=== PATIENT | female | born 1960 | race Caucasian/White ===

== ENCOUNTER → 2017-06-15 15:42 | Outpatient (CLI) | payer BC, SELFPAY ==
--- NOTE | 2017-06-15 15:50 | XR_ITS ---
EXAM: XR lumbar spine min 4V HISTORY: ITS.REASON: LOW BACK PAIN ORDERING PHYSICIAN: Sergio Hart MD PATIENT AGE: 56 years FINDINGS: There is normal alignment. Severe degenerative disc disease is present at T11-T12 T12-L1 and L1-L2. Anterior osteophytes are present at these levels with endplate sclerosis. There is facet arthritic changes at L4-L5 and L5-S1. No fracture or dislocation. No lytic or blastic change. Multiple oval opacities are present over the mid and lower abdomen and may be due to ingested medication. IMPRESSION: Severe degenerative disc disease and facet arthritic change as described above
--- NOTE | 2017-06-15 15:51 | XR_ITS ---
XR hip RT 2-3V w/pelvis HISTORY: Right hip pain ORDERING PHYSICIAN: Sergio Hart MD PATIENT AGE: 56 years FINDINGS: There are [id number] osteoarthritic changes of the right hip with decrease in joint space superiorly and mild osteosclerosis. No fracture or dislocation. There are mild osteoarthritic changes of the SI joints with spurring inferiorly. Multiple oval opacities are present over the lower abdomen on the right and may be due to ingested medication or other ingested material. IMPRESSION: Osteoarthritis of the right hip, SI joints, and to a lesser degree of the left hip
== END ==
PROVIDERS: PCP Family Medicine; Visit Provider Family Medicine
DX: M54.5 Low back pain (principal); M25.551 Pain in right hip; R10.2 Pelvic and perineal pain; W19.XXXA Unspecified fall, initial encounter
CPT/HCPCS: 72110; 73502

== ENCOUNTER → 2017-06-30 14:58 | Outpatient (CLI) | payer BC, SELFPAY ==
--- NOTE | 2017-06-30 15:41 | MR_ITS ---
MR lumbar spine wo con HISTORY: Low back pain and right leg pain with numbness and tingling since a recent fall ITS.REASON: LEFT SIDE SCIATICA, FALL ORDERING PHYSICIAN: A PATIENT AGE: 56 years COMPARISON: 08/14/2013 TECHNIQUE: Standard multiplanar multiecho sequences are performed without contrast. 3-D MIP and myelographic images are also rendered and reviewed FINDINGS: Spinal cord ends at the L1-L2 level. There is reversal of the thoracolumbar kyphosis. Degenerative disc disease is present at T11-T12. L1-L2: There is 6 mm retrolisthesis of L1 with degenerative disc disease at that level and bulging disc along facet and ligamentum flavum hypertrophy. There is moderate to severe right foraminal narrowing and severe left foraminal narrowing at L1-L2 with type II endplate changes. Anterior osteophytes are present. There is moderate anterior compression upon the thecal sac. L2-L3: Facet arthritic changes with transverse narrowing of the canal at 10 mm with bilateral lateral recess narrowing. L3-L4: Mild ligamentum flavum hypertrophy. L4-5: Minimal bulging disc along with facet and ligamentum hypertrophy with mild left lateral recess narrowing. L5-S1: Mild anterolisthesis of L5 on S1 5 mm. There is moderate facet hypertrophic change. No disc herniation evident. Compared to the previous exam degenerative disc disease at L1-L2 is slightly worse IMPRESSION: 1. Multilevel lumbar spondylosis with degenerative disc disease along with facet and ligamentum flavum hypertrophy as detailed above. Please see above for detailed description at each level. 2. 6 mm retrolisthesis of L1-L2 with degenerative disc disease at that level and bulging disc along facet and ligamentum flavum hypertrophy. There is moderate to severe right foraminal narrowing and severe left foraminal narrowing at L1-L2 with type II endplate changes. Anterior osteophytes are present. There is moderate anterior compression upon the thecal sac.
== END ==
PROVIDERS: Family Provider Family Medicine; PCP Family Medicine; Visit Provider Family Medicine
DX: M54.32 Sciatica, left side (principal)
CPT/HCPCS: 72148; 76376

== ENCOUNTER → 2017-11-21 09:29 | Outpatient (CLI) | payer BC, SELFPAY ==
[2017-11-21 11:41] LABS: Alanine Aminotransferase 21 U/L (12-78); Albumin Level 3.8 gm/dL (3.4-5.0); Alkaline Phosphatase 147 U/L (46-116); Anion Gap 16.9 mEq/L (5-15); Aspartate Amino Transferase 14 U/L (15-37); Bilirubin,Total 0.3 mg/dL (0.2-1.0); Blood Urea Nitrogen 36 mg/dL (7-18); Calcium 9.5 mg/dL (8.5-10.1); Carbon Dioxide 25 mmol/L (21.0-32.0); Chloride 104 mmol/L (98-107); Chol/HDL Ratio 3.8 (1-3.5); Cholesterol 260 mg/dL (140-200); Creatinine,Serum 1.35 mg/dL (0.55-1.02); Estimated Glomerular Filt Rate 41 ml/min (>60); GFR (African American) 49 ML/MIN (>60); Globulin 3.7 gm/dl (1.3-3.2); Glucose 107 mg/dL (74-106); HDL Cholesterol 68 mg/dL (29-89); LDL Cholesterol 174 mg/dL (0-130); Potassium 5.9 mmoL/L (3.5-5.1); Sodium 140 mmol/L (136-145); Thyroid Stimulating Hormone 4.91 uIU/ml (0.358-3.740); Total Protein,Serum 7.5 gm/dL (6.4-8.2); Triglycerides 90 mg/dL (30-200); VLDL Cholesterol 18 mg/dL (0-40)
== END ==
PROVIDERS: PCP Family Medicine; Visit Provider Family Medicine
DX: E78.5 Hyperlipidemia, unspecified (principal); E03.9 Hypothyroidism, unspecified
CPT/HCPCS: 36415; 80053; 80061; 84443

== ENCOUNTER → 2018-04-09 13:28 | Outpatient (POV) | payer BC, SELFPAY ==
[2018-04-09 13:53] VITALS: BP 157/87; PULSE 87; RESP 18; O2SAT 99
--- NOTE | 2018-04-10 08:57 | HMH.PMCON ---
Assessment and Plan (1) Degenerative disc disease Current visit: Yes Status: Chronic Qualifiers: Spinal region: lumbar Qualified Code(s): M51.36 - Other intervertebral disc degeneration, lumbar region Category: Medical (2) Lumbar radiculopathy Current visit: Yes Status: Chronic Category: Medical Code(s): M54.16 - Radiculopathy, lumbar region - Assessment and plan all Dx Assessment and Plan for all problems:: We will schedule an L1-L2 lumbar epidural steroid injection for the patient since she is done so well with this in the past we will refill her tramadol 50 mg 1 p.o. twice daily along with Flexeril 10 mg 1 p.o. 3 times daily as needed. I will follow-up with the patient after her injection and reassess her symptoms at that time. Dr. Carreon has reviewed this note and agrees with this plan of care. This note was dictated using voice recognition software and may contain errors or omissions HPI - Data of Consult Consult date: 04/09/18 Requesting Physician: Ruth Santana APRN Primary Care Provider: Sergio Hart MD - Consult Narrative Reason for consult: Back pain History of present illness: Ms. Mejia is a 57 year old female who presents today to discuss her chronic low back pain. Patient was being seen and receiving epidurals from [facility] at the L1-L2 level. Patient was then sent to Dr. Carias. Patient did not like her interaction with Dr. Carias and decided to transfer care here. Patient has had facet joint injections in the past along with rhizotomies. She is also been lumbar epidural steroid injections which have been most helpful for her. She is currently in physical therapy. Patient believes that another injection may help with her functionality. She states she gets up to 80% relief of her symptoms for up to 2 months. She is not on any anticoagulation therapy. She rates the pain a 5 out of 10 today. Patient also on tramadol and Flexeril. She is interested in continuing these. CC: Ruth Santana APRN [facility] History I have reviewed the patient's past medical history: Yes Medical History: Reports:: Hyperlipidemia, Hypertension, Palpitations Other Surgeries: Yes: Cardiac Catheterization, Tubal Ligation - *Social History Smoking Status: Current every day smoker Tobacco Type: cigarettes # Packs/Day (cigarettes): 1 Alcohol Intake: never *Occupational Status:: disabled Housing: house *Travel in the last 8 weeks: None - Psychiatric History Expresses thoughts of harming self/others: None Suicide Plan Description: No Plan Family Hx:: Unable to obtain Review of Systems - Review of Systems ROS General: no recent weight change, no fever, no sleep disturbances Respiratory: no cough, no shortness of air, no recurring pulmonary infections Cardiovascular/Peripheral Vascular: No chest pain, No palpitations, no edema, no shortness of breath. Gastrointestinal: no incontinence, normal bowel movements reported Genitourinary: no incontinence Musculoskeletal: Back pain, leg pain Psychiatric: normal mood/ affect, [denies depression], [denies anxiety] Neurological: [denies weakness in extremities], [denies balance issues] Meds Allergies Allergy/AdvReac Type Severity Reaction Status Date / Time From Hydromorphone HCl Allergy Severe I-ITCHING Uncoded 02/07/17 14:34 From Venlafaxine Allergy Mild I-RASH Uncoded 02/07/17 14:34 Hydrochloride Ofloxacin Allergy Mild I-HIVES Uncoded 02/07/17 14:34 CIPROFLOXACIN Allergy Unknown I-RASH Uncoded 02/07/17 14:34 From VICODIN Allergy Unknown Uncoded 02/07/17 14:34 Objective Vital signs: Pulse Resp BP Pulse Ox 87 18 157/87 H 99 04/09/18 13:53 04/09/18 13:53 04/09/18 13:53 04/09/18 13:53 Narrative: Physical Exam General: Alert and oriented x3, no acute distress, pleasant and cooperative, [on room air] Lungs: Resps E/U, Symmetrical chest expansion Eyes: PERRL Musculoskeletal: Flexi
--- NOTE | 2018-04-10 09:00 | P.CONS_ITS ---
Assessment and Plan (1) Degenerative disc disease Current visit: Yes Status: Chronic Qualifiers: Spinal region: lumbar Qualified Code(s): M51.36 - Other intervertebral disc degeneration, lumbar region Category: Medical (2) Lumbar radiculopathy Current visit: Yes Status: Chronic Category: Medical Code(s): M54.16 - Radiculopathy, lumbar region - Assessment and plan all Dx Assessment and Plan for all problems:: We will schedule an L1-L2 lumbar epidural steroid injection for the patient since she is done so well with this in the past we will refill her tramadol 50 mg 1 p.o. twice daily along with Flexeril 10 mg 1 p.o. 3 times daily as needed. I will follow-up with the patient after her injection and reassess her symptoms at that time. Dr. Carreon has reviewed this note and agrees with this plan of care. This note was dictated using voice recognition software and may contain errors or omissions HPI - Data of Consult Consult date: 04/09/18 Requesting Physician: Ruth Santana APRN Primary Care Provider: Sergio Hart MD - Consult Narrative Reason for consult: Back pain History of present illness: Ms. Mejia is a 57 year old female who presents today to discuss her chronic low back pain. Patient was being seen and receiving epidurals from [facility] at the L1-L2 level. Patient was then sent to Dr. Carias. Patient did not like her interaction with Dr. Carias and decided to transfer care here. Patient has had facet joint injections in the past along with rhizotomies. She is also been lumbar epidural steroid injections which have been most helpful for her. She is currently in physical therapy. Patient believes that another injection may help with her functionality. She states she gets up to 80% relief of her symptoms for up to 2 months. She is not on any anticoagulation therapy. She rates the pain a 5 out of 10 today. Patient also on tramadol and Flexeril. She is interested in continuing these. CC: Ruth Santana APRN [facility] History I have reviewed the patient's past medical history: Yes Medical History: Reports:: Hyperlipidemia, Hypertension, Palpitations Other Surgeries: Yes: Cardiac Catheterization, Tubal Ligation - *Social History Smoking Status: Current every day smoker Tobacco Type: cigarettes # Packs/Day (cigarettes): 1 Alcohol Intake: never *Occupational Status:: disabled Housing: house *Travel in the last 8 weeks: None - Psychiatric History Expresses thoughts of harming self/others: None Suicide Plan Description: No Plan Family Hx:: Unable to obtain Review of Systems - Review of Systems ROS General: no recent weight change, no fever, no sleep disturbances Respiratory: no cough, no shortness of air, no recurring pulmonary infections Cardiovascular/Peripheral Vascular: No chest pain, No palpitations, no edema, no shortness of breath. Gastrointestinal: no incontinence, normal bowel movements reported Genitourinary: no incontinence Musculoskeletal: Back pain, leg pain Psychiatric: normal mood/ affect, [denies depression], [denies anxiety] Neurological: [denies weakness in extremities], [denies balance issues] Meds Allergies Allergy/AdvReac Type Severity Reaction Status Date / Time From Hydromorphone HCl Allergy Severe I-ITCHING Uncoded 02/07/17 14:34 From Venlafaxine Allergy Mild I-RASH Uncoded 02/07/17 14:34 Hydrochloride Ofloxacin Allergy Mild I-HIVES Uncoded 02/07/17 14:34
== END ==
PROVIDERS: PCP Family Medicine; Visit Provider Clinical Nurse Specialist Family Health
DX: M51.16 Intervertebral disc disorders with radiculopathy, lumbar region (principal)
CPT/HCPCS: 99202

== ENCOUNTER → 2018-05-08 07:57 | Outpatient (CLI) | payer BC, SELFPAY ==
--- NOTE | 2018-05-08 07:59 | MR_ITS ---
MR lumbar spine wo con, MR 3-d myelogram/MRCP HISTORY: LBP XYRS. RT leg numbness, pain, and unable to control leg. Incontinence since had epidural in back x2wks ago. No HX back surgery. ITS.REASON: LOW BACK PAIN ORDERING PHYSICIAN: Arnoldo Tafoya PATIENT AGE: 57 years Comparison: MRI 06-30-17 TECHNIQUE: Standard multiplanar multiecho sequences are performed without contrast. 3-D MIP and myelographic images are also rendered and reviewed FINDINGS: There is reversal of the thoracolumbar lordosis. The spinal cord ends at the L1-L2 level. There is the appearance of thickening around the cauda equina. This however is questionable and may be related to the technique with mild motion artifact. Would suggest repeat exam without and with contrast to ensure that there is no enhancing lesion at this area.. T11-T12: Degenerative disc disease. Type I endplate changes are present at this level which have developed since the previous exam T12-L1: Degenerative disc disease with bulging disc. L1-L2: Degenerative disc disease with retrolisthesis of L1 of 7 mm. Transverse narrowing of the canal narrowed to secondary to facet and ligamentum flavum hypertrophy. There is severe bilateral foraminal narrowing at L1-L2 which does appear to be impinging upon the exiting L1 nerve roots. Type II endplate changes are present at this level. L2-L3: Mild bulging disc with mild facet and ligamentum flavum hypertrophy with mild right-sided foraminal narrowing. Mild bilateral lateral recess narrowing. L3-L4: Mild facet and ligamentum flavum hypertrophy. L4-L5: There is moderate facet hypertrophic change with mild bilateral foraminal narrowing and mild lateral recess narrowing. L5-S1: Mild anterolisthesis of L5 on S1 of 4 mm. There is a suspected left-sided pars defect. No extruded herniated disc are evident. IMPRESSION: 1. Multilevel degenerative disc disease with kyphosis at the thoracolumbar junction and bulging disc at T12-L1 and L1-L2 with 7 mm retrolisthesis of L1 on L2 with severe bilateral foraminal narrowing at that level. These findings are not significantly changed. 2. There is suggestion of thickening around the cauda equina. While this may be due to motion artifact, one cannot exclude an infiltrative process such as neoplasm or inflammation. Recommend repeat exam without and with gadolinium enhancement along with repeat sagittal T2-weighted images. 3. Degenerative disc disease at T12-L1 is somewhat worse from the previous study now with type I endplate changes 4. Multilevel lumbar spondylosis. Please see above for detailed description at each level.
== END ==
PROVIDERS: PCP Family Medicine; Visit Provider Orthopaedic Surgery
DX: M54.5 Low back pain (principal)
CPT/HCPCS: 72148; 76376

== ENCOUNTER → 2018-05-14 11:43 | Outpatient (POV) | payer BC, SELFPAY ==
[2018-05-14 11:57] VITALS: BP 141/78; PULSE 91; RESP 18; O2SAT 98; BMI 46.0
--- NOTE | 2018-05-14 12:42 | HMH.PAINSOAP ---
[facility] Pain Management SOAP Note Subjective:: Patient is a pleasant 57-year-old white female who presents today for follow-up. Patient did not have much relief from her epidural. Patient is having increased pain. Patient had a recent MRI showing a suggestion of thickening around the cauda equina. The radiologist cannot exclude an infiltrative process such as neoplasm or inflammation. Radiology recommendation was repeat exam without and with contrast along with repeat sagittal T2 weighted images. We will go forward with this. Patient states that she is having times of urinary incontinence. She states that she is unable to control her sphincter in order to have proper bowel movements. Patient has pain rating it an 8 out of 10. Patient is significantly decreased her functionality. Both legs are weak and she is utilizing a walker now. ROS General: no recent weight change, no fever, no sleep disturbances Respiratory: no cough, no shortness of air, no recurring pulmonary infections Cardiovascular/Peripheral Vascular: No chest pain, No palpitations, no edema, no shortness of breath. Gastrointestinal: Patient unable to control anal sphincter Genitourinary: New incontinence Musculoskeletal: Back pain, bilateral leg pain Psychiatric: Anxious Neurological: Bilateral weakness in lower extremities, utilizing walker for balance Objective:: Physical Exam General: Alert and oriented x3, no acute distress, pleasant and cooperative, [on room air] Lungs: Resps E/U, Symmetrical chest expansion, Eyes: PERRL Musculoskeletal: Flexion and extension of lumbar spine somewhat guarded secondary to pain, deep tendon reflexes normal, strength in upper remedies 5?5 and lower extremities [4/5], [abnormal gait noted] Neurological: speech clear, 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 We will get this as soon as possible follow-up with the patient as soon as possible. I did discuss with the patient if any symptoms worsen she is to go to the emergency room immediately. Dr. Carreon has reviewed this note and agrees with this plan of care. This note was dictated using voice recognition software and may contain errors or omissions
--- NOTE | 2018-05-14 12:47 | P.CONS_ITS ---
[facility] Pain Management SOAP Note Subjective:: Patient is a pleasant 57-year-old white female who presents today for follow-up. Patient did not have much relief from her epidural. Patient is having increased pain. Patient had a recent MRI showing a suggestion of thickening around the cauda equina. The radiologist cannot exclude an infiltrative process such as neoplasm or inflammation. Radiology recommendation was repeat exam without and with contrast along with repeat sagittal T2 weighted images. We will go forward with this. Patient states that she is having times of urinary incontinence. She states that she is unable to control her sphincter in order to have proper bowel movements. Patient has pain rating it an 8 out of 10. Pat ient is significantly decreased her functionality. Both legs are weak and she is utilizing a walker now. ROS General: no recent weight change, no fever, no sleep disturbances Respiratory: no cough, no shortness of air, no recurring pulmonary infections Cardiovascular/Peripheral Vascular: No chest pain, No palpitations, no edema, no shortness of breath. Gastrointestinal: Patient unable to control anal sphincter Genitourinary: New incontinence Musculoskeletal: Back pain, bilateral leg pain Psychiatric: Anxious Neurological: Bilateral weakness in lower extremities, utilizing walker for b alance Objective:: Physical Exam General: Alert and oriented x3, no acute distress, pleasant and cooperative, [on room air] Lungs: Resps E/U, Symmetrical chest expansion, Eyes: PERRL Musculoskeletal: Flexion and extension of lumbar spine somewhat guarded secondary to pain, deep tendon reflexes normal, strength in upper remedies 5?5 and lower extremities [4/5], [abnormal gait noted] Neurological: speech clear, 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 We will get this as soon as possible follow-up with the patient as soon as possible. I did discuss with the patient if any symptoms worsen she is to go to the emergency room immediately. Dr. Carreon has reviewed this note and agrees with this plan of care. This note was dictated using voice recognition software and may contain errors or omissions
== END ==
PROVIDERS: PCP Family Medicine; Visit Provider Clinical Nurse Specialist Family Health
DX: R93.89 Abnormal findings on diagnostic imaging of other specified body structures (principal); M47.9 Spondylosis, unspecified
CPT/HCPCS: 99213

== ENCOUNTER → 2018-05-28 08:13 | Outpatient (CLI) | payer BC, SELFPAY ==
[2018-05-28 08:33] LABS: Blood Urea Nitrogen 26 mg/dL (7-18); Creatinine,Serum 1.26 mg/dL (0.55-1.02); Estimated Glomerular Filt Rate 44 ml/min (>60); GFR (African American) 53 ML/MIN (>60)
--- NOTE | 2018-05-28 08:42 | MR_ITS ---
MR lumbar spine wo/w con, MR 3-d myelogram/MRCP HISTORY: LBP XYRS. No HX lumbar surgery. RT leg numbness. Incontience. abnormal ITS.REASON: BACK PAIN ORDERING PHYSICIAN: Ruth Santana PATIENT AGE: 57 years Comparison: MRI 05-08-18 TECHNIQUE: Standard multiplanar multiecho sequences are performed without and with gadolinium enhancement contrast. 3-D MIP and myelographic images are also rendered and reviewed FINDINGS: There is reversal of the thoracolumbar lordosis. The spinal cord ends at the L1-L2 level. There is no evidence of abnormal enhancement of the cauda equina. The appearance of the cauda equina on the previous study is just likely related to the layering of the nerve roots and the canal stenosis at the L1-L2 level the nerve roots do not appear clumped as one would expect for arachnoiditis. No significant change compared to the previous exam. T11-T12: Degenerative disc disease. Type I endplate changes are present at this level which have developed since the previous exam T12-L1: Degenerative disc disease with bulging disc. There are type I endplate changes. The endplates have decreased T1 and increased T2 signal with some mild endplate enhancement. L1-L2: Degenerative disc disease with retrolisthesis of L1 of 7 mm. Transverse narrowing of the canal narrowed to secondary to facet and ligamentum flavum hypertrophy. There is severe bilateral foraminal narrowing at L1-L2 which does appear to be impinging upon the exiting L1 nerve roots. Type II endplate changes are present at this level. L2-L3: Mild bulging disc with mild facet and ligamentum flavum hypertrophy with mild right-sided foraminal narrowing. Mild bilateral lateral recess narrowing. L3-L4: Mild facet and ligamentum flavum hypertrophy. L4-L5: There is moderate facet hypertrophic change with mild bilateral foraminal narrowing and mild lateral recess narrowing. L5-S1: Mild anterolisthesis of L5 on S1 of 4 mm. There is a suspected left-sided pars defect. IMPRESSION: Overall no significant change compared to the previous study with multilevel lumbar spondylosis with narrowing of the canal at L1-L2 and type I endplate changes with some mild enhancement which may be discogenic in nature. Please see above for detailed description at each level. No evidence of enhancement of the cauda equina. The thickening noted previously is likely result of the narrowing of the canal at L1-L2. There is retrolisthesis of L1 on L2 with transverse narrowing of the canal along with bilateral lateral recess and severe bilateral foraminal narrowing.
--- NOTE | 2018-05-28 10:40 | HMH.ITSHM ---
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 []SYNTHROID METOPROLOL MOBIC GABAPENTIN VALIUM FLEXERIL PRILOSEC
== END ==
PROVIDERS: Visit Provider Clinical Nurse Specialist Family Health
DX: M54.5 Low back pain (principal)
CPT/HCPCS: 36415; 72158; 76376; 82565; 84520; A9576

== ENCOUNTER → 2018-06-04 11:42 | Outpatient (POV) | payer BC, SELFPAY ==
[2018-06-04 11:58] VITALS: BP 140/65; PULSE 89; RESP 18; O2SAT 98; BMI 46.0
--- NOTE | 2018-06-04 12:15 | HMH.PAINSOAP ---
[facility] Pain Management SOAP Note Subjective:: She is a pleasant 57-year-old white female who presents today for for follow-up after MRI. Patient did have thickening around the cauda equina however recent MRI has ruled out any potential issues. Patient rates her pain a 7 out of 10 mostly in her right hip and knee patient states that her urinary incontinence has begun to resolve. Patient and I discussed plan of care moving forward. Patient would like to see Orth O in regards to her hip I do believe that would be beneficial. Patient and I also discussed neural stimulation. ROS General: no recent weight change, no fever, no sleep disturbances Respiratory: no cough, no shortness of air, no recurring pulmonary infections Cardiovascular/Peripheral Vascular: No chest pain, No palpitations, no edema, no shortness of breath. Gastrointestinal: no incontinence, normal bowel movements reported Genitourinary: no incontinence Musculoskeletal: Back pain, hip pain, knee pain Psychiatric: normal mood/ affect Neurological: [denies weakness in extremities], [denies balance issues] Objective:: Physical Exam General: Alert and oriented x3, no acute distress, pleasant and cooperative, [on room air] Lungs: Resps E/U, Symmetrical chest expansion, Eyes: PERRL Musculoskeletal: Flexion and extension of lumbar spine somewhat guarded secondary to pain, deep tendon reflexes normal, strength in upper and lower extremities [5/5], [abnormal gait noted] Neurological: speech clear, hydro mechanic equal, no gross sensory deficits Assessment:: Degenerative disc disease lumbar spine with lumbar radiculopathy along with severe spondylosis and right hip pain and right knee pain Plan:: We will send the patient to consultation on her right hip and right knee pain. I also gave her information in regards to neuro stimulation. I will follow-up with the patient after her consultation and reassess her symptoms at that time she is been instructed to call the office if she has any issues prior to her next appointment. Dr. Carreon has reviewed this note and agrees with this plan of care. This note was dictated using voice recognition software and may contain errors or omissions
--- NOTE | 2018-06-04 12:18 | P.CONS_ITS ---
[facility] Pain Management SOAP Note Subjective:: She is a pleasant 57-year-old white female who presents today for for follow-up after MRI. Patient did have thickening around the cauda equina however recent MRI has ruled out any potential issues. Patient rates her pain a 7 out of 10 mostly in her right hip and knee patient states that her urinary incontinence has begun to resolve. Patient and I discussed plan of care moving forward. Patient would like to see Orth O in regards to her hip I do believe that would be beneficial. Patient and I also discussed neural stimulation. ROS General: no recent weight change, no fever, no sleep disturbances Respiratory: no cough, no shortness of air, no recurring pulmonary infections Cardiovascular/Peripheral Vascular: No chest pain, No palpitations, no edema, no shortness of breath. Gastrointestinal: no incontinence, normal bowel movements reported Genitourinary: no incontinence Musculoskeletal: Back pain, hip pain, knee pain Psychiatric: normal mood/ affect Neurological: [denies weakness in extremities], [denies balance issues] Objective:: Physical Exam General: Alert and oriented x3, no acute distress, pleasant and cooperative, [on room air] Lungs: Resps E/U, Symmetrical chest expansion, Eyes: PERRL Musculoskeletal: Flexion and extension of lumbar spine somewhat guarded secondary to pain, deep tendon reflexes normal, strength in upper and lower extremities [5/5], [abnormal gait noted] Neurological: speech clear, construction sales manager equal, no gross sensory deficits Assessment:: Degenerative disc disease lumbar spine with lumbar radiculopathy along with severe spondylosis and right hip pain and right knee pain Plan:: We will send the patient to consultation on her right hip and right knee pain. I also gave her information in regards to neuro stimulation. I will follow-up with the patient after her consultation and reassess her symptoms at that time she is been instructed to call the office if she has any issues prior to her next appointment. Dr. Carreon has reviewed this note and agrees with this plan of care. This note was dictated using voice recognition software and may contain errors or omissions
== END ==
PROVIDERS: PCP Family Medicine; Visit Provider Clinical Nurse Specialist Family Health
DX: M51.16 Intervertebral disc disorders with radiculopathy, lumbar region (principal); M47.9 Spondylosis, unspecified; M25.551 Pain in right hip; M25.561 Pain in right knee
CPT/HCPCS: 99212

== ENCOUNTER → 2018-06-13 08:37 | Outpatient (CLI) | payer BC, SELFPAY ==
--- NOTE | 2018-06-13 08:41 | XR_ITS ---
XR knee RT 3V HISTORY: ITS.REASON: RT KNEE PAIN ORDERING PHYSICIAN: Ruth Santana APRN PATIENT AGE: 57 years COMPARISON: None FINDINGS: No fracture or dislocation. No lytic or blastic change. Normal mineralization. No significant arthritic changes evident. No other significant findings IMPRESSION: Negative Knee
--- NOTE | 2018-06-13 08:41 | XR_ITS ---
XR hip RT 2-3V w/pelvis HISTORY: Chronic hip pain. ITS.REASON: RT KNEE PAIN ORDERING PHYSICIAN: Ruth Santana APRN PATIENT AGE: 57 years COMPARISON: None FINDINGS: There are severe osteoarthritic changes of the right hip. A well-circumscribed calcific density is present along the lateral aspect of the acetabulum and appears to represent a fractured portion of the lateral lip of the acetabulum. This has developed since 06/15/2017. The fracture fragment measures approximately 14 mm and is displaced laterally by approximately 6 mm. There is mild lateral displacement of the MR head. There is some mild flattening of the femoral head which is developed since the previous exam with neck subchondral sclerosis and lucency consistent with dysplastic change from the severe osteoarthritis. Avascular necrosis is also a consideration. There are mild osteoarthritic changes of the left hip. There are multiple opacities in the right lower quadrant and one in the left lower quadrant and may be due to undigested medication. IMPRESSION: 1. Severe osteoarthritis of the right hip which has progressed since the previous exam. There is some mild flattening of the femoral head with mixed subchondral lucencies and sclerosis at the acetabular roof and femoral head. Dysplastic changes are developing of the femoral head versus avascular necrosis. 2. Mildly displaced fracture of the lateral lip of the acetabular roof
--- NOTE | 2018-06-14 13:55 | PC.PHONENOTE ---
called in refill Rx for tramadol 50mg TID with 2 refills and Flexeril 10mg TID with 2 refills to [facility]
== END ==
PROVIDERS: PCP Family Medicine; Visit Provider Clinical Nurse Specialist Family Health
DX: M25.561 Pain in right knee (principal)
CPT/HCPCS: 73502; 73562

== ENCOUNTER → 2018-08-06 09:17 | Outpatient (POV) | payer BC, SELFPAY ==
[2018-08-06 10:06] VITALS: BP 127/72; PULSE 91; RESP 18; O2SAT 98; BMI 47.5
--- NOTE | 2018-08-06 13:57 | HMH.PAINSOAP ---
[facility] Pain Management SOAP Note Subjective:: Patient is a pleasant 57-year-old white female who presents today for follow-up for pain to lower back radiating to right hip and right knee. Patient is scheduled for orthopedic surgery, however it has been postponed. The patient has teeth that need to be extracted prior to her orthopedic procedure. She says that she is unable to tolerate the pain. She is currently taking tramadol 50 mg 1 to p.o. 3 times daily and gabapentin 600 mg 1 tablet p.o. 2 times daily. She says the medication does not work, but it is not lasting longer. She rates her pain a 9 out of 10 today. 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 ROS General: no recent weight change, no fever, no sleep disturbances Respiratory: no cough, no shortness of air, no recurring pulmonary infections Cardiovascular/Peripheral Vascular: No chest pain, No palpitations, no edema, no shortness of breath. Gastrointestinal: no incontinence, normal bowel movements reported Genitourinary: no incontinence Musculoskeletal: Back pain, leg pain Psychiatric: normal mood/ affect, [denies depression], [denies anxiety] Neurological: [denies weakness in extremities], [denies balance issues] Objective:: Physical Exam General: Alert and oriented x3, no acute distress, pleasant and cooperative, [on room air] Lungs: Resps E/U, Symmetrical chest expansion, Eyes: PERRL Musculoskeletal: Flexion and extension of lumbar spine somewhat guarded secondary to pain, range of motion right leg somewhat guarded secondary to pain, deep tendon reflexes normal, strength in upper and lower extremities [5/5], [abnormal gait noted] Neurological: speech clear, machine engineer equal, no gross sensory deficits Assessment:: Degenerative disc disease lumbar spine with lumbar radiculopathy along with severe spondylosis and right hip pain and right knee pain Plan:: The patient is currently attempting a home stretching program along with anti-inflammatories. We will increase her tramadol to 50 mg 1 tablet p.o. 6 times daily. She denies any side effects to medications. See the patient back in 1 month reassess her symptoms at that time. [facility] #[id number] has been reviewed and is appropriate. She is been instructed to call the office if she has any concerns prior to her next appointment. Dr. Carreon has reviewed this note and agrees with this plan of care. This note was dictated using voice recognition software and may contain errors or omissions
--- NOTE | 2018-08-06 14:01 | P.CONS_ITS ---
[facility] Pain Management SOAP Note Subjective:: Patient is a pleasant 57-year-old white female who presents today for follow-up for pain to lower back radiating to right hip and right knee. Patient is scheduled for orthopedic surgery, however it has been postponed. The patient has teeth that need to be extracted prior to her orthopedic procedure. She says that she is unable to tolerate the pain. She is currently taking tramadol 50 mg 1 to p.o. 3 times daily and gabapentin 600 mg 1 tablet p.o. 2 times daily. She says the medication does not work, but it is not lasting longer. She rates her pain a 9 out of 10 today. 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 ROS General: no recent weight change, no fever, no sleep disturbances Respiratory: no cough, no shortness of air, no recurring pulmonary infections Cardiovascular/Peripheral Vascular: No chest pain, No palpitations, no edema, no shortness of breath. Gastrointestinal: no incontinence, normal bowel movements reported Genitourinary: no incontinence Musculoskeletal: Back pain, leg pain Psychiatric: normal mood/ affect, [denies depression], [denies anxiety] Neurological: [denies weakness in extremities], [denies balance issues] Objective:: Physical Exam General: Alert and oriented x3, no acute distress, pleasant and cooperative, [on room air] Lungs: Resps E/U, Symmetrical chest expansion, Eyes: PERRL Musculoskeletal: Flexion and extension of lumbar spine somewhat guarded secondary to pain, range of motion right leg somewhat guarded secondary to pain, deep tendon reflexes normal, strength in upper and lower extremities [5/5], [abnormal gait noted] Neurological: speech clear, massotherapist equal, no gross sensory deficits Assessment:: Degenerative disc disease lumbar spine with lumbar radiculopathy along with severe spondylosis and right hip pain and right knee pain Plan:: The patient is currently attempting a home stretching program along with anti- inflammatories. We will increase her tramadol to 50 mg 1 tablet p.o. 6 times daily. She denies any side effects to medications. See the patient back in 1 month reassess her symptoms at that time. [facility] #[id number] has been reviewed and is appropriate. She is been instructed to call the office if she has any concerns prior to her next appointment. Dr. Carreon has reviewed this note and agrees with this plan of care. This note was dictated using voice recognition software and may contain errors or omissions
== END ==
PROVIDERS: PCP Family Medicine; Visit Provider Clinical Nurse Specialist Family Health
DX: M51.16 Intervertebral disc disorders with radiculopathy, lumbar region (principal); M47.896 Other spondylosis, lumbar region; M25.551 Pain in right hip; M25.561 Pain in right knee
CPT/HCPCS: 99212

== ENCOUNTER → 2018-09-30 18:01 | Outpatient (CLI) | payer BC, SELFPAY | PROVIDERS: Visit Provider Nurse Practitioner Family | DX: J02.9 Acute pharyngitis, unspecified (principal) ==

== ENCOUNTER → 2018-10-08 16:30 | Outpatient (CLI) | payer BC, SELFPAY ==
--- NOTE | 2018-10-08 | XR_ITS ---
PROCEDURE: XR HIP RT 2-3V W/PELVIS CLINICAL INDICATION: Severe right hip pain unable to walk or bear weight COMPARISON: HIPCMRT XR hip RT 2-3V w/pelvis from 06/15/2017 from 06/13/2018 FINDINGS: There are erosive changes of the femoral head and the adjacent acetabulum which has progressed since the previous exam with mild lateral subluxation of the femoral head. Previously noted triangular shaped bone fragment once again noted laterally. No acute fracture is evident. There remains multiple oval opacities in the right lower quadrant once again noted as well as 2 opacities in the rectal region. Degenerative changes are present in the lumbar spine. IMPRESSION: Progressive erosive change of the femoral head and acetabular roof which may represent progressive erosive osteoarthritic changes of the right hip. Rheumatoid arthritis of the hip is also a consideration. No acute fracture or dislocation is evident. Dictated by: Glen Graham MD 10/08/2018 17:35 Signed by: <Electronically signed by Glen Graham MD in [place]> 10/08/2018 17:35
== END ==
PROVIDERS: PCP Family Medicine; Visit Provider Family Medicine
DX: M25.551 Pain in right hip (principal)
CPT/HCPCS: 73502

== ENCOUNTER → 2018-10-10 18:04 | Outpatient (CLI) | payer BC, SELFPAY ==
[2018-10-10 19:44] LABS: Erythrocyte Sedimentation Rate 95 mm/hr (0-30)
[2018-10-10 21:10] LABS: Blood Urea Nitrogen 27 mg/dL (7-18); Calcium 9.8 mg/dL (8.5-10.1); Carbon Dioxide 28 mmol/L (21.0-32.0); Chloride 92 mmol/L (98-107); Creatinine,Serum 1.88 mg/dL (0.55-1.02); Estimated Glomerular Filt Rate 28 ml/min (>60); GFR (African American) 33 ML/MIN (>60); Glucose 156 mg/dL (74-106); Iron 32 ug/dl (28-170); Sodium 130 mmol/L (136-145); Uric Acid 9.4 mg/dL (2.6-7.2)
[2018-10-12 08:14] LABS: Iron 32 ug/dL (27-159); UIBC 262 ug/dL (131-425)
[2018-10-12 09:47] LABS: Folate 11.3 ng/mL (>3.0); Iron Saturation 11 % (15-55)
[2018-10-12 12:08] LABS: RA Latex Turbid. 10.3 IU/mL (0.0-13.9); Vitamin B12 1484 pg/mL (232-1245)
[2018-10-15 15:27] LABS: Antinuclear Antibodies, IFA Negative (.)
== END ==
PROVIDERS: Visit Provider Family Medicine
DX: D50.8 Other iron deficiency anemias (principal); R25.2 Cramp and spasm
CPT/HCPCS: 36415; 80048; 82607; 82746; 83540; 83550; 84550; 85651; 86038; 86431

== ENCOUNTER → 2018-11-19 16:55 | Outpatient (CLI) | payer BC, MEDICARE, SELFPAY ==
[2018-11-19 17:11] LABS: Basophils # 0.1 K/mm3 (0-0.2); Basophils % 0.4 % (0.1-2.0); Eosinophils # 0.3 K/mm3 (0.0-0.4); Eosinophils % 2.5 % (0.1-12.0); Hematocrit 29.6 % (37.0-47.0); Lymphocytes # 1.8 K/mm3 (0.7-4.5); Lymphocytes % 16.9 % (10-50); Mean Corpuscular HGB Conc 30.2 g/dL (31.8-35.4); Mean Corpuscular Hemoglobin 26.6 pg (27.0-31.2); Mean Corpuscular Volume 88.1 fl (81-99); Mean Platelet Volume 7.4 fl (7.4-10.4); Monocytes # 0.8 K/mm3 (0.1-1.0); Monocytes % 7.2 % (1.7-9.3); Neutrophils # 7.8 K/mm3 (1.8-7.8); Neutrophils % 72.9 % (37.0-80.0); Platelet Count 409 K/mm3 (142-424); Red Blood Count 3.36 M/mm3 (4.20-5.40); Red Cell Distribution Width 18.4 % (11.5-17.5); White Blood Count 10.7 K/mm3 (4.8-10.8)
[2018-11-19 17:30] LABS: Alanine Aminotransferase 16 U/L (12-78); Albumin Level 2.4 gm/dL (3.4-5.0); Albumin/Globulin Ratio 0.7 (1.1-1.8); Alkaline Phosphatase 138 U/L (46-116); Anion Gap 15.1 mEq/L (5-15); Aspartate Amino Transferase 9 U/L (15-37); Bilirubin,Total 0.2 mg/dL (0.2-1.0); Blood Urea Nitrogen 14 mg/dL (7-18); Calcium 8.5 mg/dL (8.5-10.1); Carbon Dioxide 25 mmol/L (21.0-32.0); Chloride 106 mmol/L (98-107); Creatinine,Serum 1.06 mg/dL (0.55-1.02); Estimated Glomerular Filt Rate 54 ml/min (>60); GFR (African American) 65 ML/MIN (>60); Globulin 3.6 gm/dl (1.3-3.2); Glucose 120 mg/dL (74-106); Potassium 4.1 mmoL/L (3.5-5.1); Sodium 142 mmol/L (136-145)
[2018-11-19 17:40] LABS: Vancomycin,Trough 9.8 mcg/ml (10.0-20.0)
== END ==
PROVIDERS: Visit Provider Internal Medicine
DX: M86.9 Osteomyelitis, unspecified (principal); M54.16 Radiculopathy, lumbar region
CPT/HCPCS: 80053; 80202; 85025; 86140

== ENCOUNTER → 2018-11-22 16:57 | Outpatient (CLI) | payer BC, MEDICARE, SELFPAY ==
[2018-11-22 19:08] LABS: Anion Gap 15.4 mEq/L (5-15); Blood Urea Nitrogen 12 mg/dL (7-18); Calcium 8.7 mg/dL (8.5-10.1); Carbon Dioxide 25 mmol/L (21.0-32.0); Chloride 107 mmol/L (98-107); Creatinine,Serum 1.18 mg/dL (0.55-1.02); Estimated Glomerular Filt Rate 47 ml/min (>60); GFR (African American) 57 ML/MIN (>60); Glucose 119 mg/dL (74-106); Potassium 4.4 mmoL/L (3.5-5.1); Sodium 143 mmol/L (136-145); Vancomycin,Trough 13.5 mcg/ml (10.0-20.0)
== END ==
PROVIDERS: Visit Provider Family Medicine
DX: M86.9 Osteomyelitis, unspecified (principal)
CPT/HCPCS: 36415; 80048; 80202

== ENCOUNTER → 2018-11-27 14:25 | Outpatient (CLI) | payer BC, MEDICARE, SELFPAY ==
[2018-11-27 15:07] LABS: Basophils # 0.1 K/mm3 (0-0.2); Basophils % 0.6 % (0.1-2.0); Eosinophils # 0.2 K/mm3 (0.0-0.4); Eosinophils % 2.1 % (0.1-12.0); Hematocrit 32.3 % (37.0-47.0); Hemoglobin 9.4 g/dL (12.2-16.2); Mean Corpuscular HGB Conc 29.2 g/dL (31.8-35.4); Mean Corpuscular Hemoglobin 27.2 pg (27.0-31.2); Mean Corpuscular Volume 93.3 fl (81-99); Monocytes # 0.5 K/mm3 (0.1-1.0); Monocytes % 4.5 % (1.7-9.3); Neutrophils # 8.8 K/mm3 (1.8-7.8); Neutrophils % 75.8 % (37.0-80.0); Platelet Count 465 K/mm3 (142-424); Red Blood Count 3.46 M/mm3 (4.20-5.40); Red Cell Distribution Width 19.7 % (11.5-17.5); White Blood Count 11.6 K/mm3 (4.8-10.8)
[2018-11-27 15:44] LABS: Alanine Aminotransferase 14 U/L (12-78); Albumin Level 2.8 gm/dL (3.4-5.0); Albumin/Globulin Ratio 0.8 (1.1-1.8); Alkaline Phosphatase 147 U/L (46-116); Anion Gap 12.6 mEq/L (5-15); Aspartate Amino Transferase 11 U/L (15-37); Bilirubin,Total 0.2 mg/dL (0.2-1.0); Blood Urea Nitrogen 11 mg/dL (7-18); C-Reactive Protein 1.6 mg/dL (0.0-0.9); Calcium 8.3 mg/dL (8.5-10.1); Carbon Dioxide 27 mmol/L (21.0-32.0); Chloride 105 mmol/L (98-107); Creatinine,Serum 1.13 mg/dL (0.55-1.02); Estimated Glomerular Filt Rate 50 ml/min (>60); GFR (African American) 60 ML/MIN (>60); Globulin 3.4 gm/dl (1.3-3.2); Glucose 94 mg/dL (74-106); Potassium 4.6 mmoL/L (3.5-5.1); Sodium 140 mmol/L (136-145); Total Protein,Serum 6.2 gm/dL (6.4-8.2); Vancomycin,Trough 14.7 mcg/ml (10.0-20.0)
== END ==
PROVIDERS: Visit Provider Internal Medicine
DX: M86.9 Osteomyelitis, unspecified (principal); M54.16 Radiculopathy, lumbar region
CPT/HCPCS: 36415; 80053; 80202; 85025; 86140

== ENCOUNTER → 2018-12-03 15:46 | Outpatient (CLI) | payer BC, MEDICARE, SELFPAY ==
[2018-12-03 16:00] LABS: Basophils % 0.3 % (0.1-2.0); Eosinophils # 0.2 K/mm3 (0.0-0.4); Eosinophils % 1.5 % (0.1-12.0); Hematocrit 32.7 % (37.0-47.0); Hemoglobin 9.5 g/dL (12.2-16.2); Lymphocytes # 1.7 K/mm3 (0.7-4.5); Lymphocytes % 13.5 % (10-50); Mean Corpuscular HGB Conc 29.2 g/dL (31.8-35.4); Mean Corpuscular Hemoglobin 26.9 pg (27.0-31.2); Mean Corpuscular Volume 92.3 fl (81-99); Mean Platelet Volume 7.2 fl (7.4-10.4); Monocytes # 0.7 K/mm3 (0.1-1.0); Monocytes % 5.6 % (1.7-9.3); Neutrophils # 10.2 K/mm3 (1.8-7.8); Neutrophils % 79.1 % (37.0-80.0); Platelet Count 341 K/mm3 (142-424); Red Blood Count 3.54 M/mm3 (4.20-5.40); Red Cell Distribution Width 20.1 % (11.5-17.5); White Blood Count 12.8 K/mm3 (4.8-10.8)
[2018-12-03 17:34] LABS: Alanine Aminotransferase 15 U/L (12-78); Albumin Level 2.9 gm/dL (3.4-5.0); Albumin/Globulin Ratio 0.8 (1.1-1.8); Alkaline Phosphatase 149 U/L (46-116); Anion Gap 13.6 mEq/L (5-15); Aspartate Amino Transferase 16 U/L (15-37); Bilirubin,Total 0.2 mg/dL (0.2-1.0); Blood Urea Nitrogen 15 mg/dL (7-18); C-Reactive Protein 0.7 mg/dL (0.0-0.9); Calcium 8.7 mg/dL (8.5-10.1); Carbon Dioxide 26 mmol/L (21.0-32.0); Chloride 102 mmol/L (98-107); Creatinine,Serum 1.21 mg/dL (0.55-1.02); Estimated Glomerular Filt Rate 46 ml/min (>60); GFR (African American) 56 ML/MIN (>60); Globulin 3.5 gm/dl (1.3-3.2); Glucose 90 mg/dL (74-106); Potassium 4.6 mmoL/L (3.5-5.1); Sodium 137 mmol/L (136-145); Total Protein,Serum 6.4 gm/dL (6.4-8.2); Vancomycin,Trough 13.7 mcg/ml (10.0-20.0)
== END ==
PROVIDERS: Visit Provider Internal Medicine
DX: M86.9 Osteomyelitis, unspecified (principal)
CPT/HCPCS: 80053; 80202; 85025; 86140

== ENCOUNTER → 2018-12-10 15:43 | Outpatient (CLI) | payer BC, MEDICARE, SELFPAY ==
[2018-12-10 15:52] LABS: Basophils # 0.1 K/mm3 (0-0.2); Basophils % 0.4 % (0.1-2.0); Eosinophils # 0.3 K/mm3 (0.0-0.4); Eosinophils % 2.5 % (0.1-12.0); Hematocrit 29.7 % (37.0-47.0); Hemoglobin 9.3 g/dL (12.2-16.2); Lymphocytes # 2.1 K/mm3 (0.7-4.5); Lymphocytes % 15.5 % (10-50); Mean Corpuscular HGB Conc 31.5 g/dL (31.8-35.4); Mean Corpuscular Hemoglobin 28.8 pg (27.0-31.2); Mean Corpuscular Volume 91.7 fl (81-99); Mean Platelet Volume 7.4 fl (7.4-10.4); Monocytes # 0.7 K/mm3 (0.1-1.0); Monocytes % 5.4 % (1.7-9.3); Neutrophils # 10.4 K/mm3 (1.8-7.8); Neutrophils % 76.2 % (37.0-80.0); Platelet Count 317 K/mm3 (142-424); Red Blood Count 3.24 M/mm3 (4.20-5.40); Red Cell Distribution Width 19.6 % (11.5-17.5); White Blood Count 13.6 K/mm3 (4.8-10.8)
[2018-12-10 18:03] LABS: Alanine Aminotransferase 8 U/L (12-78); Albumin Level 2.7 gm/dL (3.4-5.0); Albumin/Globulin Ratio 0.9 (1.1-1.8); Alkaline Phosphatase 132 U/L (46-116); Anion Gap 12.1 mEq/L (5-15); Aspartate Amino Transferase 9 U/L (15-37); Bilirubin,Total 0.1 mg/dL (0.2-1.0); Blood Urea Nitrogen 14 mg/dL (7-18); C-Reactive Protein 0.5 mg/dL (0.0-0.9); Calcium 8.5 mg/dL (8.5-10.1); Carbon Dioxide 27 mmol/L (21.0-32.0); Chloride 104 mmol/L (98-107); Creatinine,Serum 1.12 mg/dL (0.55-1.02); Estimated Glomerular Filt Rate 50 ml/min (>60); GFR (African American) 61 ML/MIN (>60); Globulin 3.1 gm/dl (1.3-3.2); Glucose 90 mg/dL (74-106); Potassium 5.1 mmoL/L (3.5-5.1); Sodium 138 mmol/L (136-145); Total Protein,Serum 5.8 gm/dL (6.4-8.2)
== END ==
PROVIDERS: Visit Provider Internal Medicine
DX: M86.9 Osteomyelitis, unspecified (principal); Z51.81 Encounter for therapeutic drug level monitoring
CPT/HCPCS: 80053; 80202; 85025; 86140

== ENCOUNTER → 2018-12-17 16:04 | Outpatient (CLI) | payer BC, MEDICARE, SELFPAY ==
[2018-12-17 17:06] LABS: Basophils # 0.1 K/mm3 (0-0.2); Basophils % 0.5 % (0.1-2.0); Eosinophils # 0.3 K/mm3 (0.0-0.4); Hematocrit 28.6 % (37.0-47.0); Hemoglobin 9.1 g/dL (12.2-16.2); Lymphocytes % 14.9 % (10-50); Mean Corpuscular HGB Conc 31.8 g/dL (31.8-35.4); Mean Corpuscular Hemoglobin 29.2 pg (27.0-31.2); Monocytes # 0.7 K/mm3 (0.1-1.0); Monocytes % 5.2 % (1.7-9.3); Neutrophils # 10.2 K/mm3 (1.8-7.8); Neutrophils % 77.3 % (37.0-80.0); Platelet Count 370 K/mm3 (142-424); Red Blood Count 3.11 M/mm3 (4.20-5.40); Red Cell Distribution Width 19.4 % (11.5-17.5); White Blood Count 13.1 K/mm3 (4.8-10.8)
[2018-12-17 18:56] LABS: Alanine Aminotransferase 17 U/L (12-78); Alkaline Phosphatase 139 U/L (46-116); Anion Gap 17.7 mEq/L (5-15); Aspartate Amino Transferase 12 U/L (15-37); Bilirubin,Total 0.2 mg/dL (0.2-1.0); Blood Urea Nitrogen 20 mg/dL (7-18); C-Reactive Protein 1.6 mg/dL (0.0-0.9); Calcium 8.5 mg/dL (8.5-10.1); Carbon Dioxide 24 mmol/L (21.0-32.0); Chloride 103 mmol/L (98-107); Creatinine,Serum 1.31 mg/dL (0.55-1.02); Estimated Glomerular Filt Rate 42 ml/min (>60); GFR (African American) 51 ML/MIN (>60); Globulin 3.1 gm/dl (1.3-3.2); Glucose 103 mg/dL (74-106); Potassium 4.7 mmoL/L (3.5-5.1); Sodium 140 mmol/L (136-145); Total Protein,Serum 6.1 gm/dL (6.4-8.2); Vancomycin,Trough 13.8 mcg/ml (10.0-20.0)
== END ==
PROVIDERS: Visit Provider Internal Medicine
DX: M86.9 Osteomyelitis, unspecified (principal)
CPT/HCPCS: 80053; 80202; 85025; 86140

== ENCOUNTER → 2018-12-20 15:42 | Outpatient (CLI) | payer BC, MEDICARE, SELFPAY ==
[2018-12-20 16:39] LABS: Anion Gap 12.2 mEq/L (5-15); Blood Urea Nitrogen 17 mg/dL (7-18); Calcium 8.8 mg/dL (8.5-10.1); Carbon Dioxide 25 mmol/L (21.0-32.0); Chloride 105 mmol/L (98-107); Creatinine,Serum 1.15 mg/dL (0.55-1.02); Estimated Glomerular Filt Rate 49 ml/min (>60); GFR (African American) 59 ML/MIN (>60); Glucose 69 mg/dL (74-106); Potassium 5.2 mmoL/L (3.5-5.1); Sodium 137 mmol/L (136-145)
== END ==
PROVIDERS: Visit Provider Family Medicine
DX: M86.151 Other acute osteomyelitis, right femur (principal); M00.851 Arthritis due to other bacteria, right hip; M00.051 Staphylococcal arthritis, right hip; B95.7 Other staphylococcus as the cause of diseases classified elsewhere; M15.9 Polyosteoarthritis, unspecified
CPT/HCPCS: 80048; 80202

== ENCOUNTER → 2018-12-24 16:24 | Outpatient (CLI) | payer BC, MEDICARE, SELFPAY ==
[2018-12-24 17:00] LABS: Basophils % 0.3 % (0.1-2.0); Eosinophils # 0.2 K/mm3 (0.0-0.4); Eosinophils % 1.9 % (0.1-12.0); Hematocrit 29.4 % (37.0-47.0); Lymphocytes # 1.7 K/mm3 (0.7-4.5); Lymphocytes % 16.1 % (10-50); Mean Corpuscular HGB Conc 30.6 g/dL (31.8-35.4); Mean Corpuscular Hemoglobin 28.8 pg (27.0-31.2); Mean Corpuscular Volume 94.3 fl (81-99); Mean Platelet Volume 8.2 fl (7.4-10.4); Monocytes # 0.6 K/mm3 (0.1-1.0); Monocytes % 5.7 % (1.7-9.3); Neutrophils # 8.2 K/mm3 (1.8-7.8); Platelet Count 397 K/mm3 (142-424); Red Blood Count 3.12 M/mm3 (4.20-5.40); Red Cell Distribution Width 19.1 % (11.5-17.5); White Blood Count 10.8 K/mm3 (4.8-10.8)
[2018-12-24 18:17] LABS: Alanine Aminotransferase 13 U/L (12-78); Albumin/Globulin Ratio 0.9 (1.1-1.8); Alkaline Phosphatase 136 U/L (46-116); Anion Gap 14.6 mEq/L (5-15); Aspartate Amino Transferase 10 U/L (15-37); Bilirubin,Total 0.2 mg/dL (0.2-1.0); Blood Urea Nitrogen 17 mg/dL (7-18); C-Reactive Protein 2.4 mg/dL (0.0-0.9); Calcium 8.9 mg/dL (8.5-10.1); Carbon Dioxide 25 mmol/L (21.0-32.0); Chloride 104 mmol/L (98-107); Creatinine,Serum 1.15 mg/dL (0.55-1.02); Estimated Glomerular Filt Rate 49 ml/min (>60); GFR (African American) 59 ML/MIN (>60); Globulin 3.3 gm/dl (1.3-3.2); Glucose 82 mg/dL (74-106); Potassium 4.6 mmoL/L (3.5-5.1); Sodium 139 mmol/L (136-145); Total Protein,Serum 6.3 gm/dL (6.4-8.2); Vancomycin,Trough 12.6 mcg/ml (10.0-20.0)
== END ==
PROVIDERS: Visit Provider Internal Medicine
DX: M86.151 Other acute osteomyelitis, right femur (principal); M00.851 Arthritis due to other bacteria, right hip; M00.051 Staphylococcal arthritis, right hip; B95.7 Other staphylococcus as the cause of diseases classified elsewhere; M15.9 Polyosteoarthritis, unspecified
CPT/HCPCS: 80053; 80202; 85025; 86140

== ENCOUNTER → 2018-12-25 09:26 | Outpatient (POV) | payer BC, MEDICARE, SELFPAY ==
[2018-12-25 09:48] VITALS: BP 136/77; PULSE 89; RESP 18; O2SAT 98; BMI 43.9
--- NOTE | 2018-12-25 15:32 | HMH.PAINSOAP ---
[facility] Pain Management SOAP Note Subjective:: Patient is a very pleasant 57-year-old white female who presents today for follow-up. Since her last visit patient had a fall and broke her hip. It was determined at that time that she was suffering from septic arthritis in that hip. She had full body sepsis she had been admitted to the hospital. She is awaiting a hip replacement. She is currently on pain medicine and has a PICC line. Patient is currently utilizing tramadol for pain relief she is on 50 mg of tramadol 1 p.o. 6 times a day as needed. She is also having quite a bit of muscle spasms. We discussed starting her on a muscle relaxer. She is interested in this. She rates her pain a 6 out of 10. She denies side effects or medication her Clifford number is [id number]. It is appropriate. ROS General: no recent weight change, no fever, no sleep disturbances Respiratory: no cough, no shortness of air, no recurring pulmonary infections Cardiovascular/Peripheral Vascular: No chest pain, No palpitations, no edema, no shortness of breath. Gastrointestinal: no new onset incontinence, normal bowel movements reported Genitourinary: no new onset incontinence Musculoskeletal: Hip pain, back pain Psychiatric: normal mood/ affect, [denies depression], [denies anxiety] Neurological: [denies new onset weakness in extremities], [denies new onset balance issues] Objective:: Physical Exam General: Alert and oriented x3, no acute distress, pleasant and cooperative, [on room air] Lungs: Resps E/U, Symmetrical chest expansion, Eyes: PERRL Musculoskeletal: Flexion and extension of lumbar spine somewhat guarded secondary to pain, deep tendon reflexes normal, strength in upper and lower extremities [5/5], [abnormal gait noted] Neurological: speech clear, digital marketing project manager equal, no gross sensory deficits Assessment:: Degenerative disc disease lumbar spine with lumbar radiculopathy along with spondylosis and right hip pain right knee pain, also status post hospitalization for broken hip due to septic arthritis Plan:: We will refill her tramadol 50 mg 1 p.o. up to 6 times a day as needed and also start her on methocarbamol 750 mg 1 p.o. to continue. I will see the patient back in 3 months to reassess her symptoms she is been instructed to call our office if she has any issues prior to her next appointment. Dr. Carreon has reviewed this note and agrees with this plan of care. This note was dictated using voice recognition software and may contain errors or omissions [facility] History I have reviewed the patient's past medical history: Yes Medical History: Reports:: Hyperlipidemia, Hypertension, Palpitations Denies:: Cancer, Diabetes Mellitus Type 1, Diabetes Mellitus Type 2, MRSA, Seizures *Have you ever received a pneumonia vaccine?: Yes *Have you received a flu vaccine this season?: No Other Surgeries: Yes: Cardiac Catheterization, Tubal Ligation Amputation: No Fractures: No - *Social History Smoking Status: Current every day smoker Tobacco Type: cigarettes # Packs/Day (cigarettes): 1 Alcohol Intake: never *Occupational Status:: other Housing: house Household Members: spouse *Travel in the last 8 weeks: None Family Hx:: Hypertension, Stroke, Other (alcoholism)
--- NOTE | 2018-12-25 15:35 | P.CONS_ITS ---
[facility] Pain Management SOAP Note Subjective:: Patient is a very pleasant 57-year-old white female who presents today for follow-up. Since her last visit patient had a fall and broke her hip. It was determined at that time that she was suffering from septic arthritis in that hip. She had full body sepsis she had been admitted to the hospital. She is awaiting a hip replacement. She is currently on pain medicine and has a PICC line. Patient is currently utilizing tramadol for pain relief she is on 50 mg of tramadol 1 p.o. 6 times a day as needed. She is also having quite a bit of muscle spasms. We discussed starting her on a muscle relaxer. She is interested in this. She rates her pain a 6 out of 10. She denies side effects or medication her Clifford number is [id number]. It is appropriate. ROS General: no recent weight change, no fever, no sleep disturbances Respiratory: no cough, no shortness of air, no recurring pulmonary infections Cardiovascular/Peripheral Vascular: No chest pain, No palpitations, no edema, no shortness of breath. Gastrointestinal: no new onset incontinence, normal bowel movements reported Genitourinary: no new onset incontinence Musculoskeletal: Hip pain, back pain Psychiatric: normal mood/ affect, [denies depression], [denies anxiety] Neurological: [denies new onset weakness in extremities], [denies new onset balance issues] Objective:: Physical Exam General: Alert and oriented x3, no acute distress, pleasant and cooperative, [on room air] Lungs: Resps E/U, Symmetrical chest expansion, Eyes: PERRL Musculoskeletal: Flexion and extension of lumbar spine somewhat guarded secondary to pain, deep tendon reflexes normal, strength in upper and lower extr emities [5/5], [abnormal gait noted] Neurological: speech clear, car escort equal, no gross sensory deficits Assessment:: Degenerative disc disease lumbar spine with lumbar radiculopathy along with spondylosis and right hip pain right knee pain, also status post hospitalization for broken hip due to septic arthritis Plan:: We will refill her tramadol 50 mg 1 p.o. up to 6 times a day as needed and also start her on methocarbamol 750 mg 1 p.o. to continue. I will see the patient back in 3 months to reassess her symptoms she is been instructed to call our office if she has any issues prior to her next appointment. Dr. Carreon has reviewed this note and agrees with this plan of care. This note was dictated using voice recognition software and may contain errors or omissions [facility] History I have reviewed the patient's past medical history: Yes Medical History: Reports:: Hyperlipidemia, Hypertension, Palpitations Denies:: Cancer, Diabetes Mellitus Type 1, Diabetes Mellitus Type 2, MRSA, Seizures *Have you ever received a pneumonia vaccine?: Yes *Have you received a flu vaccine this season?: No Other Surgeries: Yes: Cardiac Catheterization, Tubal Ligation Amputation: No Fractures: No - *Social History Smoking Status: Current every day smoker Tobacco Type: cigarettes # Packs/Day (cigarettes): 1 Alcohol Intake: never *Occupational Status:: other Housing: house Household Members: spouse *Travel in the last 8 weeks: None Family Hx:: Hypertension, Stroke, Other (alcoholism)
== END ==
PROVIDERS: PCP Family Medicine; Visit Provider Clinical Nurse Specialist Family Health
DX: M51.16 Intervertebral disc disorders with radiculopathy, lumbar region (principal); M47.816 Spondylosis without myelopathy or radiculopathy, lumbar region; M86.18 Other acute osteomyelitis, other site
CPT/HCPCS: 99212

== ENCOUNTER → 2019-02-08 10:58 | Outpatient (CLI) | payer BC, MEDICARE, SELFPAY ==
[2019-02-08 11:31] LABS: Hematocrit 32.7 % (37.0-47.0); Hemoglobin 9.9 g/dL (12.2-16.2); Reticulocyte % (Auto) 1.8 % (0.9-3.2)
[2019-02-08 12:27] LABS: Anion Gap 17.9 mEq/L (5-15); Blood Urea Nitrogen 31 mg/dL (7-18); Calcium 8.7 mg/dL (8.5-10.1); Carbon Dioxide 22 mmol/L (21.0-32.0); Chloride 103 mmol/L (98-107); Creatinine,Serum 1.77 mg/dL (0.55-1.02); Estimated Glomerular Filt Rate 30 ml/min (>60); GFR (African American) 36 ML/MIN (>60); Glucose 92 mg/dL (74-106); Potassium 5.9 mmoL/L (3.5-5.1); Sodium 137 mmol/L (136-145)
== END ==
PROVIDERS: Visit Provider Physician Assistant Surgical
DX: Z96.641 Presence of right artificial hip joint (principal); M25.551 Pain in right hip
CPT/HCPCS: 36415; 80048; 85014; 85018; 85044

== ENCOUNTER → 2019-03-02 09:11 | Outpatient (CLI) | payer BC, MEDICARE, SELFPAY ==
[2019-03-02 10:14] LABS: Eosinophils # 0.2 K/mm3 (0.0-0.4); Eosinophils % 2.7 % (0.1-12.0); Mean Corpuscular Hemoglobin 28.3 pg (27.0-31.2); Monocytes # 0.5 K/mm3 (0.1-1.0); Red Cell Distribution Width 17.4 % (11.5-17.5)
[2019-03-02 10:18] LABS: Basophils % 0.5 % (0.1-2.0); Hematocrit 25.3 % (37.0-47.0); Lymphocytes # 1.5 K/mm3 (0.7-4.5); Lymphocytes % 20.4 % (10-50); Mean Corpuscular HGB Conc 29.5 g/dL (31.8-35.4); Mean Platelet Volume 7.6 fl (7.4-10.4); Monocytes % 6.7 % (1.7-9.3); Neutrophils # 5.2 K/mm3 (1.8-7.8); Neutrophils % 69.6 % (37.0-80.0); Platelet Count 387 K/mm3 (142-424); Red Blood Count 2.63 M/mm3 (4.20-5.40); White Blood Count 7.4 K/mm3 (4.8-10.8)
[2019-03-02 10:21] LABS: Hemoglobin 7.4 g/dL (12.2-16.2)
[2019-03-02 10:51] LABS: Alanine Aminotransferase 8 U/L (12-78); Albumin Level 3.3 gm/dL (3.4-5.0); Albumin/Globulin Ratio 1.1 (1.1-1.8); Alkaline Phosphatase 122 U/L (46-116); Anion Gap 16.9 mEq/L (5-15); Aspartate Amino Transferase 6 U/L (15-37); Bilirubin,Total 0.2 mg/dL (0.2-1.0); Blood Urea Nitrogen 22 mg/dL (7-18); Calcium 8.8 mg/dL (8.5-10.1); Carbon Dioxide 24 mmol/L (21.0-32.0); Chloride 104 mmol/L (98-107); Chol/HDL Ratio 4.4 (1-3.5); Cholesterol 255 mg/dL (140-200); Creatinine,Serum 1.28 mg/dL (0.55-1.02); Estimated Glomerular Filt Rate 43 ml/min (>60); GFR (African American) 52 ML/MIN (>60); Globulin 3.1 gm/dl (1.3-3.2); Glucose 89 mg/dL (74-106); HDL Cholesterol 58 mg/dL (29-89); LDL Cholesterol 176 mg/dL (0-130); Potassium 4.9 mmoL/L (3.5-5.1); Sodium 140 mmol/L (136-145); T4 (Thyroxine) 7.4 ug/dl (4.7-13.3); Thyroid Stimulating Hormone 2.04 uIU/ml (0.358-3.740); Total Protein,Serum 6.4 gm/dL (6.4-8.2); Triglycerides 105 mg/dL (30-200); VLDL Cholesterol 21 mg/dL (0-40)
== END ==
PROVIDERS: Visit Provider Family Medicine
DX: D50.8 Other iron deficiency anemias (principal); E03.9 Hypothyroidism, unspecified; I10 Essential (primary) hypertension; N18.3 Chronic kidney disease, stage 3 (moderate)
CPT/HCPCS: 36415; 80053; 80061; 84436; 84443; 85025

== ENCOUNTER → 2019-03-04 09:54 | Outpatient (CLI) | payer BC, MEDICARE, SELFPAY ==
[2019-03-04 10:40] LABS: Basophils % 0.5 % (0.1-2.0); Eosinophils # 0.1 K/mm3 (0.0-0.4); Eosinophils % 1.5 % (0.1-12.0); Lymphocytes # 1.3 K/mm3 (0.7-4.5); Lymphocytes % 18.5 % (10-50); Mean Corpuscular HGB Conc 28.9 g/dL (31.8-35.4); Mean Corpuscular Hemoglobin 28.1 pg (27.0-31.2); Mean Corpuscular Volume 97.4 fl (81-99); Mean Platelet Volume 7.7 fl (7.4-10.4); Monocytes # 0.5 K/mm3 (0.1-1.0); Monocytes % 6.2 % (1.7-9.3); Neutrophils # 5.4 K/mm3 (1.8-7.8); Neutrophils % 73.4 % (37.0-80.0); Platelet Count 361 K/mm3 (142-424); White Blood Count 7.3 K/mm3 (4.8-10.8)
[2019-03-04 10:47] LABS: Red Blood Count 2.66 M/mm3 (4.20-5.40)
[2019-03-04 10:48] LABS: Hematocrit 25.9 % (37.0-47.0)
[2019-03-04 10:49] LABS: Hemoglobin 7.5 g/dL (12.2-16.2)
== END ==
PROVIDERS: Visit Provider Family Medicine
DX: D50.8 Other iron deficiency anemias (principal)
CPT/HCPCS: 36415; 85025

== ENCOUNTER → 2019-03-25 10:05 | Outpatient (POV) | payer BC, MEDICARE, SELFPAY ==
[2019-03-25 11:38] VITALS: BP 136/65; PULSE 90; RESP 18; O2SAT 99; BMI 43.0
--- NOTE | 2019-03-25 12:21 | HMH.PAINSOAP ---
[facility] Pain Management SOAP Note Subjective:: Patient is a very pleasant 57-year-old white female presents today for follow-up. Patient had septic arthritis in her right hip she had full body sepsis and had the joint removed and then replaced with a permanent prosthesis. Patient has had difficulty with her blood levels. Patient has had 1 infusion and is also had an infusion of iron. Patient is having severe muscle cramps Robaxin does not seem to be helpful she would like to decrease her tramadol today as well. Patient states she only uses about 4-day [facility] #[id number] reviewed and appropriate. ROS General: no recent weight change, no fever, no sleep disturbances Respiratory: no cough, no shortness of air, no recurring pulmonary infections Cardiovascular/Peripheral Vascular: No chest pain, No palpitations, no edema, no shortness of breath. Gastrointestinal: no new onset incontinence, normal bowel movements reported Genitourinary: no new onset incontinence Musculoskeletal: Back pain, right hip pain Psychiatric: normal mood/ affect, [denies depression], [denies anxiety] Neurological: [denies new onset weakness in extremities], [denies new onset balance issues] Objective:: Physical Exam General: Alert and oriented x3, no acute distress, pleasant and cooperative, [on room air] Lungs: Resps E/U, Symmetrical chest expansion, [CTA bilateral] Eyes: PERRL Musculoskeletal: Flexion and extension of lumbar spine somewhat guarded secondary to pain, deep tendon reflexes normal, strength in upper and lower extremities [5/5], [abnormal gait noted] Neurological: speech clear, financial planner equal, no gross sensory deficits Assessment:: Generative disc disease lumbar spine with lumbar radiculopathy along with right hip replacement, spondylosis Plan:: We will start her on baclofen 10 mg p.o. twice daily as needed for muscle spasms. We will also decrease her tramadol to 50 mg 1 tab p.o. 4 times daily. I will see the patient back in 2-3 1 month reassess her symptoms at that time she is been instructed to call the office if she has any issues prior to her next appointment. She is also having difficulty sleeping I will give her a one-time prescription of trazodone 100 mg at nighttime patient has had this in the past with success. Dr. Carreon has reviewed this note and agrees with this plan of care. This note was dictated using voice recognition software and may contain errors or omissions [facility] History I have reviewed the patient's past medical history: Yes Medical History: Reports:: Hyperlipidemia, Hypertension, Palpitations Denies:: Cancer, Diabetes Mellitus Type 1, Diabetes Mellitus Type 2, MRSA, Seizures *Have you ever received a pneumonia vaccine?: Yes *Have you received a flu vaccine this season?: Yes Other Surgeries: Yes: Cardiac Catheterization, Tubal Ligation Amputation: No Fractures: No - *Social History Smoking Status: Current every day smoker Tobacco Type: cigarettes # Packs/Day (cigarettes): 1 Alcohol Intake: never *Occupational Status:: other Housing: house Household Members: spouse *Travel in the last 8 weeks: None Family Hx:: Hypertension, Stroke, Other (alcoholism)
== END ==
PROVIDERS: PCP Family Medicine; Visit Provider Clinical Nurse Specialist Family Health
DX: M51.16 Intervertebral disc disorders with radiculopathy, lumbar region (principal); M47.816 Spondylosis without myelopathy or radiculopathy, lumbar region; Z96.641 Presence of right artificial hip joint; Z72.0 Tobacco use; E78.5 Hyperlipidemia, unspecified; I10 Essential (primary) hypertension
CPT/HCPCS: 99212

== ENCOUNTER → 2019-04-16 13:32 | Outpatient (CLI) | payer BC, MEDICARE, SELFPAY ==
[2019-04-16 14:07] LABS: Basophils # 0.1 K/mm3 (0-0.2); Basophils % 0.9 % (0.1-2.0); Eosinophils # 0.3 K/mm3 (0.0-0.4); Eosinophils % 3.4 % (0.1-12.0); Hematocrit 30.1 % (37.0-47.0); Hemoglobin 9.1 g/dL (12.2-16.2); Lymphocytes # 1.4 K/mm3 (0.7-4.5); Lymphocytes % 15.1 % (10-50); Mean Corpuscular HGB Conc 30.3 g/dL (31.8-35.4); Mean Corpuscular Hemoglobin 28.3 pg (27.0-31.2); Mean Corpuscular Volume 93.6 fl (81-99); Mean Platelet Volume 7.9 fl (7.4-10.4); Monocytes # 0.5 K/mm3 (0.1-1.0); Monocytes % 5.6 % (1.7-9.3); Neutrophils # 6.8 K/mm3 (1.8-7.8); Neutrophils % 75.1 % (37.0-80.0); Platelet Count 432 K/mm3 (142-424); Red Blood Count 3.22 M/mm3 (4.20-5.40); Red Cell Distribution Width 20.7 % (11.5-17.5)
[2019-04-16 14:38] LABS: Alanine Aminotransferase 13 U/L (12-78); Alkaline Phosphatase 118 U/L (38-126); Aspartate Amino Transferase 20 U/L (14-36); Bilirubin,Total 0.8 mg/dl (0.2-1.3); Blood Urea Nitrogen 22 mg/dl (7-17); Estimated Glomerular Filt Rate 31 ml/min (>60); GFR (African American) 37 ML/MIN (>60)
[2019-04-16 14:44] LABS: C-Reactive Protein 29.9 mg/L (0-4)
== END ==
PROVIDERS: Visit Provider Orthopaedic Surgery Adult Reconstructive Orthopaedic Surgery
DX: T84.51XA Infection and inflammatory reaction due to internal right hip prosthesis, initial encounter (principal); M25.551 Pain in right hip
CPT/HCPCS: 82247; 82565; 84075; 84450; 84460; 84520; 85025; 86140

== ENCOUNTER 2019-04-23 11:53 | Outpatient (CLI) | payer BC, MEDICARE, SELFPAY ==
[2019-04-23 12:13] LABS: Basophils # 0.1 K/mm3 (0-0.2); Basophils % 0.8 % (0.1-2.0); Eosinophils # 0.3 K/mm3 (0.0-0.4); Eosinophils % 3.9 % (0.1-12.0); Hematocrit 29.7 % (37.0-47.0); Hemoglobin 9.4 g/dL (12.2-16.2); Lymphocytes # 1.1 K/mm3 (0.7-4.5); Lymphocytes % 13.7 % (10-50); Mean Corpuscular HGB Conc 31.6 g/dL (31.8-35.4); Mean Corpuscular Hemoglobin 29.6 pg (27.0-31.2); Mean Corpuscular Volume 93.6 fl (81-99); Mean Platelet Volume 7.3 fl (7.4-10.4); Monocytes # 0.5 K/mm3 (0.1-1.0); Monocytes % 6.1 % (1.7-9.3); Neutrophils # 5.9 K/mm3 (1.8-7.8); Neutrophils % 75.5 % (37.0-80.0); Platelet Count 308 K/mm3 (142-424); Red Blood Count 3.17 M/mm3 (4.20-5.40); Red Cell Distribution Width 22.9 % (11.5-17.5); White Blood Count 7.8 K/mm3 (4.8-10.8)
[2019-04-23 13:13] LABS: Alanine Aminotransferase 12 U/L (12-78); Alkaline Phosphatase 110 U/L (38-126); Aspartate Amino Transferase 22 U/L (14-36); Bilirubin,Total 0.6 mg/dl (0.2-1.3); Blood Urea Nitrogen 21 mg/dl (7-17); Estimated Glomerular Filt Rate 36 ml/min (>60); GFR (African American) 43 ML/MIN (>60)
[2019-04-23 13:19] LABS: C-Reactive Protein 34.6 mg/L (0-4)
[2019-04-23 13:35] VITALS: BP 139/79; PULSE 75; RESP 18; TEMP 36.6; O2SAT 98
[2019-04-23 16:03] VITALS: BMI 45.1
--- NOTE | 2019-04-23 16:06 | XR_ITS ---
PROCEDURE: XR CHEST PORTABLE PICC PLAC CLINICAL HISTORY: PICC line placement COMPARISON: CXR1 CHEST-PORTABLE from 07/30/2012 CXR CHEST(2 VIEWS-NOT PORTABLE) from 08/28/2015 FINDINGS: Left upper extremity PICC line has been inserted. The tip is difficult to visualize but appears to be in the region of the SVC. Normal heart size. Hiatal hernia is noted. Calcified granuloma is present in the right upper lobe. No acute bony abnormalities. IMPRESSION: PICC line tip appears to be in the region the SVC. Dictated by: Glen Graham MD 04/23/2019 16:29 Electronically signed by Glen Graham MD in [place] 04/23/2019 16:29
--- NOTE | 2019-04-23 16:23 | PC.NURSE ---
04/23/[id number] pt's picc line and attempted to draw out cath madelyn/check blood return. unable to draw back any return. cath madelyn left in place and will wait an additional 30 min or more and reevaluate for blood return.
--- NOTE | 2019-04-23 16:25 | PC.NURSE ---
04/23/[id number] picc line and only able to draw back cath madelyn. cath madelyn removed and saline flush attempted without success-unable to push any saline through at all. repositioned pt's arm over the head and picc line would flush, but no blood return noted even after multiple flushes. returned rt arm to the normal position and saline not able to be flushed through. contacted arthur at [facility] and told him that the line was essentially blocked and order was noted to remove the current picc and to replace picc line w/ a cxr confirmation. adin goode rn consulted to evaluate pt for picc line and picc line placement.
== END 2019-04-23 17:00 | disposition home or self-care (01) ==
LOC: LAB.DROPOF 11:55 → INF 13:21
PROVIDERS: Visit Provider Orthopaedic Surgery Adult Reconstructive Orthopaedic Surgery
DX: M00.9 Pyogenic arthritis, unspecified (principal); T84.59XA Infection and inflammatory reaction due to other internal joint prosthesis, initial encounter
CPT/HCPCS: 36569; 71045; 82247; 82565; 84075; 84450; 84460; 84520; 85025; 86140; 96374; C1751

== ENCOUNTER → 2019-05-07 13:12 | Outpatient (CLI) | payer BC, MEDICARE, SELFPAY ==
[2019-05-07 14:24] LABS: Basophils # 0.1 K/mm3 (0-0.2); Basophils % 0.7 % (0.1-2.0); Eosinophils # 0.2 K/mm3 (0.0-0.4); Eosinophils % 2.5 % (0.1-12.0); Hematocrit 30.7 % (37.0-47.0); Hemoglobin 9.9 g/dL (12.2-16.2); Lymphocytes # 1.4 K/mm3 (0.7-4.5); Lymphocytes % 15.7 % (10-50); Mean Corpuscular HGB Conc 32.3 g/dL (31.8-35.4); Mean Corpuscular Hemoglobin 30.4 pg (27.0-31.2); Mean Platelet Volume 8.1 fl (7.4-10.4); Monocytes # 0.6 K/mm3 (0.1-1.0); Monocytes % 7.2 % (1.7-9.3); Neutrophils # 6.6 K/mm3 (1.8-7.8); Neutrophils % 73.9 % (37.0-80.0); Platelet Count 470 K/mm3 (142-424); Red Blood Count 3.26 M/mm3 (4.20-5.40); Red Cell Distribution Width 23.5 % (11.5-17.5); White Blood Count 8.9 K/mm3 (4.8-10.8)
[2019-05-07 14:52] LABS: Alanine Aminotransferase 9 U/L (12-78); Alkaline Phosphatase 112 U/L (38-126); Aspartate Amino Transferase 24 U/L (14-36); Bilirubin,Total 0.8 mg/dl (0.2-1.3); Blood Urea Nitrogen 26 mg/dl (7-17); Estimated Glomerular Filt Rate 39 ml/min (>60); GFR (African American) 47 ML/MIN (>60)
[2019-05-07 14:58] LABS: C-Reactive Protein 32.4 mg/L (0-4)
== END ==
PROVIDERS: Visit Provider Orthopaedic Surgery Adult Reconstructive Orthopaedic Surgery
DX: T84.51XA Infection and inflammatory reaction due to internal right hip prosthesis, initial encounter (principal); M25.551 Pain in right hip
CPT/HCPCS: 36415; 82247; 82565; 84075; 84450; 84460; 84520; 85025; 86140

== ENCOUNTER → 2019-06-24 10:20 | Outpatient (POV) | payer BC, MEDICARE, SELFPAY ==
--- NOTE | 2019-06-25 08:17 | HMH.VVPMSO ---
[facility] PM Virtual Visit SOAP Consent for virtual visit:: With the recent concerns about the COVID-19, we are trying to minimize exposure to you by shifting to telehealth appointments whenever possible. It restricts me from seeing you in person, but the trade off is protecting you during this pandemic. Can you see and hear me okay, and do you consent to this option? If not, I would be happy to see if we can reschedule your appointment in the future, when feasible. Has patient consented to this virtual visit?: Yes Subjective:: Patient is a pleasant 58-year-old white female who presents today for follow-up and medication refills. Patient has been having difficulty with her right hip. 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 Patient states she still has a infection. She is staying home at this time due to COVID. She is having severe muscle cramps however she states the baclofen and tramadol decrease that. She rates her pain today a 4 out of 10. [facility] #[id number] reviewed and appropriate. Patient did receive some medication while in the hospital for her arthritis and hip replacement ROS General: no recent weight change, no fever, no sleep disturbances Respiratory: no cough, no shortness of air, no recurring pulmonary infections Cardiovascular/Peripheral Vascular: No chest pain, No palpitations, no edema, no shortness of breath. Gastrointestinal: no new onset incontinence, normal bowel movements reported Genitourinary: no new onset incontinence Musculoskeletal: Back pain, right hip pain Psychiatric: normal mood/ affect Neurological: [denies new onset weakness in extremities], [denies new onset balance issues] Objective:: Physical exam: Constitutional: Healthy appearing, well-developed, alert, in no acute distress Psychiatric: Judgment and insight intact, Alert and oriented x4 Mood and affect: Mood normal, affect appropriate Head and face: Inspection: Normocephalic atraumatic, extraocular movement intact Respiratory: Breathing nonlabored, nondyspneic Cardiovascular: No cyanosis, clubbing, or edema observed Skin: Head and neck: Skin with no lesions or rash observed Gait: Able to walk with assistive device Neurologic: Sensation grossly intact per patient Musculoskeletal: Patient has decreased range of motion of her right hip and low back Assessment:: Degenerative disc disease lumbar spine with lumbar radiculopathy along with right hip replacement, spondylosis Plan:: We will refill the patient's baclofen and increase it to 3 times a day. This will be as needed for muscle spasms. We will also continue the tramadol 50 mg 1 p.o. 4 times daily. I will see the patient back in 3 months reassess her symptoms at that time she has been instructed to call the office if she has any issues prior to her next appointment. This encounter was performed as a telemedicine visit via secure 2 way video and audio to minimize risk and transmission of Covid-19. The patient and we understand the limitations of a telemedicine visit including inability to check reflexes, possibly missing subtle findings on physical exam. Alternative options were presented to the patient and the patient elected to proceed with the visit. We specifically discussed risk factors for Covid-19 including age, heart or lung disease, diabetes, immunosuppression and travel. We also discussed that NSAIDs may worsen Covid-19 infection symptoms and that they should not be used to treat Covid-19 symptoms. Patient was also informed that corticosteroids in any form oral or injectable will decrease immune response and may increase risk of Covid-[address] Carreon has reviewed this patient's chart and this note and agrees with plan of care. Patient has been instructed to call the office if they have any issues prior to the next appointment. Time In:: 10:25 Time Out:: 10:40 [facility] History I have reviewed the patient's past medical history: Yes
== END ==
PROVIDERS: Visit Provider Clinical Nurse Specialist Family Health
DX: M51.16 Intervertebral disc disorders with radiculopathy, lumbar region (principal); M47.816 Spondylosis without myelopathy or radiculopathy, lumbar region; Z96.641 Presence of right artificial hip joint
CPT/HCPCS: 99212

== ENCOUNTER → 2019-07-17 17:11 | Outpatient (CLI) | payer BC, MEDICARE, SELFPAY ==
[2019-07-17 18:11] LABS: Chloride 106 mmol/L (98-107); Potassium 4.6 mmoL/L (3.5-5.1); Sodium 138 mmol/L (136-145)
[2019-07-17 18:14] LABS: Anion Gap 10.6 mEq/L (5-15); Blood Urea Nitrogen 22 mg/dl (7-17); Carbon Dioxide 26 mmol/L (22.0-30.0); Estimated Glomerular Filt Rate 31 ml/min (>60); GFR (African American) 37 ML/MIN (>60)
[2019-07-17 18:15] LABS: Calcium 9.4 mg/dl (8.4-10.2); Glucose 92 mg/dl (74-100)
== END ==
PROVIDERS: Visit Provider Internal Medicine
DX: N17.9 Acute kidney failure, unspecified (principal)
CPT/HCPCS: 36415; 80048

== ENCOUNTER → 2019-07-31 08:31 | Outpatient (CLI) | payer BC, MEDICARE, SELFPAY ==
[2019-07-31 09:39] LABS: Chloride 108 mmol/L (98-107); Potassium 4.5 mmoL/L (3.5-5.1); Sodium 139 mmol/L (136-145)
[2019-07-31 09:42] LABS: Anion Gap 8.5 mEq/L (5-15); Blood Urea Nitrogen 20 mg/dl (7-17); Calcium 9.1 mg/dl (8.4-10.2); Carbon Dioxide 27 mmol/L (22.0-30.0); Estimated Glomerular Filt Rate 42 ml/min (>60); GFR (African American) 51 ML/MIN (>60); Glucose 96 mg/dl (74-100)
== END ==
PROVIDERS: Visit Provider Family Medicine
DX: N28.9 Disorder of kidney and ureter, unspecified (principal)
CPT/HCPCS: 36415; 80048

== ENCOUNTER → 2019-08-08 17:32 | Outpatient (CLI) | payer BC, MEDICARE, SELFPAY ==
[2019-08-08 21:05] LABS: Chloride 106 mmol/L (98-107); Potassium 4.3 mmoL/L (3.5-5.1); Sodium 138 mmol/L (136-145)
[2019-08-08 21:08] LABS: Blood Urea Nitrogen 23 mg/dl (7-17); Estimated Glomerular Filt Rate 39 ml/min (>60); GFR (African American) 47 ML/MIN (>60)
[2019-08-08 21:09] LABS: Anion Gap 11.3 mEq/L (5-15); Calcium 8.9 mg/dl (8.4-10.2); Carbon Dioxide 25 mmol/L (22.0-30.0); Glucose 99 mg/dl (74-100)
== END ==
PROVIDERS: Visit Provider Family Medicine
DX: N28.9 Disorder of kidney and ureter, unspecified (principal)
CPT/HCPCS: 36415; 80048

== ENCOUNTER → 2019-08-15 17:02 | Outpatient (CLI) | payer BC, MEDICARE, SELFPAY ==
[2019-08-15 19:26] LABS: Chloride 103 mmol/L (98-107); Potassium 4.3 mmoL/L (3.5-5.1); Sodium 136 mmol/L (136-145)
[2019-08-15 19:29] LABS: Blood Urea Nitrogen 19 mg/dl (7-17); Estimated Glomerular Filt Rate 42 ml/min (>60); GFR (African American) 51 ML/MIN (>60)
[2019-08-15 19:30] LABS: Anion Gap 9.3 mEq/L (5-15); Calcium 8.9 mg/dl (8.4-10.2); Carbon Dioxide 28 mmol/L (22.0-30.0); Glucose 88 mg/dl (74-100)
== END ==
PROVIDERS: Visit Provider Family Medicine
DX: N28.9 Disorder of kidney and ureter, unspecified (principal)
CPT/HCPCS: 36415; 80048

== ENCOUNTER → 2019-08-22 16:45 | Outpatient (CLI) | payer BC, MEDICARE, SELFPAY ==
[2019-08-22 17:32] LABS: Chloride 103 mmol/L (98-107); Sodium 138 mmol/L (136-145)
[2019-08-22 17:33] LABS: Potassium 4.4 mmoL/L (3.5-5.1)
[2019-08-22 17:36] LABS: Anion Gap 10.4 mEq/L (5-15); Blood Urea Nitrogen 17 mg/dl (7-17); Calcium 9.6 mg/dl (8.4-10.2); Carbon Dioxide 29 mmol/L (22.0-30.0); Estimated Glomerular Filt Rate 39 ml/min (>60); GFR (African American) 47 ML/MIN (>60); Glucose 111 mg/dl (74-100)
== END ==
PROVIDERS: Visit Provider Family Medicine
DX: N28.9 Disorder of kidney and ureter, unspecified (principal)
CPT/HCPCS: 36415; 80048

== ENCOUNTER → 2019-09-30 10:06 | Outpatient (POV) | payer BC, MEDICARE, SELFPAY ==
[2019-09-30 10:17] VITALS: BP 128/82; PULSE 88; RESP 18; O2SAT 99; BMI 42.1
--- NOTE | 2019-09-30 10:55 | P.CONS_ITS ---
[facility] Pain Management SOAP Note Subjective:: Patient is a pleasant 58-year-old white female who presents today for follow-up. Patient is currently being medically managed with tramadol and baclofen. Patient had right hip surgery. 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 Overall she is doing well. She still healing from this. She is more mobile. She rates her pain a 4 out of 10. [facility] #[id number] reviewed and appropriate. Tramadol 50 mg 1 p.o. 4 times daily and baclofen 10 mg 1 p.o. 3 times daily is what she utilizes to help with her pain. She states is up to 80% effective. ROS General: no recent weight change, no fever, no sleep disturbances Respiratory: no cough, no shortness of air, no recurring pulmonary infections Cardiovascular/Peripheral Vascular: No chest pain, No palpitations, no edema, no shortness of breath. Gastrointestinal: no new onset incontinence, normal bowel movements reported Genitourinary: no new onset incontinence Musculoskeletal: Back pain, hip pain Psychiatric: normal mood/ affect Neurological: [denies new onset weakness in extremities], [denies new onset jose martin nce issues] Objective:: Physical Exam General: Alert and oriented x3, no acute distress, pleasant and cooperative, Lungs: Resps E/U, Symmetrical chest expansion, Eyes: PERRL Musculoskeletal: Flexion and extension of lumbar spine somewhat guarded secondary to pain, deep tendon reflexes normal, strength in upper and lower extremities [5/5], [abnormal gait noted] Neurological: speech clear, pantry goods worker 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 We will continue her tramadol and her baclofen. She is been instructed to call the office if she has any issues prior to her next appointment. Patient has been prescribed a controlled substance after being counseled on the medication, medication safety, and possible side effects. [facility]ELSON report has been obtained and reviewed prior to prescription and found to be appropriate. Opioid contract was reviewed and signed by the patient, and that they have agreed to all of the terms set forth by our compliance program. Dr. Carreon has reviewed this note and agrees with this plan of care. This note was dictated using voice recognition software and may contain errors or omissions [facility] History I have reviewed the patient's past medical history: Yes Medical History: Reports:: Hyperlipidemia, Hypertension, Palpitations Denies:: Cancer, Diabetes Mellitus Type 1, Diabetes Mellitus Type 2, MRSA, Seizures *Have you ever received a pneumonia vaccine?: Yes *Have you received a flu vaccine this season?: Yes Other Medical History: Reports: Arthritis (osteo), Fibromyalgia Laterality Cases: Right: Total Hip Replacement Other Surgeries: Yes: Cardiac Catheterization, Tubal Ligation Amputation: No Fractures: No - *Social History Smoking Status: Current every day smoker Tobacco Type: cigarettes # Packs/Day (cigarettes): 1 Alcohol Intake: current Alcohol Intake Frequency:: holidays/special occasions only *Occupational Status:: other Housing: house Household Members: spouse *Travel in the last 8 weeks: None Family Hx:: Hypertension, Stroke, Other (alcoholism)
== END ==
PROVIDERS: PCP Family Medicine; Visit Provider Clinical Nurse Specialist Family Health
DX: M51.16 Intervertebral disc disorders with radiculopathy, lumbar region (principal); M00.9 Pyogenic arthritis, unspecified
CPT/HCPCS: 99212

== ENCOUNTER → 2019-12-09 08:25 | Outpatient (POV) | payer BC, MEDICARE, SELFPAY ==
[2019-12-09 08:46] VITALS: BP 143/78; PULSE 67; RESP 18; O2SAT 98; BMI 43.4
--- NOTE | 2019-12-09 08:51 | HMH.PAINSOAP ---
[facility] Pain Management SOAP Note Subjective:: 58-year-old white female who presents today for follow-up. Patient currently being medically managed with tramadol and baclofen. She had right hip surgery. 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 Overall she is doing well. She states that her pain has increased. Tramadol is no longer working. Patient currently is not a candidate for injections. She rates her pain an 8 out of 10. [facility] #[id number] reviewed and appropriate. Patient currently on gabapentin 600 mg 1 p.o. twice daily from her primary care physician. Patient's try to be more active. This is when her pain becomes worse. She states that at nighttime she is in more pain and having difficulty sleeping. She is taken Vicodin in the past with relief. ROS General: no recent weight change, no fever, no sleep disturbances Respiratory: no cough, no shortness of air, no recurring pulmonary infections Cardiovascular/Peripheral Vascular: No chest pain, No palpitations, no edema, no shortness of breath. Gastrointestinal: no new onset incontinence, normal bowel movements reported Genitourinary: no new onset incontinence Musculoskeletal: Back pain, hip pain, generalized joint pain Psychiatric: normal mood/ affect Neurological: [denies new onset weakness in extremities], [denies new onset balance issues] Objective:: Physical Exam General: Alert and oriented x3, no acute distress, pleasant and cooperative, [on room air] Lungs: Resps E/U, Symmetrical chest expansion, Eyes: PERRL Musculoskeletal: Flexion and extension of lumbar spine somewhat guarded secondary to pain, deep tendon reflexes normal, strength in upper and lower extremities [5/5], [abnormal gait noted] Neurological: speech clear, bait painter equal, no gross sensory deficits Assessment:: Generative disc disease lumbar spine lumbar radiculopathy, right hip pain secondary to repair and septic arthritis Plan:: We will start her on [place] 10 mg 1 p.o. twice daily as needed and dispense 45. We will follow up with her in 1 month reassess her symptoms at that time. We will also DC her tramadol. She will continue her gabapentin or baclofen. She has been instructed to call the office if she has any issues prior to next appointment. Patient has been prescribed a controlled substance after being counseled on the medication, medication safety, and possible side effects. NELSON report has been obtained and reviewed prior to prescription and found to be appropriate. Opioid contract was reviewed and signed by the patient, and that they have agreed to all of the terms set forth by our compliance program. Dr. Carreon has reviewed this note and agrees with this plan of care. This note was dictated using voice recognition software and may contain errors or omissions [facility] History I have reviewed the patient's past medical history: Yes Medical History: Reports:: Hyperlipidemia, Hypertension, Palpitations Denies:: Cancer, Diabetes Mellitus Type 1, Diabetes Mellitus Type 2, MRSA, Seizures *Have you ever received a pneumonia vaccine?: Yes *Have you received a flu vaccine this season?: No Other Medical History: Reports: Arthritis (osteo), Fibromyalgia Laterality Cases: Right: Total Hip Replacement Other Surgeries: Yes: Cardiac Catheterization, Tubal Ligation Amputation: No Fractures: No - *Social History Smoking Status: Current every day smoker Tobacco Type: cigarettes # Packs/Day (cigarettes): 1 Alcohol Intake: current Alcohol Intake Frequency:: holidays/special occasions only *Occupational Status:: retired Housing: house Household Members: spouse *Travel in the last 8 weeks: None Family Hx:: Hypertension, Stroke, Other (alcoholism)
== END ==
PROVIDERS: PCP Family Medicine; Visit Provider Clinical Nurse Specialist Family Health
DX: M51.16 Intervertebral disc disorders with radiculopathy, lumbar region (principal); M00.9 Pyogenic arthritis, unspecified
CPT/HCPCS: 99212

== ENCOUNTER → 2019-12-30 10:13 | Outpatient (POV) | payer BC, MEDICARE, SELFPAY ==
[2019-12-30 10:41] VITALS: BP 144/67; PULSE 92; RESP 19; TEMP 36.4; O2SAT 94; BMI 44.2
--- NOTE | 2019-12-30 11:04 | HMH.PAINSOAP ---
[facility] Pain Management SOAP Note Subjective:: Is a pleasant 58-year-old white female who presents today for follow-up. Patient is currently on [place] 10 mg 1 p.o. twice daily. She states that this is very beneficial. She rates her pain today a 7 out of 10. Most of her pain however is now due to muscle spasms. She is tried baclofen with no real relief. She is also noting that she has begun to retain water. Patient has appointment with her primary care physician. She may need labs. Patient [facility] #[id number] reviewed and appropriate. Patient states the [place] is much more beneficial than her tramadol. She is also on gabapentin 600 mg 1 p.o. twice daily from her primary care physician. Patient's pain is worse at nighttime. Mostly in her low back and hip. Patient had a hip prosthesis placed due to septic arthritis and full body sepsis on the right side. ROS General: no recent weight change, no fever, no sleep disturbances Respiratory: no cough, no shortness of air, no recurring pulmonary infections Cardiovascular/Peripheral Vascular: No chest pain, No palpitations, no edema, no shortness of breath. Gastrointestinal: no new onset incontinence, normal bowel movements reported Genitourinary: no new onset incontinence Musculoskeletal: Right hip pain, back pain muscle spasm Psychiatric: normal mood/ affect Neurological: [denies new onset weakness in extremities], [denies new onset balance issues] Objective:: Physical Exam General: Alert and oriented x3, no acute distress, pleasant and cooperative, [on room air] Lungs: Resps E/U, Symmetrical chest expansion, Eyes: PERRL Musculoskeletal: Flexion and extension of lumbar spine somewhat guarded secondary to pain, deep tendon reflexes normal, strength in upper and lower extremities [5/5], [abnormal gait noted] Neurological: speech clear, stitcher hand equal, no gross sensory deficits Assessment:: Degenerative disc disease lumbar spine lumbar radiculopathy, right hip pain secondary to repair and septic arthritis Plan:: Patient will stay on her [place] 10 mg 1 p.o. twice daily. We will give her 1 month reassess her after this. She has been instructed to call the office if she has any issues prior to next appointment. She is getting continue her gabapentin. Patient has been prescribed a controlled substance after being counseled on the medication, medication safety, and possible side effects. NELSON report has been obtained and reviewed prior to prescription and found to be appropriate. Opioid contract was reviewed and signed by the patient, and that they have agreed to all of the terms set forth by our compliance program. Dr. Carreon has reviewed this note and agrees with this plan of care. This note was dictated using voice recognition software and may contain errors or omissions [facility] History I have reviewed the patient's past medical history: Yes Medical History: Reports:: Hyperlipidemia, Hypertension, Palpitations Denies:: Cancer, Diabetes Mellitus Type 1, Diabetes Mellitus Type 2, MRSA, Seizures *Have you ever received a pneumonia vaccine?: Yes *Have you received a flu vaccine this season?: Yes Other Medical History: Reports: Arthritis (osteo), Fibromyalgia Laterality Cases: Right: Total Hip Replacement Other Surgeries: Yes: Cardiac Catheterization, Tubal Ligation Amputation: No Fractures: No - *Social History Smoking Status: Current every day smoker Tobacco Type: cigarettes # Packs/Day (cigarettes): 1 Alcohol Intake: current Alcohol Intake Frequency:: holidays/special occasions only *Occupational Status:: unemployed Housing: house Household Members: spouse *Travel in the last 8 weeks: None Family Hx:: Hypertension, Stroke, Other (alcoholism)
== END ==
PROVIDERS: PCP Family Medicine; Visit Provider Clinical Nurse Specialist Family Health
DX: M51.16 Intervertebral disc disorders with radiculopathy, lumbar region (principal); M00.9 Pyogenic arthritis, unspecified
CPT/HCPCS: 99212

== ENCOUNTER → 2020-03-02 10:13 | Outpatient (POV) | payer BC, MEDICARE, SELFPAY ==
--- NOTE | 2020-03-02 10:37 | HMH.PAINSOAP ---
[facility] Pain Management SOAP Note Subjective:: Patient is a pleasant 59-year-old white female who presents today for follow-up. Patient is currently on Ava 10 mg 1 p.o. twice daily and doing well with this. She rates her pain today a 6 out of 10. Patient overall doing quite well. Patient [facility] #[id number] reviewed and appropriate. She is also on gabapentin 600 mg 1 p.o. twice daily from her primary care physician. Patient's pain is controlled at this time. She is continuing physical therapy at home. She is being treated for back pain along with hip pain. She had a recent hip prosthesis placed due to septic arthritis and full body sepsis. ROS General: no recent weight change, no fever, no sleep disturbances Respiratory: no cough, no shortness of air, no recurring pulmonary infections Cardiovascular/Peripheral Vascular: No chest pain, No palpitations, no edema, no shortness of breath. Gastrointestinal: no new onset incontinence, normal bowel movements reported Genitourinary: no new onset incontinence Musculoskeletal: Back pain, leg pain, hip pain Psychiatric: normal mood/ affect Neurological: [denies new onset weakness in extremities], [denies new onset balance issues] Objective:: Physical Exam General: Alert and oriented x3, no acute distress, pleasant and cooperative, [on room air] Lungs: Resps E/U, Symmetrical chest expansion, Eyes: PERRL Musculoskeletal: Flexion and extension of lumbar spine somewhat guarded secondary to pain, deep tendon reflexes normal, strength in upper and lower extremities [5/5], [abnormal gait noted] Neurological: speech clear, medical staff manager equal, no gross sensory deficits Assessment:: Degenerative disc disease lumbar spine lumbar radiculopathy, right hip pain secondary to repair and septic arthritis Plan:: We will continue her Ava 10 mg 1 p.o. twice daily. We will follow-up with her in 3 months reassess her symptoms at that time she has been instructed to call the office if she has any issues prior to her next appointment. Dr. Carreon has reviewed this note and agrees with this plan of care. This note was dictated using voice recognition software and may contain errors or omissions Patient has been prescribed a controlled substance after being counseled on the medication, medication safety, and possible side effects. NELSON report has been obtained and reviewed prior to prescription and found to be appropriate. Opioid contract was reviewed and signed by the patient, and that they have agreed to all of the terms set forth by our compliance program. [facility] History I have reviewed the patient's past medical history: Yes Medical History: Reports:: Hyperlipidemia, Hypertension, Palpitations Denies:: Cancer, Diabetes Mellitus Type 1, Diabetes Mellitus Type 2, MRSA, Seizures *Have you ever received a pneumonia vaccine?: Yes *Have you received a flu vaccine this season?: Yes Other Medical History: Reports: Arthritis (osteo), Fibromyalgia Laterality Cases: Right: Total Hip Replacement Other Surgeries: Yes: Cardiac Catheterization, Tubal Ligation Amputation: No Fractures: No - *Social History Smoking Status: Current every day smoker Tobacco Type: cigarettes # Packs/Day (cigarettes): 1 Alcohol Intake: current Alcohol Intake Frequency:: holidays/special occasions only *Occupational Status:: unemployed Housing: house Household Members: spouse *Travel in the last 8 weeks: None Family Hx:: Hypertension, Stroke, Other (alcoholism)
[2020-03-02 12:43] VITALS: BP 155/78; PULSE 74; RESP 18; O2SAT 97; BMI 44.2
== END ==
PROVIDERS: PCP Family Medicine; Visit Provider Clinical Nurse Specialist Family Health
DX: M51.16 Intervertebral disc disorders with radiculopathy, lumbar region (principal); M00.9 Pyogenic arthritis, unspecified; M25.551 Pain in right hip
CPT/HCPCS: 99212; G0463

== ENCOUNTER → 2020-03-24 16:30 | Outpatient (CLI) | payer BC, MEDICARE, SELFPAY ==
[2020-03-24 16:52] LABS: Basophils # 0.1 K/mm3 (0-0.2); Basophils % 0.7 % (0.1-2.0); Eosinophils # 0.2 K/mm3 (0.0-0.4); Eosinophils % 1.9 % (0.1-12.0); Hematocrit 40.3 % (37.0-47.0); Hemoglobin 12.6 g/dL (12.2-16.2); Lymphocytes # 2.1 K/mm3 (0.7-4.5); Lymphocytes % 21.9 % (10-50); Mean Corpuscular HGB Conc 31.2 g/dL (31.8-35.4); Mean Corpuscular Hemoglobin 30.2 pg (27.0-31.2); Mean Corpuscular Volume 96.9 fl (81-99); Mean Platelet Volume 7.6 fl (7.4-10.4); Monocytes # 0.6 K/mm3 (0.1-1.0); Monocytes % 5.8 % (1.7-9.3); Neutrophils # 6.5 K/mm3 (1.8-7.8); Neutrophils % 69.6 % (37.0-80.0); Platelet Count 307 K/mm3 (142-424); Red Blood Count 4.16 M/mm3 (4.20-5.40); Red Cell Distribution Width 19.2 % (11.5-17.5); White Blood Count 9.4 K/mm3 (4.8-10.8)
--- NOTE | 2020-03-24 17:02 | XR_ITS ---
PROCEDURE: XR CHEST 2V CLINICAL HISTORY: COPD, TOBACCO USE COMPARISON: CR CXR1 CHEST-PORTABLE from 07/30/2012 CR CXR CHEST(2 VIEWS-NOT PORTABLE) from 08/28/2015 CR XR CHEST PORTABLE PICC PLAC from 04/23/2019 FINDINGS: Normal heart size. Medium-sized hernia is present. Atelectatic changes are present in the right lower lobe. The remaining lungs are clear. Thoracolumbar kyphosis with degenerative changes in the thoracolumbar junction of the spine IMPRESSION: No acute findings. Dictated by: Glen Graham MD 03/25/2020 05:34 Glen Graham MD in [place] 03/25/2020 05:34
[2020-03-24 18:14] LABS: Chloride 106 mmol/L (98-107); Sodium 139 mmol/L (136-145)
[2020-03-24 18:17] LABS: Alanine Aminotransferase 11 U/L (12-78); Albumin Level 4.6 g/dl (3.5-5.0); Albumin/Globulin Ratio 1.4 (1.1-1.8); Alkaline Phosphatase 136 U/L (38-126); Aspartate Amino Transferase 23 U/L (14-36); Bilirubin,Total 0.4 mg/dl (0.2-1.3); Blood Urea Nitrogen 28 mg/dl (7-17); Carbon Dioxide 26 mmol/L (22.0-30.0); Cholesterol 319 mg/dl (140-200); Estimated Glomerular Filt Rate 36 ml/min (>60); GFR (African American) 43 ML/MIN (>60); Globulin 3.4 g/dL (1.3-3.2); Triglycerides 160 mg/dl (30-150); VLDL Cholesterol 32 mg/dL (0-40)
[2020-03-24 18:18] LABS: Chol/HDL Ratio 4.3 (1-3.5); Glucose 87 mg/dl (74-100); HDL Cholesterol 74 mg/dl (40-60)
[2020-03-24 18:29] LABS: Direct LDL Cholesterol 153.98 mg/dL (100-129)
== END ==
PROVIDERS: PCP Family Medicine; Visit Provider Family Medicine
DX: R06.00 Dyspnea, unspecified (principal); J44.9 Chronic obstructive pulmonary disease, unspecified; E03.9 Hypothyroidism, unspecified; E78.5 Hyperlipidemia, unspecified; I10 Essential (primary) hypertension; D50.9 Iron deficiency anemia, unspecified; F17.200 Nicotine dependence, unspecified, uncomplicated
CPT/HCPCS: 36415; 71046; 80053; 80061; 84443; 85025

== ENCOUNTER → 2020-04-20 09:03 | Outpatient (POV) | payer BC, MEDICARE, SELFPAY ==
--- NOTE | 2020-04-20 09:41 | HMH.PAINSOAP ---
[facility] Pain Management SOAP Note Subjective:: White female who presents today for follow-up. Patient currently on [place] 10 mg 1 p.o. twice daily and gabapentin 600 mg 1 p.o. twice daily. [facility] Patient has been appropriate. Patient states her pain is a 8 out of 10. Overall she has been worsening. Patient recently had routine lab work that showed kidney disease. She is good to be seen by a rat trapper. Patient was started on a statin and decrease on her Celebrex. Due to this she is having additional pain we discussed increasing her Rogers patient is getting gabapentin from her primary care physician at this time they are not making any changes. She denies any side effects from medication ROS General: no recent weight change, no fever, no sleep disturbances Respiratory: no cough, no shortness of air, no recurring pulmonary infections Cardiovascular/Peripheral Vascular: No chest pain, No palpitations, no edema, no shortness of breath. Gastrointestinal: no new onset incontinence, normal bowel movements reported Genitourinary: no new onset incontinence Musculoskeletal: Back pain, hip Psychiatric: normal mood/ affect Neurological: [denies new onset weakness in extremities], [denies new onset balance issues] Objective:: physical Exam General: Alert and oriented x3, no acute distress, pleasant and cooperative, [on room air] Lungs: Resps E/U, Symmetrical chest expansion, Eyes: PERRL Musculoskeletal: Flexion and extension of lumbar spine somewhat guarded secondary to pain, deep tendon reflexes normal, strength in upper and lower extremities [5/5], [abnormal gait noted] Neurological: speech clear, access registrar equal, no gross sensory deficits Assessment:: Degenerative disc disease lumbar spine lumbar radiculopathy, right hip pain secondary to repair and septic arthritis Plan:: We will increase her Rogers to 10 mg 1 p.o. 4 times daily we will give her 1 months to start with. If she has no issues I will see her back in 3 months she can moss picker prescriptions in the interim. She has been instructed to call the office if she has any issues prior to her next appointment. Her morphine equivalent will be 40. Dr. Carreon has reviewed this note and agrees with this plan of care. This note was dictated using voice recognition software and may contain errors or omissions Patient has been prescribed a controlled substance after being counseled on the medication, medication safety, and possible side effects. NELSON report has been obtained and reviewed prior to prescription and found to be appropriate. Opioid contract was reviewed and signed by the patient, and that they have agreed to all of the terms set forth by our compliance program. [facility] History I have reviewed the patient's past medical history: Yes Medical History: Reports:: Hyperlipidemia, Hypertension, Palpitations Denies:: Cancer, Diabetes Mellitus Type 1, Diabetes Mellitus Type 2, MRSA, Seizures *Have you ever received a pneumonia vaccine?: Yes *Have you received a flu vaccine this season?: Yes Other Medical History: Reports: Arthritis (osteo), Fibromyalgia Laterality Cases: Right: Total Hip Replacement Other Surgeries: Yes: Cardiac Catheterization, Tubal Ligation Amputation: No Fractures: No - *Social History Smoking Status: Current every day smoker Tobacco Type: cigarettes # Packs/Day (cigarettes): 1 Alcohol Intake: current Alcohol Intake Frequency:: holidays/special occasions only *Occupational Status:: other Housing: house Household Members: spouse *Travel in the last 8 weeks: None Family Hx:: Hypertension, Stroke, Other (alcoholism)
[2020-04-20 09:56] VITALS: BP 132/74; PULSE 68; RESP 18; O2SAT 98; BMI 44.1
== END ==
PROVIDERS: PCP Family Medicine; Visit Provider Clinical Nurse Specialist Family Health
DX: M51.16 Intervertebral disc disorders with radiculopathy, lumbar region (principal); T84.51XA Infection and inflammatory reaction due to internal right hip prosthesis, initial encounter
CPT/HCPCS: 99212; G0463

== ENCOUNTER → 2020-07-30 09:16 | Outpatient (POV) | payer BC, MEDICARE, SELFPAY ==
[2020-07-30 09:54] VITALS: BP 147/81; PULSE 64; RESP 18; O2SAT 97; BMI 44.2
--- NOTE | 2020-07-30 10:05 | HMH.PAINSOAP ---
[facility] Pain Management SOAP Note Subjective:: Patient is a 59-year-old white female who presents today for follow-up. 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 Patient says she is doing well at this time with her medication. She is managed with [place] 10 mg 1 tablet p.o. 4 times daily and baclofen. She says that Dr. Hart gives her her gabapentin. Does appear per Nelson we refilled her gabapentin at her previous visits. She says that she has been getting this from Dr. Hart, however. She says she does not need refills on gabapentin per rest. Today she rates her pain a 5 out of 10. She says that she feels that she is having a flareup of arthritis and feels she needs some titers drawn for possible rheumatoid arthritis. She will have her primary care provider obtain these. Overall, she is doing well with her medication regimen. Review of Systems General: No recent weight changes, no fever, no sleep disturbances Respiratory: No cough, no shortness of air, no recurring pulmonary infections Cardiovascular/peripheral vascular: No chest pain, no palpitations, no edema, no shortness of breath Gastrointestinal: No new onset incontinence, normal bowel movements reported Genitourinary: No new onset incontinence Musculoskeletal: Chronic low back pain chronic hip pain Psychiatric: Normal mood/affect Neurological: [Denies weakness in extremities], [denies balance issues] Objective:: Physical exam General: Alert and oriented x3, no acute distress, pleasant and cooperative, [on room air] Lungs: Respirations even and unlabored, symmetrical chest expansion Eyes: PERRL Musculoskeletal: Flexion and extension of lumbar spine somewhat guarded secondary to pain, deep tendon reflexes normal, strength in upper and lower extremities [5/5], [abnormal gait noted] Neurological: Speech clear, support analyst equal, no gross sensory deficit Assessment:: Degenerative disc disease lumbar spine with lumbar radiculopathy symptoms and chronic hip pain right Plan:: We will refill the patient's [place] 10 mg 1 tablet p.o. 4 times daily. We will also refill her baclofen 10 mg 1 tablet p.o. 3 times daily. We will give the patient 2 months of medication. She can call the clinic in her third month interim for her third month of medication. Patient has been prescribed a controlled substance after being counseled on the medication, medication safety, and possible side effects. NELSON report has been obtained and reviewed prior to prescription and found to be appropriate. Opioid contract was reviewed and signed by the patient, and that they have agreed to all of the terms set forth by our compliance program. Patient has been instructed to contact the clinic with any concerns before the next appointment. Dr. Carreon has reviewed this note and agrees with this plan of care. This note was dictated using voice recognition software and make contain errors or omissions. [facility] History I have reviewed the patient's past medical history: Yes Medical History: Reports:: Hyperlipidemia, Hypertension, Palpitations Denies:: Cancer, Diabetes Mellitus Type 1, Diabetes Mellitus Type 2, MRSA, Seizures *Have you ever received a pneumonia vaccine?: Yes *Have you received a flu vaccine this season?: Yes Other Medical History: Reports: Arthritis (osteo), Fibromyalgia Laterality Cases: Right: Total Hip Replacement Other Surgeries: Yes: Cardiac Catheterization, Tubal Ligation Amputation: No Fractures: No - *Social History Smoking Status: Current every day smoker Tobacco Type: cigarettes # Packs/Day (cigarettes): 1 Alcohol Intake: current Alcohol Intake Frequency:: holidays/special occasions only *Occupational Status:: unemployed Housing: house Household Members: spouse *Travel in the last 8 weeks: None Family Hx:: Hypertension, Stroke, Other (alcoholism)
== END ==
PROVIDERS: Visit Provider Clinical Nurse Specialist Family Health
DX: M51.16 Intervertebral disc disorders with radiculopathy, lumbar region (principal); M25.561 Pain in right knee; G89.29 Other chronic pain
CPT/HCPCS: 99212; G0463

== ENCOUNTER → 2020-08-28 16:39 | Outpatient (CLI) | payer BC, MEDICARE, SELFPAY ==
[2020-08-28 17:40] LABS: Basophils # 0.1 K/mm3 (0-0.2); Basophils % 0.7 % (0.1-2.0); Eosinophils # 0.1 K/mm3 (0.0-0.4); Eosinophils % 1.4 % (0.1-12.0); Hematocrit 41.4 % (37.0-47.0); Hemoglobin 13.5 g/dL (12.2-16.2); Lymphocytes % 20.8 % (10-50); Mean Corpuscular HGB Conc 32.7 g/dL (31.8-35.4); Mean Corpuscular Hemoglobin 30.9 pg (27.0-31.2); Mean Corpuscular Volume 94.5 fl (81-99); Mean Platelet Volume 7.5 fl (7.4-10.4); Monocytes # 0.5 K/mm3 (0.1-1.0); Monocytes % 5.3 % (1.7-9.3); Neutrophils # 6.9 K/mm3 (1.8-7.8); Neutrophils % 71.8 % (37.0-80.0); Platelet Count 268 K/mm3 (142-424); Red Blood Count 4.38 M/mm3 (4.20-5.40); Red Cell Distribution Width 16.1 % (11.5-17.5); White Blood Count 9.6 K/mm3 (4.8-10.8)
[2020-08-28 18:00] LABS: Alanine Aminotransferase 12 U/L (12-78); Albumin Level 4.5 g/dl (3.5-5.0); Albumin/Globulin Ratio 1.5 (1.1-1.8); Alkaline Phosphatase 126 U/L (38-126); Anion Gap 15.5 mEq/L (5-15); Aspartate Amino Transferase 21 U/L (14-36); Bilirubin,Total 0.3 mg/dl (0.2-1.3); Blood Urea Nitrogen 28 mg/dl (7-17); Calcium 9.7 mg/dl (8.4-10.2); Carbon Dioxide 27 mmol/L (22.0-30.0); Chloride 102 mmol/L (98-107); Estimated Glomerular Filt Rate 39 ml/min (>60); GFR (African American) 47 ML/MIN (>60); Glucose 85 mg/dl (74-100); Potassium 4.5 mmoL/L (3.5-5.1); Sodium 140 mmol/L (136-145); Total Protein,Serum 7.5 g/dl (6.3-8.2); Uric Acid 8.6 mg/dl (2.5-6.2)
[2020-08-28 18:03] LABS: Erythrocyte Sedimentation Rate 28 mm/hr (0-30)
[2020-08-28 18:05] LABS: C-Reactive Protein 7.8 mg/L (0-4)
[2020-08-28 18:31] LABS: Thyroid Stimulating Hormone 1.05 uIU/mL (0.465-4.68)
[2020-08-30 08:37] LABS: RA Latex Turbid. 10.1 IU/mL (0.0-13.9)
[2020-08-31 18:32] LABS: Antinuclear Antibodies, IFA Positive (.)
== END ==
PROVIDERS: Visit Provider Physician Assistant
DX: M25.50 Pain in unspecified joint (principal); M25.40 Effusion, unspecified joint; R53.83 Other fatigue
CPT/HCPCS: 36415; 80053; 84443; 84550; 85025; 85651; 86038; 86140; 86431; 87040

== ENCOUNTER → 2020-09-28 09:08 | Outpatient (POV) | payer BC, MEDICARE, SELFPAY ==
[2020-09-28 09:33] VITALS: BP 140/70; PULSE 61; RESP 18; O2SAT 98; BMI 42.8
--- NOTE | 2020-09-28 10:46 | HMH.PAINSOAP ---
[facility] Pain Management SOAP Note Subjective:: Patient is a 59-year-old white female who presents today for follow-up and for medication refills. The patient is being treated for degenerative disc disease lumbar spine with lumbar radiculopathy symptoms and chronic right hip pain. 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 She says she is currently being worked up for possible autoimmune disorder. Her URVASHI was positive which was performed by Dr. Hart. She says that she is having severe pain in her joints. She is having worsening pain in her hands limiting her ability to use her hands or grasp objects. She also reports that her uric acid level was recently elevated. She was started on allopurinol. This has helped somewhat with her pain in her bilateral feet. She also reports to be having worsening renal function. She says that her GFR is currently at 39. She is unable to take any anti-inflammatories due to her renal insufficiency. She continues with home stretching. She has managed in the clinic with [place] 10 mg 1 tablet p.o. 4 times daily and baclofen. She denies any side effects to the medication. Patient's Clifford #[id number] has been reviewed and is appropriate. Morphine equivalent is 40. Review of Systems General: No recent weight changes, no fever, no sleep disturbances Respiratory: No cough, no shortness of air, no recurring pulmonary infections Cardiovascular/peripheral vascular: No chest pain, no palpitations, no edema, no shortness of breath Gastrointestinal: No new onset incontinence, normal bowel movements reported Genitourinary: No new onset incontinence Musculoskeletal: Joint pain, low back pain, right hip pain Psychiatric: [Normal mood/affect] Neurological: [Denies weakness in extremities], [denies balance issues] Objective:: Physical exam General: Alert and oriented x3, no acute distress, pleasant and cooperative, [on room air] Lungs: Respirations even and unlabored, symmetrical chest expansion Eyes: PERRL Musculoskeletal: Flexion and extension of [] lumbar [spine] somewhat guarded secondary to pain, strength in upper and lower extremities [5/5], [antalgic gait noted] Neurological: Speech clear, [processing archivist equal], no gross sensory deficit Assessment:: Degenerative disc disease lumbar spine with lumbar radiculopathy symptoms, right side hip pain, joint pain Plan:: We will schedule the patient a consult with rheumatology due to a positive URVASHI. She is unable to be seen in [facility] due to financial reasons. She says that she still owes payment on visits previously and is unable to be seen there at this time. We will refill her [place] 10 mg 1 tablet p.o. 4 times daily and her baclofen 10 mg 1 tablet p.o. 3 times daily. We will see her back in a month for reevaluation symptoms. She has been instructed to contact the clinic if she has any concerns for next ointment. Patient has been instructed to contact the clinic with any concerns before the next appointment. Dr. Carreon has reviewed this note and agrees with this plan of care. This note was dictated using voice recognition software and make contain errors or omissions. [facility] History I have reviewed the patient's past medical history: Yes Medical History: Reports:: Hyperlipidemia, Hypertension, Palpitations Denies:: Cancer, Diabetes Mellitus Type 1, Diabetes Mellitus Type 2, MRSA, Seizures *Have you ever received a pneumonia vaccine?: Yes *Have you received a flu vaccine this season?: Yes Other Medical History: Reports: Arthritis (osteo), Fibromyalgia Laterality Cases: Right: Total Hip Replacement Other Surgeries: Yes: Cardiac Catheterization, Tubal Ligation Amputation: No Fractures: No - *Social History Smoking Status: Current every day smoker Tobacco Type: cigarettes # Packs/Day (cigarettes): 1 Alcohol Intake: current Alcohol Intake Frequency:: holidays/special occasions only *Occupational Status:: unemployed H
== END ==
PROVIDERS: Visit Provider Clinical Nurse Specialist Family Health
DX: M51.16 Intervertebral disc disorders with radiculopathy, lumbar region (principal); M25.551 Pain in right hip; M25.50 Pain in unspecified joint
CPT/HCPCS: 99212; G0463

== ENCOUNTER → 2020-10-22 09:12 | Outpatient (POV) | payer BC, MEDICARE, SELFPAY ==
[2020-10-22 09:17] VITALS: BP 150/85; PULSE 83; RESP 18; O2SAT 97; BMI 42.5
--- NOTE | 2020-10-22 09:32 | HMH.PAINSOAP ---
[facility] Pain Management SOAP Note Subjective:: Patient is a pleasant 59-year-old white female who presents today for medication refills. She has been treated for degenerative disc disease lumbar spine with lumbar radiculopathy symptoms. Patient says that she did have a fall on Monday landing on her left side. She states she struck her left knee and her left shoulder. She is now having pain to these areas. Patient says she does not feel like she needs any type of imaging to these areas. She does rate her pain an 8 out of 10 today. She is awaiting to see rheumatology on November 09. She did have a positive URVASHI level with Dr. Hart. Patient's GFR is currently at 39 and is unable to take anti-inflammatories. She does say she was given a Medrol Dosepak with Dr. Hart approximately 2 weeks ago. She is managed in the clinic with [place] 10 mg 1 tablet p.o. 4 times daily and baclofen 10 mg 1 tablet p.o. 3 times daily. Patient's Clifford #[id number] has been reviewed and is appropriate. Morphine equivalent is 40. Patient does use cane for ambulation. She is limited with mobility today. Review of Systems General: No recent weight changes, no fever, no sleep disturbances Respiratory: No cough, no shortness of air, no recurring pulmonary infections Cardiovascular/peripheral vascular: No chest pain, no palpitations, no edema, no shortness of breath Gastrointestinal: No new onset incontinence, normal bowel movements reported Genitourinary: No new onset incontinence Musculoskeletal: Left knee pain, left shoulder pain, Psychiatric: [Normal mood/affect] Neurological: [Denies weakness in extremities], [denies balance issues] Objective:: Physical exam General: Alert and oriented x3, no acute distress, pleasant and cooperative, [on room air] Lungs: Respirations even and unlabored, symmetrical chest expansion Eyes: PERRL Musculoskeletal: Flexion and extension of lumbar [spine], left lower extremity and left shoulder somewhat guarded secondary to pain, strength in upper and lower extremities [5/5], [antalgic gait noted] Neurological: Speech clear, [day habilitation specialist equal], no gross sensory deficit Assessment:: Degenerative disc disease lumbar spine with lumbar radiculopathy symptoms, left shoulder pain, left knee pain Plan:: Patient has deferred on any imaging at this time. She is unable to take any injective therapy at this time due to scheduling of rheumatology appointment. She is postponing any further steroids until she completes her lab work. She says that she did have steroids approximately 2 weeks ago?Medrol Dosepak by Dr. Hart. We will refill the patient's [place] 10 mg 1 tablet p.o. 4 times daily and her gabapentin 600 mg 1 tablet p.o. twice daily. We will plan to see the patient back in 1 month to discuss her results with her lab work with rheumatology and for medication refill. Risks and benefits of the medication have been explained in detail to the patient. The patient has been advised to consult with his/her primary care provider and pharmacist regarding drug-drug interaction of medications currently prescribed. Patient has been prescribed a controlled substance after being counseled on the medication, medication safety, and possible side effects. CLIFFORD report has been obtained and reviewed prior to prescription and found to be appropriate. Opioid contract was reviewed and signed by the patient, and that they have agreed to all of the terms set forth by our compliance program. Patient has been instructed to contact the clinic with any concerns before the next appointment. Dr. Carreon has reviewed this note and agrees with this plan of care. This note was dictated using voice recognition software and make contain errors or omissions. [facility] History I have reviewed the patient's past medical history: Yes Medical History: Reports:: Hyperlipidemia, Hypertension, Palpitations Denies:: Cancer, Diabetes Mellitus Type 1, Diabetes Mellitus Typ
== END ==
PROVIDERS: Visit Provider Clinical Nurse Specialist Family Health
DX: M51.16 Intervertebral disc disorders with radiculopathy, lumbar region (principal); M25.512 Pain in left shoulder; M25.562 Pain in left knee
CPT/HCPCS: 99212; G0463

== ENCOUNTER → 2020-11-23 08:52 | Outpatient (POV) | payer BC, MEDICARE, SELFPAY ==
--- NOTE | 2020-11-23 09:25 | HMH.PAINSOAP ---
[facility] Pain Management SOAP Note Subjective:: Patient is a 59-year-old white female who presents today for medication refills. Patient reports that her medications were ordered incorrectly at her last visit. As result, the patient did not have adequate amount of medication. She did contact the clinic and did get a refill on the [place] at an appropriate dose. She will run out of her baclofen early. Patient rates her pain a 8 out of 10. She did follow-up with rheumatology Dr. Lamont Cornell. She was started on Plaquenil. Patient says that he suspects the patient may have rheumatoid arthritis versus Sjogren's. She is complaining of right hip pain that has worsens this past week due to getting out of the bathtub and twisting wrong. She says this has flared up her pain. She is unable to take any anti-inflammatories at this time at the recommendation of her continuous still operator. The medications are working well for the patient at this time. Review of Systems General: No recent weight changes, no fever, no sleep disturbances Respiratory: No cough, no shortness of air, no recurring pulmonary infections Cardiovascular/peripheral vascular: No chest pain, no palpitations, no edema, no shortness of breath Gastrointestinal: No new onset incontinence, normal bowel movements reported Genitourinary: No new onset incontinence Musculoskeletal: Low back pain, right hip pain Psychiatric: [Normal mood/affect] Neurological: [Denies weakness in extremities], [denies balance issues] Objective:: Physical exam General: Alert and oriented x3, no acute distress, pleasant and cooperative, [on room air] Lungs: Respirations even and unlabored, symmetrical chest expansion Eyes: PERRL Musculoskeletal: Flexion and extension of lumbar [spine] and right lower extremity somewhat guarded secondary to pain, strength in upper and lower extremities [5/5], [antalgic gait noted] Neurological: Speech clear, [special needs babysitter equal], no gross sensory deficit Assessment:: Degenerative disc disease lumbar spine with lumbar radiculopathy symptoms, right hip pain Plan:: Patient does have hardware to her right hip. We will order an x-ray for acute onset right hip pain. We will continue the patient's [place] 10 mg 1 tablet p.o. 4 times daily and baclofen 10 mg 1 tablet p.o. 3 times daily. We will order the patient today so that she can get the medication early due to medicine being ordered incorrectly at last visit. We will see the patient back in the clinic in 1 month for reevaluation of symptoms. Risks and benefits of the medication have been explained in detail to the patient. The patient has been advised to consult with his/her primary care provider and pharmacist regarding drug-drug interaction of medications currently prescribed. Patient has been prescribed a controlled substance after being counseled on the medication, medication safety, and possible side effects. NELSON report has been obtained and reviewed prior to prescription and found to be appropriate. Opioid contract was reviewed and signed by the patient, and that they have agreed to all of the terms set forth by our compliance program. Patient has been instructed to contact the clinic with any concerns before the next appointment. Dr. Carreon has reviewed this note and agrees with this plan of care. This note was dictated using voice recognition software and make contain errors or omissions. [facility] History I have reviewed the patient's past medical history: Yes Medical History: Reports:: Hyperlipidemia, Hypertension, Palpitations Denies:: Cancer, Diabetes Mellitus Type 1, Diabetes Mellitus Type 2, MRSA, Seizures *Have you ever received a pneumonia vaccine?: Yes *Have you received a flu vaccine this season?: Yes Other Medical History: Reports: Arthritis (osteo), Fibromyalgia Laterality Cases: Right: Total Hip Replacement Other Surgeries: Yes: Cardiac Catheterization, Tubal Ligation Amputation: No Fractures: No - *Social H
== END ==
PROVIDERS: Visit Provider Clinical Nurse Specialist Family Health
DX: M51.16 Intervertebral disc disorders with radiculopathy, lumbar region (principal); M25.551 Pain in right hip
CPT/HCPCS: 99212; G0463

== ENCOUNTER → 2020-11-24 17:13 | Outpatient (CLI) | payer BC, MEDICARE, SELFPAY ==
[2020-11-24 17:16] LABS: Microscopic, Urine URINE MICROSCOPIC (MICROSCOPIC)
--- NOTE | 2020-11-24 17:25 | XR_ITS ---
PROCEDURE INFORMATION: Exam: XR Right Hip Exam date and time: 11/24/2020 5:25 PM Age: 59 years old Clinical indication: Hip pain; Right hip; Prior surgery TECHNIQUE: Imaging protocol: XR Right hip. Views: 2 or 3 views hip with pelvis when performed. COMPARISON: CT HIP RT W CON 11/07/2018 6:11 PM FINDINGS: Bones/joints: No malalignment. Right hip prosthesis seen. Alignment is near anatomic. No evidence of fracture. Soft tissues: Unremarkable. IMPRESSION: No complicating features
[2020-11-24 17:50] LABS: Appearance,Urine CLEAR (Clear); Bilirubin,Urine Negative (Negative); Blood, Urine TRACE-I (Negative); Color,Urine STRAW (Yellow); Glucose,Urine (UA) Negative (Negative); Ketones,Urine Negative (Negative); Leukocyte Esterase,Urine Negative (Negative); Nitrate,Urine Negative (Negative); Protein,Urine Negative (Negative); Urobilinogen,Urine 0.2 EU/dl (0.2)
[2020-11-24 17:51] LABS: Amphetamine/Metha Screen,Urine Negative ng/ml (<1000); Barbiturates Screen,Urine Negative ng/ml (<200)
[2020-11-24 17:52] LABS: Benzodiazepines Screen,Urine Negative ng/ml (<200); Cannabinoid Screen,Urine Negative ng/ml (<50)
[2020-11-24 17:53] LABS: Cocaine Screen,Urine Negative ng/ml (<300)
[2020-11-24 17:54] LABS: Methadone Screen,Urine Negative ng/ml (<300); Opiate Screen,Urine Positive ng/ml (<300)
[2020-11-24 17:55] LABS: Phencyclidine Screen,Urine Negative ng/ml (<25)
[2020-11-24 18:12] LABS: Bacteria,Urine 1+ /lpf; RBC,Urine Occasional #/hpf (0-3); WBC,Urine Occasional #/hpf (0-3)
== END ==
PROVIDERS: Family Medicine; Visit Provider Clinical Nurse Specialist Family Health
DX: R30.0 Dysuria (principal); Z79.891 Long term (current) use of opiate analgesic
CPT/HCPCS: 73502; 80305; 81001; 87086

== ENCOUNTER → 2020-12-08 13:54 | Outpatient (CLI) | payer BC, MEDICARE, SELFPAY ==
--- NOTE | 2020-12-08 13:56 | US_ITS ---
PROCEDURE: US THYROID CLINICAL INDICATION: THYROIDITIS COMPARISON: No exams were available for comparison FINDINGS: Right lobe: 3.6 x 1.2 x 1.2 cm. Diffuse heterogeneous echogenicity with somewhat nodular configuration. No discrete nodule evident. Left lobe: 3.8 x 1 x 1.4 cm with diffuse heterogeneous echogenicity with a nodular configuration but no discrete nodule. Isthmus: Thickened at 8 mm. Additional findings: IMPRESSION: Heterogeneous echogenicity of the thyroid gland. Enlarged isthmus. No discrete nodule apparent. Dictated by: Glen Graham MD 12/09/2020 09:10 Glen Graham MD in [place] 12/09/2020 09:10
== END ==
PROVIDERS: PCP Family Medicine; Visit Provider Family Medicine
DX: E06.9 Thyroiditis, unspecified (principal)
CPT/HCPCS: 76536

== ENCOUNTER → 2020-12-28 08:58 | Outpatient (POV) | payer BC, MEDICARE, SELFPAY ==
[2020-12-28 09:17] VITALS: BP 155/92; PULSE 75; RESP 18; O2SAT 98; BMI 42.1
--- NOTE | 2020-12-28 09:29 | HMH.PAINSOAP ---
[facility] Pain Management SOAP Note Subjective:: Patient is a 59-year-old white female who presents today for medication refills. We manage the patient for chronic low back pain as well as lower extremity pain and right hip pain. Patient's primary pain at this time is in her right hip. She does take [place] 10 mg 1 tablet p.o. 4 times daily and baclofen 10 mg 1 tablet p.o. 3 times daily. She says the medications are working well for her. [facility] #[id number] has been reviewed and is appropriate. Morphine equivalent is 40. Drug screens have been appropriate. Imaging was ordered for the patient at last visit of her right hip. Review of Systems General: No recent weight changes, no fever, no sleep disturbances Respiratory: No cough, no shortness of air, no recurring pulmonary infections Cardiovascular/peripheral vascular: No chest pain, no palpitations, no edema, no shortness of breath Gastrointestinal: No new onset incontinence, normal bowel movements reported Genitourinary: No new onset incontinence Musculoskeletal: Right hip pain, chronic low back pain and lower extremity pain Psychiatric: [Normal mood/affect] Neurological: Weakness lower extremities Objective:: Physical exam General: Alert and oriented x3, no acute distress, pleasant and cooperative Lungs: Respirations even and unlabored, symmetrical chest expansion Eyes: PERRL Musculoskeletal: Flexion and extension of lumbar [spine] somewhat guarded secondary to pain, [antalgic gait noted] Neurological: Speech clear, no gross sensory deficit Assessment:: Degenerative disc disease lumbar spine with lumbar radiculopathy symptoms, right hip pain Plan:: Patient's x-ray from last visit of right hip was unremarkable. No changes were noted. We will refill the patient's [place] 10 mg 1 tablet p.o. 4 times daily and baclofen 10 mg 1 tablet p.o. 3 times daily. We will give the patient a month medication. Due to Covid concerns she would like to follow-up via telehealth visit next visit. We will schedule patient for 1 month follow-up. Risks and benefits of the medication have been explained in detail to the patient. The patient does understand the risk of dependence on the medication when given over a prolonged period. Patient has been advised of risks of oversedation with the prescribed medication. Narcan has been offered to the paitent in the event of oversedation. Patient has been advised that a family member should also be educated regarding administration of Narcan. The patient has been advised to consult with his/her primary care provider and pharmacist regarding drug-drug interaction of medications currently prescribed. Patient has been prescribed a controlled substance after being counseled on the medication, medication safety, and possible side effects. NELSON report has been obtained and reviewed prior to prescription and found to be appropriate. Opioid contract was reviewed and signed by the patient, and that they have agreed to all of the terms set forth by our compliance program. Patient has been instructed to contact the clinic with any concerns before the next appointment. Dr. Carreon has reviewed this note and agrees with this plan of care. This note was dictated using voice recognition software and make contain errors or omissions. [facility] History I have reviewed the patient's past medical history: Yes Medical History: Reports:: Hyperlipidemia, Hypertension, Palpitations Denies:: Cancer, Diabetes Mellitus Type 1, Diabetes Mellitus Type 2, MRSA, Seizures *Have you ever received a pneumonia vaccine?: No *Have you received a flu vaccine this season?: No Other Medical History: Reports: Arthritis (osteo), Fibromyalgia Laterality Cases: Right: Total Hip Replacement Other Surgeries: Yes: Cardiac Catheterization, Tubal Ligation Amputation: No Fractures: No - *Social History Smoking Status: Current every day smoker Tobacco Type: cigarettes # Packs/Day (cigar
== END ==
PROVIDERS: Visit Provider Clinical Nurse Specialist Family Health
DX: M51.16 Intervertebral disc disorders with radiculopathy, lumbar region (principal); M25.551 Pain in right hip
CPT/HCPCS: 99212; G0463

== ENCOUNTER → 2021-01-28 09:07 | Outpatient (POV) | payer BC, MEDICARE, SELFPAY ==
--- NOTE | 2021-01-28 09:26 | HMH.PAINSOAP ---
[facility] Pain Management SOAP Note Subjective:: Patient is pleasant 60-year-old female who is here today as a telehealth visit for follow-up and medication refill. Patient is currently being treated for degenerative disc disease of the lumbar spine with lumbar radiculopathy symptoms, right hip pain. She is currently being managed with [place] 10 mg 1 tablet 4 times a day and baclofen please 10 mg 3 times a day. Patient is also being prescribed gabapentin 600 mg twice a day by Dr. Key. Patient denies any side effects from these medications. Patient denies any changes the location of the pain. Patient rates her pain today as 5 out of 10. Patient says that she will be seeing a right of way agent next week to talk about her chronic pain. Her Nelson number is [id number] with an active morphine equivalent of 40. Drug screens have been reviewed and appropriate. Review of Systems General: No recent weight changes, no fever, no sleep disturbances Respiratory: No cough, no shortness of air, no recurring pulmonary infections Cardiovascular/peripheral vascular: No chest pain, no palpitations, no edema, no shortness of breath Gastrointestinal: No new onset incontinence, normal bowel movements reported Genitourinary: No new onset incontinence Musculoskeletal: Low back pain Psychiatric: [Normal mood/affect] Neurological: [Denies weakness in extremities], [denies balance issues] Objective:: Physical exam General: Alert and oriented x3, pleasant and cooperative Lungs: Unlabored speech, no cough Neurological: Speech clear Assessment:: Degenerative disc disease of lumbar spine with lumbar radiculopathy symptoms Plan:: We will continue the patient's [place] 10 mg / 325 mg 4 times a day. Patient is not wanting refills on her baclofen today. We will provide the patient with [1 month] of refills. We would like to see the patient back in the clinic in [1 month]. Risks and benefits of the medication have been explained in detail to the patient. The patient does understand the risk of dependence on the medication when given over a prolonged period. Patient has been advised of risks of oversedation with the prescribed medication. Narcan has been offered to the paitent in the event of oversedation. Patient has been advised that a family member should also be educated regarding administration of Narcan. The patient has been advised to consult with his/her primary care provider and pharmacist regarding drug-drug interaction of medications currently prescribed. Patient has been prescribed a controlled substance after being counseled on the medication, medication safety, and possible side effects. NELSON report has been obtained and reviewed prior to prescription and found to be appropriate. Opioid contract was reviewed and signed by the patient, and that they have agreed to all of the terms set forth by our compliance program. Patient has been instructed to contact the clinic with any concerns before the next appointment. Dr. Carreon has reviewed this note and agrees with this plan of care. This note was dictated using voice recognition software and make contain errors or omissions. [facility] History Medical History: Reports:: Hyperlipidemia, Hypertension, Palpitations Denies:: Cancer, Diabetes Mellitus Type 1, Diabetes Mellitus Type 2, MRSA, Seizures *Have you ever received a pneumonia vaccine?: No *Have you received a flu vaccine this season?: No Other Medical History: Reports: Arthritis (osteo), Fibromyalgia Laterality Cases: Right: Total Hip Replacement Other Surgeries: Yes: Cardiac Catheterization, Tubal Ligation Amputation: No Fractures: No - *Social History Smoking Status: Current every day smoker Tobacco Type: cigarettes # Packs/Day (cigarettes): 1 Alcohol Intake: current Alcohol Intake Frequency:: holidays/special occasions only *Occupational Status:: unemployed Housing: house Household Members: spouse *Travel in the last 8 weeks:
== END ==
PROVIDERS: Visit Provider Clinical Nurse Specialist Family Health
DX: M51.16 Intervertebral disc disorders with radiculopathy, lumbar region (principal)
CPT/HCPCS: 99212; G0463

== ENCOUNTER → 2021-03-04 10:09 | Outpatient (POV) | payer BC, MEDICARE, SELFPAY ==
[2021-03-04 10:28] VITALS: BP 132/81; PULSE 87; RESP 18; O2SAT 96; BMI 41.1
--- NOTE | 2021-03-04 11:03 | HMH.PAINSOAP ---
[facility] Pain Management SOAP Note Subjective:: Patient is a 60-year-old white female who presents today for medication refill. We are treating patient for chronic low back pain. She is also seeing rheumatology for mild rheumatoid arthritis. She is currently on hydroxychloroquine. She says that she has been on this for 3 months. She is unable to take anti-inflammatories. Overall she does see some improvement, but is having worsening pain that she feels is directly related to weather at this time. She is currently on [place] 10 mg 1 tablet p.o. 4 times daily and baclofen 10 mg 1 tablet p.o. 3 times daily. Patient denies any side effects to the medication. [facility] #[id number] has been reviewed and is appropriate. Morphine equivalent is 40. Review of Systems General: No recent weight changes, no fever, no sleep disturbances Respiratory: No cough, no shortness of air, no recurring pulmonary infections Cardiovascular/peripheral vascular: No chest pain, no palpitations, no edema, no shortness of breath Gastrointestinal: No new onset incontinence, normal bowel movements reported Genitourinary: No new onset incontinence Musculoskeletal: Low back pain, joint pain Psychiatric: [Normal mood/affect] Neurological: [Denies weakness in extremities], [denies balance issues] Objective:: Physical exam General: Alert and oriented x3, no acute distress, pleasant and cooperative Lungs: Respirations even and unlabored, symmetrical chest expansion Eyes: PERRL Musculoskeletal: Flexion and extension of lumbar [spine] somewhat guarded secondary to pain, [antalgic gait noted] Neurological: Speech clear, no gross sensory deficit Assessment:: Degenerative disc disease lumbar spine with lumbar radiculopathy symptoms, rheumatoid arthritis Plan:: We will increase patient's [place] 5 mg 1 tablet p.o. 5 times daily for 1 month. We will go back to 4 times daily at the next visit. We will continue baclofen 10 mg 1 tablet p.o. 3 times daily. She has been advised she is at a high risk for oversedation and both medicines are taken in combination. We will order Narcan in the event of oversedation. We will give the patient a month medication and see her back in the clinic in 1 month. Risks and benefits of the medication have been explained in detail to the patient. The patient does understand the risk of dependence on the medication when given over a prolonged period. Patient has been advised of risks of oversedation with the prescribed medication. Narcan has been offered to the paitent in the event of oversedation. Patient has been advised that a family member should also be educated regarding administration of Narcan. The patient has been advised to consult with his/her primary care provider and pharmacist regarding drug-drug interaction of medications currently prescribed. Patient has been prescribed a controlled substance after being counseled on the medication, medication safety, and possible side effects. NELSON report has been obtained and reviewed prior to prescription and found to be appropriate. Opioid contract was reviewed and signed by the patient, and that they have agreed to all of the terms set forth by our compliance program. Patient has been instructed to contact the clinic with any concerns before the next appointment. Dr. Carreon has reviewed this note and agrees with this plan of care. This note was dictated using voice recognition software and make contain errors or omissions. [facility] History Medical History: Reports:: Hyperlipidemia, Hypertension, Palpitations Denies:: Cancer, Diabetes Mellitus Type 1, Diabetes Mellitus Type 2, MRSA, Seizures *Have you ever received a pneumonia vaccine?: Yes *Have you received a flu vaccine this season?: No Other Medical History: Reports: Arthritis (osteo), Fibromyalgia Laterality Cases: Right: Total Hip Replacement Other Surgeries: Yes: Cardiac Catheterization, Tubal Ligation Amputation: No Frac
== END ==
PROVIDERS: Visit Provider Clinical Nurse Specialist Family Health
DX: M51.16 Intervertebral disc disorders with radiculopathy, lumbar region (principal); M06.9 Rheumatoid arthritis, unspecified
CPT/HCPCS: 99212; G0463

== ENCOUNTER → 2021-04-01 09:28 | Outpatient (POV) | payer BC, MEDICARE, SELFPAY ==
[2021-04-01 09:33] VITALS: BP 142/70; PULSE 77; RESP 18; O2SAT 97; BMI 41.1
--- NOTE | 2021-04-01 09:41 | HMH.PAINSOAP ---
[facility] Pain Management SOAP Note Subjective:: Patient is a 60-year-old white female who presents today for medication refills. We do treat the patient for continued joint pain and chronic low back pain. She also sees rheumatology for rheumatoid arthritis. We manage the patient with [place] 10 mg 1 tablet p.o. 5 times nightly him baclofen 10 mg 1 tablet p.o. 3 times daily. He denies any side effects. Nelson #[id number] has been reviewed and is appropriate. Directions appropriate. Morphine equivalents 50. Review of Systems General: No recent weight changes, no fever, no sleep disturbances Respiratory: No cough, no shortness of air, no recurring pulmonary infections Cardiovascular/peripheral vascular: No chest pain, no palpitations, no edema, no shortness of breath Gastrointestinal: No new onset incontinence, normal bowel movements reported Genitourinary: No new onset incontinence Musculoskeletal: Chronic low back pain, joint pain Psychiatric: [Normal mood/affect] Neurological: [Denies weakness in extremities], [denies balance issues] Objective:: Physical exam General: Alert and oriented x3, no acute distress, pleasant and cooperative Lungs: Respirations even and unlabored, symmetrical chest expansion Eyes: PERRL Musculoskeletal: Flexion and extension of lumbar [spine] somewhat guarded secondary to pain, [antalgic gait noted] Neurological: Speech clear, no gross sensory deficit Assessment:: Degenerative disc disease lumbar spine with lumbar radiculopathy symptoms, rheumatoid arthritis Plan:: We will continue the patient's [place] 10 mg 1 tablet p.o. 5 times daily and gabapentin 6 mg 1 tablet p.o. twice daily. She will get a month medication will be seen back in clinic in 1 month. Risks and benefits of the medication have been explained in detail to the patient. The patient does understand the risk of dependence on the medication when given over a prolonged period. Patient has been advised of risks of oversedation with the prescribed medication. Narcan has been offered to the paitent in the event of oversedation. Patient has been advised that a family member should also be educated regarding administration of Narcan. The patient has been advised to consult with his/her primary care provider and pharmacist regarding drug-drug interaction of medications currently prescribed. Patient has been prescribed a controlled substance after being counseled on the medication, medication safety, and possible side effects. NELSON report has been obtained and reviewed prior to prescription and found to be appropriate. Opioid contract was reviewed and signed by the patient, and that they have agreed to all of the terms set forth by our compliance program. Patient has been instructed to contact the clinic with any concerns before the next appointment. Dr. Carreon has reviewed this note and agrees with this plan of care. This note was dictated using voice recognition software and make contain errors or omissions. [facility] History I have reviewed the patient's past medical history: Yes Medical History: Reports:: Hyperlipidemia, Hypertension, Palpitations Denies:: Cancer, Diabetes Mellitus Type 1, Diabetes Mellitus Type 2, MRSA, Seizures *Have you ever received a pneumonia vaccine?: Yes *Have you received a flu vaccine this season?: No Other Medical History: Reports: Arthritis (osteo), Fibromyalgia Laterality Cases: Right: Total Hip Replacement Other Surgeries: Yes: Cardiac Catheterization, Tubal Ligation Amputation: No Fractures: No - *Social History Smoking Status: Current every day smoker Tobacco Type: cigarettes # Packs/Day (cigarettes): 1 Alcohol Intake: current Alcohol Intake Frequency:: holidays/special occasions only *Occupational Status:: unemployed Housing: house Household Members: spouse *Travel in the last 8 weeks: None Family Hx:: Hypertension, Stroke, Other (alcoholism)
== END ==
PROVIDERS: Visit Provider Clinical Nurse Specialist Family Health
DX: M51.16 Intervertebral disc disorders with radiculopathy, lumbar region (principal); M06.9 Rheumatoid arthritis, unspecified
CPT/HCPCS: 99212; G0463

== ENCOUNTER → 2021-04-02 14:28 | Outpatient (CLI) | payer BC, MEDICARE, SELFPAY ==
[2021-04-02 17:23] LABS: Barbiturates Screen,Urine Negative ng/ml (<200); Benzodiazepines Screen,Urine Negative ng/ml (<200)
[2021-04-02 17:24] LABS: Amphetamine/Metha Screen,Urine Negative ng/ml (<1000)
[2021-04-02 17:25] LABS: Cannabinoid Screen,Urine Negative ng/ml (<50); Methadone Screen,Urine Negative ng/ml (<300)
[2021-04-02 17:26] LABS: Cocaine Screen,Urine Negative ng/ml (<300)
[2021-04-02 17:27] LABS: Opiate Screen,Urine Positive ng/ml (<300); Phencyclidine Screen,Urine Negative ng/ml (<25)
[2021-05-07 09:47] LABS: Codeine Negative (Cutoff=100); Hydrocodone Positive (.); Hydromorphone Positive (.); Morphine Negative (Cutoff=100); Opiates Positive (.)
== END ==
PROVIDERS: PCP Family Medicine; Visit Provider Clinical Nurse Specialist Family Health
DX: Z79.891 Long term (current) use of opiate analgesic (principal)
CPT/HCPCS: 80305; 80361; 80365; G0480

== ENCOUNTER → 2021-04-29 09:45 | Outpatient (POV) | payer BC, MEDICARE, SELFPAY ==
[2021-04-29 10:07] VITALS: BP 155/77; PULSE 96; RESP 20; TEMP 36.6; O2SAT 98; BMI 41.6
--- NOTE | 2021-04-29 12:55 | HMH.PAINSOAP ---
[facility] Pain Management SOAP Note Subjective:: Patient is a pleasant 60-year-old female who is here for medication refill and follow-up. Patient is currently being treated for degenerative disc disease of the lumbar spine with lumbar radiculopathy symptoms, rheumatoid arthritis, joint pains. Patient is being managed with [place] 10 mg 5 times a day this clinic. He is also taking gabapentin 600 mg twice a day that is prescribed by Dr. Hart. Patient denies any side effects from the medications. Patient denies any changes to the location and type of pain. Patient states that this is adequately helping manage his pain. Rates pain as 8 out of 10. [facility] number [id number] with an active morphine equivalent 50. Drug screens have been reviewed and appropriate. Patient has been having flareups on her back in the last 3 weeks. She feels like she pulled same thing on her back about 3 weeks ago. She says that this has not gotten better or worse. She denies any loss of bowel and bladder functions. General: No recent weight changes, no fever, no sleep disturbances Respiratory: No cough, no shortness of air, no recurring pulmonary infections Cardiovascular/peripheral vascular: No chest pain, no palpitations, no edema, no shortness of breath Gastrointestinal: No new onset incontinence, normal bowel movements reported Genitourinary: No new onset incontinence Musculoskeletal: Low back pain Psychiatric: [Normal mood/affect] Neurological: [Denies weakness in extremities], [denies balance issues] Objective:: General: Alert and oriented x3, no acute distress, pleasant and cooperative, [on room air] Lungs: Respirations even and unlabored, symmetrical chest expansion Eyes: PERRL Musculoskeletal: Flexion and extension of lumbar [spine] somewhat guarded secondary to pain, [antalgic gait noted] Neurological: Speech clear, no gross sensory deficit Assessment:: Degenerative disc disease of the lumbar spine with lumbar radiculopathy symptoms, rheumatoid arthritis Plan:: We will continue the patient's [place] 10 mg 5 times a day. We will provide the patient with 1 month of refills. We would like to see the patient back in a month for follow-up and reevaluation of chronic pain syndrome. I will also start the patient on prednisone 20 mg daily for 5 days. Patient is not interested in doing any injective therapy at the moment. Patient has been advised of risks of oversedation with the prescribed medication. Narcan has been offered to the paitent in the event of oversedation. Patient has been advised that a family member should also be educated regarding administration of Narcan. Patient has been instructed to contact the clinic with any concerns before the next appointment. Dr. Carreon has reviewed this note and agrees with this plan of care. This note was dictated using voice recognition software and make contain errors or omissions. [facility] History Medical History: Reports:: Hyperlipidemia, Hypertension, Palpitations Denies:: Cancer, Diabetes Mellitus Type 1, Diabetes Mellitus Type 2, MRSA, Seizures *Have you ever received a pneumonia vaccine?: Yes *Have you received a flu vaccine this season?: Yes Other Medical History: Reports: Arthritis (osteo), Fibromyalgia Laterality Cases: Right: Total Hip Replacement Other Surgeries: Yes: Cardiac Catheterization, Tubal Ligation Amputation: No Fractures: No - *Social History Smoking Status: Current every day smoker Tobacco Type: cigarettes # Packs/Day (cigarettes): 1 Alcohol Intake: current Alcohol Intake Frequency:: holidays/special occasions only *Occupational Status:: disabled Housing: house Household Members: spouse *Travel in the last 8 weeks: None Family Hx:: Hypertension, Stroke, Other (alcoholism)
== END ==
PROVIDERS: Visit Provider Student in an Organized Health Care Education/Training Program
DX: M51.16 Intervertebral disc disorders with radiculopathy, lumbar region (principal); M06.9 Rheumatoid arthritis, unspecified
CPT/HCPCS: 99212; G0463

== ENCOUNTER → 2021-05-26 16:21 | Outpatient (CLI) | payer BC, MEDICARE, SELFPAY | PROVIDERS: PCP Family Medicine; Visit Provider Surgery | DX: Z11.52 Encounter for screening for COVID-19 (principal) | CPT/HCPCS: C9803; U0003; U0005 ==

== ENCOUNTER → 2021-05-27 09:23 | Outpatient (POV) | payer BC, MEDICARE, SELFPAY ==
[2021-05-27 09:39] VITALS: BP 152/93; PULSE 76; RESP 20; O2SAT 98; BMI 40.7
--- NOTE | 2021-05-27 11:09 | HMH.PAINSOAP ---
[facility] Pain Management SOAP Note Subjective:: Patient is a pleasant 60-year-old female who is here for medication refill and follow-up. Patient is currently being treated for degenerative disc disease of lumbar spine with lumbar radiculopathy symptoms, rheumatoid arthritis, joint pains, severe kyphosis. Patient is being managed with [place] 10 mg 5 times a day as prescribed by this clinic. Patient is also taking gabapentin 600 mg twice a day that is prescribed by Dr. Hart. Patient states that she has chronic constipation. She is taking MiraLAX every day and eating high fiber diet which helps with some of her constipation. Patient states that she slipped on her bathtub and scraped her back when we last saw her. I started her on prednisone 20 mg twice a day for 5 days which helps some of her pain. She states that she still having pain in her back. She is wondering if he can do any imaging on her back. Rates pain as 8 out of 10. [facility] number [id number] with an active morphine equivalent 50. Drug screens have been reviewed and appropriate. Review of Systems: General: No recent weight changes, no fever, no sleep disturbances Respiratory: No cough, no shortness of air, no recurring pulmonary infections Cardiovascular/peripheral vascular: No chest pain, no palpitations, no edema, no shortness of breath Gastrointestinal: No new onset incontinence, normal bowel movements reported Genitourinary: No new onset incontinence Musculoskeletal: Low back pain Psychiatric: [Normal mood/affect] Neurological: [Denies weakness in extremities], [denies balance issues] Objective:: Physical Exam: General: Alert and oriented x3, no acute distress, pleasant and cooperative, [on room air] Lungs: Respirations even and unlabored, symmetrical chest expansion Eyes: PERRL Musculoskeletal: Flexion and extension of lumbar [spine] somewhat guarded secondary to pain, [antalgic gait noted]; patient is tender to palpation around the upper low back. Neurological: Speech clear, no gross sensory deficit Assessment:: Degenerative disc disease of lumbar spine with lumbar radiculopathy symptoms Rheumatoid arthritis Severe kyphosis Acute on chronic low back pain Plan:: We will continue the patient's [place] 10 mg 5 times a day. We will provide the patient with 1 month of refills. We would like to see the patient back in 1 month for follow-up and reevaluation of chronic pain syndrome. I will also start the patient on a stool softener to help with her chronic constipation. For her worsening low back pain, we will order a lumbar x-ray and lumbar MRI to further evaluate new symptoms. Patient has been advised of risks of oversedation with the prescribed medication. Narcan has been offered to the patient in the event of oversedation. Patient has been advised that a family member should also be educated regarding administration of Narcan. Patient has been instructed to contact the clinic with any concerns before the next appointment. Dr. Carreon has reviewed this note and agrees with this plan of care. This note was dictated using voice recognition software and make contain errors or omissions. [facility] History Medical History: Reports:: Hyperlipidemia, Hypertension, Palpitations Denies:: Cancer, Diabetes Mellitus Type 1, Diabetes Mellitus Type 2, Internal Pacemaker, MRSA, Seizures *Have you ever received a pneumonia vaccine?: Yes *Have you received a flu vaccine this season?: No Other Medical History: Reports: Arthritis (osteo), Fibromyalgia Laterality Cases: Right: Total Hip Replacement Other Surgeries: Yes: Cardiac Catheterization, Tubal Ligation. No: Pacemaker Amputation: No Fractures: No - *Social History Smoking Status: Current every day smoker Tobacco Type: cigarettes # Packs/Day (cigarettes): 2 Alcohol Intake: never Alcohol Intake Frequency:: holidays/special occasions only *Occupational Status:: disabled Housing: house Household Members: spouse *Travel i
== END ==
PROVIDERS: Visit Provider Student in an Organized Health Care Education/Training Program
DX: M51.16 Intervertebral disc disorders with radiculopathy, lumbar region (principal); M06.9 Rheumatoid arthritis, unspecified; M40.209 Unspecified kyphosis, site unspecified; G89.29 Other chronic pain
CPT/HCPCS: 99212; G0463

== ENCOUNTER 2021-05-28 09:28 | Day surgery (SDC) | payer BC, MEDICARE, SELFPAY ==
[2021-05-26 14:02] VITALS: BMI 40.7
[2021-05-28 09:54] VITALS: BP 133/85; PULSE 79; RESP 18; TEMP 36.4; O2SAT 98
[2021-05-28 10:37] VITALS: O2SAT 97
--- NOTE | 2021-05-28 10:55 | HMH.ANESCL ---
[facility] Anesthesia Checklist - Patient Identification Patient Identification: Arm Band - Structural Data Admitted From: Home Planned Operative Procedure/s: colonoscopy Consent for Planned Operative Procedure(s) Verified: Yes Verified Documents: Surgical Consent, History and Physical - NPO Status Verified Time NPO: 00:00 - Additional verifications Anesthesia Reactions: No - Airway Assessment C-Spine Mobility Assessed: Yes (mp2) TMJ Mobility Assessed: Yes Dentition: Edentulous - Neurological Assessment Level of Consciousness: Awake, Alert - Anesthesia Plan Anesthesia Risk discussed: Yes Anesthesia Plan: Verified ASA Class: III Anesthesia Type: MAC [facility] History I have reviewed the patient's past medical history: Yes Medical History: Reports:: Hyperlipidemia, Hypertension, Palpitations Denies:: Cancer, Diabetes Mellitus Type 1, Diabetes Mellitus Type 2, Internal Pacemaker, MRSA, Seizures *Have you ever received a pneumonia vaccine?: Yes *Have you received a flu vaccine this season?: No Other Medical History: Reports: Arthritis (osteo), Fibromyalgia Anesthesia experience/problems:: NAC Laterality Cases: Right: Total Hip Replacement Other Surgeries: Yes: Cardiac Catheterization, Tubal Ligation. No: Pacemaker Amputation: No Fractures: No - *Social History Last grade of school completed: Some college Smoking Status: Current every day smoker Tobacco Type: cigarettes # Packs/Day (cigarettes): 2 Alcohol Intake: never Alcohol Intake Frequency:: holidays/special occasions only Substance Use Type: denies use *Occupational Status:: disabled Housing: house Household Members: spouse *Travel in the last 8 weeks: None Family Hx:: No significant family history
[2021-05-28 11:15] VITALS: BP 136/78; PULSE 75; RESP 18; TEMP 37; O2SAT 95
--- NOTE | 2021-05-28 11:15 | HMH.SCOPE ---
- Procedure: Date: 05/28/21 Patient Date of :: 1960 Procedure Performed:: Total colonoscopy to terminal ileum with biopsy and polypectomy Indications:: Patient is a 60-year-old female. She had undergone EGD and colonoscopy in March 2014. She did have polyps removed. She has chronic pain issues and takes several pain medications. She has developed severe constipation according to her. She has taken Linzess. She takes stool softeners. She denies bleeding. Performing Provider:: Everette Ridley MD Referring Provider:: Yovany Hart MD Sedation:: MAC sedation Procedure:: Patient was taken to endoscopy procedure room. She was positioned in lateral decubitus position. Adequate intravenous sedation was achieved with anesthesia titration of propofol. Variable stiffness Olympus colonoscope was inserted via the anus. It was advanced to the cecum with some difficulty due to significant floppiness and atony of the colon. However, ultimately ileocecal valve and appendiceal orifice were clearly identified. Colonic preparation was good. Colonoscope was advanced into the terminal ileum which appeared grossly normal. Colonoscope was slowly withdrawn through the colon with careful surveillance. There was a very subtle irregularity at the hepatic flexure which was biopsied. Possible lymphoid nodule versus merely normal colon. In the proximal transverse colon there was a adenomatous appearing polyp measuring about 12 mm removed with cold cutting snare. In the rectosigmoid region there was a diminutive hyperplastic appearing polyp removed with biopsy forceps. Retroflexion within the rectum revealed no evidence of any pathologic internal hemorrhoids. Colonoscope was withdrawn. Findings:: Subtle irregularity at the hepatic flexure, likely normal colon, biopsied Adenomatous appearing 12 mm polyp in proximal transverse colon Hyperplastic rectosigmoid polyp removed with biopsy Redundant floppy atonic colon Recommendations:: Constipation likely secondary to functional chronic pain medication. Repeat colonoscopy pending pathology, likely 5 years Complications:: None immediately apparent Estimated blood obtained (mL): 1
[2021-05-28 11:25] VITALS: BP 131/71; PULSE 68; RESP 16; O2SAT 94
[2021-05-28 11:35] VITALS: BP 119/80; PULSE 63; RESP 18; O2SAT 95
[2021-05-28 11:45] VITALS: BP 121/78; PULSE 64; RESP 19; TEMP 37; O2SAT 96
== END 2021-05-28 11:48 | disposition home or self-care (01) ==
LOC: OUTP 09:31
PROVIDERS: PCP Family Medicine; Visit Provider Surgery
PROC: 0DJD8ZZ Inspection of Lower Intestinal Tract, Via Natural or Artificial Opening Endoscopic (ICD-10-PCS; CPT 45380; principal; 2021-05-28 10:30)
DX: Z86.010 Personal history of colon polyps (principal); K63.5 Polyp of colon; K56.2 Volvulus; E78.5 Hyperlipidemia, unspecified; I10 Essential (primary) hypertension; R00.2 Palpitations; Z72.0 Tobacco use; Z88.1 Allergy status to other antibiotic agents; Z88.8 Allergy status to other drugs, medicaments and biological substances; Z79.899 Other long term (current) drug therapy
CPT/HCPCS: 45380

== ENCOUNTER → 2021-06-01 16:35 | Outpatient (CLI) | payer BC, MEDICARE, SELFPAY ==
--- NOTE | 2021-06-01 16:39 | XR_ITS ---
PROCEDURE INFORMATION: Exam: XR Lumbosacral Spine Exam date and time: 06/01/2021 4:41 PM Age: 60 years old Clinical indication: Low back pain; Additional info: Worsening back pain TECHNIQUE: Imaging protocol: XR of the lumbosacral spine. Views: 4 or 5 views. COMPARISON: [id number] MR lumbar spine wo/w con 05/28/2018 9:48 AM FINDINGS: Bones/joints: Severe changes of disc degeneration are present at T12-L1, L1-2 and L2-3. There is a slight anterior wedge deformity at L1 and L2. Findings do not appear significantly changed. Severe hypertrophic facet changes are present at L4-5 and L5-S1. Similar findings are present on the previous MRI examination. Soft tissues: Unremarkable. IMPRESSION: Lumbar spondylosis with multilevel severe changes of disc degeneration T12-L1, L1-2 and L2-3. Overall findings do not appear significantly changed since 05/28/2018.
== END ==
PROVIDERS: PCP Family Medicine; Visit Provider Student in an Organized Health Care Education/Training Program
DX: M54.50 Low back pain, unspecified (principal)
CPT/HCPCS: 72110

== ENCOUNTER → 2021-06-21 09:23 | Outpatient (POV) | payer BC, MEDICARE, SELFPAY ==
[2021-06-21 10:20] VITALS: BP 151/86; PULSE 85; RESP 18; TEMP 36.4; O2SAT 97; BMI 40.1
[2021-06-21 10:29] LABS: Barbiturates Screen,Urine Negative ng/ml (<200)
[2021-06-21 10:30] LABS: Amphetamine/Metha Screen,Urine Negative ng/ml (<1000); Benzodiazepines Screen,Urine Negative ng/ml (<200)
[2021-06-21 10:31] LABS: Cocaine Screen,Urine Negative ng/ml (<300)
[2021-06-21 10:32] LABS: Cannabinoid Screen,Urine Negative ng/ml (<50); Methadone Screen,Urine Negative ng/ml (<300)
[2021-06-21 10:33] LABS: Opiate Screen,Urine Positive ng/ml (<300)
[2021-06-21 10:34] LABS: Phencyclidine Screen,Urine Negative ng/ml (<25)
--- NOTE | 2021-06-21 12:07 | HMH.PAINSOAP ---
[facility] Pain Management SOAP Note Subjective:: This patient is a very pleasant 60-year-old female that comes to our clinic today for follow-up visit and medication refill. Patient is reporting she fell in the tub back in March and scraped her kyphotic lumbar spine. This resulted in increased pain in the lumbar spine. However, she reports today it is much better now than it was after her injury. She reports she feels certain the acute pain is gone. However she is continue to have some chronic soreness from the fall. Patient currently takes hydrocodone 10 mg 1 p.o. 5 times daily. Baclofen 10 mg 1 p.o. 3 times daily. Patient reports the medication does help and keeps her pain extremely tolerable. Her Clifford is reviewed today and is appropriate #[id number]. Patient is not having any side effects from the pain medication. Her drug screens have been reviewed and are appropriate. Objective:: Patient is awake alert oriented x3. No acute distress. Flexion extension lumbar spine is guarded secondary to pain. Deep tendon reflexes upper and lower extremities normal. Motor strength upper and lower extremities normal. There is no gross sensory deficit. Gait is antalgic. Assessment:: Degenerative disc disease lumbar spine multilevels. Lumbar radiculopathy symptoms. Lumbar kyphosis. Plan:: We will continue with current medications. Her recent lumbar x-ray was reviewed without any significant findings. Overall findings do not appear significantly changed from 05/28/2018. [facility] History Medical History: Reports:: Hyperlipidemia, Hypertension, Palpitations Denies:: Cancer, Diabetes Mellitus Type 1, Diabetes Mellitus Type 2, Internal Pacemaker, MRSA, Seizures *Have you ever received a pneumonia vaccine?: Yes *Have you received a flu vaccine this season?: No Other Medical History: Reports: Arthritis, Fibromyalgia Laterality Cases: Right: Total Hip Replacement Other Surgeries: Yes: Cardiac Catheterization, Colonoscopy, Tubal Ligation. No: Pacemaker Amputation: No Fractures: No - *Social History Smoking Status: Current every day smoker Tobacco Type: cigarettes # Packs/Day (cigarettes): 2 Alcohol Intake: never Alcohol Intake Frequency:: holidays/special occasions only Substance Use Type: denies use *Occupational Status:: disabled Housing: house Household Members: spouse *Travel in the last 8 weeks: None Family Hx:: No significant family history
[2021-06-30 19:09] LABS: Codeine Negative (Cutoff=100); Hydrocodone Positive (.); Hydromorphone Positive (.); Morphine Negative (Cutoff=100); Opiates Positive (.)
== END ==
PROVIDERS: Student in an Organized Health Care Education/Training Program; Visit Provider Nurse Anesthetist, Certified Registered
DX: M51.16 Intervertebral disc disorders with radiculopathy, lumbar region (principal); M40.299 Other kyphosis, site unspecified
CPT/HCPCS: 80305; 80361; 80365; 99212; G0463; G0480

== ENCOUNTER → 2021-07-30 09:49 | Outpatient (POV) | payer BC, MEDICARE, SELFPAY ==
[2021-07-30 10:03] VITALS: BP 149/72; PULSE 79; RESP 18; TEMP 36.5; O2SAT 97; BMI 39.6
--- NOTE | 2021-07-30 10:34 | P.CONS_ITS ---
[facility] Pain Management SOAP Note Subjective:: Patient is a pleasant 60-year-old female that comes to our clinic today for a 1 month follow-up in regards to her medical management. We currently manage the patient with hydrocodone 10 mg 1 p.o. 5 times daily. Patient also receives baclofen 10 mg 1 p.o. 3 times daily from her PCP. Patient's main complaint is overall joint pain. This would include the low back as well as bilateral leg radicular symptoms. Patient also complained of joint pain in the ankles wrist and shoulders. Patient has recently been diagnosed with rheumatoid arthritis. She follows up with rheumatology in 1 month. Patient mentioned 5 Percocet per day is okay. However, in the last 30 to 45 days she has had a lot of increased pain. She will discussed with her rheumatology doctor regarding starting methotrexate. Patient's Clifford [id number] has been reviewed and appropriate. Her drug screens have been appropriate in the past. Patient describes her overall pain 10. Patient denies any side effects from the pain medication. Objective:: Patient is awake alert oriented x3. In no acute distress. Flexion-extension lumbar spine somewhat guarded secondary to pain. Deep tendon reflexes upper and lower extremities normal. Motor strength upper and lower extremities normal. There is no gross sensory deficit. Gait is antalgic. Assessment:: Rheumatoid arthritis. Degenerative disc disease lumbar spine multilevels. Lumbar radiculopathy symptoms. Plan:: We will refill the patient's pain medication. She will keep us informed regarding any medication changes from your rheumatology. [facility] History Medical History: Reports:: Hyperlipidemia, Hypertension, Palpitations Denies:: Cancer, Diabetes Mellitus Type 1, Diabetes Mellitus Type 2, Internal Pacemaker, MRSA, Seizures *Have you ever received a pneumonia vaccine?: Yes *Have you received a flu vaccine this season?: No Other Medical History: Reports: Arthritis, Fibromyalgia Laterality Cases: Right: Total Hip Replacement Other Surgeries: Yes: Cardiac Catheterization, Colonoscopy, Tubal Ligation. No: Pacemaker Amputation: No Fractures: No - *Social History Smoking Status: Current every day smoker Tobacco Type: cigarettes # Packs/Day (cigarettes): 2 Alcohol Intake: never Alcohol Intake Frequency:: holidays/special occasions only Substance Use Type: denies use *Occupational Status:: other Housing: house Household Members: spouse *Travel in the last 8 weeks: None Family Hx:: No significant family history
== END ==
PROVIDERS: PCP Family Medicine; Visit Provider Nurse Anesthetist, Certified Registered
DX: M51.16 Intervertebral disc disorders with radiculopathy, lumbar region (principal); M06.9 Rheumatoid arthritis, unspecified; M19.90 Unspecified osteoarthritis, unspecified site; M79.7 Fibromyalgia
CPT/HCPCS: 99212; G0463

== ENCOUNTER → 2021-08-07 10:37 | Outpatient (CLI) | payer BC, MEDICARE, SELFPAY ==
[2021-08-07 11:27] LABS: Basophils # 0.1 K/mm3 (0-0.2); Basophils % 0.7 % (0.1-2.0); Eosinophils # 0.1 K/mm3 (0.0-0.4); Eosinophils % 1.6 % (0.1-12.0); Hematocrit 38.3 % (37.0-47.0); Hemoglobin 12.1 g/dL (12.2-16.2); Lymphocytes % 24.7 % (10-50); Mean Corpuscular HGB Conc 31.6 g/dL (31.8-35.4); Mean Corpuscular Hemoglobin 33.7 pg (27.0-31.2); Mean Corpuscular Volume 106.5 fl (81-99); Mean Platelet Volume 8.1 fl (7.4-10.4); Monocytes # 0.6 K/mm3 (0.1-1.0); Neutrophils # 5.3 K/mm3 (1.8-7.8); Neutrophils % 65.9 % (37.0-80.0); Platelet Count 278 K/mm3 (142-424); Red Cell Distribution Width 16.1 % (11.5-17.5); White Blood Count 8.1 K/mm3 (4.8-10.8)
[2021-08-07 12:14] LABS: Chloride 106 mmol/L (98-107); Potassium 4.3 mmoL/L (3.5-5.1); Sodium 139 mmol/L (136-145)
[2021-08-07 12:16] LABS: Blood Urea Nitrogen 18 mg/dl (7-17); Estimated Glomerular Filt Rate 46 ml/min (>60); GFR (African American) 56 ML/MIN (>60)
[2021-08-07 12:17] LABS: Alanine Aminotransferase 10 U/L (12-78); Albumin Level 3.9 g/dl (3.5-5.0); Albumin/Globulin Ratio 1.5 (1.1-1.8); Alkaline Phosphatase 111 U/L (38-126); Anion Gap 10.3 mEq/L (5-15); Aspartate Amino Transferase 21 U/L (14-36); Bilirubin,Total 0.3 mg/dl (0.2-1.3); Calcium 9.2 mg/dl (8.4-10.2); Carbon Dioxide 27 mmol/L (22.0-30.0); Globulin 2.6 g/dL (1.3-3.2); Glucose 95 mg/dl (74-100); Total Protein,Serum 6.5 g/dl (6.3-8.2)
[2021-08-07 12:35] LABS: Free T4 (Free Thyroxine) 1.71 ng/dl (0.78-2.19)
[2021-08-07 14:17] LABS: Chol/HDL Ratio 6.3 (1-3.5); Cholesterol 266 mg/dl (140-200); HDL Cholesterol 42 mg/dl (40-60); Triglycerides 179 mg/dl (30-150); VLDL Cholesterol 36 mg/dL (0-40)
[2021-08-07 14:26] LABS: NT Pro Brain Natriuretic Pep. 121 pg/mL (0-125)
[2021-08-07 14:27] LABS: Direct LDL Cholesterol 118.41 mg/dL (100-129)
[2021-08-07 14:47] LABS: Thyroid Stimulating Hormone 0.81 uIU/mL (0.465-4.68)
[2021-08-07 15:11] LABS: Erythrocyte Sedimentation Rate 37 mm/hr (0-30)
== END ==
PROVIDERS: PCP Physician Assistant; Visit Provider Nurse Practitioner Family
DX: I10 Essential (primary) hypertension (principal); E78.5 Hyperlipidemia, unspecified; E03.9 Hypothyroidism, unspecified; E79.0 Hyperuricemia without signs of inflammatory arthritis and tophaceous disease; R60.0 Localized edema; M05.79 Rheumatoid arthritis with rheumatoid factor of multiple sites without organ or systems involvement; Z79.899 Other long term (current) drug therapy
CPT/HCPCS: 36415; 80053; 80061; 83880; 84439; 84443; 84550; 85025; 85651; 86140

== ENCOUNTER → 2021-08-12 15:14 | Outpatient (CLI) | payer BC, MEDICARE, SELFPAY ==
--- NOTE | 2021-08-12 15:18 | MM_ITS ---
PROCEDURE INFORMATION: Exam: MG Bilateral Screening 3D Mammography Exam date and time: 08/12/2021 3:15 PM Age: 60 years old Clinical indication: Screening examination TECHNIQUE: Imaging protocol: Bilateral Screening tomosynthesis and 2D mammography including computer-aided detection (CAD) when performed. COMPARISON: No relevant prior studies available. FINDINGS: MAMMOGRAPHY: Breast composition: The breasts are almost entirely fatty. Mass: None. Architectural distortion: None. Calcifications: No suspicious calcifications. Asymmetric density: None. Skin thickening: None. Axillary adenopathy: None. IMPRESSION: No mammographic evidence of malignancy. Annual screening is recommended unless otherwise clinically indicated. ASSESSMENT: BI-RADS Category 1: Negative
== END ==
PROVIDERS: PCP Physician Assistant; Visit Provider Family Medicine
DX: Z12.31 Encounter for screening mammogram for malignant neoplasm of breast (principal)
CPT/HCPCS: 77063; 77067

== ENCOUNTER → 2021-08-30 10:40 | Outpatient (POV) | payer BC, MEDICARE, SELFPAY ==
--- NOTE | 2021-08-30 11:55 | HMH.PAINSOAP ---
[facility] Pain Management SOAP Note Subjective:: Patient is a pleasant 60-year-old female that comes to our clinic today for 1 month follow-up and medication refill. We are currently treating the pain for degenerative disc disease of lumbar spine multilevels with lumbar radiculopathy symptoms and rheumatoid arthritis. She rates her pain at a 4 out of 10 today. She states this is a generalized pain, mainly hands and low back. She describes the low back pain as an ache, with occasional shooting pains when she is up and moving. We are currently managing the patient with hydrocodone 10 mg 5 times a day, and baclofen 10 mg 3 times a day. patient also takes gabapentin 600 mg 3 times a day from Dr. Pollack. Patient has been diagnosed with rheumatoid arthritis in the past. Patient denies any side effects with the medications. She denies any change in the type or location of her pain. Today's visit the patient mentioned that she is switching to insurance coming up. She is concerned that there may be a gap in healthcare coverage so she is requesting her baclofen to be given on a 90-day supply. Patient states that she has been more active in the last month. She states that her medication is working well to manage her pain. Her primary care doctor had recently increased her gabapentin and trazodone which she feels is helping her sleep as well as the pain. patient's Clifford is [phone]. It has been reviewed and is appropriate. Patient has had injections in the past. She would like to possibly look into having injections specifically in her facets once her insurance has started with . Review of Systems: General: No recent weight changes, no fever, no sleep disturbances Respiratory: No cough, no shortness of air, no recurring pulmonary infections Cardiovascular/peripheral vascular: No chest pain, no palpitations, no edema, no shortness of breath Gastrointestinal: No new onset incontinence, normal bowel movements reported Genitourinary: No new onset incontinence Musculoskeletal: Low back pain, bilateral hand pain Psychiatric: [Normal mood/affect] Neurological: [Denies weakness in extremities], [denies balance issues] Objective:: Physical Exam: General: Alert and oriented x3, no acute distress, pleasant and cooperative Lungs: Respirations even and unlabored, symmetrical chest expansion Eyes: PERRL Musculoskeletal: Flexion and extension of lumbar [spine] somewhat guarded secondary to pain, [antalgic gait noted] Neurological: Speech clear, no gross sensory deficit Assessment:: Degenerative disc disease of lumbar spine, multilevels with lumbar radiculopathy symptoms, rheumatoid arthritis Plan:: We will refill the patient's hydrocodone 10 mg 5 times a day for 1 month supply. We will also give the patient her baclofen as a 90-day supply and order the compounding cream from [place]. Patient will return to clinic in 1 month for medication refill and follow-up. Patient has been instructed to contact the clinic with any concerns before the next appointment. Dr. Carreon has reviewed this note and agrees with this plan of care. This note was dictated using voice recognition software and make contain errors or omissions. [facility] History I have reviewed the patient's past medical history: Yes Medical History: Reports:: Hyperlipidemia, Hypertension, Palpitations Denies:: Cancer, Diabetes Mellitus Type 1, Diabetes Mellitus Type 2, Internal Pacemaker, MRSA, Seizures *Have you ever received a pneumonia vaccine?: Yes *Have you received a flu vaccine this season?: No Other Medical History: Reports: Arthritis, Fibromyalgia Laterality Cases: Right: Total Hip Replacement Other Surgeries: Yes: Cardiac Catheterization, Colonoscopy, Tubal Ligation. No: Pacemaker Amputation: No Fractures: No - *Social History Smoking Status: Current every day smoker Tobacco Type: cigarettes # Packs/Day (cigarettes): 2 Alcohol Intake: never Alcohol Intake Frequency:: holidays/sp
[2021-08-30 12:52] VITALS: BP 106/54; PULSE 82; RESP 18; TEMP 36.5; O2SAT 99; BMI 39.6
== END ==
PROVIDERS: Visit Provider Student in an Organized Health Care Education/Training Program
DX: M51.16 Intervertebral disc disorders with radiculopathy, lumbar region (principal); M06.9 Rheumatoid arthritis, unspecified; Z72.0 Tobacco use
CPT/HCPCS: 99212; G0463

== ENCOUNTER → 2021-09-08 16:45 | Outpatient (CLI) | payer BC, MEDICARE, SELFPAY ==
[2021-09-08 18:07] LABS: 25-OH Vitamin D, Total < 12.8 ng/mL (30-100)
[2021-09-08 18:17] LABS: Anion Gap 11.6 mEq/L (5-15); Blood Urea Nitrogen 20 mg/dl (7-17); Calcium 9.1 mg/dl (8.4-10.2); Carbon Dioxide 26 mmol/L (22.0-30.0); Chloride 102 mmol/L (98-107); Estimated Glomerular Filt Rate 42 ml/min (>60); GFR (African American) 51 ML/MIN (>60); Glucose 93 mg/dl (74-100); Potassium 4.6 mmoL/L (3.5-5.1); Sodium 135 mmol/L (136-145)
[2021-09-08 19:06] LABS: Vitamin B12 969 pg/mL (239-931)
== END ==
PROVIDERS: PCP Family Medicine; Visit Provider Family Medicine
DX: E53.8 Deficiency of other specified B group vitamins (principal); N28.9 Disorder of kidney and ureter, unspecified; Z13.21 Encounter for screening for nutritional disorder; E55.9 Vitamin D deficiency, unspecified
CPT/HCPCS: 36415; 80048; 82306; 82607

== ENCOUNTER → 2021-09-30 11:35 | Outpatient (POV) | payer MEDICARE, OTHER, SELFPAY ==
[2021-09-30 11:47] VITALS: BP 121/66; PULSE 77; RESP 20; BMI 38.4
--- NOTE | 2021-09-30 12:14 | HMH.PAINSOAP ---
[facility] Pain Management SOAP Note Subjective:: Patient is a pleasant 60-year-old female that presents today for medication refill and follow-up. We are currently treating the patient for degenerative disc disease of lumbar spine multilevels with lumbar radiculopathy symptoms, rheumatoid arthritis. Today she rates her pain a 4 out of 10. She states that this is a generalized pain mainly in the hands and low back. She does state it is an aching sensation. She denies any new trauma or injury. She denies any change to the location or type of pain she experiences we are currently managing the patient with [place] 10 mg 5 times a day. She is also taking gabapentin 600 mg 3 times a day that is prescribed by Dr. Pollack. She denies any side effects from this medication she states that this medication is adequately maintaining her pain. Patient states the compounding cream that we prescribed at her last visit is doing excellent. She states it is really helping her hand arthritis and low back pain when she uses it. She is requesting refills on her [place] at today's visit. Her Clifford is [phone]. It has been reviewed and appropriate. Review of Systems: General: No recent weight changes, no fever, no sleep disturbances Respiratory: No cough, no shortness of air, no recurring pulmonary infections Cardiovascular/peripheral vascular: No chest pain, no palpitations, no edema, no shortness of breath Gastrointestinal: No new onset incontinence, normal bowel movements reported Genitourinary: No new onset incontinence Musculoskeletal: Low back pain, bilateral hand pain Psychiatric: [Normal mood/affect] Neurological: [Denies weakness in extremities], [denies balance issues] Objective:: Physical Exam: General: Alert and oriented x3, no acute distress, pleasant and cooperative Lungs: Respirations even and unlabored, symmetrical chest expansion Eyes: PERRL Musculoskeletal: Flexion and extension of lumbar [spine] somewhat guarded secondary to pain, [antalgic gait noted] Neurological: Speech clear, no gross sensory deficit Assessment:: Degenerative disc disease of lumbar spine multilevels with lumbar radiculopathy symptoms, rheumatoid arthritis Plan:: Patient is adequately managing her pain with her current regimen. I will refill the patient's [place] 10 mg 5 times a day. I will give a 1 month supply of this medication. The patient will follow-up in 1 month. Patient will return to clinic in 1 month for follow-up and reevaluation of symptoms. Patient has been advised of risks of oversedation with the prescribed medication. Narcan has been offered to the patient in the event of oversedation. Patient has been advised that a family member should also be educated regarding administration of Narcan. Patient has been instructed to contact the clinic with any concerns before the next appointment. Dr. Carreon has reviewed this note and agrees with this plan of care. This note was dictated using voice recognition software and make contain errors or omissions. [facility] History I have reviewed the patient's past medical history: Yes Medical History: Reports:: Hyperlipidemia, Hypertension, Palpitations Denies:: Cancer, Diabetes Mellitus Type 1, Diabetes Mellitus Type 2, Internal Pacemaker, MRSA, Seizures *Have you ever received a pneumonia vaccine?: Yes *Have you received a flu vaccine this season?: No Other Medical History: Reports: Arthritis, Fibromyalgia Laterality Cases: Right: Total Hip Replacement Other Surgeries: Yes: Cardiac Catheterization, Colonoscopy, Tubal Ligation. No: Pacemaker Amputation: No Fractures: No - *Social History Smoking Status: Current every day smoker Tobacco Type: cigarettes # Packs/Day (cigarettes): 2 Alcohol Intake: never Alcohol Intake Frequency:: holidays/special occasions only Substance Use Type: denies use *Occupational Status:: other Housing: house Household Members: spouse *Travel in the last 8 weeks: None Family Hx:: No significan
[2021-09-30 12:40] LABS: Barbiturates Screen,Urine Negative ng/ml (<200)
[2021-09-30 12:41] LABS: Benzodiazepines Screen,Urine Negative ng/ml (<200)
[2021-09-30 12:42] LABS: Amphetamine/Metha Screen,Urine Negative ng/ml (<1000); Cannabinoid Screen,Urine Negative ng/ml (<50)
[2021-09-30 12:43] LABS: Cocaine Screen,Urine Negative ng/ml (<300)
[2021-09-30 12:44] LABS: Methadone Screen,Urine Negative ng/ml (<300); Opiate Screen,Urine Positive ng/ml (<300)
[2021-09-30 12:45] LABS: Phencyclidine Screen,Urine Negative ng/ml (<25)
[2021-10-06 18:09] LABS: Codeine Negative (Cutoff=100); Hydrocodone Positive (.); Hydromorphone Positive (.); Morphine Negative (Cutoff=100); Opiates Positive (.)
== END ==
PROVIDERS: Visit Provider Nurse Practitioner Family
DX: M51.16 Intervertebral disc disorders with radiculopathy, lumbar region (principal); Z79.891 Long term (current) use of opiate analgesic; M06.9 Rheumatoid arthritis, unspecified
CPT/HCPCS: 80305; 80361; 80365; 99212; G0463; G0480

== ENCOUNTER → 2021-10-28 11:10 | Outpatient (POV) | payer MEDICARE, OTHER, SELFPAY ==
[2021-10-28 11:27] VITALS: BP 113/62; PULSE 78; RESP 18; TEMP 36.4; O2SAT 93; BMI 38.7
--- NOTE | 2021-10-28 11:33 | A.OFFVIS_ITS ---
[facility] Pain Management SOAP Note Subjective:: Patient is a pleasant 60-year-old female who presents today for follow-up and medication refill. We are currently treating the patient for degenerative disc disease of lumbar spine multilevels with lumbar radiculopathy symptoms, rheumatoid arthritis. Today she rates her pain a 4 out of 10. She states this is just a generalized pain primarily in her hands and low back. Patient denies any new trauma or injury to the site. She denies any change to the location or type of pain she experiences. We are currently managing the patient with [place] 10 mg 5 times a day. She is requesting a refill of this medication at today's visit. She is also managed with gabapentin 600 mg 3 times a day by Dr. Pollack. Patient denies any side effects from these medications. She states these medications are adequately managing her pain. Patient continues to use her compounding cream that she states provides significant improvement of her symptoms. Her Clifford is [phone] with a morphine equivalent of 50. It is been reviewed and appropriate. Review of Systems: General: No recent weight changes, no fever, no sleep disturbances Respiratory: No cough, no shortness of air, no recurring pulmonary infections Cardiovascular/peripheral vascular: No chest pain, no palpitations, no edema, no shortness of breath Gastrointestinal: No new onset incontinence, normal bowel movements reported Genitourinary: No new onset incontinence Musculoskeletal: Low back pain, bilateral hand pain Psychiatric: [Normal mood/affect] Neurological: [Denies weakness in extremities], [denies balance issues] Objective:: Physical Exam: General: Alert and oriented x3, no acute distress, pleasant and cooperative Lungs: Respirations even and unlabored, symmetrical chest expansion Eyes: PERRL Musculoskeletal: Flexion and extension of lumbar [spine] somewhat guarded seco ndary to pain, [antalgic gait noted] Neurological: Speech clear, no gross sensory deficit Assessment:: Degenerative disc disease of lumbar spine multilevels with lumbar radiculopathy symptoms, rheumatoid arthritis Plan:: Patient continues to have significant pain in her low back and hands. I will re fill the patient's [place] 10 mg 5 times a day and provide a 1 month supply of this medication. Patient will follow-up in 1 month. Patient will return to clinic in 1 month for reevaluation of symptoms and medication refill Patient has been advised of risks of oversedation with the prescribed medication. Narcan has been offered to the patient in the event of oversedation. Patient has been advised that a family member should also be educated regarding administration of Narcan. Patient has been instructed to contact the clinic with any concerns before the next appointment. Dr. Carreon has reviewed this note and agrees with this plan of care. This note was dictated using voice recognition software and make contain errors or omissions. PFSH PFSH Social History Smoking Status: Current every day smoker tobacco type: cigarettes packs per day: 2 second hand exposure: Yes alcohol intake: never substance use type: denies use current occupational status: retired Travel in the last 8 weeks: None household members: spouse housing: house current occupational exposures/hazards: No caffeine: Yes
== END | disposition home or self-care (01) ==
PROVIDERS: PCP Nurse Practitioner; Visit Provider Nurse Practitioner Family
DX: M51.16 Intervertebral disc disorders with radiculopathy, lumbar region (principal); M06.9 Rheumatoid arthritis, unspecified
CPT/HCPCS: 99212; G0463

== ENCOUNTER → 2021-11-25 10:23 | Outpatient (POV) | payer MEDICARE, OTHER, SELFPAY ==
--- NOTE | 2021-11-25 10:43 | EXP.PAIN.SOA ---
[facility] Pain Management SOAP Note Subjective:: Patient is a pleasant 60-year-old female who presents today for medication refill and follow-up. We are currently treating the patient for degenerative disc disease of lumbar spine multilevels with lumbar radiculopathy symptoms, rheumatoid arthritis. Today she rates her pain a 2 out of 10. Patient states this is just a generalized pain due to her arthritis. Patient denies any new trauma or injury. She denies any change in location or pain she experiences. She is currently managed with [place] 10 mg 5 times a day. Patient is requesting a refill at today's visit. She denies any new side effects from this medication. She is also prescribed gabapentin 600 mg 3 times a day by Dr. Pollack's office. Patient states these medications do adequately help manage her pain. She does use occasional [id number] medications to help with any constipation issues. Patient does continue to use her compounding cream that provides significant improvement of her symptoms. Her Clifford is [phone]. It has been reviewed and appropriate. Review of Systems: General: No recent weight changes, no fever, no sleep disturbances Respiratory: No cough, no shortness of air, no recurring pulmonary infections Cardiovascular/peripheral vascular: No chest pain, no palpitations, no edema, no shortness of breath Gastrointestinal: No new onset incontinence, normal bowel movements reported Genitourinary: No new onset incontinence Musculoskeletal: Joint pain Psychiatric: [Normal mood/affect] Neurological: [Denies weakness in extremities], [denies balance issues] Objective:: Physical Exam: General: Alert and oriented x3, no acute distress, pleasant and cooperative Lungs: Respirations even and unlabored, symmetrical chest expansion Eyes: PERRL Musculoskeletal: Flexion and extension of lumbar [spine] somewhat guarded secondary to pain, [antalgic gait noted] Neurological: Speech clear, no gross sensory deficit Assessment:: Degenerative disc disease lumbar spine multilevels with lumbar radiculopathy symptoms, rheumatoid arthritis Plan:: Patient continues to have some pain throughout her joints due to her arthritis. Her current medication regimen continues to do well for her. I will reorder her [place] 10 mg 5 times a day and provide a 1 month supply of this medication. Patient will return to clinic in 1 month for reevaluation of symptoms, medication refill and follow-up. Patient has been advised of risks of oversedation with the prescribed medication. Narcan has been offered to the patient in the event of oversedation. Patient has been advised that a family member should also be educated regarding administration of Narcan. Patient has been instructed to contact the clinic with any concerns before the next appointment. Dr. Carreon has reviewed this note and agrees with this plan of care. This note was dictated using voice recognition software and make contain errors or omissions. PFSH PFSH Social History Smoking Status: Current every day smoker tobacco type: cigarettes packs per day: 2 second hand exposure: Yes alcohol intake: never substance use type: denies use current occupational status: retired Travel in the last 8 weeks: None household members: spouse housing: house current occupational exposures/hazards: No caffeine: Yes
[2021-11-25 10:58] VITALS: BP 155/65; PULSE 77; RESP 18; TEMP 36.6; O2SAT 95; BMI 38.0
== END | disposition home or self-care (01) ==
PROVIDERS: PCP Nurse Practitioner; Visit Provider Nurse Practitioner Family
DX: M51.16 Intervertebral disc disorders with radiculopathy, lumbar region (principal); M06.9 Rheumatoid arthritis, unspecified
CPT/HCPCS: 99212; G0463

== ENCOUNTER → 2022-01-03 09:11 | Outpatient (POV) | payer MEDICARE, OTHER, SELFPAY ==
--- NOTE | 2022-01-03 09:18 | EXP.PAIN.SOA ---
[facility] Pain Management SOAP Note Subjective:: Patient is a pleasant 61-year-old female who presents today for medication refill and follow-up. We are currently treating the patient for degenerative disc disease of lumbar spine multilevels with lumbar radiculopathy symptoms, rheumatoid arthritis.? Today she rates her pain a 7 out of 10 and states her pain is due to her arthritis and primarily in her generalized joints.? Patient states weather often affects her joint pain and that she did just recently get back from a trip to [place] and really has not gotten any time to rest. Patient denies any new trauma or injury.? She denies any change in location or pain she experiences.? She is currently managed with [place] 10 mg 5 times a day.? Patient is requesting a refill at today's visit as well as baclofen refill.? She denies any new side effects from this medications.? She is also prescribed gabapentin 600 mg 3 times [address] day [address] Dr. Pollack's office.? Patient states these medications do adequately help manage her pain.? She does use occasional [id number] medications to help with any constipation issues.? Patient continues to use her compounding cream on her joints including her hands which provides significant improvement of her symptoms. Patient states she does have a lot going on currently. She states her is currently admitted on the second floor due to mastoiditis and she also states her son-in-law who is 50 years old just from a heart attack. Her Clifford is [id number].? It has been reviewed and appropriate. Review of Systems: General: No recent weight changes, no fever, no sleep disturbances Respiratory: No cough, no shortness of air, no recurring pulmonary infections Cardiovascular/peripheral vascular: No chest pain, no palpitations, no edema, no shortness of breath Gastrointestinal: No new onset incontinence, normal bowel movements reported Genitourinary: No new onset incontinence Musculoskeletal: Generalized joint pain, low back pain Psychiatric: [Normal mood/affect] Neurological: [Denies weakness in extremities], [denies balance issues] Objective:: Physical Exam: General: Alert and oriented x3, no acute distress, pleasant and cooperative Lungs: Respirations even and unlabored, symmetrical chest expansion Eyes: PERRL Musculoskeletal: Flexion and extension of lumbar [spine] somewhat guarded secondary to pain, [antalgic gait noted] Neurological: Speech clear, no gross sensory deficit Assessment:: Degenerative disc disease of lumbar spine with lumbar radiculopathy symptoms, rheumatoid arthritis Plan:: Patient continues to have pain in her generalized joints and low back however she is currently managed well with her current medication regimen. I will refill the patient's [place] 10 mg 5 times a day and provide a 1 month supply of this medication. I will also refill baclofen 10 mg 3 times daily and provide a 90-day supply of this medication. Patient will return to clinic in 1 month for reevaluation of symptoms, medication refill and follow-up. Patient has been advised of risks of oversedation with the prescribed medication. Narcan has been offered to the patient in the event of oversedation. Patient has been advised that a family member should also be educated regarding administration of Narcan. Patient has been instructed to contact the clinic with any concerns before the next appointment. Dr. Carreon has reviewed this note and agrees with this plan of care. This note was dictated using voice recognition software and make contain errors or omissions. PFSH PFSH Social History Smoking Status: Current every day smoker tobacco type: cigarettes packs per day: 2 second hand exposure: Yes alcohol intake: never substance use type: denies use current occupational status: employed Travel in the last 8 weeks: None household members: spouse housing: house current occupational exposures/hazards: No caffeine: Yes
[2022-01-03 09:30] VITALS: BP 134/66; PULSE 65; RESP 18; O2SAT 96; BMI 43.7
== END | disposition home or self-care (01) ==
PROVIDERS: PCP Nurse Practitioner; Visit Provider Nurse Practitioner Family
DX: M51.16 Intervertebral disc disorders with radiculopathy, lumbar region (principal); M06.9 Rheumatoid arthritis, unspecified; Z72.0 Tobacco use; Z79.899 Other long term (current) drug therapy
CPT/HCPCS: 99212; G0463

== ENCOUNTER → 2022-01-07 11:57 | Outpatient (CLI) | payer MEDICARE, OTHER, SELFPAY ==
[2022-01-07 12:37] LABS: Amphetamine/Metha Screen,Urine Negative ng/ml (<1000)
[2022-01-07 12:38] LABS: Barbiturates Screen,Urine Negative ng/ml (<200); Benzodiazepines Screen,Urine Negative ng/ml (<200)
[2022-01-07 12:39] LABS: Cannabinoid Screen,Urine Negative ng/ml (<50)
[2022-01-07 12:40] LABS: Cocaine Screen,Urine Negative ng/ml (<300); Methadone Screen,Urine Negative ng/ml (<300)
[2022-01-07 12:41] LABS: Opiate Screen,Urine Positive ng/ml (<300)
[2022-01-07 12:42] LABS: Phencyclidine Screen,Urine Negative ng/ml (<25)
[2022-01-16 13:18] LABS: Codeine Negative (Cutoff=100); Hydrocodone Positive (.); Hydromorphone Positive (.); Morphine Negative (Cutoff=100); Opiates Positive (.)
== END ==
PROVIDERS: PCP Nurse Practitioner; Visit Provider Nurse Practitioner Family
DX: Z79.891 Long term (current) use of opiate analgesic (principal)
CPT/HCPCS: 80305; 80361; 80365; G0480

== ENCOUNTER → 2022-01-24 09:05 | Outpatient (CLI) | payer MEDICARE, OTHER, SELFPAY ==
[2022-01-24 11:08] LABS: Chloride 96 mmol/L (98-107); Potassium 4.4 mmoL/L (3.5-5.1); Sodium 129 mmol/L (136-145)
[2022-01-24 11:11] LABS: Alanine Aminotransferase 12 U/L (12-78); Albumin Level 4.1 g/dl (3.5-5.0); Albumin/Globulin Ratio 1.6 (1.1-1.8); Alkaline Phosphatase 111 U/L (38-126); Anion Gap 8.4 mEq/L (5-15); Aspartate Amino Transferase 22 U/L (14-36); Bilirubin,Total 0.2 mg/dl (0.2-1.3); Blood Urea Nitrogen 19 mg/dl (7-17); Carbon Dioxide 29 mmol/L (22.0-30.0); Cholesterol 281 mg/dl (140-200); Estimated Glomerular Filt Rate 42 ml/min (>60); GFR (African American) 51 ML/MIN (>60); Globulin 2.5 g/dL (1.3-3.2); Total Protein,Serum 6.6 g/dl (6.3-8.2); Triglycerides 76 mg/dl (30-150); VLDL Cholesterol 15 mg/dL (0-40)
[2022-01-24 11:12] LABS: Calcium 9.7 mg/dl (8.4-10.2); Chol/HDL Ratio 4.2 (1-3.5); Glucose 103 mg/dl (74-100); HDL Cholesterol 67 mg/dl (40-60)
[2022-01-24 11:39] LABS: Uric Acid 4.9 mg/dl (2.5-6.2)
[2022-01-24 11:41] LABS: Thyroid Stimulating Hormone 0.19 uIU/mL (0.465-4.68)
[2022-01-24 11:54] LABS: Direct LDL Cholesterol 133.15 mg/dL (100-129)
== END ==
PROVIDERS: PCP Nurse Practitioner; Visit Provider Nurse Practitioner
DX: E03.9 Hypothyroidism, unspecified (principal); I10 Essential (primary) hypertension; E78.5 Hyperlipidemia, unspecified; M10.9 Gout, unspecified; R53.83 Other fatigue
CPT/HCPCS: 36415; 80053; 80061; 84443; 84550

== ENCOUNTER → 2022-01-31 09:27 | Outpatient (POV) | payer MEDICARE, OTHER, SELFPAY ==
--- NOTE | 2022-01-31 09:46 | EXP.PAIN.SOA ---
[facility] Pain Management SOAP Note Subjective:: Patient is a pleasant 61-year-old female who presents today for medication refill and follow-up. We are currently treating the patient for degenerative disc disease of lumbar spine multilevels with lumbar radiculopathy symptoms, rheumatoid arthritis. Today the patient rates her pain a 6 out of 10. Patient denies any new trauma or injury. Patient denies any change location or type of pain she experiences. Patient does state her arthritis is affected by the weather. At our last visit the patient's had recently been admitted on the second floor due to mastoiditis. Today the patient states that he is doing much better and that he did end up staying for 6 days at [facility]. Patient is currently managed with [place] 10 mg 5 times a day and gabapentin 600 mg 3 times a day. Patient denies any side effects from this medication. Patient states that she does have chronic constipation issues that she takes [id number] medication as needed for work. Patient states these medications do adequately manage her pain symptoms. She is also on baclofen however she states she does not need a refill of this at this time. Patient also uses compounding cream that provides significant improvement especially for her hands. Her Clifford is [id number]. It has been reviewed and appropriate. Review of Systems: General: No recent weight changes, no fever, no sleep disturbances Respiratory: No cough, no shortness of air, no recurring pulmonary infections Cardiovascular/peripheral vascular: No chest pain, no palpitations, no edema, no shortness of breath Gastrointestinal: No new onset incontinence, normal bowel movements reported Genitourinary: No new onset incontinence Musculoskeletal: Low back pain, joint pain Psychiatric: [Normal mood/affect] Neurological: [Denies weakness in extremities], [denies balance issues] Objective:: Physical Exam: General: Alert and oriented x3, no acute distress, pleasant and cooperative Lungs: Respirations even and unlabored, symmetrical chest expansion Eyes: PERRL Musculoskeletal: Flexion and extension of lumbar [spine] somewhat guarded secondary to pain, [antalgic gait noted] Neurological: Speech clear, no gross sensory deficit Assessment:: Degenerative disc disease of lumbar spine multilevels with lumbar radiculopathy symptoms, rheumatoid arthritis Plan:: Patient continues to experience significant pain in her low back and generalized joints however she is managed well with her current medication regimen. I will refill the patient's [place] 10 mg 5 times a day and provide a 1 month supply of this medication. We will follow-up with the patient in 1 month for reevaluation of symptoms, medication refill and follow-up. Patient has been advised of risks of oversedation with the prescribed medication. Narcan has been offered to the patient in the event of oversedation. Patient has been advised that a family member should also be educated regarding administration of Narcan. Patient has been instructed to contact the clinic with any concerns before the next appointment. Dr. Carreon has reviewed this note and agrees with this plan of care. This note was dictated using voice recognition software and make contain errors or omissions. [facility] Disclaimer: The information contained in this section may have been updated after the patient was seen, as this information can be updated by other users. Social History Smoking Status: Current every day smoker tobacco type: cigarettes packs per day: 2 second hand exposure: Yes alcohol intake: never substance use type: denies use current occupational status: disabled Travel in the last 8 weeks: None household members: spouse housing: house current occupational exposures/hazards: No caffeine: Yes
[2022-01-31 09:56] VITALS: BP 106/47; PULSE 67; RESP 18; O2SAT 95; BMI 37.5
== END | disposition home or self-care (01) ==
PROVIDERS: PCP Nurse Practitioner; Visit Provider Nurse Practitioner Family
DX: M51.16 Intervertebral disc disorders with radiculopathy, lumbar region (principal); M06.9 Rheumatoid arthritis, unspecified; F17.200 Nicotine dependence, unspecified, uncomplicated
CPT/HCPCS: 99212; G0463

== ENCOUNTER 2022-02-14 14:07 | Emergency (ER) | payer MEDICARE, OTHER, SELFPAY ==
--- NOTE | 2022-02-14 16:36 | EXP.UTC ---
Discharge Plan Disposition Patient Disposition: Home, Self-Care Condition: Good Prescriptions Prescriptions: New nystatin 100,000 unit/mL suspension 5 ml PO QID 10 Days Qty: 200 0RF Rx Instructions: swish and swallow prednisone 10 mg tablet 10 mg PO DIRECTED 9 Days Qty: 21 0RF Rx Instructions: Take 4 tablets daily for 3 days, then take 2 tablets daily for 3 days, then take 1 tablet daily for 3 days, then stop. amoxicillin [amoxicillin] 500 mg tablet 500 mg PO TID 10 Days Qty: 30 0RF Probiotic 10 billion cell capsule 10,000 mmu cells PO DAILY 30 Days Qty: 30 0RF No Action levothyroxine [Synthroid] 137 mcg tablet 137 mcg PO DAILY lisinopril 20 MG tablet 20 mg PO DAILY gabapentin 600 MG tablet 600 mg PO TID hydroxychloroquine 200 MG tablet 200 mg PO BID sennosides-docusate sodium 1 EACH tablet 1 each PO HS trazodone 100 MG tablet 150 mg PO HS hydrocodone-acetaminophen 1 EACH tablet 1 each PO 5XDAY Qty: 150 0RF baclofen 10 mg tablet 10 mg PO TID Referrals Follow up/Referrals: Trinity Chase APRN [Primary Care Provider] - See instructions Activity Restrictions/Add. Instructions Additional Instructions/Restrictions: Drink plenty of fluids. Eat yogurt at least twice per day. Take tylenol or ibuprofen for pain or fever. Take the medications as directed. Follow up with your regular doctor. GO TO THE ER FOR ANY WORSENING SYMPTOMS Clinical Impressions Clinical Impression: Thrush, COPD with acute exacerbation Instructions Patient Instructions: DI for Chronic Obstructive Pulmonary Disease, DI for Acute Bronchitis Discharge ED Provider: Artur Bhagat [facility] General Stated complaint: Cough,Chest Congestion,Sores in mouth Time Seen by Provider: 02/14/22 16:36 History of Present Illness Provider Complaint: She states that for the past 2 weeks she has had a productive cough and chest congestion. She has noted white patches in her mouth over the past 2 days. Related Data Home Medications Medication Instructions Recorded Confirmed lisinopril 20 mg tablet 20 mg PO DAILY Hypertension 04/10/18 01/31/22 levothyroxine 137 mcg tablet 137 mcg PO DAILY thyroid 09/30/18 01/31/22 (Synthroid) trazodone 100 mg tablet 150 mg PO HS sleep 04/23/19 01/31/22 gabapentin 600 mg tablet 600 mg PO TID Pain 05/26/21 01/31/22 hydroxychloroquine 200 mg tablet 200 mg PO BID Arthritis 05/28/21 01/31/22 sennosides 8.6 mg-docusate sodium 1 each PO HS bowels 05/28/21 01/31/22 50 mg tablet baclofen 10 mg tablet 10 mg PO TID MUSCLES 01/31/22 01/31/22 Previous Rx's Medication Instructions Recorded hydrocodone 10 mg-acetaminophen 1 each PO 5XDAY Pain #150 tabs 01/31/22 325 mg tablet Lactobacillus acidophilus 10 10,000 mmu cells PO DAILY 30 days 02/14/22 billion cell capsule (Probiotic) #30 caps amoxicillin 500 mg tablet 500 mg PO TID 10 days #30 tabs 02/14/22 nystatin 100,000 unit/mL oral 5 ml PO QID 10 days #200 mL 02/14/22 suspension prednisone 10 mg tablet 10 mg PO DIRECTED 9 days #21 02/14/22 tabs Allergies Allergy/AdvReac Type Severity Reaction Status Date / Time ciprofloxacin Allergy Hives Verified 06/10/21 09:29 hydromorphone Allergy Anaphylaxis Verified 06/10/21 09:29 ofloxacin Allergy Hives Verified 06/10/21 09:29 venlafaxine Allergy Rash Verified 06/10/21 09:29 [facility] Disclaimer: The information contained in this section may have been updated after the patient was seen, as this information can be updated by other users. Social History Smoking Status: Current every day smoker tobacco type: cigarettes packs per day: 2 second hand exposure: Yes alcohol intake: never substance use type: denies use current occupational status: retired and disabled Travel in the last 8 weeks: None household members: spouse housing: house c
[2022-02-14 16:43] VITALS: BP 112/56; PULSE 82; RESP 16; TEMP 37.3; O2SAT 95; BMI 35.4
--- NOTE | 2022-02-14 16:49 | XR_ITS ---
PROCEDURE INFORMATION: Exam: XR Chest Exam date and time: 02/14/2022 4:49 PM Age: 61 years old Clinical indication: Cough and shortness of breath; Additional info: Cough 2 weeks TECHNIQUE: Imaging protocol: Radiologic exam of the chest. Views: 2 views. COMPARISON: CR XR CHEST 2V 03/24/2020 5:04 PM FINDINGS: Lungs: Patchy bilateral pulmonary infiltrates. Pleural spaces: Unremarkable. No pleural effusion. No pneumothorax. Heart/Mediastinum: Hiatal hernia. Bones/joints: Unremarkable. IMPRESSION: Patchy bilateral pulmonary infiltrates.
[2022-02-14 16:50] LABS: UTC Strep Screen (Rapid) Negative (Negative)
[2022-02-14 17:38] VITALS: BP 112/56; PULSE 82; RESP 16; TEMP 37.3
== END 2022-02-14 17:43 | disposition home or self-care (01) ==
PROVIDERS: Emergency Provider Nurse Practitioner Family; PCP Nurse Practitioner
DX: J44.1 Chronic obstructive pulmonary disease with (acute) exacerbation (principal); B37.0 Candidal stomatitis
CPT/HCPCS: 71046; 87880; 99212; C9803; G0463; U0003; U0005

== ENCOUNTER → 2022-03-07 09:33 | Outpatient (POV) | payer MEDICARE, OTHER, SELFPAY ==
[2022-03-07 10:10] VITALS: BP 123/99; PULSE 79; RESP 20; O2SAT 98; BMI 37.5
--- NOTE | 2022-03-07 10:16 | A.OFFVIS_ITS ---
[facility] Pain Management SOAP Note Subjective:: Patient is a pleasant 61-year-old female who presents today for medication refill and follow-up. We are currently treating the patient for degenerative disc disease of lumbar spine multilevels with lumbar radiculopathy symptoms, rheumatoid arthritis. Today the patient rates her pain a 5 out of 10. Patient denies any new trauma or injury. Patient denies any change or location of pain she experiences. Patient does state that the weather has made her arthritis worse. Patient is currently managed with [place] 10 mg 5 times a day and gabapentin 600 mg 3 times a day. Patient denies any side effects from this medication. Patient states that these medications do adequately manage her pain symptoms. Patient is also on baclofen however she states she does not need a refill at this time. Patient also uses compounding cream that provides significant improvement especially for her hands. Her Clifford #[id number] was reviewed and is appropriate. Review of Systems: General: No recent weight changes, no fever, no sleep disturbances Respiratory: No cough, no shortness of air, no recurring pulmonary infections Cardiovascular/peripheral vascular: No chest pain, no palpitations, no edema, no shortness of breath Gastrointestinal: No new onset incontinence, normal bowel movements reported Genitourinary: No new onset incontinence Musculoskeletal: Low back pain, joint pain Psychiatric: [Normal mood/affect] Neurological: [Denies weakness in extremities], [denies balance issues] Objective:: Physical Exam: General: Alert and oriented x3, no acute distress, pleasant and cooperative Lungs: Respirations even and unlabored, symmetrical chest expansion Eyes: PERRL Musculoskeletal: Flexion and extension of lumbar [spine] somewhat guarded secondary to pain, [antalgic gait noted] Neurological: Speech clear, no gross sensory deficit Assessment:: Degenerative disc disease of lumbar spine multilevels with lumbar radiculopathy symptoms, rheumatoid arthritis Plan:: Patient does continue to experience significant pain in her low back and generalized joints however she is managed well with her current medication regimen. I will refill the patient's [place] 10 mg 5 times a day and provide a 1 month supply of this medication. We will follow-up with patient in 1 month for reevaluation of symptoms, medication refill and follow-up. Patient has been advised of risks of oversedation with the prescribed medication. Narcan has been offered to the patient in the event of oversedation. Patient has been advised that a family member should also be educated regarding administration of Narcan. Patient has been instructed to contact the clinic with any concerns before the next appointment. Dr. Carreon has reviewed this note and agrees with this plan of care. This note was dictated using voice recognition software and make contain errors or omissions. [facility] Disclaimer: The information contained in this section may have been updated after the patient was seen, as this information can be updated by other users. Social History Smoking Status: Current every day smoker tobacco type: cigarettes packs per day: 2 second hand exposure: Yes alcohol intake: never substance use type: denies use current occupational status: retired Travel in the last 8 weeks: None household members: spouse housing: house current occupational exposures/hazards: No caffeine: Yes
== END | disposition home or self-care (01) ==
PROVIDERS: PCP Nurse Practitioner; Visit Provider Nurse Practitioner Family
DX: M51.16 Intervertebral disc disorders with radiculopathy, lumbar region (principal); M06.9 Rheumatoid arthritis, unspecified; F17.210 Nicotine dependence, cigarettes, uncomplicated
CPT/HCPCS: 99212; G0463

== ENCOUNTER → 2022-03-11 11:12 | Outpatient (CLI) | payer MEDICARE, OTHER, SELFPAY ==
[2022-03-11 12:11] LABS: Benzodiazepines Screen,Urine Negative ng/ml (<200)
[2022-03-11 12:12] LABS: Amphetamine/Metha Screen,Urine Negative ng/ml (<1000)
[2022-03-11 12:13] LABS: Barbiturates Screen,Urine Negative ng/ml (<200); Opiate Screen,Urine Positive ng/ml (<300)
[2022-03-11 12:14] LABS: Phencyclidine Screen,Urine Negative ng/ml (<25)
[2022-03-11 12:15] LABS: Cannabinoid Screen,Urine Negative ng/ml (<50)
[2022-03-11 12:16] LABS: Cocaine Screen,Urine Negative ng/ml (<300); Methadone Screen,Urine Negative ng/ml (<300)
[2022-03-15 16:39] LABS: Codeine Negative (Cutoff=100); Hydrocodone Positive (.); Hydromorphone Positive (.); Morphine Negative (Cutoff=100); Opiates Positive (.)
== END ==
PROVIDERS: PCP Nurse Practitioner; Visit Provider Nurse Practitioner Family
DX: Z79.891 Long term (current) use of opiate analgesic (principal)
CPT/HCPCS: 80305; 80361; 80365; G0480

== ENCOUNTER → 2022-04-06 09:44 | Outpatient (POV) | payer MEDICARE, OTHER, SELFPAY ==
--- NOTE | 2022-04-06 10:04 | EXP.PAIN.SOA ---
[facility] Pain Management SOAP Note Subjective:: Patient is a pleasant 61-year-old female who presents today for medication refill and follow-up. We are currently treating the patient for degenerative disc disease of lumbar spine with lumbar radiculopathy symptoms, rheumatoid arthritis. Today the patient rates her pain a 3 out of 10. Patient states she did recently have a fall a few weeks ago however it did not result in any fractures or dislocations. Patient states that she was doing the laundry and over reached causing her to lose her balance and fall on her hip. Patient states that she does still have some soreness however overall is doing okay. Patient is currently managed with [place] 10 mg 5 times a day and gabapentin 600 mg 3 times a day. Patient denies any side effects from these medications. Patient is also prescribed compounding cream that she states works well for her arthritis in her hands. Patient is also on baclofen. Patient states she is in the process of switching her maintenance medications to [facility] however at this time we can send her pain medication to clinic. Patient does use a cane for ambulation. Her Clifford is [phone]. Its been reviewed and appropriate. Review of Systems: General: No recent weight changes, no fever, no sleep disturbances Respiratory: No cough, no shortness of air, no recurring pulmonary infections Cardiovascular/peripheral vascular: No chest pain, no palpitations, no edema, no shortness of breath Gastrointestinal: No new onset incontinence, normal bowel movements reported Genitourinary: No new onset incontinence Musculoskeletal: Low back pain, joint pain Psychiatric: [Normal mood/affect] Neurological: [Denies weakness in extremities], [denies balance issues] Objective:: Physical Exam: General: Alert and oriented x3, no acute distress, pleasant and cooperative Lungs: Respirations even and unlabored, symmetrical chest expansion Eyes: PERRL Musculoskeletal: Flexion and extension of lumbar [spine] somewhat guarded secondary to pain, [antalgic gait noted] Neurological: Speech clear, no gross sensory deficit Assessment:: Degenerative disc disease of lumbar spine with lumbar radiculopathy symptoms, rheumatoid arthritis Plan:: Patient continues to experience significant pain however she is doing well with her current medication regiment. I will refill her [place] 10 mg 5 times a day and provide a 1 month supply of this medication. Patient will return to clinic in 1 month for reevaluation of symptoms, medication refill and follow-up. Patient has been advised of risks of oversedation with the prescribed medication. Narcan has been offered to the patient in the event of oversedation. Patient has been advised that a family member should also be educated regarding administration of Narcan. Patient has been instructed to contact the clinic with any concerns before the next appointment. Dr. Carreon has reviewed this note and agrees with this plan of care. This note was dictated using voice recognition software and make contain errors or omissions. [facility] Disclaimer: The information contained in this section may have been updated after the patient was seen, as this information can be updated by other users. Social History Smoking Status: Current every day smoker tobacco type: cigarettes packs per day: 2 second hand exposure: Yes alcohol intake: never substance use type: denies use current occupational status: retired Travel in the last 8 weeks: None household members: spouse housing: house current occupational exposures/hazards: No caffeine: Yes
[2022-04-06 10:39] VITALS: BP 95/53; PULSE 76; RESP 18; O2SAT 97; BMI 36.5
== END | disposition home or self-care (01) ==
PROVIDERS: PCP Nurse Practitioner; Visit Provider Nurse Practitioner Family
DX: M51.16 Intervertebral disc disorders with radiculopathy, lumbar region (principal); M06.9 Rheumatoid arthritis, unspecified
CPT/HCPCS: 99212; G0463

== ENCOUNTER → 2022-05-04 14:01 | Outpatient (CLI) | payer MEDICARE, OTHER, SELFPAY ==
--- NOTE | 2022-05-04 14:09 | XR_ITS ---
FINAL REPORT CLINICAL HISTORY: .pain, fall a few weeks ago FINDINGS: RIGHT HUMERUS 2 views of the right humerus were obtained. There is no acute fracture. There is probable anterior dislocation of the humerus at the glenohumeral joint. There is no soft tissue abnormality. IMPRESSION: Probable anterior dislocation of the humerus at the glenohumeral joint. Reviewed, Interpreted and Dictated by Everette Vega III, MD Transcribed by Dominique Leach Authenticated and [facility]
--- NOTE | 2022-05-04 14:10 | XR_ITS ---
FINAL REPORT CLINICAL HISTORY: PAIN, fall few weeks ago FINDINGS: RIGHT SHOULDER Three views of the right shoulder demonstrate no acute fracture. There is significant inferior subluxation of the humerus at the glenohumeral joint. Dislocation is not excluded. This is not well seen on the Y-view of uncertain significance. No soft tissue abnormality is seen. IMPRESSION: Significant inferior subluxation of the humerus at the glenohumeral join, dislocation is not excluded. Reviewed, Interpreted and Dictated by Everette Vega III, MD Transcribed by Dominique Leach Authenticated and [facility]
== END ==
PROVIDERS: PCP Nurse Practitioner; Visit Provider Nurse Practitioner Family
DX: M79.601 Pain in right arm (principal)
CPT/HCPCS: 73030; 73060

== ENCOUNTER → 2022-05-06 09:18 | Outpatient (POV) | payer MEDICARE, OTHER, SELFPAY ==
[2022-05-06 09:27] VITALS: BP 130/56; PULSE 70; RESP 18; O2SAT 97; BMI 31.1
--- NOTE | 2022-05-06 09:44 | EXP.PAIN.SOA ---
[facility] Pain Management SOAP Note Subjective:: Patient is a pleasant 61-year-old female who presents today for medication refill and 1 month follow-up. We are currently treating the patient for degenerative disease of lumbar spine with lumbar radiculopathy symptoms, rheumatoid arthritis. Today she rates her pain a 8 out of 10. She states since her last visit she did have an episode where she was working on the laundry and heard a popping sensation. She did have significant pain and was seen in the hospital with imaging and was found to have a significant inferior subluxation of the humerus at the glenohumeral joint. Patient states that her primary care doctor did send a referral to [facility] yesterday. She does describe her pain as a sharp, achy sensation that is worse with increased activity. She does present today with her arm in a sling. She states it is more difficult since she is right-handed and is having to learn to use her left hand now for all her activities. Patient does use a cane for additional help with ambulation. She is currently managed on Bethesda 10 mg 5 times a day and compounding cream from our office. Patient denies any side effects from this medication. She is also prescribed gabapentin 600 mg 3 times a day from her primary care doctor's office. Patient denies any side effects from this medication. She does take baclofen 10 mg 3 times a day however she states that this does not seem to provide any additional relief. Her Clifford is [id number]. Its been reviewed and appropriate. Review of Systems: General: No recent weight changes, no fever, no sleep disturbances Respiratory: No cough, no shortness of air, no recurring pulmonary infections Cardiovascular/peripheral vascular: No chest pain, no palpitations, no edema, no shortness of breath Gastrointestinal: No new onset incontinence, normal bowel movements reported Genitourinary: No new onset incontinence Musculoskeletal: Right shoulder pain Psychiatric: [Normal mood/affect] Neurological: [Denies weakness in extremities], [denies balance issues] Objective:: Physical Exam: General: Alert and oriented x3, no acute distress, pleasant and cooperative Lungs: Respirations even and unlabored, symmetrical chest expansion Eyes: PERRL Musculoskeletal: Flexion and extension of right shoulder, cervical [spine] somewhat guarded secondary to pain, [antalgic gait noted] Neurological: Speech clear, no gross sensory deficit Assessment:: Degenerative disc disease of lumbar spine with lumbar radiculopathy symptoms, rheumatoid arthritis, right shoulder pain, right shoulder dislocation Plan:: Patient is having significant pain related to a recent right humerus dislocation. Patient is scheduled for a referral to [facility] however she has not been contacted at this point. I will refill her Bethesda 10 mg 5 times a day and provide a 1 month supply of this medication. I will also change her current muscle relaxer baclofen to tizanidine 8 mg 3 times daily and provide a 1 month supply of this medication. I have discussed with the patient to discontinue her baclofen while taking this medication. Patient will return to clinic in 1 month for reevaluation of symptoms, medication refill and follow-up. Patient has been advised of risks of oversedation with the prescribed medication. Narcan has been offered to the patient in the event of oversedation. Patient has been advised that a family member should also be educated regarding administration of Narcan. Patient has been instructed to contact the clinic with any concerns before the next appointment. Dr. Carreon has reviewed this note and agrees with this plan of care. This note was dictated using voice recognition software and make contain errors or omissions. [facility] Disclaimer: The information contained in this section may have been updated after the patient was seen, as this information can be updated by other users. Social History
== END | disposition home or self-care (01) ==
PROVIDERS: PCP Nurse Practitioner; Visit Provider Nurse Practitioner Family
DX: M51.16 Intervertebral disc disorders with radiculopathy, lumbar region (principal); M06.9 Rheumatoid arthritis, unspecified; S43.004A Unspecified dislocation of right shoulder joint, initial encounter; M25.511 Pain in right shoulder
CPT/HCPCS: 99212; G0463

== ENCOUNTER 2022-05-09 12:13 | Emergency (ER) | payer MEDICARE, OTHER, SELFPAY ==
[2022-05-09 12:14] VITALS: BP 137/87; PULSE 96; RESP 18; TEMP 37.1; O2SAT 97; BMI 36.5
--- NOTE | 2022-05-09 12:21 | XR_ITS ---
FINAL REPORT CLINICAL HISTORY: shoulder pain, HX DISLOCATION COMPARISON: 04/06/2022 FINDINGS: RIGHT SHOULDER Three views demonstrate no acute fracture. There has been partial reduction with mild persistent subluxation of the humeral head. There is widening of the subacromial space. Humeral head appears in the proper location on the [place]. IMPRESSION: Partial reduction with mild, persistent subluxation of the humeral head and widening of the subacromial space. No fracture identified. Reviewed, Interpreted and Dictated by Alexis Riddle MD Transcribed by Elmira Bagley Authenticated and [facility]
--- NOTE | 2022-05-09 12:24 | PC.NURSE ---
notified rad of xray order
[2022-05-09 12:30] VITALS: BP 105/53; PULSE 77; O2SAT 97
--- NOTE | 2022-05-09 12:40 | PC.NURSE ---
DR GUERRA AT BEDSIDE
--- NOTE | 2022-05-09 13:02 | HMH.EDGENADL ---
Discharge Plan Disposition Patient Disposition: Home, Self-Care Condition: Good Prescriptions Prescriptions: No Action levothyroxine [Synthroid] 137 mcg tablet 137 mcg PO DAILY lisinopril 20 MG tablet 20 mg PO DAILY gabapentin 600 MG tablet 600 mg PO TID hydroxychloroquine 200 MG tablet 200 mg PO BID sennosides-docusate sodium 1 EACH tablet 1 each PO HS Probiotic 10 billion cell capsule 10,000 mmu cells PO DAILY tizanidine [Zanaflex] 4 mg tablet 8 mg PO TID Qty: 180 0RF hydrocodone-acetaminophen 1 EACH tablet 1 each PO 5XDAY Qty: 150 0RF trazodone 100 MG tablet 150 mg PO HS baclofen 10 mg tablet 10 mg PO TID Referrals Follow up/Referrals: Trinity Chase APRN [Primary Care Provider] - See instructions Clinical Impressions Clinical Impression: Instability of right shoulder joint Discharge ED Provider: Olayinka Loco General Adult HPI General Chief complaint: PAIN Stated complaint: right shoulder pain, no recent accident Time Seen by Provider: 05/09/22 12:21 Mode of Arrival: Ambulatory Limitations: No Limitations Description of Symptoms (Recalled from ER Triage Doc. by RN): PT REPORTS RIGHT SHOULDER POPPED OUT REPORTS MULTIPLE OCCURANCES SINCE A FALL IN FEBRUARY. REPORTS BURNING PAIN WITH TINGLING IN HAND TODAY History of Present Illness HPI narrative: 61yo F presents to the ER concerned her right shoulder may be dislocated. Reports that his dislocated several times since February. Has not followed by orthopedics. Denies any fall or trauma. Denies previous surgery Related Data Home Medications Medication Instructions Recorded Confirmed lisinopril 20 mg tablet 20 mg PO DAILY Hypertension 04/10/18 05/06/22 levothyroxine 137 mcg tablet 137 mcg PO DAILY thyroid 09/30/18 05/06/22 (Synthroid) trazodone 100 mg tablet 150 mg PO HS sleep 04/23/19 05/06/22 gabapentin 600 mg tablet 600 mg PO TID Pain 05/26/21 05/06/22 hydroxychloroquine 200 mg tablet 200 mg PO BID Arthritis 05/28/21 05/06/22 sennosides 8.6 mg-docusate sodium 1 each PO HS bowels 05/28/21 05/06/22 50 mg tablet baclofen 10 mg tablet 10 mg PO TID MUSCLES 01/31/22 05/06/22 Lactobacillus acidophilus 10 10,000 mmu cells PO DAILY IMMUNITY 03/07/22 05/06/22 billion cell capsule (Probiotic) Previous Rx's Medication Instructions Recorded hydrocodone 10 mg-acetaminophen 1 each PO 5XDAY Pain #150 tabs 05/06/22 325 mg tablet tizanidine 4 mg tablet (Zanaflex) 8 mg PO TID #180 tabs 05/06/22 Allergies Allergy/AdvReac Type Severity Reaction Status Date / Time ciprofloxacin Allergy Hives Verified 06/10/21 09:29 hydromorphone Allergy Anaphylaxis Verified 06/10/21 09:29 ofloxacin Allergy Hives Verified 06/10/21 09:29 venlafaxine Allergy Rash Verified 06/10/21 09:29 [facility] Disclaimer: The information contained in this section may have been updated after the patient was seen, as this information can be updated by other users. Medical History (Updated 05/09/22 @ 13:30 by Rhianna Acosta RN) COPD (chronic obstructive pulmonary disease) Rheumatoid arthritis Family History (Updated 05/09/22 @ 13:30 by Rhianna Acosta RN) Other No significant family history Social History Smoking Status: Current every day smoker tobacco type: cigarettes packs per day: 2 second hand exposure: Yes alcohol intake: never substance use type: denies use current occupational status: retired Travel in the last 8 weeks: None household members: spouse housing: house current occupational exposures/hazards: No caffeine: Yes ROS Obtained: Yes Systems reviewed as appropriate & no additional complaints except as documented Physical Exam General General appearance: alert and in no apparent distress Head Head exam: atraumatic Eye Eye exam: Present normal appearance Neck Neck exam: Present normal inspection Res
--- NOTE | 2022-05-09 13:25 | PC.NURSE ---
ROUNDED ON PT, UPDATED ON POC. NO NEEDS AT THIS TIME. CALL LIGHT WITHIN REACH
--- NOTE | 2022-05-09 13:57 | PC.NURSE ---
contacted rad to check on status of xray reading, states is still locked, they are trying to contact [facility] to check on it
[2022-05-09 14:24] VITALS: BP 110/65; PULSE 65; RESP 18; TEMP 36.7; O2SAT 95
== END 2022-05-09 14:25 | disposition home or self-care (01) ==
PROVIDERS: Emergency Provider Family Medicine; PCP Nurse Practitioner
DX: M25.311 Other instability, right shoulder (principal)
CPT/HCPCS: 73030; 99283; 99284

== ENCOUNTER → 2022-05-16 10:27 | Outpatient (CLI) | payer MEDICARE, OTHER, SELFPAY ==
--- NOTE | 2022-05-16 10:32 | MR_ITS ---
FINAL REPORT TECHNIQUE: Multiplanar and multisequence imaging of the right shoulder was obtained without contrast. CLINICAL HISTORY: RIGHT SHOULDER PAIN. DISLOCATED SHOULDER 3 WEEKS AGO. LIMITED ROM. WEAKNESS IN ARM. FINDINGS: Bones and joints: Humeral head is appropriately located. There may be very mild subchondral T2 abnormality in the posterior superior humeral head. No fracture is identified. Acromioclavicular joint degenerative disease is present and there is osteophytosis which narrows the supraspinatus outlet. Rotator cuff: There is a full-thickness, posterior supraspinatus tendon tear. Infraspinatus tendon is intact. Subscapularis tendon is intact. There is no fatty atrophy. Labrum: Biceps labral complex is intact. There may be a SLAP type 1 tear of the superior labrum. No convincing anterior inferior labral tear seen. However, there is likely a partial tear of the posterior inferior glenohumeral ligament. The biceps tendon is within normal limits. No biceps tendon tear is identified. Other: There is a large joint effusion and large amount of fluid seen in the subdeltoid bursa. IMPRESSION: Full-thickness supraspinatus tendon tear, likely SLAP type 1. Partial tear of the posterior inferior glenohumeral ligament. Reviewed, Interpreted and Dictated by Kia eLe MD Transcribed by Elmira Bagley Authenticated and . [facility]
== END ==
PROVIDERS: PCP Nurse Practitioner; Visit Provider Orthopaedic Surgery
DX: M25.511 Pain in right shoulder (principal)
CPT/HCPCS: 73221

== ENCOUNTER → 2022-06-02 09:41 | Outpatient (POV) | payer MEDICARE, OTHER, SELFPAY ==
[2022-06-02 09:58] VITALS: BP 110/68; PULSE 77; RESP 19; O2SAT 97; BMI 40.0
--- NOTE | 2022-06-02 10:06 | EXP.PAIN.SOA ---
[facility] Pain Management SOAP Note Subjective:: Patient is a pleasant 61-year-old female who presents today for 1 month follow-up and medication refill. We are currently treating the patient for degenerative disc disease of lumbar spine with lumbar radiculopathy symptoms, rheumatoid arthritis. Today she rates her pain a 7 out of 10. Patient denies any new trauma or injury. She does states she continues to have pain in her low back and right arm due to recent dislocation. She states she has been to see [facility] and is in the process of getting medically cleared for surgery. She states they have not given her an official date yet. She does state from our last change of her baclofen to tizanidine she did notice significant improvements and is requesting a refill. Patient is currently managed with Angora 10 mg 5 times a day, tizanidine 8 mg 3 times daily from our office and gabapentin 600 mg 3 times a day from an outside provider. Patient denies any side effects from these medications. Her Clifford is [phone]. Its been reviewed and appropriate. Review of Systems: General: No recent weight changes, no fever, no sleep disturbances Respiratory: No cough, no shortness of air, no recurring pulmonary infections Cardiovascular/peripheral vascular: No chest pain, no palpitations, no edema, no shortness of breath Gastrointestinal: No new onset incontinence, normal bowel movements reported Genitourinary: No new onset incontinence Musculoskeletal: Low back pain, right shoulder pain Psychiatric: [Normal mood/affect] Neurological: [Denies weakness in extremities], [denies balance issues] Objective:: Physical Exam: General: Alert and oriented x3, no acute distress, pleasant and cooperative Lungs: Respirations even and unlabored, symmetrical chest expansion Eyes: PERRL Musculoskeletal: Flexion and extension of lumbar [spine] somewhat guarded secondary to pain, [antalgic gait noted] Neurological: Speech clear, no gross sensory deficit Assessment:: Degenerative disc disease of lumbar spine with lumbar radiculopathy symptoms, rheumatoid arthritis, right shoulder dislocation Plan:: Patient is doing well with her current medication regimen. I will refill her tizanidine 8 mg 3 times daily and Angora 10 mg 5 times a day and provide a 1 month supply of this medication. Patient will return to clinic in 1 month for reevaluation of symptoms, medication refill and follow-up. Patient has been advised of risks of oversedation with the prescribed medication. Narcan has been offered to the patient in the event of oversedation. Patient has been advised that a family member should also be educated regarding administration of Narcan. Patient has been instructed to contact the clinic with any concerns before the next appointment. Dr. Carreon has reviewed this note and agrees with this plan of care. This note was dictated using voice recognition software and make contain errors or omissions. [facility] Disclaimer: The information contained in this section may have been updated after the patient was seen, as this information can be updated by other users. Medical History (Updated 05/09/22 @ 13:30 by Rhianna Acosta RN) COPD (chronic obstructive pulmonary disease) Rheumatoid arthritis Family History (Updated 05/09/22 @ 13:30 by Rhianna Acosta RN) Other No significant family history Social History Smoking Status: Current every day smoker tobacco type: cigarettes packs per day: 2 second hand exposure: Yes alcohol intake: never substance use type: denies use current occupational status: retired Travel in the last 8 weeks: None household members: spouse housing: house current occupational exposures/hazards: No caffeine: Yes
== END | disposition home or self-care (01) ==
PROVIDERS: PCP Nurse Practitioner; Visit Provider Nurse Practitioner Family
DX: M51.16 Intervertebral disc disorders with radiculopathy, lumbar region (principal); M06.9 Rheumatoid arthritis, unspecified; S43.004D Unspecified dislocation of right shoulder joint, subsequent encounter
CPT/HCPCS: 99212; G0463

== ENCOUNTER → 2022-06-02 11:09 | Outpatient (CLI) | payer MEDICARE, OTHER, SELFPAY ==
--- NOTE | 2022-06-02 11:16 | XR_ITS ---
FINAL REPORT CLINICAL HISTORY: HTN, H/O TOBACCO USE pre-op for right shoulder COMPARISON: 02/14/2022 FINDINGS: Two views of the chest were obtained. The heart size and pulmonary vascularity are within normal limits. The mediastinum is normal. There is a moderate hiatal hernia. No acute pulmonary abnormality is identified. There is no pneumothorax. The bony thorax is intact. IMPRESSION: No active cardiopulmonary disease. Moderate hiatal hernia. Reviewed, Interpreted and Dictated by Everette Vega III, MD Transcribed by Dominique Leach Authenticated and . [facility]
== END ==
PROVIDERS: PCP Nurse Practitioner; Visit Provider Nurse Practitioner
DX: Z01.818 Encounter for other preprocedural examination (principal)
CPT/HCPCS: 71046; 99212; G0463

== ENCOUNTER → 2022-06-08 14:53 | Outpatient (CLI) | payer MEDICARE, OTHER, SELFPAY ==
[2022-06-08 15:57] LABS: INR 0.98 (0.9-1.1); Prothrombin Time 10.6 seconds (10.1-12.5)
== END ==
PROVIDERS: PCP Nurse Practitioner; Visit Provider Nurse Practitioner
DX: Z01.818 Encounter for other preprocedural examination (principal); Z51.81 Encounter for therapeutic drug level monitoring
CPT/HCPCS: 36415; 85610

== ENCOUNTER → 2022-06-30 11:45 | Outpatient (POV) | payer MEDICARE, OTHER, SELFPAY ==
--- NOTE | 2022-06-30 11:53 | EXP.PAIN.SOA ---
[facility] Pain Management SOAP Note Subjective:: Patient is a pleasant 61-year-old female who presents today for 1 month follow-up and medication refill.? We are currently treating the patient for degenerative disc disease of lumbar spine with lumbar radiculopathy symptoms, rheumatoid arthritis, right shoulder pain.? Today she rates her pain a 6 out of 10.? Patient denies any new trauma or injury or any change to the location or type of pain she experiences.? She does state that she feels like her arthritis is flaring up over the last couple days and that she has had increased stiffness. Patient states that she continues to have right shoulder pain as well and that her previous surgery for the dislocation had to be put on hold due to a recent doctor's appointment that had to be rescheduled for the end of this month. Patient states she has to be medically cleared for [facility] orthopedics to proceed forward with the procedure. She is currently managed with Northport 10 mg 5 times a day, tizanidine 8 mg 3 times daily from our office and gabapentin 600 mg 3 times a day from an outside provider.? Patient denies any side effects from these medications.? She states she does not need any refills on her tizanidine at this time where she just got a 3-month supply. Her Clifford is [phone].? Its been reviewed and appropriate. Review of Systems: General: No recent weight changes, no fever, no sleep disturbances Respiratory: No cough, no shortness of air, no recurring pulmonary infections Cardiovascular/peripheral vascular: No chest pain, no palpitations,? no edema, no shortness of breath Gastrointestinal: No new onset incontinence, normal bowel movements reported Genitourinary: No new onset incontinence Musculoskeletal: Low back pain, right shoulder pain Psychiatric: [Normal mood/affect] Neurological: [Denies weakness in extremities], [denies balance issues] Objective:: Physical Exam: General: Alert and oriented x3, no acute distress, pleasant and cooperative Lungs: Respirations even and unlabored, symmetrical chest expansion Eyes: PERRL Musculoskeletal: Flexion and extension of lumbar [spine] somewhat guarded secondary to pain, [antalgic gait noted] Neurological: Speech clear, no gross sensory deficit Assessment:: Degenerative disc disease of lumbar spine with lumbar radiculopathy symptoms, rheumatoid arthritis, right shoulder pain Plan:: I will refill the patient's Northport 10 mg 5 times a day and provide a 1 month supply of this medication. Patient will return to clinic in 1 month for reevaluation of symptoms, medication refill and follow-up. Patient has been advised of risks of oversedation with the prescribed medication. Narcan has been offered to the patient in the event of oversedation. Patient has been advised that a family member should also be educated regarding administration of Narcan. Patient has been instructed to contact the clinic with any concerns before the next appointment. Dr. Carreon has reviewed this note and agrees with this plan of care. This note was dictated using voice recognition software and make contain errors or omissions. [facility] Disclaimer: The information contained in this section may have been updated after the patient was seen, as this information can be updated by other users. Medical History (Updated 05/09/22 @ 13:30 by Rhianna Acosta RN) COPD (chronic obstructive pulmonary disease) Rheumatoid arthritis Family History (Updated 05/09/22 @ 13:30 by Rhianna Acosta RN) Other No significant family history Social History Smoking Status: Current every day smoker tobacco type: cigarettes packs per day: 2 second hand exposure: Yes alcohol intake: never substance use type: denies use current occupational status: retired Travel in the last 8 weeks: None household members: spouse housing: house current occupational exposures/hazards: No caffeine: Yes
[2022-06-30 12:29] VITALS: BP 112/69; PULSE 74; RESP 18; O2SAT 97; BMI 34.3
== END | disposition home or self-care (01) ==
PROVIDERS: PCP Nurse Practitioner; Visit Provider Nurse Practitioner Family
DX: M51.16 Intervertebral disc disorders with radiculopathy, lumbar region (principal); M06.9 Rheumatoid arthritis, unspecified; M25.511 Pain in right shoulder
CPT/HCPCS: 99212; G0463

== ENCOUNTER → 2022-07-06 11:09 | Outpatient (CLI) | payer MEDICARE, OTHER, SELFPAY ==
[2022-07-06 12:08] LABS: Amphetamine/Metha Screen,Urine Negative ng/ml (<1000)
[2022-07-06 12:09] LABS: Barbiturates Screen,Urine Negative ng/ml (<200); Benzodiazepines Screen,Urine Negative ng/ml (<200)
[2022-07-06 12:10] LABS: Cannabinoid Screen,Urine Negative ng/ml (<50); Cocaine Screen,Urine Negative ng/ml (<300)
[2022-07-06 12:11] LABS: Methadone Screen,Urine Negative ng/ml (<300)
[2022-07-06 12:12] LABS: Opiate Screen,Urine Positive ng/ml (<300)
[2022-07-06 12:13] LABS: Phencyclidine Screen,Urine Negative ng/ml (<25)
[2022-07-12 12:23] LABS: Codeine Negative (Cutoff=100); Hydrocodone Positive (.); Hydromorphone Positive (.); Morphine Negative (Cutoff=100); Opiates Positive (.)
== END ==
PROVIDERS: PCP Nurse Practitioner; Visit Provider Nurse Practitioner Family
DX: Z79.891 Long term (current) use of opiate analgesic (principal)
CPT/HCPCS: 80305; 80361; 80365; G0480

== ENCOUNTER → 2022-07-28 11:09 | Outpatient (POV) | payer MEDICARE, OTHER, SELFPAY ==
--- NOTE | 2022-07-28 11:28 | EXP.PAIN.SOA ---
[facility] Pain Management SOAP Note Subjective:: Patient is a pleasant 61-year-old female who presents today for medication refill and follow-up. We are currently treating the patient for degenerative disc disease of her spine with lumbar radiculopathy symptoms, rheumatoid arthritis, right shoulder pain. Today she rates her pain a 4 out of 10. Patient denies any new trauma or injury. Patient denies any change in location or type of pain she experiences. She does state that she continues to have right shoulder pain related to her dislocation however she states it has been doing better. She is currently in physical therapy and states this has provided significant improvement. She does state that she has been walking straighter and so her normal alignment has been a little off that she has to be cautious that she does not stumble. She does continue to use her cane for ambulation. She states that at this time she has decided against surgical intervention for her right shoulder. She states that she may do a scope down the road to go in and clean it up however the surgeon stated that there was a good chance for failure with no additional benefits. Patient is currently managed with Montgomery 10 mg 5 times a day and tizanidine 8 mg 3 times a day from our office. She is also prescribed gabapentin 600 mg 3 times a day from an outside provider. She denies any side effects from these medications. She states she does not need any refills on her tizanidine at this time. Her Clifford is [phone]. Its been reviewed and appropriate. Review of Systems: General: No recent weight changes, no fever, no sleep disturbances Respiratory: No cough, no shortness of air, no recurring pulmonary infections Cardiovascular/peripheral vascular: No chest pain, no palpitations, no edema, no shortness of breath Gastrointestinal: No new onset incontinence, normal bowel movements reported Genitourinary: No new onset incontinence Musculoskeletal: Right shoulder pain Psychiatric: [Normal mood/affect] Neurological: [Denies weakness in extremities], [denies balance issues] Objective:: Physical Exam: General: Alert and oriented x3, no acute distress, pleasant and cooperative Lungs: Respirations even and unlabored, symmetrical chest expansion Eyes: PERRL Musculoskeletal: Flexion and extension of right shoulder somewhat guarded secondary to pain, [antalgic gait noted] Neurological: Speech clear, no gross sensory deficit Assessment:: Degenerative disc disease of lumbar spine with lumbar radiculopathy symptoms, rheumatoid arthritis, right shoulder pain Plan:: I will refill the patient's Montgomery 10 mg 5 times a day and provide a 1 month supply of this medication. Patient will return to clinic in 1 month for reevaluation of symptoms, medication refill and plan of care. Patient has been advised of risks of oversedation with the prescribed medication. Narcan has been offered to the patient in the event of oversedation. Patient has been advised that a family member should also be educated regarding administration of Narcan. Patient has been instructed to contact the clinic with any concerns before the next appointment. Dr. Carreon has reviewed this note and agrees with this plan of care. This note was dictated using voice recognition software and make contain errors or omissions. [facility] Disclaimer: The information contained in this section may have been updated after the patient was seen, as this information can be updated by other users. Medical History (Updated 05/09/22 @ 13:30 by Rhianna Acosta RN) COPD (chronic obstructive pulmonary disease) Rheumatoid arthritis Family History (Updated 05/09/22 @ 13:30 by Rhianna Acosta RN) Other No significant family history Social History Smoking Status: Current every day smoker tobacco type: cigarettes packs per day: 2 second hand exposure: Yes alcohol intake: never substance use type:
[2022-07-28 11:58] VITALS: BP 114/70; PULSE 67; RESP 19; BMI 34.0
== END | disposition home or self-care (01) ==
PROVIDERS: PCP Nurse Practitioner; Visit Provider Nurse Practitioner Family
DX: M51.16 Intervertebral disc disorders with radiculopathy, lumbar region (principal); M06.9 Rheumatoid arthritis, unspecified; M25.511 Pain in right shoulder
CPT/HCPCS: 99212; G0463

== ENCOUNTER → 2022-08-25 10:47 | Outpatient (POV) | payer MEDICARE, OTHER, SELFPAY ==
--- NOTE | 2022-08-25 11:28 | EXP.PAIN.SOA ---
[facility] Pain Management SOAP Note Subjective:: Patient is a pleasant 61-year-old female who presents today for 1 month follow-up and medication refill. We are currently treating the patient for degenerative disc disease of lumbar spine with lumbar radiculopathy symptoms, rheumatoid arthritis, right shoulder pain. Today she rates her pain a 3 out of 10. Patient denies any new trauma or injury. Patient denies any change to the location or type of pain that she experiences. Patient states that she continues to go to physical therapy currently for her upper body pain and issues and is doing well with this. She does state that she continues to have to watch as she walks due to feeling off balance. She states that she has talked to physical therapy that she has 3 more visits for her upper body and that after that they will switch to her low back and lumbar pain and weakness. Patient is currently managed with Marshfield 10 mg 5 times a day, tizanidine 8 mg 3 times a day from our office and gabapentin 600 mg 3 times a day from an outside provider. Patient denies any side effects from these medications. Her Clifford is [id number]. Its been reviewed and appropriate. Review of Systems: General: No recent weight changes, no fever, no sleep disturbances Respiratory: No cough, no shortness of air, no recurring pulmonary infections Cardiovascular/peripheral vascular: No chest pain, no palpitations, no edema, no shortness of breath Gastrointestinal: No new onset incontinence, normal bowel movements reported Genitourinary: No new onset incontinence Musculoskeletal: Low back pain Psychiatric: [Normal mood/affect] Neurological: [Denies weakness in extremities], [denies balance issues] Objective:: Physical Exam: General: Alert and oriented x3, no acute distress, pleasant and cooperative Lungs: Respirations even and unlabored, symmetrical chest expansion Eyes: PERRL Musculoskeletal: Flexion and extension of lumbar [spine] somewhat guarded secondary to pain, [antalgic gait noted] Neurological: Speech clear, no gross sensory deficit Assessment:: Degenerative disc disease of lumbar spine with lumbar radiculopathy symptoms, rheumatoid arthritis, right shoulder pain Plan:: I will refill the patient's tizanidine 8 mg 3 times a day and Marshfield 10 mg 5 times a day and provide a 1 month supply of these medications. Patient will return to clinic in 1 month for reevaluation of symptoms and medication refill. Patient has been advised of risks of oversedation with the prescribed medication. Narcan has been offered to the patient in the event of oversedation. Patient has been advised that a family member should also be educated regarding administration of Narcan. Patient has been instructed to contact the clinic with any concerns before the next appointment. Dr. Carreon has reviewed this note and agrees with this plan of care. This note was dictated using voice recognition software and make contain errors or omissions. [facility] Disclaimer: The information contained in this section may have been updated after the patient was seen, as this information can be updated by other users. Medical History (Updated 05/09/22 @ 13:30 by Rhianna Acosta RN) COPD (chronic obstructive pulmonary disease) Rheumatoid arthritis Family History (Updated 05/09/22 @ 13:30 by Rhianna Acosta RN) Other No significant family history Social History Smoking Status: Current every day smoker tobacco type: cigarettes packs per day: 2 second hand exposure: Yes alcohol intake: never substance use type: denies use current occupational status: retired Travel in the last 8 weeks: None household members: spouse housing: house current occupational exposures/hazards: No caffeine: Yes
[2022-08-25 11:37] VITALS: BP 118/64; PULSE 55; RESP 18; BMI 34.0
== END | disposition home or self-care (01) ==
PROVIDERS: Visit Provider Nurse Practitioner Family
DX: M51.16 Intervertebral disc disorders with radiculopathy, lumbar region (principal); M06.9 Rheumatoid arthritis, unspecified; M25.511 Pain in right shoulder
CPT/HCPCS: 99212; G0463

== ENCOUNTER 2022-08-31 15:00 | Outpatient (RCR) | payer MEDICARE, OTHER, SELFPAY | END 2022-08-31 15:05 | disposition home or self-care (01) | LOC: PT 15:00 | PROVIDERS: PCP Nurse Practitioner; Visit Provider Nurse Practitioner | DX: M40.04 Postural kyphosis, thoracic region (principal) | CPT/HCPCS: 97010; 97014; 97016; 97110; 97112; 97163; 97164; 97530; G0283 ==

== ENCOUNTER → 2022-09-08 11:18 | Outpatient (CLI) | payer MEDICARE, OTHER, SELFPAY ==
[2022-09-08 11:25] LABS: Microscopic, Urine URINE MICROSCOPIC (MICROSCOPIC)
[2022-09-08 11:47] LABS: Appearance,Urine CLEAR (Clear); Bilirubin,Urine Negative (Negative); Blood, Urine Negative (Negative); Color,Urine YELLOW (Yellow); Glucose,Urine (UA) Negative (Negative); Ketones,Urine Negative (Negative); Leukocyte Esterase,Urine Negative (Negative); Nitrate,Urine Negative (Negative); Protein,Urine Negative (Negative); Specific Gravity, Urine 1.015 (1.005-1.030); Urobilinogen,Urine 0.2 EU/dl (0.2)
[2022-09-08 12:04] LABS: Bacteria,Urine Trace /lpf; Squamous Epithelial Cell,Urine Occasional #/hpf (0-5); WBC,Urine Occasional #/hpf (0-3)
[2022-09-08 12:05] LABS: Creatinine,Urine Random 35 mg/dL (Not Estab.)
[2022-09-08 13:34] LABS: Alanine Aminotransferase 13 U/L (12-78); Albumin Level 3.8 g/dl (3.5-5.0); Albumin/Globulin Ratio 1.6 (1.1-1.8); Alkaline Phosphatase 110 U/L (38-126); Anion Gap 7.3 mEq/L (5-15); Aspartate Amino Transferase 21 U/L (14-36); Bilirubin,Total 0.2 mg/dl (0.2-1.3); Blood Urea Nitrogen 14 mg/dl (7-17); Calcium 8.9 mg/dl (8.4-10.2); Carbon Dioxide 31 mmol/L (22.0-30.0); Chloride 106 mmol/L (98-107); Estimated Glomerular Filt Rate 57 ml/min (>60); GFR (African American) 68 ML/MIN (>60); Globulin 2.4 g/dL (1.3-3.2); Glucose 85 mg/dl (74-100); Potassium 4.3 mmoL/L (3.5-5.1); Sodium 140 mmol/L (136-145); Total Protein,Serum 6.2 g/dl (6.3-8.2); Uric Acid 4.7 mg/dl (2.5-6.2)
[2022-09-08 13:42] LABS: 25-OH Vitamin D, Total 47.5 ng/mL (30-100)
[2022-09-08 13:47] LABS: Intact Parathyroid Hormone 163.1 pg/mL (7.5-53.5)
[2022-09-08 14:05] LABS: Thyroid Stimulating Hormone 2.45 uIU/mL (0.465-4.68)
[2022-09-08 16:29] LABS: Hemoglobin 11.1 g/dL (12.2-16.2); Mean Corpuscular HGB Conc 30.1 g/dL (31.8-35.4); Mean Corpuscular Hemoglobin 31.8 pg (27.0-31.2); Mean Corpuscular Volume 105.4 fl (81-99); Platelet Count 246 K/mm3 (142-424); Red Blood Count 3.51 M/mm3 (4.20-5.40); Red Cell Distribution Width 16.7 % (11.5-17.5); White Blood Count 9.3 K/mm3 (4.8-10.8)
== END ==
LOC: LAB 11:20
PROVIDERS: PCP Nurse Practitioner; Visit Provider Internal Medicine Nephrology
DX: N18.32 Chronic kidney disease, stage 3b (principal); I10 Essential (primary) hypertension; M06.9 Rheumatoid arthritis, unspecified; E03.9 Hypothyroidism, unspecified; E55.9 Vitamin D deficiency, unspecified
CPT/HCPCS: 36415; 80053; 81001; 82306; 82570; 83970; 84155; 84443; 84550; 85014; 85018; 85048; 85049

== ENCOUNTER → 2022-09-22 10:09 | Outpatient (POV) | payer MEDICARE, OTHER, SELFPAY ==
--- NOTE | 2022-09-22 10:28 | A.OFFVIS_ITS ---
[facility] Pain Management SOAP Note Subjective:: Patient is a pleasant 61-year-old female who presents today for follow-up and medication refill. We are currently treating the patient for degenerative disc disease of lumbar spine with lumbar radiculopathy symptoms, right shoulder pain, RA. Today she rates her pain a 5 out of 10. Patient denies any new trauma or injury or change to location or type of pain she experiences. She does state that she is continue to do well with physical therapy for her right shoulder pain however she does still have a little weakness. Patient is currently managed with Milton 10 mg 5 times a day, tizanidine 8 mg 3 times a day and gabapentin 600 mg 3 times a day. Patient denies any side effects from this medication. Her Clifford is [id number]. Its been reviewed and appropriate. Review of Systems: General: No recent weight changes, no fever, no sleep disturbances Respiratory: No cough, no shortness of air, no recurring pulmonary infections Cardiovascular/peripheral vascular: No chest pain, no palpitations, no edema, no shortness of breath Gastrointestinal: No new onset incontinence, normal bowel movements reported Genitourinary: No new onset incontinence Musculoskeletal: Low back pain Psychiatric: [Normal mood/affect] Neurological: [Denies weakness in extremities], [denies balance issues] Objective:: Physical Exam: General: Alert and oriented x3, no acute distress, pleasant and cooperative Lungs: Respirations even and unlabored, symmetrical chest expansion Eyes: PERRL Musculoskeletal: Flexion and extension of lumbar [spine] somewhat guarded secondary to pain, [antalgic gait noted] Neurological: Speech clear, no gross sensory deficit Assessment:: Degenerative disc disease of lumbar spine with lumbar radiculopathy symptoms, rheumatoid arthritis, right shoulder pain Plan:: I will refill the patient's Milton 10 mg 5 times a day and tizanidine 8 mg 3 times a day and provide a 1 month supply of this medication. Patient will return to clinic in 1 month for reevaluation of symptoms, medication refill and follow-up. Patient has been advised of risks of oversedation with the prescribed medication. Narcan has been offered to the patient in the event of oversedation. Patient has been advised that a family member should also be educated regarding administration of Narcan. Patient has been instructed to contact the clinic with any concerns before the next appointment. Dr. Carreon has reviewed this note and agrees with this plan of care. This note was dictated using voice recognition software and make contain errors or omissions. [facility] Disclaimer: The information contained in this section may have been updated after the p atient was seen, as this information can be updated by other users. Medical History (Updated 05/09/22 @ 13:30 by Rhianna Acosta RN) COPD (chronic obstructive pulmonary disease) Rheumatoid arthritis Family History (Updated 05/09/22 @ 13:30 by Rhianna Acosta RN) Other No significant family history Social History Smoking Status: Current every day smoker tobacco type: cigarettes packs per day: 2 second hand exposure: Yes alcohol intake: never substance use type: denies use current occupational status: retired Travel in the last 8 weeks: None household members: spouse housing: house current occupational exposures/hazards: No caffeine: Yes
[2022-09-22 13:39] VITALS: BP 126/65; PULSE 62; RESP 18; O2SAT 99; BMI 34.0
== END | disposition home or self-care (01) ==
PROVIDERS: Visit Provider Nurse Practitioner Family
DX: M51.16 Intervertebral disc disorders with radiculopathy, lumbar region (principal); M25.511 Pain in right shoulder; M06.9 Rheumatoid arthritis, unspecified
CPT/HCPCS: 99212; G0463

== ENCOUNTER → 2022-10-12 15:52 | Outpatient (CLI) | payer MEDICARE, OTHER, SELFPAY ==
--- NOTE | 2022-10-12 15:57 | MM_ITS ---
PROCEDURE INFORMATION: Exam: MG Bilateral Screening 3D Mammography Exam date and time: 10/12/2022 3:51 PM Age: 61 years old Clinical indication: Screening examination; No personal or family history of breast cancer TECHNIQUE: Imaging protocol: Bilateral Screening tomosynthesis and 2D mammography including computer-aided detection (CAD) when performed. COMPARISON: MG MM DIG SCREENING MAMM BI W/CAD 08/12/2021 3:15 PM FINDINGS: MAMMOGRAPHY: Breast composition: The breasts are almost entirely fatty. Mass: None. Architectural distortion: None. Calcifications: No suspicious calcifications. Asymmetric density: None. Skin thickening: None. Axillary adenopathy: None. IMPRESSION: No mammographic evidence of malignancy. Annual screening is recommended unless otherwise clinically indicated. ASSESSMENT: BI-RADS Category 1: Negative
== END ==
PROVIDERS: PCP Nurse Practitioner; Visit Provider Nurse Practitioner
DX: Z12.31 Encounter for screening mammogram for malignant neoplasm of breast (principal)
CPT/HCPCS: 77063; 77067

== ENCOUNTER → 2022-10-31 10:30 | Outpatient (POV) | payer MEDICARE, OTHER, SELFPAY ==
--- NOTE | 2022-10-31 10:35 | EXP.PAIN.SOA ---
[facility] Pain Management SOAP Note Subjective:: Patient is a pleasant 61-year-old female who presents today for follow-up and medication refill. We are currently treating the patient for degenerative disc disease of lumbar spine with lumbar radiculopathy symptoms, right shoulder pain, RA. Today she rates her pain a 3 out of 10. Patient denies any new trauma or injury or change to location or type of pain she experiences. She states her right shoulder has continued to do well and that she is officially done with all her physical therapy. She did complete 6 weeks and continues to do the at home exercises. She does state that she has been to her coremaker experimental since our last visit and that her blood work showed that the Plaquenil level was in the toxic range. She states that they did decrease her dose of this medication and added methotrexate and folic acid. She states that she will have monthly blood draws to monitor her liver function. Patient is currently managed with Hammond 10 mg 5 times a day, tizanidine 8 mg 3 times a day and gabapentin 600 mg 3 times a day. Patient denies any side effects from this medication. Her Clifford is [id number]. Its been reviewed and appropriate. Review of Systems: General: No recent weight changes, no fever, no sleep disturbances Respiratory: No cough, no shortness of air, no recurring pulmonary infections Cardiovascular/peripheral vascular: No chest pain, no palpitations, no edema, no shortness of breath Gastrointestinal: No new onset incontinence, normal bowel movements reported Genitourinary: No new onset incontinence Musculoskeletal: Low back pain Psychiatric: [Normal mood/affect] Neurological: [Denies weakness in extremities], [denies balance issues] Objective:: Physical Exam: General: Alert and oriented x3, no acute distress, pleasant and cooperative Lungs: Respirations even and unlabored, symmetrical chest expansion Eyes: PERRL Musculoskeletal: Flexion and extension of lumbar [spine] somewhat guarded secondary to pain, [antalgic gait noted] Neurological: Speech clear, no gross sensory deficit Assessment:: Degenerative disc disease of lumbar spine with lumbar radiculopathy symptoms, right shoulder pain, rheumatoid arthritis Plan:: Patient is doing well with her current medication regimen. I will refill the patient's Hammond 10 mg 5 times a day and tizanidine 8 mg 3 times a day and provide a 1 month supply of this medication. I have counseled the patient if at some point down the road the methotrexate and Hammond medication is affecting her liver function we may have to make some medication changes however at this time we will leave it as it stands. Patient will return to clinic in 1 month for reevaluation of symptoms, medication refill and follow-up. Patient has been advised of risks of oversedation with the prescribed medication. Narcan has been offered to the patient in the event of oversedation. Patient has been advised that a family member should also be educated regarding administration of Narcan. Patient has been instructed to contact the clinic with any concerns before the next appointment. Dr. Carreon has reviewed this note and agrees with this plan of care. This note was dictated using voice recognition software and make contain errors or omissions. [facility] Disclaimer: The information contained in this section may have been updated after the patient was seen, as this information can be updated by other users. Medical History (Updated 05/09/22 @ 13:30 by Rhianna Acosta RN) COPD (chronic obstructive pulmonary disease) Rheumatoid arthritis Family History (Updated 05/09/22 @ 13:30 by Rhianna Acosta RN) Other No significant family history Social History Smoking Status: Current every day smoker tobacco type: cigarettes packs per day: 2 second hand exposure: Yes alcohol intake: never substance use type: denies use current occupational s
[2022-10-31 11:08] VITALS: BP 117/69; PULSE 65; RESP 18; O2SAT 97; BMI 34.3
== END | disposition home or self-care (01) ==
PROVIDERS: PCP Nurse Practitioner; Visit Provider Nurse Practitioner Family
DX: M51.16 Intervertebral disc disorders with radiculopathy, lumbar region (principal); M25.511 Pain in right shoulder; M06.9 Rheumatoid arthritis, unspecified
CPT/HCPCS: 99212; G0463

== ENCOUNTER → 2022-11-24 09:30 | Outpatient (POV) | payer MEDICARE, OTHER, SELFPAY ==
--- OUTSIDE RECORDS SUMMARY | 2022-11-24 09:32 | XMS_ITS | Continuity of Care Document ---
Author Name Unknown Organization [facility] Address [address] [place] [id number] Phone Care Team Providers Care Mail Service Coordinator Name Role Phone Shanice Cosme APRN Unavailable Unavailable Allergies, Adverse Reactions, Alerts Substance Reaction Status Criticality OXYCODONE HCL Active No Information acetaminophen Active No Information pregabalin Active No Information HYDROCODONE BITARTRATE RashRashItchingItching Active No Information acetaminophen RashRashItchingItching Active No I nformation HYDROMORPHONE HCL Active No Informa tion VENLAFAXINE HCL RashRash Active No Informati on ciprofloxacin HivesHives Active No Information Medications Medication Instructions Dosage Effective Dates (start - stop) Status Comments Humira(CF) Pen 40 mg/0.4 mL subcutaneous kit inject 0.4 milliliter by subcutaneous route every 2 weeks in the abdomen or thigh (rotate sites) 40 MG - Active Plaquenil 200 mg tablet take 1 tablet by oral route every day for arthritis 200 MG - Active folic acid 1 mg tablet 1 tablet daily - Active
--- OUTSIDE RECORDS SUMMARY | 2022-11-24 09:33 | XMS_ITS | Clinical Summary ---
Author Name Unknown Address [address] [place] [address] Phone Organization [facility] Address [address] [place] [address] Phone Care Team Providers Care Fabric Inspector Name Role Phone Sixto CORTEZ, Brandon Unavailable [phone] Trinity Chase APRN Primary Care Provider [phone] Reason for Visit and Chief Complaint [Patient Encounter] Problems Includes: Problems addressed during this encounter and other active Problems All Visits Onset Date Resolved Date Provider Condition S tatus Joint Pain, Localized in the Right Shoulder 05/11/2022 Miller Villegas MD Active Plan of Treatment Pending Tests Order Diagnosis Results Due Ordering [facility] Radiology - MRI MRI Shoulder 05/25/22 Miller Villegas MD Assessments Includes: Assessments from this encounter No Assessments Recorded Medical Equipment - Implanted Devices Includes: Current Devices No Medical Equipment Recorded Medications Includes: Medications discussed during this encounter and other current Medications Current Medications (continue as prescribed) Hydroxychloroquine Sulfate 100 MG Oral Tablet 05/12/19 Provider: Diagnosis:
--- OUTSIDE RECORDS SUMMARY | 2022-11-24 09:33 | XMS_ITS ---
Care Plan - [facility] Created on: November 24, 2022 MejiaNell burks .0 : 1960 Sex: Female Author Name Unknown Address [address] [place] [address] Phone Organization [facility] Address [address] [place] [address] Phone Care Team Providers Care Aircraft Delivery Checker Name Role Phone Sixto CORTEZ, Brandon Unavailable [phone] Trinity Chase APRN Primary Care Provider [phone]
--- OUTSIDE RECORDS SUMMARY | 2022-11-24 09:33 | XMS_ITS | Clinical Summary ---
Author Name Unknown Address [address] [place] [address] Phone Organization [facility] Address [address] [place] [address] Phone Care Team Providers Care Assistant Professor Of Philosophy Name Role Phone Brandon Henson MD Unavailable [phone] Trinity Chase APRN Primary Care Provider [phone] Reason for Visit and Chief Complaint The Chief Complaint is: Right Shoulder Pain Problems Includes: Problems addressed during this encounter and other active Problems Current Visit Onset Date Resolved Date Provider Conditio n Status Lower Back Pain 07/13/2017 Arnoldo Tafoya MD Act heide Past Visits Onset Date Resolved Date Provider Condition Status Joint Pain, Localized in the Right Shoulder 05/11/2022 Miller Villegas MD Active Plan of Treatment Nell has right sided shoulder instability, reportedly after folding laundry at home. I explained that this activity likely was not the cause of her shoulder instability, however she has no other obvious explanation. She does note that she had a fall back in February but states that she does not think that her shoulder was involved with that injury. I had a long talk with the patient about the nature of her shoulder injury which to this point we cannot really explain with any specific activity, however the fact remains that she has a right-sided likely traumatic shoulder instability as a result of some episode whether it is the fall or something else prior. Her MRI confirmed a full-thickness supraspinatus tendon tear and a
--- OUTSIDE RECORDS SUMMARY | 2022-11-24 09:33 | XMS_ITS | Clinical Summary ---
Author Name Unknown Address [address] [place] [address] [place] [address] Phone Organization [facility] Address [address] [place] [address] Phone Care Team Providers Care Floor Layer Apprentice Name Role Phone Brandon Henson MD Unavailable [phone] Trinity Chase APRN Primary [...] shoulder instability, however she has no other explanation. She does note that she had a fall back in February 2022 but states that she does not think that her shoulder was involved with that injury. I had a long talk with the patient about the nature of her shoulder injury which to this point we cannot really explain with any specific activity, however the fact remains that she has right-sided traumatic shoulder instability as a result of some episode whether it is the fall or something else prior. Her MRI confirmed a full-thickness supraspinatus tendon tear and a partial tear of
--- OUTSIDE RECORDS SUMMARY | 2022-11-24 09:33 | XMS_ITS | Clinical Summary ---
Author Name Unknown Address [address] [address] Phone Organization [facility] Address [address] [place] [address] Phone Care Team Providers Care Electrical Electronics Engineer Name Role Phone Sixto CORTEZ, Brandon Unavailable [phone] Trinity Chase APRN Primary Care Provider [phone] Reason for Visit and Chief Complaint BRACE FITTING Problems Includes: Problems addressed during this encounter [...] during this encounter and other current Medications Discontinued / Stopped on this date on 05/02/2018 traMADol HCl 50MG Oral Tablet Provider: Diagnosis:
--- OUTSIDE RECORDS SUMMARY | 2022-11-24 09:33 | XMS_ITS ---
Author Name Unknown Address [address] [place] [address] Phone Organization [facility] Address [address] [place] [address] Phone Care Team Providers Care Die Maker Electronic Name Role Phone Sixto CORTEZ, Brandon Unavailable [phone] Trinity Chase APRN Primary Care Provider [phone] Problems Includes: Active, inactive, and resolved Problems All Visits Onset Date Resolved Date Provider Condition S tatus Joint Pain, Localized in the Right Shoulder 05/11/2022 Miller Villegas MD Active Plan of Treatment Pending Tests Order Diagnosis Results Due Ordering [facility] Radiology - MRI MRI Shoulder 05/25/22 Miller Villegas MD Instructions to patient Intervention and counseling on cessation of tobacco use Last Documented On 3 12:54PM ; [facility] Lose weight Last Documented On 3 12:50PM ; [facility] Intervention and counseling on cessation of tobacco use Last Documented On 3 10:38AM ; [facility] Lose weight
--- OUTSIDE RECORDS SUMMARY | 2022-11-24 09:33 | XMS_ITS | Clinical Summary ---
Author Name Unknown Address [address] [place] [address] Phone Organization [facility] Address [address] [place] [address] Phone Care Team Providers Care Block Breaker Name Role Phone Sixto CORTEZ, Brandon Unavailable [phone] Trinity Chase APRN Primary Care Provider [phone] Reason for Visit and Chief Complaint The Chief Complaint is: Right Shoulder Pain Problems Includes: Problems addressed during this encounter and other active Problems Current Visit Onset Date Resolved Date Provider Leighton red Status Joint Pain, Localized in the Right [...] shoulder was involved with that injury. I explained that her outside films demonstrated anterior-inferior dislocation of her shoulder and a postreduction x-ray series demonstrated improved alignment however there is persistent inferior subluxation of the humeral head. X-rays that were obtained today in our office again demonstrated inferior subluxation, overall glenohumeral laxity, axillary view demonstrated largely reduced glenohumeral joint, mild anterior subluxation. I had a long talk with the patient about the nature of her shoulder injury which to
--- NOTE | 2022-11-24 09:46 | EXP.PAIN.SOA ---
[facility] Pain Management SOAP Note Subjective:: Patient is a pleasant 61-year-old female who presents today for medication refill. We are currently treating the patient for degenerative disc disease of lumbar spine with lumbar radiculopathy symptoms, right shoulder pain, rheumatoid arthritis. Today she rates her pain a 7 out of 10. Patient denies any new trauma or injury. She does state that she continues to have her normal aches and pains and that her swimming pool installer and servicer is still adjusting certain medications and so she has had a little bit more pain related to this. At our last visit we did send in [place] 7.5 mg 6 times a day due to her previous prescription [place] 10 mg being out of stock. Patient does state that this actually did seem to help her symptoms better and she is requesting if we can keep it at the lower dosage. Patient is also managed with tizanidine 8 mg 3 times a day from our office and gabapentin 600 mg 3 times a day from an outside provider. She does state that she does not need any refills on her tizanidine. Her Clifford is [id number]. Its been reviewed and appropriate. Review of Systems: General: No recent weight changes, no fever, no sleep disturbances Respiratory: No cough, no shortness of air, no recurring pulmonary infections Cardiovascular/peripheral vascular: No chest pain, no palpitations, no edema, no shortness of breath Gastrointestinal: No new onset incontinence, normal bowel movements reported Genitourinary: No new onset incontinence Musculoskeletal: Low back pain Psychiatric: [Normal mood/affect] Neurological: [Denies weakness in extremities], [denies balance issues] Objective:: Physical Exam: General: Alert and oriented x3, no acute distress, pleasant and cooperative Lungs: Respirations even and unlabored, symmetrical chest expansion Eyes: PERRL Musculoskeletal: Flexion and extension of lumbar [spine] somewhat guarded secondary to pain, [antalgic gait noted] Neurological: Speech clear, no gross sensory deficit Assessment:: Degenerative disc disease of lumbar spine with lumbar radiculopathy symptoms, right shoulder pain, rheumatoid arthritis Plan:: I will refill the patient's [place] 7.5 mg 6 times a day and provide a 1 month supply of this medication. Patient will return to clinic in 1 month for reevaluation of symptoms and medication refill. Patient has been advised of risks of oversedation with the prescribed medication. Narcan has been offered to the patient in the event of oversedation. Patient has been advised that a family member should also be educated regarding administration of Narcan. Patient has been instructed to contact the clinic with any concerns before the next appointment. Dr. Carreon has reviewed this note and agrees with this plan of care. This note was dictated using voice recognition software and make contain errors or omissions. [facility] Disclaimer: The information contained in this section may have been updated after the patient was seen, as this information can be updated by other users. Medical History (Updated 05/09/22 @ 13:30 by Rhianna Acosta RN) COPD (chronic obstructive pulmonary disease) Rheumatoid arthritis Family History (Updated 05/09/22 @ 13:30 by Rhianna Acotsa RN) Other No significant family history Social History Smoking Status: Current every day smoker tobacco type: cigarettes packs per day: 2 second hand exposure: Yes alcohol intake: never substance use type: denies use current occupational status: retired Travel in the last 8 weeks: None household members: spouse housing: house current occupational exposures/hazards: No caffeine: Yes
[2022-11-24 10:00] VITALS: BP 121/62; PULSE 65; RESP 18; O2SAT 95; BMI 34.0
== END | disposition home or self-care (01) ==
PROVIDERS: Visit Provider Nurse Practitioner Family
DX: M51.16 Intervertebral disc disorders with radiculopathy, lumbar region (principal); M25.511 Pain in right shoulder; M06.9 Rheumatoid arthritis, unspecified
CPT/HCPCS: 99212; G0463

== ENCOUNTER → 2022-11-30 14:12 | Outpatient (CLI) | payer MEDICARE, OTHER, SELFPAY ==
[2022-11-30 14:48] LABS: Amphetamine/Metha Screen,Urine Negative ng/ml (<1000); Barbiturates Screen,Urine Negative ng/ml (<200)
[2022-11-30 14:49] LABS: Benzodiazepines Screen,Urine Negative ng/ml (<200)
[2022-11-30 14:50] LABS: Cannabinoid Screen,Urine Negative ng/ml (<50); Cocaine Screen,Urine Negative ng/ml (<300)
[2022-11-30 14:51] LABS: Methadone Screen,Urine Negative ng/ml (<300); Opiate Screen,Urine Positive ng/ml (<300)
[2022-11-30 14:52] LABS: Phencyclidine Screen,Urine Negative ng/ml (<25)
[2022-12-07 05:03] LABS: Codeine Negative (Cutoff=100); Hydrocodone Positive (.); Hydromorphone Positive (.); Morphine Negative (Cutoff=100); Opiates Positive (.)
== END ==
LOC: LAB 14:13
PROVIDERS: Nurse Practitioner Family; PCP Nurse Practitioner; Visit Provider Anesthesiology
DX: Z79.891 Long term (current) use of opiate analgesic (principal)
CPT/HCPCS: 80305; 80307; 80361; 80365; G0480

== ENCOUNTER → 2023-01-05 10:47 | Outpatient (POV) | payer MEDICARE, OTHER, SELFPAY ==
--- NOTE | 2023-01-05 10:59 | A.OFFVIS_ITS ---
[facility] Pain Management SOAP Note Subjective:: Patient is a pleasant 62-year-old female who presents today for 1 month follow- up and medication refill. We are currently treating the patient for degenerative disc disease of lumbar spine with lumbar radiculopathy symptoms, right shoulder pain, rheumatoid arthritis. Today she rates her pain a 3 out of 10. Patient denies any new trauma or injury from our last visit. She does state today is a better day and she is not having as much pain. Patient is currently managed with [place] 7.5 mg 6 times a day and tizanidine 8 mg 3 times a day from our office and gabapentin 600 mg 3 times a day from an outside provider. Patient denies any side effects from this medication. Her Clifford has been reviewed and is appropriate. Review of Systems: General: No recent weight changes, no fever, no sleep disturbances Respiratory: No cough, no shortness of air, no recurring pulmonary infections Cardiovascular/peripheral vascular: No chest pain, no palpitations, no edema, no shortness of breath Gastrointestinal: No new onset incontinence, normal bowel movements reported Genitourinary: No new onset incontinence Musculoskeletal: Low back pain Psychiatric: [Normal mood/affect] Neurological: [Denies weakness in extremities], [denies balance issues] Objective:: Physical Exam: General: Alert and oriented x3, no acute distress, pleasant and cooperative Lungs: Respirations even and unlabored, symmetrical chest expansion Eyes: PERRL Musculoskeletal: Flexion and extension of lumbar [spine] somewhat guarded secondary to pain, [antalgic gait noted] Neurological: Speech clear, no gross sensory deficit Assessment:: Degenerative disc disease of lumbar spine with lumbar radiculopathy symptoms, rheumatoid arthritis, right shoulder pain Plan:: I will refill the patient's [place] 7.5 mg 6 times a day and tizanidine 8 mg 3 times a day and provide a 1 month supply of these medications. Patient will return to clinic in 1 month for reevaluation of symptoms and plan of care. Patient has been advised of risks of oversedation with the prescribed medication. Narcan has been offered to the patient in the event of oversedation. Patient has been advised that a family member should also be educated regarding administration of Narcan. Patient has been instructed to contact the clinic with any concerns before the next appointment. Dr. Carreon has reviewed this note and agrees with this plan of care. This note was dictated using voice recognition software and make contain errors or omissions. [facility] Disclaimer: The information contained in this section may have been updated after the patient was seen, as this information can be updated by other users. Medical History (Updated 05/09/22 @ 13:30 by Rhianna Acosta RN) COPD (chronic obstructive pulmonary disease) Rheumatoid arthritis Family History (Updated 05/09/22 @ 13:30 by Rhianna Acosta RN) Other No significant family history Social History Smoking Status: Current every day smoker tobacco type: cigarettes packs per day: 2 second hand exposure: Yes alcohol intake: never substance use type: denies use current occupational status: retired Travel in the last 8 weeks: None household members: spouse housing: house current occupational exposures/hazards: No caffeine: Yes
[2023-01-05 11:23] VITALS: BP 97/57; PULSE 68; RESP 18; O2SAT 96; BMI 32.9
== END | disposition home or self-care (01) ==
PROVIDERS: PCP Nurse Practitioner; Visit Provider Nurse Practitioner Family
DX: M51.16 Intervertebral disc disorders with radiculopathy, lumbar region (principal); M06.9 Rheumatoid arthritis, unspecified; M25.511 Pain in right shoulder
CPT/HCPCS: 99212; G0463

== ENCOUNTER → 2023-02-02 10:53 | Outpatient (POV) | payer MEDICARE, OTHER, SELFPAY ==
--- NOTE | 2023-02-02 10:59 | A.OFFVIS_ITS ---
[facility] Pain Management SOAP Note Subjective:: Patient is a pleasant 62-year-old female who presents today for medication refill. We are currently treating the patient for degenerative disc disease of lumbar spine with lumbar radiculopathy symptoms, right shoulder pain, rheumatoid arthritis. Today she rates her pain a 5 out of 10. Patient denies any new trauma or injury from our last visit. She is currently managed with [place] 7.5 mg 6 times a day and tizanidine 8 mg 3 times a day from our office and gabapentin 600 mg 3 times a day from an outside provider. Patient denies any side effects from this medication. Her Clifford has been reviewed and is appropriate. Review of Systems: General: No recent weight changes, no fever, no sleep disturbances Respiratory: No cough, no shortness of air, no recurring pulmonary infections Cardiovascular/peripheral vascular: No chest pain, no palpitations, no edema, no shortness of breath Gastrointestinal: No new onset incontinence, normal bowel movements reported Genitourinary: No new onset incontinence Musculoskeletal: Low back pain Psychiatric: [Normal mood/affect] Neurological: [Denies weakness in extremities], [denies balance issues] Objective:: Physical Exam: General: Alert and oriented x3, no acute distress, pleasant and cooperative Lungs: Respirations even and unlabored, symmetrical chest expansion Eyes: PERRL Musculoskeletal: Flexion and extension of lumbar [spine] somewhat guarded secondary to pain, [antalgic gait noted] Neurological: Speech clear, no gross sensory deficit Assessment:: Degenerative disc disease of lumbar spine with lumbar radiculopathy symptoms, right shoulder pain, rheumatoid arthritis Plan:: Patient continues to do well on her current medications. I will refill her [place] 7.5 mg 6 times a day and tizanidine 8 mg 3 times a day and provide a 1 month supply of this medication. Patient will return to clinic in 1 month for reevaluation of symptoms and plan of care. Patient has been advised of risks of oversedation with the prescribed medication. Narcan has been offered to the patient in the event of oversedation. Patient has been advised that a family member should also be educated regarding administration of Narcan. Patient has been instructed to contact the clinic with any concerns before the next appointment. Dr. Carreon has reviewed this note and agrees with this plan of care. This note was dictated using voice recognition software and make contain errors or omissions. [facility] Disclaimer: The information contained in this section may have been updated after the patient was seen, as this information can be updated by other users. Medical History (Updated 05/09/22 @ 13:30 by Rhianna Acosta RN) COPD (chronic obstructive pulmonary disease) Rheumatoid arthritis Family History (Updated 05/09/22 @ 13:30 by Rhianna Acosta RN) Other No significant family history Social History Smoking Status: Current every day smoker tobacco type: cigarettes packs per day: 2 second hand exposure: Yes alcohol intake: never substance use type: denies use current occupational status: retired Travel in the last 8 weeks: None household members: spouse housing: house current occupational exposures/hazards: No caffeine: Yes
[2023-02-02 11:30] VITALS: BP 141/77; PULSE 59; RESP 20; O2SAT 98; BMI 34.0
== END ==
PROVIDERS: PCP Nurse Practitioner; Visit Provider Nurse Practitioner Family
DX: M51.16 Intervertebral disc disorders with radiculopathy, lumbar region (principal); M25.511 Pain in right shoulder; M06.9 Rheumatoid arthritis, unspecified
CPT/HCPCS: 99212; G0463

== ENCOUNTER → 2023-03-08 10:19 | Outpatient (POV) | payer MEDICARE, OTHER, SELFPAY ==
--- NOTE | 2023-03-08 10:46 | EXP.PAIN.SOA ---
[facility] Pain Management SOAP Note Subjective:: Patient is a pleasant 62-year-old female who presents today for medication refill and follow-up. We are currently treating the patient for degenerative disc disease of lumbar spine with lumbar radiculopathy symptoms, right shoulder pain, rheumatoid arthritis. Today she rates her pain a 7 out of 10. Patient denies any new trauma or injury. Patient is currently managed with Micro 7.5 mg 6 times a day and tizanidine 8 mg 3 times a day as needed. She denies any side effects from this medication. She is on gabapentin from her PCP. Her Clifford has been reviewed and is appropriate. Review of Systems: General: No recent weight changes, no fever, no sleep disturbances Respiratory: No cough, no shortness of air, no recurring pulmonary infections Cardiovascular/peripheral vascular: No chest pain, no palpitations, no edema, no shortness of breath Gastrointestinal: No new onset incontinence, normal bowel movements reported Genitourinary: No new onset incontinence Musculoskeletal: Low back pain Psychiatric: [Normal mood/affect] Neurological: [Denies weakness in extremities], [denies balance issues] Objective:: Physical Exam: General: Alert and oriented x3, no acute distress, pleasant and cooperative Lungs: Respirations even and unlabored, symmetrical chest expansion Eyes: PERRL Musculoskeletal: Flexion and extension of lumbar [spine] somewhat guarded secondary to pain, [antalgic gait noted] Neurological: Speech clear, no gross sensory deficit Assessment:: Degenerative disc disease of lumbar spine with lumbar radiculopathy symptoms, right shoulder pain, rheumatoid arthritis Plan:: I will refill the patient's Micro 7.5 mg 6 times a day and provide a 1 month supply of this medication. Patient does not need any additional refills on her tizanidine at this time. She will return in 1 month for reevaluation of symptoms and plan of care. Patient has been advised of risks of oversedation with the prescribed medication. Narcan has been offered to the patient in the event of oversedation. Patient has been advised that a family member should also be educated regarding administration of Narcan. Patient has been instructed to contact the clinic with any concerns before the next appointment. Dr. Carreon has reviewed this note and agrees with this plan of care. This note was dictated using voice recognition software and make contain errors or omissions. [facility] Disclaimer: The information contained in this section may have been updated after the patient was seen, as this information can be updated by other users. Medical History (Updated 05/09/22 @ 13:30 by Rhianna Acosta RN) COPD (chronic obstructive pulmonary disease) Rheumatoid arthritis Family History (Updated 05/09/22 @ 13:30 by Rhianna Acosta RN) Other No significant family history Social History Smoking Status: Current every day smoker tobacco type: cigarettes packs per day: 2 second hand exposure: Yes alcohol intake: never substance use type: denies use current occupational status: other Travel in the last 8 weeks: None household members: spouse housing: house current occupational exposures/hazards: No caffeine: Yes
[2023-03-08 12:58] VITALS: BP 140/76; PULSE 64; RESP 18; O2SAT 98; BMI 34.3
== END | disposition home or self-care (01) ==
PROVIDERS: PCP Nurse Practitioner; Visit Provider Nurse Practitioner Family
DX: M51.16 Intervertebral disc disorders with radiculopathy, lumbar region (principal); M25.551 Pain in right hip; M06.9 Rheumatoid arthritis, unspecified
CPT/HCPCS: 99212; G0463

== ENCOUNTER → 2023-04-12 12:59 | Outpatient (POV) | payer MEDICARE, OTHER, SELFPAY ==
--- NOTE | 2023-04-12 13:20 | A.OFFVIS_ITS ---
[facility] Pain Management SOAP Note Subjective:: Patient is a pleasant 62-year-old female who presents today for medication refill and follow-up. We are currently treating the patient for degenerative disc disease of lumbar spine with lumbar radiculopathy symptoms, right shoulder pain, rheumatoid arthritis. Today she rates her pain a 7 out of 10. Patient does states she is just been experiencing more pain due to having to help with her 's care due to his recent worsening back pain. She states she has done a little bit more tugging and pulling and that she does think it will get better with a little bit more time. Patient does state that she is planning on using her electric blanket more and feels like if she uses this at night while she sleeps that might help increase her overall comfort and decrease the pain symptoms. Patient is currently managed with Raymond 7.5 mg 6 times a day and times Inadine 8 mg 3 times a day. Patient denies any side effects from this medication. She is on gabapentin from an outside provider. Her Clifford has been reviewed and is appropriate. Review of Systems: General: No recent weight changes, no fever, no sleep disturbances Respiratory: No cough, no shortness of air, no recurring pulmonary infections Cardiovascular/peripheral vascular: No chest pain, no palpitations, no edema, no shortness of breath Gastrointestinal: No new onset incontinence, normal bowel movements reported Genitourinary: No new onset incontinence Musculoskeletal: Low back pain Psychiatric: [Normal mood/affect] Neurological: [Denies weakness in extremities], [denies balance issues] Objective:: Physical Exam: General: Alert and oriented x3, no acute distress, pleasant and cooperative Lungs: Respirations even and unlabored, symmetrical chest expansion Eyes: PERRL Musculoskeletal: Flexion and extension of lumbar [spine] somewhat guarded secondary to pain, [antalgic gait noted] Neurological: Speech clear, no gross sensory deficit Assessment:: Degenerative disc disease of lumbar spine with lumbar radiculopathy symptoms, right shoulder pain, rheumatoid arthritis Plan:: I will refill the patient's Raymond 7.5 mg 6 times a day and tizanidine 8 mg 3 times a day and provide a 1 month supply of this medication. Patient will return to clinic in 1 month for reevaluation of symptoms and plan of care. I have discussed with patient in future that she may benefit from additional injection therapy however we will follow-up with this at her next visit. Risks and benefits of the medication have been explained in detail to the patient. The patient does understand the risk of dependence on the medication when given over a prolonged period. Patient has been advised of risks of oversedation with the prescribed medication. Narcan has been offered to the paitent in the event of oversedation. Patient has been advised that a family member should also be educated regarding administration of Narcan. The patient has been advised to consult with his/her primary care provider and pharmacist regarding drug-drug interaction of medications currently prescribed. Patient has been prescribed a controlled substance after being counseled on the medication, medication safety, and possible side effects. Opioid contract was reviewed and signed by the patient, and that they have agreed to all of the terms set forth by our compliance program. Patient has been instructed to contact the clinic with any concerns before the next appointment. Dr. Carreon has reviewed this note and agrees with this plan of care. This note was dictated using voice recognition software and make contain errors or omissions. [facility] Disclaimer: The information contained in this section may have been updated after the patient was seen, as this information can be updated by other users. Medical History (Updated 05/09/22 @ 13:30 by Rhianna Acosta RN) COPD (chronic obstructive pulmonary disease) Rheumatoid arthritis Family History (Updated 05/09/22 @ 13:30 by Rhianna Acosta RN) Other No significant family history Social History Smoking Status: Current every day smoker tobacco type: cigarettes packs per day: 2 second hand exposure: Yes alcohol intake: never substance use type: denies use current occupational status: other Travel in the last 8 weeks: None household members: spouse housing: house current occupational exposures/hazards: No caffeine: Yes
[2023-04-12 14:01] VITALS: BP 147/71; PULSE 59; RESP 18; O2SAT 96; BMI 34.0
== END | disposition home or self-care (01) ==
PROVIDERS: PCP Nurse Practitioner; Visit Provider Nurse Practitioner Family
DX: M51.16 Intervertebral disc disorders with radiculopathy, lumbar region (principal); M25.511 Pain in right shoulder; M06.9 Rheumatoid arthritis, unspecified
CPT/HCPCS: 99212; G0463

== ENCOUNTER 2023-05-01 11:38 | Outpatient (CLI) | payer MEDICARE, OTHER, SELFPAY ==
[2023-05-01 12:51] LABS: Phencyclidine Screen,Urine Negative ng/ml (<25)
[2023-05-01 12:56] LABS: Amphetamine/Metha Screen,Urine Negative ng/ml (<1000)
[2023-05-01 12:57] LABS: Barbiturates Screen,Urine Negative ng/ml (<200); Benzodiazepines Screen,Urine Negative ng/ml (<200)
[2023-05-01 12:58] LABS: Cannabinoid Screen,Urine Negative ng/ml (<50); Cocaine Screen,Urine Negative ng/ml (<300)
[2023-05-01 12:59] LABS: Methadone Screen,Urine Negative ng/ml (<300)
[2023-05-01 13:00] LABS: Opiate Screen,Urine Positive ng/ml (<300)
[2023-05-07 12:17] LABS: Codeine Negative (Cutoff=100); Hydrocodone Positive (.); Hydromorphone Positive (.); Morphine Negative (Cutoff=100); Opiates Positive (.)
== END 2023-05-01 23:59 ==
PROVIDERS: Nurse Practitioner Family
DX: Z79.891 Long term (current) use of opiate analgesic (principal); R82.5 Elevated urine levels of drugs, medicaments and biological substances
CPT/HCPCS: 80307; 80361; 80365; G0480

== ENCOUNTER 2023-05-10 10:09 | Outpatient (POV) | payer MEDICARE, OTHER, SELFPAY ==
[2023-05-10 10:20] VITALS: BP 162/87; PULSE 102; RESP 18; O2SAT 98; BMI 34.2
--- NOTE | 2023-05-10 10:33 | EXP.PAIN.SOA ---
[facility] Pain Management SOAP Note Subjective:: Is a pleasant 62-year-old female who presents today for follow-up and medication refill. Today she rates her pain a 6 out of 10. Patient states that about 3 weeks ago she was goofing off with her basically and that she ended that feeling like she popped a rib out on her right side. She states that she has continued to have pain that radiates from her back into around below her right breast. Patient states she has been using heat along with her compounded cream to help with this. Patient states that in the past she did do this before and that she used to go to the chiropractor and he would help pop it back into place and that would help. Patient states now with her current condition of her back that she was told never to go to the chiropractor again. Patient is interested in doing injection therapy to see if this would help with this pain. Patient is currently managed with [place] 7.5 mg 6 times a day and tizanidine 8 mg 3 times a day. She denies any side effects from this medication. She does not need any of the muscle relaxer refilled. She is on gabapentin from an outside provider as well. Her Clifford has been reviewed and is appropriate. Review of Systems: General: No recent weight changes, no fever, no sleep disturbances Respiratory: No cough, no shortness of air, no recurring pulmonary infections Cardiovascular/peripheral vascular: No chest pain, no palpitations, no edema, no shortness of breath Gastrointestinal: No new onset incontinence, normal bowel movements reported Genitourinary: No new onset incontinence Musculoskeletal: Mid back pain, right rib pain Psychiatric: [Normal mood/affect] Neurological: [Denies weakness in extremities], [denies balance issues] Objective:: Physical Exam: General: Alert and oriented x3, no acute distress, pleasant and cooperative Lungs: Respirations even and unlabored, symmetrical chest expansion Eyes: PERRL Musculoskeletal: Flexion and extension of thoracic [spine] somewhat guarded secondary to pain, [antalgic gait noted] Neurological: Speech clear, no gross sensory deficit Assessment:: Degenerative disc disease of thoracic and lumbar spine with thoracic and lumbar radiculopathy symptoms, right shoulder pain, rheumatoid arthritis, chronic pain syndrome Plan:: I have discussed with the patient due to her radiating pain from her thoracic spine with limited range of motion that she may benefit from a thoracic epidural. Patient did have tenderness approximately around the T9-T10 level. I have went over the risk and benefits of an epidural at this location and she has stated she would like to proceed forward with this plan of care. Patient is not on any blood thinners. Patient does also have point tenderness directly under her right breast along 1 rib and I have talked to her about possibly doing trigger point injections if this pain continues. We will follow-up with this at future visits. I will refill the patient's [place] 7.5 mg 6 times a day and provide a 1 month supply of this medication. Patient will be scheduled for a thoracic epidural steroid injection T9-T10 under fluoroscopy. Patient has been instructed to contact the clinic with any concerns before the next appointment. Dr. Carreon has reviewed this note and agrees with this plan of care. This note was dictated using voice recognition software and make contain errors or omissions. [facility] Disclaimer: The information contained in this section may have been updated after the patient was seen, as this information can be updated by other users. Medical History (Updated 05/09/22 @ 13:30 by Rhianna Acosta RN) COPD (chronic obstructive pulmonary disease) Rheumatoid arthritis Family History (Updated 05/09/22 @ 13:30 by Rhianna Acosta RN) Other No significant family history Social History Smoking Status: Current every day smoker tobacco type: cigarettes packs per day: 2 second hand exposure: Yes alcohol intake: never substance use type: denies use current occupational status: other Travel in the last 8 weeks: None household members: spouse housing: house current occupational exposures/hazards: No caffeine: Yes
== END 2023-05-10 23:59 | disposition home or self-care (01) ==
PROVIDERS: PCP Nurse Practitioner; Visit Provider Nurse Practitioner Family
DX: M51.14 Intervertebral disc disorders with radiculopathy, thoracic region (principal); M51.16 Intervertebral disc disorders with radiculopathy, lumbar region; M25.511 Pain in right shoulder; M06.9 Rheumatoid arthritis, unspecified; G89.4 Chronic pain syndrome
CPT/HCPCS: 99212; G0463

== ENCOUNTER 2023-05-30 13:50 | Day surgery (SDC) | payer MEDICARE, OTHER, SELFPAY ==
[2023-05-30 13:56] VITALS: BP 158/76; PULSE 75; RESP 18; TEMP 36.2; O2SAT 98; BMI 34.3
[2023-05-30 14:06] VITALS: BP 145/67; PULSE 69; RESP 18; O2SAT 97
[2023-05-30] MEDS: methylPREDNISolone ACETATE 80MG/ML VIAL 80 MG (14:06)
[2023-05-30 14:07] VITALS: BP 145/67; PULSE 69; RESP 18; O2SAT 97
--- NOTE | 2023-05-30 14:12 | P.PCN_ITS ---
Procedure Date: 05/30/23 Time: 14:00 Anesthesiologist:: Edgar El CRNA Complications:: None Pre-procedure Diagnosis:: Multilevel degenerative disc thoracic spine. Thoracic radiculopathy. Post-procedure Diagnosis:: Same. Indications for Procedure:: Patient is a very pleasant 62-year-old female comes our clinic today for a T9-10 thoracic epidural steroid injection. Patient is reporting thoracic back pain that she describes as constant, dull, aching. Patient also reporting right tho racic radiculopathy to the right breast. She rates her pain 7/10. Procedure Details:: Procedure:Thoracic epidural steroid injection under fluoroscopy Informed consent was obtained and the risks and benefits of the procedure were explained to the patient. The patient was taken to the procedure room and noninvasive monitors placed, including noninvasive blood pressure cuff and pulse oximeter. The back was viewed using C-Arm fluoroscopy and prepped using Betadine as a cleansing solution and the T9-T10 interspace was palpated. Skin and subcutaneous tissues were anesthetized using lidocaine 1.5% and a 25-gauge needle. After this, an 18-gauge Touhy epidural needle was placed into the T9-T10 interspace and advanced using fluoroscopic guidance and loss of resistance to air until the epidural space was encountered. After confirmation of needle placement in the epidural space, with dye, a solution containing lidocaine 1.5%, 4 mL and Depo-Medrol 80 mg were incrementally injected into the thoracic epidural space. The patient tolerated the procedure well with no complications. The patient was observed in the Pain Clinic and then discharged home neurologically intact. Plan and Disposition:: Patient was discharged without incident.
[2023-05-30 14:14] VITALS: BP 192/91; PULSE 61; RESP 18; O2SAT 98
== END 2023-05-30 14:14 | disposition home or self-care (01) ==
PROVIDERS: PCP Nurse Practitioner; Visit Provider Nurse Anesthetist, Certified Registered
DX: M51.14 Intervertebral disc disorders with radiculopathy, thoracic region (principal)
CPT/HCPCS: 62321; J1010

== ENCOUNTER 2023-06-07 10:39 | Outpatient (POV) | payer MEDICARE, OTHER, SELFPAY ==
[2023-06-07 10:49] VITALS: BP 156/84; PULSE 61; RESP 18; O2SAT 99; BMI 34.3
--- NOTE | 2023-06-07 10:59 | EXP.PAIN.SOA ---
[facility] Pain Management SOAP Note Subjective:: Patient is a pleasant 62-year-old female who presents today for medication refill and thoracic epidural T9-T10 follow-up on 05/30/2023. Today she rates her pain a 3 out of 10. Patient denies any new trauma or injury. She does state that she has had at least 80% improvement following this thoracic epidural. She does feel like that following this injection she did notice more pain of higher however it is still manageable. Patient states that she has had overall improved function following this epidural and has not needed as much pain medication due to the decreased pain. Patient is currently managed with [place] 7.5 mg 6 times a day and tizanidine 8 mg 3 times a day. She denies any side effects from this medication. She does not need refills on her muscle relaxer. She is prescribed gabapentin from her primary care provider. Her Clifford has been reviewed and is appropriate. Review of Systems: General: No recent weight changes, no fever, no sleep disturbances Respiratory: No cough, no shortness of air, no recurring pulmonary infections Cardiovascular/peripheral vascular: No chest pain, no palpitations, no edema, no shortness of breath Gastrointestinal: No new onset incontinence, normal bowel movements reported Genitourinary: No new onset incontinence Musculoskeletal: Mid back pain Psychiatric: [Normal mood/affect] Neurological: [Denies weakness in extremities], [denies balance issues] Objective:: Physical Exam: General: Alert and oriented x3, no acute distress, pleasant and cooperative Lungs: Respirations even and unlabored, symmetrical chest expansion Eyes: PERRL Musculoskeletal: Flexion and extension of thoracic [spine] somewhat guarded secondary to pain, [antalgic gait noted] Neurological: Speech clear, no gross sensory deficit Assessment:: Degenerative disc disease of thoracic and lumbar spine with thoracic and lumbar radiculopathy symptoms, chronic pain syndrome, right shoulder pain, rheumatoid arthritis Plan:: I will refill the patient's [place] 7.5 mg 6 times a day and provide a 1 month supply of this medication. Patient will return to clinic in 1 month for reevaluation of symptoms and plan of care. Risks and benefits of the medication have been explained in detail to the patient. The patient does understand the risk of dependence on the medication when given over a prolonged period. Patient has been advised of risks of oversedation with the prescribed medication. Narcan has been offered to the paitent in the event of oversedation. Patient has been advised that a family member should also be educated regarding administration of Narcan. The patient has been advised to consult with his/her primary care provider and pharmacist regarding drug-drug interaction of medications currently prescribed. Patient has been prescribed a controlled substance after being counseled on the medication, medication safety, and possible side effects. Opioid contract was reviewed and signed by the patient, and that they have agreed to all of the terms set forth by our compliance program. Patient has been instructed to contact the clinic with any concerns before the next appointment. Dr. Carreon has reviewed this note and agrees with this plan of care. This note was dictated using voice recognition software and make contain errors or omissions. [facility] Disclaimer: The information contained in this section may have been updated after the patient was seen, as this information can be updated by other users. Medical History COPD (chronic obstructive pulmonary disease) Rheumatoid arthritis Family History Other No significant family history Social History Smoking Status: Current every day smoker tobacco type: cigarettes packs per day: 2 second hand exposure: Yes alcohol intake: never substance use type: denies use current occupational status: unemployed Travel in the last 8 weeks: None household members: spouse housing: house current occupational exposures/hazards: No caffeine: Yes
== END 2023-06-07 23:59 | disposition home or self-care (01) ==
PROVIDERS: PCP Nurse Practitioner; Visit Provider Nurse Practitioner Family
DX: M51.14 Intervertebral disc disorders with radiculopathy, thoracic region (principal); M51.16 Intervertebral disc disorders with radiculopathy, lumbar region; G89.4 Chronic pain syndrome; M25.511 Pain in right shoulder; M06.9 Rheumatoid arthritis, unspecified
CPT/HCPCS: 99212; G0463

== ENCOUNTER 2023-07-06 10:46 | Outpatient (POV) | payer MEDICARE, OTHER, SELFPAY ==
[2023-07-06 11:02] VITALS: BP 143/77; PULSE 63; RESP 18; O2SAT 97; BMI 34.3
--- NOTE | 2023-07-06 11:23 | A.OFFVIS_ITS ---
[facility] Pain Management SOAP Note Subjective:: Patient is a pleasant 52-year-old female who presents today for medication refill and follow-up. Today she rates her pain an 8 out of 10. Patient does state that she recently was outside moving the rolling trash can and the grass was wet causing her to slip and it ended up coming back and hitting her in the face. Patient states she did fall causing a bruise of the wrist along her right shoulder and her chin. Patient states that she does not feel like she did anything significant like a fracture but just is overall sore from the fall. Patient is currently managed with [place] 7.5 mg 6 times a day and tizanidine 8 mg 3 times a day. She denies any side effects from these medications. She is requesting refills on both of these. She is prescribed gabapentin from her PCP. Her Clifford has been reviewed and is appropriate Review of Systems: General: No recent weight changes, no fever, no sleep disturbances Respiratory: No cough, no shortness of air, no recurring pulmonary infections Cardiovascular/peripheral vascular: No chest pain, no palpitations, no edema, no shortness of breath Gastrointestinal: No new onset incontinence, normal bowel movements reported Genitourinary: No new onset incontinence Musculoskeletal: Low back pain, right shoulder pain, right wrist pain Psychiatric: [Normal mood/affect] Neurological: [Denies weakness in extremities], [denies balance issues] Objective:: Physical Exam: General: Alert and oriented x3, no acute distress, pleasant and cooperative Lungs: Respirations even and unlabored, symmetrical chest expansion Eyes: PERRL Musculoskeletal: Flexion and extension of lumbar [spine] somewhat guarded secondary to pain, [antalgic gait noted] Neurological: Speech clear, no gross sensory deficit Assessment:: Degenerative disc disease of thoracic and lumbar spine with thoracic and lumbar radiculopathy symptoms, chronic pain syndrome, right shoulder pain, rheumatoid arthritis Plan:: I will refill the patient's [place] and tizanidine and provide a 1 month supply of the pain medication and a 3-month supply of her muscle relaxer. Patient will return to clinic in 1 month for reevaluation of symptoms and plan of care. Risks and benefits of the medication have been explained in detail to the patient. The patient does understand the risk of dependence on the medication when given over a prolonged period. Patient has been advised of risks of oversedation with the prescribed medication. Narcan has been offered to the paitent in the event of oversedation. Patient has been advised that a family member should also be educated regarding administration of Narcan. The patient has been advised to consult with his/her primary care provider and pharmacist regarding drug-drug interaction of medications currently prescribed. Patient has been prescribed a controlled substance after being counseled on the medication, medication safety, and possible side effects. Opioid contract was re viewed and signed by the patient, and that they have agreed to all of the terms set forth by our compliance program. Patient has been instructed to contact the clinic with any concerns before the n ext appointment. Dr. Carreon has reviewed this note and agrees with this plan of care. This note was dictated using voice recognition software and make contain errors or omissions. [facility] Disclaimer: The information contained in this section may have been updated after the patient was seen, as this information can be updated by other users. Medical History COPD (chronic obstructive pulmonary disease) Rheumatoid arthritis Family History Other No significant family history Social History Smoking Status: Current every day smoker tobacco type: cigarettes packs per day: 2 second hand exposure: Yes alcohol intake: never substance use type: denies use current occupational status: retired Travel in the last 8 weeks: None household members: spouse housing: house current occupational exposures/hazards: No caffeine: Yes
== END 2023-07-06 23:59 | disposition home or self-care (01) ==
PROVIDERS: PCP Nurse Practitioner; Visit Provider Nurse Practitioner Family
DX: M51.14 Intervertebral disc disorders with radiculopathy, thoracic region (principal); M51.16 Intervertebral disc disorders with radiculopathy, lumbar region; G89.4 Chronic pain syndrome; M25.511 Pain in right shoulder; M06.9 Rheumatoid arthritis, unspecified
CPT/HCPCS: 99212; G0463

== ENCOUNTER 2023-08-07 10:55 | Outpatient (POV) | payer MEDICARE, OTHER, SELFPAY ==
--- NOTE | 2023-08-07 11:05 | A.OFFVIS_ITS ---
[facility] Pain Management SOAP Note Subjective:: Patient is a pleasant 62-year-old female who presents today for medication refill and 1 month follow-up. Today she rates her pain an 5 out of 10. She denies any new trauma or injury. She states that she has basically fully recovered from her fall that she had last time. She states she has a little bit still trying to heal on her chin but otherwise is doing well. Is currently managed with [place] 7.5 mg 6 times a day and tizanidine 8 mg 3 times a day. She denies any side effects from these medications. She did just get a 3-month supply of her tizanidine at her last visit and is good up until around September. She is prescribed gabapentin from her PCP. Her Clifford has been reviewed and is appropriate Review of Systems: General: No recent weight changes, no fever, no sleep disturbances Respiratory: No cough, no shortness of air, no recurring pulmonary infections Cardiovascular/peripheral vascular: No chest pain, no palpitations, no edema, no shortness of breath Gastrointestinal: No new onset incontinence, normal bowel movements reported Genitourinary: No new onset incontinence Musculoskeletal: Low back pain, right shoulder pain, right wrist pain Psychiatric: [Normal mood/affect] Neurological: [Denies weakness in extremities], [denies balance issues] Objective:: Physical Exam: General: Alert and oriented x3, no acute distress, pleasant and cooperative Lungs: Respirations even and unlabored, symmetrical chest expansion Eyes: PERRL Musculoskeletal: Flexion and extension of lumbar [spine] somewhat guarded secondary to pain, [antalgic gait noted] Neurological: Speech clear, no gross sensory deficit Assessment:: Degenerative disc disease of lumbar spine with lumbar radiculopathy symptoms, chronic pain syndrome, right shoulder pain Plan:: We will refill the patient's [place] and provide a 1 month supply of this medication. Patient will return to clinic in 1 month for reevaluation of symptoms and plan of care. Risks and benefits of the medication have been explained in detail to the patient. The patient does understand the risk of dependence on the medication when given over a prolonged period. Patient has been advised of risks of oversedation with the prescribed medication. Narcan has been offered to the paitent in the event of oversedation. Patient has been advised that a family member should also be educated regarding administration of Narcan. The patient has been advised to consult with his/her primary care provider and pharmacist regarding drug-drug interaction of medications currently prescribed. Patient has been prescribed a controlled substance after being counseled on the medication, medication safety, and possible side effects. Opioid contract was reviewed and signed by the patient, and that they have agreed to all of the terms set forth by our compliance program. Patient has been instructed to contact the clinic with any concerns before the next appointment. Dr. Carreon has reviewed this note and agrees with this plan of care. This note was dictated using voice recognition software and make contain errors or omissions. [facility] Disclaimer: The information contained in this section may have been updated after the patient was seen, as this information can be updated by other users. Medical History COPD (chronic obstructive pulmonary disease) Rheumatoid arthritis Family History Other No significant family history Social History Smoking Status: Current every day smoker tobacco type: cigarettes packs per day: 2 second hand exposure: Yes alcohol intake: never substance use type: denies use current occupational status: retired Travel in the last 8 weeks: None household members: spouse housing: house current occupational exposures/hazards: No caffeine: Yes
[2023-08-07 11:49] VITALS: BP 124/56; PULSE 60; RESP 18; O2SAT 97; BMI 36.1
== END 2023-08-07 23:59 | disposition home or self-care (01) ==
PROVIDERS: PCP Nurse Practitioner; Visit Provider Nurse Practitioner Family
DX: M51.16 Intervertebral disc disorders with radiculopathy, lumbar region (principal); G89.4 Chronic pain syndrome; M25.511 Pain in right shoulder
CPT/HCPCS: 99212; G0463

== ENCOUNTER 2023-09-06 10:11 | Outpatient (POV) | payer MEDICARE, OTHER, SELFPAY ==
--- NOTE | 2023-09-06 10:31 | EXP.PAIN.SOA ---
[facility] Disclaimer: The information contained in this section may have been updated after the patient was seen, as this information can be updated by other users. Medical History COPD (chronic obstructive pulmonary disease) Rheumatoid arthritis Family History Other No significant family history Social History Smoking Status: Current every day smoker tobacco type: cigarettes packs per day: 2 second hand exposure: Yes alcohol intake: never substance use type: denies use current occupational status: retired Travel in the last 8 weeks: None household members: spouse housing: house current occupational exposures/hazards: No caffeine: Yes PM Subjective & Objective Subjective Subjective:: Patient is a pleasant 62-year-old female who presents today for medication refill and 1 month follow-up. Today she rates her pain an 3 out of 10. She denies any new trauma or injury. She is currently managed with [place] 7.5 mg 6 times a day and tizanidine 8 mg 3 times a day. She denies any side effects from these medications. She is prescribed gabapentin from her PCP. Her Clifford has been reviewed and is appropriate Review of Systems: General: No recent weight changes, no fever, no sleep disturbances Respiratory: No cough, no shortness of air, no recurring pulmonary infections Cardiovascular/peripheral vascular: No chest pain, no palpitations, no edema, no shortness of breath Gastrointestinal: No new onset incontinence, normal bowel movements reported Genitourinary: No new onset incontinence Musculoskeletal: Low back pain Psychiatric: [Normal mood/affect] Neurological: [Denies weakness in extremities], [denies balance issues] Pain at rest (0-10 scale): 3 Objective Objective:: Physical Exam: General: Alert and oriented x3, no acute distress, pleasant and cooperative Lungs: Respirations even and unlabored, symmetrical chest expansion Eyes: PERRL Musculoskeletal: Flexion and extension of lumbar [spine] somewhat guarded secondary to pain, [antalgic gait noted] Neurological: Speech clear, no gross sensory deficit Has patient had previous pain injection?: No Conservative treatment options previously tried: Home exercise plan Length of treatment: Longer than 6 weeks and Prescription medications Length of treatment: Longer than 6 weeks Meds Home Medications and Allergies Home Medications Medication Instructions Recorded Confirmed Type lisinopril 20 mg tablet 20 mg PO DAILY Hypertension 04/10/18 08/07/23 History levothyroxine 137 mcg tablet 137 mcg PO DAILY thyroid 09/30/18 08/07/23 History (Synthroid) trazodone 100 mg tablet 150 mg PO HS sleep 04/23/19 08/07/23 History gabapentin 600 mg tablet 600 mg PO TID Pain 05/26/21 08/07/23 History hydroxychloroquine 200 mg tablet 200 mg PO BID Arthritis 05/28/21 08/07/23 History sennosides 8.6 mg-docusate sodium 1 each PO HS bowels 05/28/21 08/07/23 History 50 mg tablet baclofen 10 mg tablet 10 mg PO TID MUSCLES 01/31/22 08/07/23 History Lactobacillus acidophilus 10 10,000 mmu cells PO DAILY IMMUNITY 03/07/22 08/07/23 History billion cell capsule (Probiotic) folic acid 1 mg tablet 1 mg PO DIRECTED SUPPLIMENT 10/31/22 08/07/23 History tizanidine 4 mg tablet (Zanaflex) 8 mg (2 x 4 mg) PO TID #540 tabs 07/06/23 08/07/23 Rx hydrocodone 7.5 mg-acetaminophen 1 tab PO .6x #180 tabs 08/07/23 Rx 325 mg tablet New Prescriptions to Start Prescriptions: Allergies Allergy/AdvReac Type Severity Reaction Status Date / Time ciprofloxacin Allergy Hives Verified 05/30/23 13:57 hydromorphone Allergy Anaphylaxis Verified 05/30/23 13:57 ofloxacin Allergy Hives Verified 05/30/23 13:57 venlafaxine Allergy Rash Verified 05/30/23 13:57 Assessment and Plan *Assessment and plan (1) Lumbar radiculopathy: Status: Chronic Category: Medical Code(s): M54.16 - Radiculopathy, lumbar region (2) Degenerative disc disease: Status: Chronic Qualifiers: Spinal region: lumbar Qualified Code(s): M51.36 - Other intervertebral disc degeneration, lumbar region Category: Medical Plan I will refill the patient's [place] and provide a 1 month supply of this medication. Patient will return to clinic in 1 month for reevaluation of symptoms and plan of care. Risks and benefits of the medication have been explained in detail to the patient. The patient does understand the risk of dependence on the medication when given over a prolonged period. Patient has been advised of risks of oversedation with the prescribed medication. Narcan has been offered to the paitent in the event of oversedation. Patient has been advised that a family member should also be educated regarding administration of Narcan. The patient has been advised to consult with his/her primary care provider and pharmacist regarding drug-drug interaction of medications currently prescribed. Patient has been prescribed a controlled substance after being counseled on the medication, medication safety, and possible side effects. Opioid contract was reviewed and signed by the patient, and that they have agreed to all of the terms set forth by our compliance program. Patient has been instructed to contact the clinic with any concerns before the next appointment. Dr. Carreon has reviewed this note and agrees with this plan of care. This note was dictated using voice recognition software and make contain errors or omissions.
[2023-09-06 10:54] VITALS: BP 127/56; PULSE 60; RESP 18; O2SAT 96; BMI 35.6
== END 2023-09-06 23:59 | disposition home or self-care (01) ==
PROVIDERS: PCP Nurse Practitioner; Visit Provider Nurse Practitioner Family
DX: M54.16 Radiculopathy, lumbar region (principal); M51.36 Other intervertebral disc degeneration, lumbar region; G89.29 Other chronic pain
CPT/HCPCS: 99212; G0463

== ENCOUNTER 2023-10-04 10:32 | Outpatient (POV) | payer MEDICARE, OTHER, SELFPAY ==
--- NOTE | 2023-10-04 11:23 | EXP.PAIN.SOA ---
[facility] Disclaimer: The information contained in this section may have been updated after the patient was seen, as this information can be updated by other users. Medical History COPD (chronic obstructive pulmonary disease) Rheumatoid arthritis Family History Other No significant family history Social History Smoking Status: Current every day smoker tobacco type: cigarettes packs per day: 2 second hand exposure: Yes alcohol intake: never substance use type: denies use current occupational status: retired Travel in the last 8 weeks: None household members: spouse housing: house current occupational exposures/hazards: No caffeine: Yes PM Subjective & Objective Subjective Subjective:: Patient is a pleasant 62-year-old female who presents today for medication refill and follow-up. Today she rates her pain a 3 out of 10. She denies any new trauma or injury. She is currently managed with [place] 7.5 mg 6 times a day and tizanidine 8 mg 3 times a day. She denies any side effects from this medication. She is prescribed gabapentin from her PCP. Her Clifford is appropriate. Review of Systems: General: No recent weight changes, no fever, no sleep disturbances Respiratory: No cough, no shortness of air, no recurring pulmonary infections Cardiovascular/peripheral vascular: No chest pain, no palpitations, no edema, no shortness of breath Gastrointestinal: No new onset incontinence, normal bowel movements reported Genitourinary: No new onset incontinence Musculoskeletal: Low back pain Psychiatric: [Normal mood/affect] Neurological: [Denies weakness in extremities], [denies balance issues] Pain at rest (0-10 scale): 3 Objective Objective:: Physical Exam: General: Alert and oriented x3, no acute distress, pleasant and cooperative Lungs: Respirations even and unlabored, symmetrical chest expansion Eyes: PERRL Musculoskeletal: Flexion and extension of lumbar [spine] somewhat guarded secondary to pain, [antalgic gait noted] Neurological: Speech clear, no gross sensory deficit Has patient had previous pain injection?: No Conservative treatment options previously tried: Prescription medications Length of treatment: Longer than 12 weeks Meds Home Medications and Allergies Home Medications ?Medication ?Instructions ?Recorded ?Confirmed ?Type lisinopril 20 mg tablet 20 mg PO DAILY Hypertension 04/10/18 09/06/23 History levothyroxine 137 mcg tablet 137 mcg PO DAILY thyroid 09/30/18 09/06/23 History (Synthroid) trazodone 100 mg tablet 150 mg PO HS sleep 04/23/19 09/06/23 History gabapentin 600 mg tablet 600 mg PO TID Pain 05/26/21 09/06/23 History hydroxychloroquine 200 mg tablet 200 mg PO BID Arthritis 05/28/21 09/06/23 History sennosides 8.6 mg-docusate sodium 1 each PO HS bowels 05/28/21 09/06/23 History 50 mg tablet baclofen 10 mg tablet 10 mg PO TID MUSCLES 01/31/22 09/06/23 History Lactobacillus acidophilus 10 10,000 mmu cells PO DAILY IMMUNITY 03/07/22 09/06/23 History billion cell capsule (Probiotic) folic acid 1 mg tablet 1 mg PO DIRECTED SUPPLIMENT 10/31/22 09/06/23 History tizanidine 4 mg tablet (Zanaflex) 8 mg (2 x 4 mg) PO TID #540 tabs 07/06/23 09/06/23 Rx hydrocodone 7.5 mg-acetaminophen 1 tab PO .6x #180 tabs 09/06/23 Rx 325 mg tablet New Prescriptions to Start Prescriptions: Allergies Allergy/AdvReac Type Severity Reaction Status Date / Time ciprofloxacin Allergy Hives Verified 05/30/23 13:57 hydromorphone Allergy Anaphylaxis Verified 05/30/23 13:57 ofloxacin Allergy Hives Verified 05/30/23 13:57 venlafaxine Allergy Rash Verified 05/30/23 13:57 Assessment and Plan *Assessment and plan (1) Lumbar radiculopathy: Status: Chronic Category: Medical Code(s): M54.16 - Radiculopathy, lumbar region (2) Degenerative disc disease: Status: Chronic Qualifiers: Spinal region: lumbar Qualified Code(s): M51.36 - Other intervertebral disc degeneration, lumbar region Category: Medical Plan Patient continues to do well with her current medicines. We will send in a 3-month supply of her muscle relaxer and 1 month of her pain medication. Patient will return to clinic in 1 month for reevaluation of symptoms and plan of care. Risks and benefits of the medication have been explained in detail to the patient. The patient does understand the risk of dependence on the medication when given over a prolonged period. Patient has been advised of risks of oversedation with the prescribed medication. Narcan has been offered to the paitent in the event of oversedation. Patient has been advised that a family member should also be educated regarding administration of Narcan. The patient has been advised to consult with his/her primary care provider and pharmacist regarding drug-drug interaction of medications currently prescribed. Patient has been prescribed a controlled substance after being counseled on the medication, medication safety, and possible side effects. Opioid contract was reviewed and signed by the patient, and that they have agreed to all of the terms set forth by our compliance program. Patient has been instructed to contact the clinic with any concerns before the next appointment. Dr. Carreon has reviewed this note and agrees with this plan of care. This note was dictated using voice recognition software and make contain errors or omissions.
[2023-10-04 11:50] VITALS: BP 133/69; PULSE 68; RESP 18; O2SAT 94; BMI 36.1
== END 2023-10-04 23:59 | disposition home or self-care (01) ==
PROVIDERS: PCP Nurse Practitioner; Visit Provider Nurse Practitioner Family
DX: M51.16 Intervertebral disc disorders with radiculopathy, lumbar region (principal); F17.210 Nicotine dependence, cigarettes, uncomplicated; Z79.899 Other long term (current) drug therapy
CPT/HCPCS: 99212; G0463

== ENCOUNTER 2023-11-02 10:18 | Outpatient (POV) | payer MEDICARE, OTHER, SELFPAY ==
[2023-11-02 10:41] VITALS: BP 134/66; PULSE 60; RESP 18; O2SAT 96; BMI 37.2
--- NOTE | 2023-11-02 10:51 | A.OFFVIS_ITS ---
[facility] Disclaimer: The information contained in this section may have been updated after the patient was seen, as this information can be updated by other users. Medical History COPD (chronic obstructive pulmonary disease) Rheumatoid arthritis Family History Other No significant family history Social History Smoking Status: Current every day smoker tobacco type: cigarettes packs per day: 2 second hand exposure: Yes alcohol intake: never substance use type: denies use current occupational status: retired Travel in the last 8 weeks: None household members: spouse housing: house current occupational exposures/hazards: No caffeine: Yes PM Subjective & Objective Subjective Subjective:: Patient is a pleasant 62-year-old female who presents today for medication refill and follow-up. Today she rates her pain a 3 out of 10. She denies any new trauma or injury. She states overall she is doing well. Patient is currently managed with [place] 7.5 mg 6 times a day and tizanidine 8 mg 3 times a day. She denies any side effects from this medication. Her Clifford has been reviewed and is appropriate. Review of Systems: General: No recent weight changes, no fever, no sleep disturbances Respiratory: No cough, no shortness of air, no recurring pulmonary infections Cardiovascular/peripheral vascular: No chest pain, no palpitations, no edema, no shortness of breath Gastrointestinal: No new onset incontinence, normal bowel movements reported Genitourinary: No new onset incontinence Musculoskeletal: Low back pain Psychiatric: [Normal mood/affect] Neurological: [Denies weakness in extremities], [denies balance issues] Pain at rest (0-10 scale): 3 Objective Objective:: Physical Exam: General: Alert and oriented x3, no acute distress, pleasant and cooperative Lungs: Respirations even and unlabored, symmetrical chest expansion Eyes: PERRL Musculoskeletal: Flexion and extension of lumbar [spine] somewhat guarded secondary to pain, [antalgic gait noted] Neurological: Speech clear, no gross sensory deficit Has patient had previous pain injection?: No Conservative treatment options previously tried: Prescription medications Length of treatment: Longer than 12 weeks Meds Home Medications and Allergies Home Medications ?Medication ?Instructions ?Recorded ?Confirmed ?Type lisinopril 20 mg tablet 20 mg PO DAILY Hypertension 04/10/18 11/02/23 History levothyroxine 137 mcg tablet 137 mcg PO DAILY thyroid 09/30/18 11/02/23 History (Synthroid) trazodone 100 mg tablet 150 mg PO HS sleep 04/23/19 11/02/23 History gabapentin 600 mg tablet 600 mg PO TID Pain 05/26/21 11/02/23 History hydroxychloroquine 200 mg tablet 200 mg PO BID Arthritis 05/28/21 11/02/23 History sennosides 8.6 mg-docusate sodium 1 each PO HS bowels 05/28/21 11/02/23 History 50 mg tablet baclofen 10 mg tablet 10 mg PO TID MUSCLES 01/31/22 11/02/23 History Lactobacillus acidophilus 10 10,000 mmu cells PO DAILY IMMUNITY 03/07/22 11/02/23 History billion cell capsule (Probiotic) folic acid 1 mg tablet 1 mg PO DIRECTED SUPPLIMENT 10/31/22 11/02/23 History hydrocodone 7.5 mg-acetaminophen 1 tab PO .6x #180 tabs 10/04/23 11/02/23 Rx 325 mg tablet tizanidine 4 mg tablet (Zanaflex) 8 mg (2 x 4 mg) PO TID #540 tabs 10/04/23 11/02/23 Rx New Prescriptions to Start Prescriptions: Allergies Allergy/AdvReac Type Severity Reaction Status Date / Time ciprofloxacin Allergy Hives Verified 05/30/23 13:57 hydromorphone Allergy Anaphylaxis Verified 05/30/23 13:57 ofloxacin Allergy Hives Verified 05/30/23 13:57 venlafaxine Allergy Rash Verified 05/30/23 13:57 Assessment and Plan *Assessment and plan (1) Lumbar radiculopathy: Status: Chronic Category: Medical Code(s): M54.16 - Radiculopathy, lumbar region (2) Degenerative disc disease: Status: Chronic Qualifiers: Spinal region: lumbar Qualified Code(s): M51.36 - Other intervertebral disc degeneration, lumbar region Category: Medical Plan I will refill the patient's [place] and provide a 1 month supply of this medication. Patient did have a 3-month supply of her muscle relaxer sent in and does not need refills on this at this time. Patient will return to clinic in 1 month for reevaluation of symptoms and plan of care. Risks and benefits of the medication have been explained in detail to the patient. The patient does understand the risk of dependence on the medication when given over a prolonged period. Patient has been advised of risks of oversedation with the prescribed medication. Narcan has been offered to the paitent in the event of oversedation. Patient has been advised that a family member should also be educated regarding administration of Narcan. The patient has been advised to consult with his/her primary care provider and pharmacist regarding drug-drug interaction of medications currently prescribed. Patient has been prescribed a controlled substance after being counseled on the medication, medication safety, and possible side effects. Opioid contract was reviewed and signed by the patient, and that they have agreed to all of the terms set forth by our compliance program. Patient has been instructed to contact the clinic with any concerns before the next appointment. Dr. Carreon has reviewed this note and agrees with this plan of care. This note was dictated using voice recognition software and make contain errors or omissions.
== END 2023-11-02 23:59 | disposition home or self-care (01) ==
PROVIDERS: PCP Nurse Practitioner; Visit Provider Nurse Practitioner Family
DX: M51.16 Intervertebral disc disorders with radiculopathy, lumbar region (principal); F17.210 Nicotine dependence, cigarettes, uncomplicated
CPT/HCPCS: 99212; G0463

== ENCOUNTER 2023-11-22 12:46 | Outpatient (CLI) | payer MEDICARE, OTHER, SELFPAY ==
--- NOTE | 2023-11-22 12:48 | CT_ITS ---
FINAL REPORT TECHNIQUE: Thin section axial images were obtained from the lung apices to the upper abdomen by computed tomography. Reformatted images were obtained and reviewed. This study was performed with techniques to keep radiation doses al low as reasonably achievable (ALARA). Individualized dose reduction techniques using automated exposure control or adjustment of mA and/or kV according to the patient's size were employed. CLINICAL HISTORY: SCREENING, NICOTINE DEPENDENT smoker 2 ppd x 25 years COMPARISON: None FINDINGS: CHEST CT LOW DOSE 63-year-old female, current smoker, [id number] history. CTDI vol (mGy): 2.9 DLP (mGy-cm): 96.38 There is no axillary adenopathy. There is no mediastinal or hilar mass or adenopathy. The heart is normal in size. There is no pericardial or pleural effusion. Lung window images demonstrate there is a 5 mm nodule in the inferior right upper lobe, best seen on image #39 of series 4. There are faint ground glass opacities in the bilateral upper lung ely. There is a calcified granuloma in the right upper lobe. Limited images of the upper abdomen are remarkable for a moderate hiatal hernia. IMPRESSION: Lung-RADS category 2S, the S designation for the hiatal hernia. Recommend 12 month follow up low dose chest CT. Reviewed, Interpreted and Dictated by Alexis Riddle MD Transcribed by Sia Hutton Authenticated and [facility]
== END 2023-11-22 23:59 | disposition home or self-care (01) ==
LOC: RAD 12:46
PROVIDERS: PCP Nurse Practitioner; Visit Provider Nurse Practitioner
DX: Z87.891 Personal history of nicotine dependence (principal)
CPT/HCPCS: 71271

== ENCOUNTER 2023-11-24 15:37 | Outpatient (CLI) | payer MEDICARE, OTHER, SELFPAY ==
--- NOTE | 2023-11-24 15:39 | MM_ITS ---
PROCEDURE INFORMATION: Exam: MG Bilateral Screening 3D Mammography Exam date and time: 11/24/2023 3:25 PM Age: 62 years old Clinical indication: Screening. No family history of breast cancer. TECHNIQUE: Imaging protocol: Bilateral Screening tomosynthesis and 2D mammography including computer-aided detection (CAD) when performed. COMPARISON: 1. MG MM DIG SCREENING MAMM BI W/CAD 10/12/2022 3:51 PM 2. MG MM DIG SCREENING MAMM BI W/CAD 08/12/2021 3:15 PM FINDINGS: MAMMOGRAPHY: Breast composition: The breasts are almost entirely fatty. Mass: None. Architectural distortion: None. Calcifications: No suspicious calcifications. Asymmetric density: None. Skin thickening: None. Axillary adenopathy: None. IMPRESSION: No mammographic evidence of malignancy. Annual screening is recommended unless otherwise clinically indicated. ASSESSMENT: BI-RADS Category 1: Negative.
== END 2023-11-24 23:59 | disposition home or self-care (01) ==
LOC: RAD 15:37
PROVIDERS: PCP Nurse Practitioner; Visit Provider Nurse Practitioner
DX: Z12.31 Encounter for screening mammogram for malignant neoplasm of breast (principal)
CPT/HCPCS: 77063; 77067

== ENCOUNTER 2023-12-06 11:07 | Outpatient (POV) | payer MEDICARE, OTHER, SELFPAY ==
[2023-12-06 11:28] VITALS: BP 153/89; PULSE 70; RESP 18; O2SAT 98; BMI 37.0
--- NOTE | 2023-12-06 12:07 | A.OFFVIS_ITS ---
[facility] Disclaimer: The information contained in this section may have been updated after the patient was seen, as this information can be updated by other users. Medical History COPD (chronic obstructive pulmonary disease) Rheumatoid arthritis Family History Other No significant family history Social History Smoking Status: Current every day smoker tobacco type: cigarettes packs per day: 2 second hand exposure: Yes alcohol intake: never substance use type: denies use current occupational status: retired Travel in the last 8 weeks: None household members: spouse housing: house current occupational exposures/hazards: No caffeine: Yes PM Subjective & Objective Subjective Subjective:: Patient is a pleasant 62-year-old female who presents today for medication refill and follow-up. Today she rates her pain at 3 out of 10. She denies any new trauma or injury or any other changes. She is currently managed with [place] 7.5 mg 6 times a day and tizanidine 8 mg 3 times a day. She denies any side effects from this medication. Her Clifford has been reviewed and is appropriate. Review of Systems: General: No recent weight changes, no fever, no sleep disturbances Respiratory: No cough, no shortness of air, no recurring pulmonary infections Cardiovascular/peripheral vascular: No chest pain, no palpitations, no edema, no shortness of breath Gastrointestinal: No new onset incontinence, normal bowel movements reported Genitourinary: No new onset incontinence Musculoskeletal: Low back pain Psychiatric: [Normal mood/affect] Neurological: [Denies weakness in extremities], [denies balance issues] Pain at rest (0-10 scale): 3 Objective Objective:: Physical Exam: General: Alert and oriented x3, no acute distress, pleasant and cooperative Lungs: Respirations even and unlabored, symmetrical chest expansion Eyes: PERRL Musculoskeletal: Flexion and extension of lumbar [spine] somewhat guarded secondary to pain, [antalgic gait noted] Neurological: Speech clear, no gross sensory deficit Has patient had previous pain injection?: No Conservative treatment options previously tried: Home exercise plan Length of treatment: Longer than 6 weeks Meds Home Medications and Allergies Home Medications ?Medication ?Instructions ?Recorded ?Confirmed ?Type lisinopril 20 mg tablet 20 mg PO DAILY Hypertension 04/10/18 12/06/23 History levothyroxine 137 mcg tablet 137 mcg PO DAILY thyroid 09/30/18 12/06/23 History (Synthroid) trazodone 100 mg tablet 150 mg PO HS sleep 04/23/19 12/06/23 History gabapentin 600 mg tablet 600 mg PO TID Pain 05/26/21 12/06/23 History hydroxychloroquine 200 mg tablet 200 mg PO BID Arthritis 05/28/21 12/06/23 History sennosides 8.6 mg-docusate sodium 1 each PO HS bowels 05/28/21 12/06/23 History 50 mg tablet baclofen 10 mg tablet 10 mg PO TID MUSCLES 01/31/22 12/06/23 History Lactobacillus acidophilus 10 10,000 mmu cells PO DAILY IMMUNITY 03/07/22 12/06/23 History billion cell capsule (Probiotic) folic acid 1 mg tablet 1 mg PO DIRECTED SUPPLIMENT 10/31/22 12/06/23 History tizanidine 4 mg tablet (Zanaflex) 8 mg (2 x 4 mg) PO TID #540 tabs 10/04/23 12/06/23 Rx hydrocodone 7.5 mg-acetaminophen 1 tab PO .6x #180 tabs 11/02/23 12/06/23 Rx 325 mg tablet New Prescriptions to Start Prescriptions: Allergies Allergy/AdvReac Type Severity Reaction Status Date / Time ciprofloxacin Allergy Hives Verified 05/30/23 13:57 hydromorphone Allergy Anaphylaxis Verified 05/30/23 13:57 ofloxacin Allergy Hives Verified 05/30/23 13:57 venlafaxine Allergy Rash Verified 05/30/23 13:57 Assessment and Plan *Assessment and plan (1) Lumbar radiculopathy: Status: Chronic Category: Medical Code(s): M54.16 - Radiculopathy, lumbar region (2) Degenerative disc disease: Status: Chronic Qualifiers: Spinal region: lumbar Qualified Code(s): M51.36 - Other intervertebral disc degeneration, lumbar region Category: Medical Plan I will refill the patient's [place] and tizanidine and provide a 1 month supply of the pain medication and 3-month supply of her muscle relaxer. Patient will return to clinic in 1 month for reevaluation of symptoms and plan of care. Risks and benefits of the medication have been explained in detail to the patient. The patient does understand the risk of dependence on the medication when given over a prolonged period. Patient has been advised of risks of oversedation with the prescribed medication. Narcan has been offered to the paitent in the event of oversedation. Patient has been advised that a family member should also be educated regarding administration of Narcan. The patient has been advised to consult with his/her primary care provider and pharmacist regarding drug-drug interaction of medications currently prescribed. Patient has been prescribed a controlled substance after being counseled on the medication, medication safety, and possible side effects. Opioid contract was reviewed and signed by the patient, and that they have agreed to all of the terms set forth by our compliance program. Patient has been instructed to contact the clinic with any concerns before the next appointment. Dr. Carreon has reviewed this note and agrees with this plan of care. This note was dictated using voice recognition software and make contain errors or omissions.
== END 2023-12-06 23:59 | disposition home or self-care (01) ==
PROVIDERS: PCP Nurse Practitioner; Visit Provider Nurse Practitioner Family
DX: M51.16 Intervertebral disc disorders with radiculopathy, lumbar region (principal); F17.210 Nicotine dependence, cigarettes, uncomplicated
CPT/HCPCS: 99212; G0463

== ENCOUNTER 2024-01-08 10:36 | Outpatient (POV) | payer MEDICARE, OTHER, SELFPAY ==
--- NOTE | 2024-01-08 11:16 | A.OFFVIS_ITS ---
[facility] Disclaimer: The information contained in this section may have been updated after the patient was seen, as this information can be updated by other users. Medical History COPD (chronic obstructive pulmonary disease) Rheumatoid arthritis Family History Other No significant family history Social History Smoking Status: Current every day smoker tobacco type: cigarettes packs per day: 2 second hand exposure: Yes alcohol intake: never substance use type: denies use current occupational status: retired Travel in the last 8 weeks: None household members: spouse housing: house current occupational exposures/hazards: No caffeine: Yes PM Subjective & Objective Subjective Subjective:: Patient is a pleasant 63-year-old female who presents today for medication refill and follow-up. Today she rates her pain at 3 out of 10. She denies any new trauma or injury. She states overall she is doing well. Patient is currently managed with [place] 7.5 mg 6 times a day and tizanidine 8 mg 3 times a day. She denies any side effects from this medication. She does not need refills on her tizanidine. Her Clifford has been reviewed and is appropriate. Review of Systems: General: No recent weight changes, no fever, no sleep disturbances Respiratory: No cough, no shortness of air, no recurring pulmonary infections Cardiovascular/peripheral vascular: No chest pain, no palpitations, no edema, no shortness of breath Gastrointestinal: No new onset incontinence, normal bowel movements reported Genitourinary: No new onset incontinence Musculoskeletal: Low back pain Psychiatric: [Normal mood/affect] Neurological: [Denies weakness in extremities], [denies balance issues] Pain at rest (0-10 scale): 3 Objective Objective:: Physical Exam: General: Alert and oriented x3, no acute distress, pleasant and cooperative Lungs: Respirations even and unlabored, symmetrical chest expansion Eyes: PERRL Musculoskeletal: Flexion and extension of lumbar [spine] somewhat guarded secondary to pain, [antalgic gait noted] Neurological: Speech clear, no gross sensory deficit Has patient had previous pain injection?: No Conservative treatment options previously tried: Home exercise plan Length of treatment: Longer than 12 weeks Meds Home Medications and Allergies Home Medications ?Medication ?Instructions ?Recorded ?Confirmed ?Type lisinopril 20 mg tablet 20 mg PO DAILY Hypertension 04/10/18 12/06/23 History levothyroxine 137 mcg tablet 137 mcg PO DAILY thyroid 09/30/18 12/06/23 History (Synthroid) trazodone 100 mg tablet 150 mg PO HS sleep 04/23/19 12/06/23 History gabapentin 600 mg tablet 600 mg PO TID Pain 05/26/21 12/06/23 History hydroxychloroquine 200 mg tablet 200 mg PO BID Arthritis 05/28/21 12/06/23 History sennosides 8.6 mg-docusate sodium 1 each PO HS bowels 05/28/21 12/06/23 History 50 mg tablet baclofen 10 mg tablet 10 mg PO TID MUSCLES 01/31/22 12/06/23 History Lactobacillus acidophilus 10 10,000 mmu cells PO DAILY IMMUNITY 03/07/22 12/06/23 History billion cell capsule (Probiotic) folic acid 1 mg tablet 1 mg PO DIRECTED SUPPLIMENT 10/31/22 12/06/23 History hydrocodone 7.5 mg-acetaminophen 1 tab PO .6x #180 tabs 12/06/23 Rx 325 mg tablet tizanidine 4 mg tablet (Zanaflex) 8 mg (2 x 4 mg) PO TID #540 tabs 12/06/23 Rx New Prescriptions to Start Prescriptions: Allergies Allergy/AdvReac Type Severity Reaction Status Date / Time ciprofloxacin Allergy Hives Verified 05/30/23 13:57 hydromorphone Allergy Anaphylaxis Verified 05/30/23 13:57 ofloxacin Allergy Hives Verified 05/30/23 13:57 venlafaxine Allergy Rash Verified 05/30/23 13:57 Assessment and Plan *Assessment and plan (1) Lumbar radiculopathy: Status: Chronic Category: Medical Code(s): M54.16 - Radiculopathy, lumbar region (2) Degenerative disc disease: Status: Chronic Qualifiers: Spinal region: lumbar Qualified Code(s): M51.36 - Other intervertebral disc degeneration, lumbar region Category: Medical Plan I will refill the patient's [place] and provide a 1 month supply of this medication. Patient will return to clinic in 1 month for reevaluation of symptoms and plan of care. Risks and benefits of the medication have been explained in detail to the patient. The patient does understand the risk of dependence on the medication when given over a prolonged period. Patient has been advised of risks of oversedation with the prescribed medication. Narcan has been offered to the paitent in the event of oversedation. Patient has been advised that a family member should also be educated regarding administration of Narcan. The patient has been advised to consult with his/her primary care provider and pharmacist regarding drug-drug interaction of medications currently prescribed. Patient has been prescribed a controlled substance after being counseled on the medication, medication safety, and possible side effects. Opioid contract was reviewed and signed by the patient, and that they have agreed to all of the terms set forth by our compliance program. Patient has been instructed to contact the clinic with any concerns before the next appointment. Dr. Carreon has reviewed this note and agrees with this plan of care. This note was dictated using voice recognition software and make contain errors or omissions.
[2024-01-08 12:05] VITALS: BP 129/78; PULSE 70; RESP 14; O2SAT 96; BMI 36.5
== END 2024-01-08 23:59 | disposition home or self-care (01) ==
PROVIDERS: PCP Nurse Practitioner; Visit Provider Nurse Practitioner Family
DX: M51.16 Intervertebral disc disorders with radiculopathy, lumbar region (principal); F17.210 Nicotine dependence, cigarettes, uncomplicated
CPT/HCPCS: 99212; G0463

== ENCOUNTER 2024-02-05 10:36 | Outpatient (POV) | payer MEDICARE, OTHER, SELFPAY ==
--- NOTE | 2024-02-05 10:40 | A.OFFVIS_ITS ---
[facility] Disclaimer: The information contained in this section may have been updated after the patient was seen, as this information can be updated by other users. Medical History COPD (chronic obstructive pulmonary disease) Rheumatoid arthritis Family History Other No significant family history Social History Smoking Status: Current every day smoker tobacco type: cigarettes packs per day: 2 second hand exposure: Yes alcohol intake: never substance use type: denies use current occupational status: other Travel in the last 8 weeks: None household members: spouse housing: house current occupational exposures/hazards: No caffeine: Yes Have you lived/traveled outside [place] in past 30 days?: No Contact w/someone who lives/traveled outside US past 30 days?: No Exposure to someone with infectious disease in past 14 days?: No Do you have a fever (greater than 100.4 F or 38 C)?: No Have you tested positive for COVID-19: No Exposed to someone with COVID-19 in past 14 days?: No Do you have a sore throat?: No Do you have a cough?: No Do you have any weakness?: No Do you have any diarrhea?: No Are you experiencing any unusual bleeding?: No Do you have any muscle aches/pain?: No Do you have any abdominal pain?: No Are you experiencing loss of taste or smell?: No PM Subjective & Objective Subjective Subjective:: Patient is a pleasant 63-year-old female who presents today for 1 month medication refill. Today she rates her pain at 5 out of 10. She denies any new changes from her last appointment. Patient is currently managed with Warrior 7.5 mg 6 times a day and tizanidine 8 mg 3 times a day. She denies any side effects from this medication. Her Clifford has been reviewed and is appropriate. Review of Systems: General: No recent weight changes, no fever, no sleep disturbances Respiratory: No cough, no shortness of air, no recurring pulmonary infections Cardiovascular/peripheral vascular: No chest pain, no palpitations, no edema, no shortness of breath Gastrointestinal: No new onset incontinence, normal bowel movements reported Genitourinary: No new onset incontinence Musculoskeletal: Low back pain Psychiatric: [Normal mood/affect] Neurological: [Denies weakness in extremities], [denies balance issues] Pain at rest (0-10 scale): 5 Objective Objective:: Physical Exam: General: Alert and oriented x3, no acute distress, pleasant and cooperative Lungs: Respirations even and unlabored, symmetrical chest expansion Eyes: PERRL Musculoskeletal: Flexion and extension of lumbar [spine] somewhat guarded secondary to pain, [antalgic gait noted] Neurological: Speech clear, no gross sensory deficit Has patient had previous pain injection?: No Conservative treatment options previously tried: Prescription medications Length of treatment: Longer than 12 weeks Meds Home Medications and Allergies Home Medications ?Medication ?Instructions ?Recorded ?Confirmed ?Type lisinopril 20 mg tablet 20 mg PO DAILY Hypertension 04/10/18 01/08/24 History levothyroxine 137 mcg tablet 137 mcg PO DAILY thyroid 09/30/18 01/08/24 History (Synthroid) trazodone 100 mg tablet 150 mg PO HS sleep 04/23/19 01/08/24 History gabapentin 600 mg tablet 600 mg PO TID Pain 05/26/21 01/08/24 History hydroxychloroquine 200 mg tablet 200 mg PO BID Arthritis 05/28/21 01/08/24 History sennosides 8.6 mg-docusate sodium 1 each PO HS bowels 05/28/21 01/08/24 History 50 mg tablet baclofen 10 mg tablet 10 mg PO TID MUSCLES 01/31/22 01/08/24 History Lactobacillus acidophilus 10 10,000 mmu cells PO DAILY IMMUNITY 03/07/22 01/08/24 History billion cell capsule (Probiotic) folic acid 1 mg tablet 1 mg PO DIRECTED SUPPLIMENT 10/31/22 01/08/24 History tizanidine 4 mg tablet (Zanaflex) 8 mg (2 x 4 mg) PO TID #540 tabs 12/06/23 01/08/24 Rx hydrocodone 7.5 mg-acetaminophen 1 tab PO .6x #180 tabs 01/08/24 Rx 325 mg tablet naloxone 4 mg/actuation nasal 4 mg intranasal Q2M PRN opioid 01/10/24 Rx spray (Narcan) overdose #2 ea New Prescriptions to Start Prescriptions: Allergies Allergy/AdvReac Type Severity Reaction Status Date / Time ciprofloxacin Allergy Hives Verified 05/30/23 13:57 hydromorphone Allergy Anaphylaxis Verified 05/30/23 13:57 ofloxacin Allergy Hives Verified 05/30/23 13:57 venlafaxine Allergy Rash Verified 05/30/23 13:57 Assessment and Plan *Assessment and plan (1) Lumbar radiculopathy: Status: Chronic Category: Medical Code(s): M54.16 - Radiculopathy, lumbar region (2) Degenerative disc disease: Status: Chronic Qualifiers: Spinal region: lumbar Qualified Code(s): M51.36 - Other intervertebral disc degeneration, lumbar region Category: Medical Plan I will make sure that she has a refill on her tizanidine with a 3-month supply and refill her Warrior with a 1 month supply. Patient will return to clinic in 1 month for reevaluation of symptoms and plan of care. Risks and benefits of the medication have been explained in detail to the patient. The patient does understand the risk of dependence on the medication when given over a prolonged period. Patient has been advised of risks of oversedation with the prescribed medication. Narcan has been offered to the paitent in the event of oversedation. Patient has been advised that a family member should also be educated regarding administration of Narcan. The patient has been advised to consult with his/her primary care provider and pharmacist regarding drug-drug interaction of medications currently prescribed. Patient has been prescribed a controlled substance after being counseled on the medication, medication safety, and possible side effects. Opioid contract was reviewed and signed by the patient, and that they have agreed to all of the terms set forth by our compliance program. A UDS is needed to verify patient's compliance with our office pain contract. This is ordered based off specific treatments related to chronic pain with the potential to abuse certain medications. Patient has been instructed to contact the clinic with any concerns before the next appointment. Dr. Carreon has reviewed this note and agrees with this plan of care. This note was dictated using voice recognition software and make contain errors or omissions.
[2024-02-05 13:19] VITALS: BP 142/78; PULSE 63; O2SAT 97; BMI 36.3
== END 2024-02-05 23:59 | disposition home or self-care (01) ==
PROVIDERS: PCP Nurse Practitioner; Visit Provider Nurse Practitioner Family
DX: M51.16 Intervertebral disc disorders with radiculopathy, lumbar region (principal); F17.210 Nicotine dependence, cigarettes, uncomplicated
CPT/HCPCS: 99212; G0463

== ENCOUNTER 2024-03-07 11:40 | Outpatient (POV) | payer MEDICARE, OTHER, SELFPAY ==
--- NOTE | 2024-03-07 12:11 | A.OFFVIS_ITS ---
[facility] Disclaimer: The information contained in this section may have been updated after the patient was seen, as this information can be updated by other users. Medical History COPD (chronic obstructive pulmonary disease) Rheumatoid arthritis Family History Other No significant family history Social History Smoking Status: Current every day smoker tobacco type: cigarettes packs per day: 2 second hand exposure: Yes alcohol intake: never substance use type: denies use current occupational status: other Travel in the last 8 weeks: None household members: spouse housing: house current occupational exposures/hazards: No caffeine: Yes PM Subjective & Objective Subjective Subjective:: Patient is a pleasant 63-year-old female who presents today for medication refill. She does rate her pain today a 7 out of 10. She denies any pain. She does just state that she feels like it is just the generalized aches and pains and that it is just all over in her joints. She states she has been still doing conservative treatment with heat and constant movement to help ease the joints. Patient is currently managed with Florence 7.5 mg 6 times a day from our office and tizanidine 8 mg 3 times a day. She denies any side effects from this medication. Patient does not need refills on her muscle relaxer. Her Clifford has been reviewed and is appropriate. Review of Systems: General: No recent weight changes, no fever, no sleep disturbances Respiratory: No cough, no shortness of air, no recurring pulmonary infections Cardiovascular/peripheral vascular: No chest pain, no palpitations, no edema, no shortness of breath Gastrointestinal: No new onset incontinence, normal bowel movements reported Genitourinary: No new onset incontinence Musculoskeletal: Low back pain, generalized joint pain Psychiatric: [Normal mood/affect] Neurological: [Denies weakness in extremities], [denies balance issues] Pain at rest (0-10 scale): 7 Objective Objective:: Physical Exam: General: Alert and oriented x3, no acute distress, pleasant and cooperative Lungs: Respirations even and unlabored, symmetrical chest expansion Eyes: PERRL Musculoskeletal: Flexion and extension of lumbar [spine] somewhat guarded secondary to pain, [antalgic gait noted] Neurological: Speech clear, no gross sensory deficit Has patient had previous pain injection?: No Conservative treatment options previously tried: Prescription medications Length of treatment: Longer than 12 weeks Meds Home Medications and Allergies Home Medications ?Medication ?Instructions ?Recorded ?Confirmed ?Type lisinopril 20 mg tablet 20 mg PO DAILY Hypertension 04/10/18 02/05/24 History levothyroxine 137 mcg tablet 137 mcg PO DAILY thyroid 09/30/18 02/05/24 History (Synthroid) trazodone 100 mg tablet 150 mg PO HS sleep 04/23/19 02/05/24 History gabapentin 600 mg tablet 600 mg PO TID Pain 05/26/21 02/05/24 History hydroxychloroquine 200 mg tablet 200 mg PO BID Arthritis 05/28/21 02/05/24 History sennosides 8.6 mg-docusate sodium 1 each PO HS bowels 05/28/21 02/05/24 History 50 mg tablet baclofen 10 mg tablet 10 mg PO TID MUSCLES 01/31/22 02/05/24 History Lactobacillus acidophilus 10 10,000 mmu cells PO DAILY IMMUNITY 03/07/22 02/05/24 History billion cell capsule (Probiotic) folic acid 1 mg tablet 1 mg PO DIRECTED SUPPLIMENT 10/31/22 02/05/24 History naloxone 4 mg/actuation nasal 4 mg intranasal Q2M PRN opioid 01/10/24 02/05/24 Rx spray (Narcan) overdose #2 ea hydrocodone 7.5 mg-acetaminophen 1 tab PO .6x #180 tabs 02/05/24 Rx 325 mg tablet tizanidine 4 mg tablet (Zanaflex) 8 mg (2 x 4 mg) PO TID #540 tabs 02/05/24 Rx New Prescriptions to Start Prescriptions: Allergies Allergy/AdvReac Type Severity Reaction Status Date / Time ciprofloxacin Allergy Hives Verified 05/30/23 13:57 hydromorphone Allergy Anaphylaxis Verified 05/30/23 13:57 ofloxacin Allergy Hives Verified 05/30/23 13:57 venlafaxine Allergy Rash Verified 05/30/23 13:57 Assessment and Plan *Assessment and plan (1) Lumbar radiculopathy: Status: Chronic Category: Medical Code(s): M54.16 - Radiculopathy, lumbar region (2) Degenerative disc disease: Status: Chronic Qualifiers: Spinal region: lumbar Qualified Code(s): M51.36 - Other intervertebral disc degeneration, lumbar region Category: Medical Plan I will refill the patient's Florence and provide a 1 month supply of this medication. Patient will return to clinic in 1 month for reevaluation of symptoms and plan of care. Risks and benefits of the medication have been explained in detail to the patient. The patient does understand the risk of dependence on the medication when given over a prolonged period. Patient has been advised of risks of oversedation with the prescribed medication. Narcan has been offered to the paitent in the event of oversedation. Patient has been advised that a family member should also be educated regarding administration of Narcan. The patient has been advised to consult with his/her primary care provider and pharmacist regarding drug-drug interaction of medications currently prescribed. Patient has been prescribed a controlled substance after being counseled on the medication, medication safety, and possible side effects. Opioid contract was reviewed and signed by the patient, and that they have agreed to all of the terms set forth by our compliance program. A UDS is needed to verify patient's compliance with our office pain contract. This is ordered based off specific treatments related to chronic pain with the potential to abuse certain medications. Patient has been instructed to contact the clinic with any concerns before the next appointment. Dr. Carreon has reviewed this note and agrees with this plan of care. This note was dictated using voice recognition software and make contain errors or omissions.
[2024-03-07 13:14] VITALS: BP 154/94; PULSE 67; RESP 18; O2SAT 98; BMI 35.9
== END 2024-03-07 23:59 | disposition home or self-care (01) ==
PROVIDERS: PCP Nurse Practitioner; Visit Provider Nurse Practitioner Family
DX: M51.16 Intervertebral disc disorders with radiculopathy, lumbar region (principal); F17.210 Nicotine dependence, cigarettes, uncomplicated
CPT/HCPCS: 99212; G0463

== ENCOUNTER 2024-04-11 11:26 | Outpatient (POV) | payer MEDICARE, OTHER, SELFPAY ==
--- NOTE | 2024-04-11 11:30 | A.OFFVIS_ITS ---
[facility] Disclaimer: The information contained in this section may have been updated after the patient was seen, as this information can be updated by other users. Medical History COPD (chronic obstructive pulmonary disease) Rheumatoid arthritis Family History Other No significant family history Social History Smoking Status: Current every day smoker tobacco type: cigarettes packs per day: 2 second hand exposure: Yes alcohol intake: never substance use type: denies use current occupational status: retired Travel in the last 8 weeks: None household members: spouse housing: house current occupational exposures/hazards: No caffeine: Yes Have you lived/traveled outside [place] in past 30 days?: No Contact w/someone who lives/traveled outside [place] past 30 days?: No Exposure to someone with infectious disease in past 14 days?: No Do you have a fever (greater than 100.4 F or 38 C)?: No Have you tested positive for COVID-19: No Exposed to someone with COVID-19 in past 14 days?: No Do you have a sore throat?: No Do you have a cough?: No Do you have any weakness?: No Do you have any diarrhea?: No Are you experiencing any unusual bleeding?: No Do you have any muscle aches/pain?: No Do you have any abdominal pain?: No Are you experiencing loss of taste or smell?: No PM Subjective & Objective Subjective Subjective:: Patient is a pleasant 63-year-old female who presents today for 1 month follow- up. Medication refill. She does rate her pain today a 8 out of 10. She denies any new injury or fall. She does state however while her was hospitalized she did end up spending the night at the hospital and sleeping in the chair for multiple days is really aggravated her overall back symptoms. Patient does state that she is fully anticipating that it will get better but just take a little extra time. She is currently managed with Letart 7.5 mg 6 times a day from our office and tizanidine 8 mg 3 times a day. She denies any side effects from this medication. Patient does also make mention that she has been having trouble with her and that something has messed up related to the system and its acting as if they do not have this insurance. Her Clifford has been reviewed and is appropriate. Review of Systems: General: No recent weight changes, no fever, no sleep disturbances Respiratory: No cough, no shortness of air, no recurring pulmonary infections Cardiovascular/peripheral vascular: No chest pain, no palpitations, no edema, no shortness of breath Gastrointestinal: No new onset incontinence, normal bowel movements reported Genitourinary: No new onset incontinence Musculoskeletal: Low back pain Psychiatric: [Normal mood/affect] Neurological: [Denies weakness in extremities], [denies balance issues] Pain at rest (0-10 scale): 8 Objective Objective:: physical Exam: General: Alert and oriented x3, no acute distress, pleasant and cooperative Lungs: Respirations even and unlabored, symmetrical chest expansion Eyes: PERRL Musculoskeletal: Flexion and extension of lumbar [spine] somewhat guarded secondary to pain, [antalgic gait noted] Neurological: Speech clear, no gross sensory deficit Has patient had previous pain injection?: No Conservative treatment options previously tried: Prescription medications Length of treatment: Longer than 12 weeks Meds Home Medications and Allergies Home Medications ?Medication ?Instructions ?Recorded ?Confirmed ?Type lisinopril 20 mg tablet 20 mg PO DAILY Hypertension 04/10/18 03/07/24 History levothyroxine 137 mcg tablet 137 mcg PO DAILY thyroid 09/30/18 03/07/24 History (Synthroid) trazodone 100 mg tablet 150 mg PO HS sleep 04/23/19 03/07/24 History gabapentin 600 mg tablet 600 mg PO TID Pain 05/26/21 03/07/24 History hydroxychloroquine 200 mg tablet 200 mg PO BID Arthritis 05/28/21 03/07/24 History sennosides 8.6 mg-docusate sodium 1 each PO HS bowels 05/28/21 03/07/24 History 50 mg tablet baclofen 10 mg tablet 10 mg PO TID MUSCLES 01/31/22 03/07/24 History Lactobacillus acidophilus 10 10,000 mmu cells PO DAILY IMMUNITY 03/07/22 03/07/24 History billion cell capsule (Probiotic) folic acid 1 mg tablet 1 mg PO DIRECTED SUPPLIMENT 10/31/22 03/07/24 History naloxone 4 mg/actuation nasal 4 mg intranasal Q2M PRN opioid 01/10/24 03/07/24 Rx spray (Narcan) overdose #2 ea tizanidine 4 mg tablet (Zanaflex) 8 mg (2 x 4 mg) PO TID #540 tabs 02/05/24 03/07/24 Rx hydrocodone 7.5 mg-acetaminophen 1 tab PO .6x #180 tabs 04/11/24 Rx 325 mg tablet New Prescriptions to Start Prescriptions: hydrocodone-acetaminophen Nieves Tafoya Allergies Allergy/AdvReac Type Severity Reaction Status Date / Time ciprofloxacin Allergy Hives Verified 05/30/23 13:57 hydromorphone Allergy Anaphylaxis Verified 05/30/23 13:57 ofloxacin Allergy Hives Verified 05/30/23 13:57 venlafaxine Allergy Rash Verified 05/30/23 13:57 Assessment and Plan *Assessment and plan (1) Lumbar radiculopathy: Status: Chronic Category: Medical Code(s): M54.16 - Radiculopathy, lumbar region (2) Degenerative disc disease: Status: Chronic Qualifiers: Spinal region: lumbar Qualified Code(s): M51.36 - Other intervertebral disc degeneration, lumbar region Category: Medical Plan I will refill her Letart and provide a 1 month supply of this medication. Patient will return to clinic next month. Risks and benefits of the medication have been explained in detail to the patient. The patient does understand the risk of dependence on the medication when given over a prolonged period. Patient has been advised of risks of oversedation with the prescribed medication. Narcan has been offered to the paitent in the event of oversedation. Patient has been advised that a family member should also be educated regarding administration of Narcan. The patient has been advised to consult with his/her primary care provider and pharmacist regarding drug-drug interaction of medications currently prescribed. Patient has been prescribed a controlled substance after being counseled on the medication, medication safety, and possible side effects. Opioid contract was reviewed and signed by the patient, and that they have agreed to all of the terms set forth by our compliance program. A UDS is needed to verify patient's compliance with our office pain contract. This is ordered based off specific treatments related to chronic pain with the potential to abuse certain medications. Patient has been instructed to contact the clinic with any concerns before the next appointment. Dr. Carreon has reviewed this note and agrees with this plan of care. This note was dictated using voice recognition software and make contain errors or omissions.
[2024-04-11 11:44] VITALS: BP 137/71; PULSE 76; RESP 16; O2SAT 98; BMI 38.0
== END 2024-04-11 23:59 | disposition home or self-care (01) ==
PROVIDERS: PCP Nurse Practitioner; Visit Provider Nurse Practitioner Family
DX: M51.16 Intervertebral disc disorders with radiculopathy, lumbar region (principal); F17.210 Nicotine dependence, cigarettes, uncomplicated
CPT/HCPCS: 99212; G0463

== ENCOUNTER 2024-05-09 11:33 | Outpatient (POV) | payer MEDICARE, OTHER, SELFPAY ==
--- NOTE | 2024-05-09 11:39 | EXP.PAIN.SOA ---
[facility] Disclaimer: The information contained in this section may have been updated after the patient was seen, as this information can be updated by other users. Medical History (Updated 05/09/24 @ 12:01 by Nieves Tafoya APRN) COPD (chronic obstructive pulmonary disease) Rheumatoid arthritis Family History Other No significant family history Social History (Updated 04/11/24 @ 11:50 by Claudette Sumner RN) Smoking Status: Current every day smoker tobacco type: cigarettes packs per day: 2 second hand exposure: Yes alcohol intake: never substance use type: denies use current occupational status: other Travel in the last 8 weeks: None household members: spouse housing: house current occupational exposures/hazards: No caffeine: Yes PM Subjective & Objective Subjective Subjective:: Patient is a pleasant 63-year-old female who presents today for medication refill. Today she rates her pain a 7 out of 10. She denies any new falls or injuries. Patient is currently managed with Germanton 7.5 mg 6 times a day and tizanidine 8 mg 3 times a day from our office. She denies any side effects. She does state that she does not feel like the tizanidine is working as well and would like to try possibly a different muscle relaxer. She does state a lot of her pain is related to her left shoulder. Patient has not had any injury. She was given a 5-day dose of prednisone however states she ended up holding off on this because she had a Decadron injection with primary care. She states it only helped for about 24 to 36 hours and then she was back to her baseline. She is having chronic pain in his extremity with very limited range of motion and clicking sensations. Patient states she feels it all the way into her neck, clavicle and upper arm. Her Clifford has been reviewed and is appropriate. Review of Systems: General: No recent weight changes, no fever, no sleep disturbances Respiratory: No cough, no shortness of air, no recurring pulmonary infections Cardiovascular/peripheral vascular: No chest pain, no palpitations, no edema, no shortness of breath Gastrointestinal: No new onset incontinence, normal bowel movements reported Genitourinary: No new onset incontinence Musculoskeletal: Left shoulder pain Psychiatric: [Normal mood/affect] Neurological: [Denies weakness in extremities], [denies balance issues] Pain at rest (0-10 scale): 8 Objective Objective:: Physical Exam: General: Alert and oriented x3, no acute distress, pleasant and cooperative Lungs: Respirations even and unlabored, symmetrical chest expansion Eyes: PERRL Musculoskeletal: Flexion and extension of Left shoulder somewhat guarded secondary to pain, [antalgic gait noted] Neurological: Speech clear, no gross sensory deficit Has patient had previous pain injection?: No Conservative treatment options previously tried: Home exercise plan Length of treatment: Longer than 12 weeks Meds Home Medications and Allergies Home Medications ?Medication ?Instructions ?Recorded ?Confirmed ?Type lisinopril 20 mg tablet 20 mg PO DAILY Hypertension 04/10/18 04/11/24 History levothyroxine 137 mcg tablet 137 mcg PO DAILY thyroid 09/30/18 04/11/24 History (Synthroid) trazodone 100 mg tablet 150 mg PO HS sleep 04/23/19 04/11/24 History gabapentin 600 mg tablet 600 mg PO TID Pain 05/26/21 04/11/24 History hydroxychloroquine 200 mg tablet 200 mg PO BID Arthritis 05/28/21 04/11/24 History sennosides 8.6 mg-docusate sodium 1 each PO HS bowels 05/28/21 04/11/24 History 50 mg tablet baclofen 10 mg tablet 10 mg PO TID MUSCLES 01/31/22 04/11/24 History Lactobacillus acidophilus 10 10,000 mmu cells PO DAILY IMMUNITY 03/07/22 04/11/24 History billion cell capsule (Probiotic) folic acid 1 mg tablet 1 mg PO DIRECTED SUPPLIMENT 10/31/22 04/11/24 History naloxone 4 mg/actuation nasal 4 mg intranasal Q2M PRN opioid 01/10/24 04/11/24 Rx spray (Narcan) overdose #2 ea prednisone 20 mg tablet 20 mg PO BID #10 tabs 04/24/24 Rx cyclobenzaprine 10 mg tablet 10 mg PO TID #42 tabs 05/09/24 Rx hydrocodone 7.5 mg-acetaminophen 1 tab PO .6x #180 tabs 05/09/24 Rx 325 mg tablet tizanidine 4 mg tablet (Zanaflex) 8 mg (2 x 4 mg) PO TID #540 tabs 05/09/24 Rx New Prescriptions to Start Prescriptions: cyclobenzaprine Tafoya,Nieves A hydrocodone-acetaminophen Tafoya,Nieves A tizanidine [Zanaflex] Tafoya,Nieves A Allergies Allergy/AdvReac Type Severity Reaction Status Date / Time ciprofloxacin Allergy Hives Verified 05/30/23 13:57 hydromorphone Allergy Anaphylaxis Verified 05/30/23 13:57 ofloxacin Allergy Hives Verified 05/30/23 13:57 venlafaxine Allergy Rash Verified 05/30/23 13:57 Assessment and Plan *Assessment and plan (1) Lumbar radiculopathy: Status: Chronic Category: Medical Code(s): M54.16 - Radiculopathy, lumbar region (2) Degenerative disc disease: Status: Chronic Qualifiers: Spinal region: lumbar Qualified Code(s): M51.36 - Other intervertebral disc degeneration, lumbar region Category: Medical (3) Left shoulder pain: Status: Acute Category: Medical Code(s): M25.512 - Pain in left shoulder Plan I will refill the patient's Germanton and send in a 14-day supply of Flexeril 10 mg 3 times daily. Patient was counseled that I will send in a 3-month supply of her tizanidine to [facility] in case the Flexeril does nothing. Patient was counseled to not take both of these medications at the same time. Patient agrees with this plan of care. I will order x-ray imaging of her left shoulder as well as plan to order MRI without contrast of the left shoulder. Patient was counseled if it does end up being more arthritis related we can look at doing intra-articular or suprascapular nerve blocks in future. We will follow-up with this in future.Patient will return to clinic in 1 month. Risks and benefits of the medication have been explained in detail to the patient. The patient does understand the risk of dependence on the medication when given over a prolonged period. Patient has been advised of risks of oversedation with the prescribed medication. Narcan has been offered to the paitent in the event of oversedation. Patient has been advised that a family member should also be educated regarding administration of Narcan. The patient has been advised to consult with his/her primary care provider and pharmacist regarding drug-drug interaction of medications currently prescribed. Patient has been prescribed a controlled substance after being counseled on the medication, medication safety, and possible side effects. Opioid contract was reviewed and signed by the patient, and that they have agreed to all of the terms set forth by our compliance program. A UDS is needed to verify patient's compliance with our office pain contract. This is ordered based off specific treatments related to chronic pain with the potential to abuse certain medications. Patient has been instructed to contact the clinic with any concerns before the next appointment. Dr. Carreon has reviewed this note and agrees with this plan of care. This note was dictated using voice recognition software and make contain errors or omissions.
--- NOTE | 2024-05-09 12:03 | XR_ITS ---
FINAL REPORT CLINICAL HISTORY: Left shoulder pain COMPARISON: None FINDINGS: Three views of the left shoulder show no evidence of acute displaced fracture or dislocation of the visualized bony architecture. There is mild AC joint arthropathy. The glenohumeral joint is unremarkable. IMPRESSION: Mild AC joint degenerative change. Reviewed, Interpreted and Dictated by Jerald Michelle MD Transcribed by Patt Damon Authenticated and [facility]
[2024-05-09 12:32] VITALS: BP 141/71; PULSE 67; RESP 18; O2SAT 98; BMI 37.0
== END 2024-05-09 23:59 | disposition home or self-care (01) ==
PROVIDERS: PCP Nurse Practitioner; Visit Provider Nurse Practitioner Family
DX: M25.512 Pain in left shoulder (principal); M51.16 Intervertebral disc disorders with radiculopathy, lumbar region; F17.210 Nicotine dependence, cigarettes, uncomplicated
CPT/HCPCS: 73030; 99212; G0463

== ENCOUNTER 2024-06-06 11:33 | Outpatient (POV) | payer MEDICARE, OTHER, SELFPAY ==
--- OUTSIDE RECORDS SUMMARY | 2024-06-06 11:36 | XMS_ITS ---
Care Plan - [facility], [facility] Created on: June 06, 2024 MejiaNell burks .0 : 1960 Sex: Female Author Organization [facility] Address [address] [place] [address] Phone Care Team Providers Care Bridge Tender Name Role Phone Sixto CORTEZ, Brandon Unavailable [phone] Trinity Chase APRN Primary Care Provider [phone]
--- OUTSIDE RECORDS SUMMARY | 2024-06-06 11:36 | XMS_ITS | Clinical Summary ---
Author Organization [facility] , [facility] Address [address] [place] [address] Phone Care Team Providers Care Research Soil Scientist Name Role Phone Sixto CORTEZ, Brandon Unavailable [...] Right Shoulder 05/11/2022 Miller Villegas MD Active Last Documented On 3 8:52AM ; [facility], [facility] Lower Back Pain 07/13/2017 Arnoldo Tafoya MD Act heide Last Documented On 8 2:01PM ; [facility], [facility] Plan of Treatment Pending Tests Order Diagnosis Results Due Ordering P royarelisder Radiology - MRI MRI Shoulder 05/25/22 Miller Villegas MD Last Documented On 3 10:06AM ; [facility], [facility] Assessments Includes: Assessments from this encounter No Assessments Recorded Medical Equipment - Implanted Devices Includes: Current Devices No Medical Equipment Recorded Medications Includes: Medications discussed during this encounter and other current Medications Current Medications (continue as prescribed) Hydroxychloroquine Sulfate 100 MG Oral Tablet 05/12/19 Provider: Diagnosis: Last Documented On 3 9:29AM By Ross Freire ; [facility], [facility] Bumetanide 1 MG Oral Tablet 05/11/2022 Provider: Diagnosis: Last Documented On 3 9:30AM By Ross Freire ; [facility] Levothyroxine Sodium 100 MCG Oral Tablet 05/11/2022 Provider: Diagnosis: Last Documented On 3 9:30AM By Ross Freire ; [facility] Lisinopril 2.5 MG Oral Tablet 05/11/2022 Provider: Diagnosis: Last Documented On 3 9:29AM By Ross Freire ; [facility] Omeprazole 10 MG Oral Capsule Delayed Release 05/12/19 Provider: Diagnosis: Last Documented On 3 9:29AM By Ross Freire ; [facility] Cetirizine HCl 5 MG Oral Tablet 05/11/2022 Provider: Diagnosis: Last Documented On 3 9:29AM By Ross Freire ; [facility] Allopurinol 100 MG Oral Tablet 05/11/2022 Provider: Diagnosis: Last Documented On 3 9:27AM By Ross Freire ; [facility] tiZANidine HCl 2 MG Oral Capsule 05/11/2022 Provider : Diagnosis: Last Documented On 3 9:27AM By Ross Freire ; [facility] MiraLax 17 GM Oral Packet 05/11/2022 Provider: Diagnosis: Last Documented On 3 9:27AM By Ross Freire ; [facility] traZODone HCl 50 MG Oral Tablet 05/11/2022 Provider: Diagnosis: Last Documented On 3 9:27AM By Ross Freire ; [facility] Montelukast Sodium 10 MG Oral Tablet 05/11/2022 Prov ider: Diagnosis: Last Documented On 3 9:28AM By Ross Freire ; [facility] guaiFENesin 200 MG Oral Tablet 05/11/2022 Provider: Diagnosis: Last Documented On 3 9:28AM By Ross Freire ; [facility] HYDROcodone-Acetaminophen 5-325 MG Oral Tablet 023 Provider: Diagnosis: Last Documented On 3 9:28AM By Ross Freire ; [facility], [facility] Medications Administered Includes: Administered Medications from this encounter No Administered Medications Recorded Results Includes: Results discussed during this encounter No Results Recorded For Specified Dates History of Present Illness Includes: History of Present Illness from this encounter No History of Present Illness Recorded Social History No Social History Recorded - Smoking Status Unknown Medical History Includes: Medical History addressed during this encounter No Medical History Recorded Family History Includes: Family History addressed during this encounter No Family History Recorded Review of Systems Includes: Review of Systems from this encounter No Review of Systems Recorded Mental Status Includes: Mental Status from this encounter No Mental Status Recorded Functional Status Includes: Functional Status from this encounter No Functional Status Recorded Physical Exam Includes: Physical Exam from this encounter No Physical Exam Recorded Allergies Includes: Active Allergies Substance Type Reaction Onset Date Resolved Date Statu s Vicodin Allergy Skin Rashes / Eruption of skin 9 Active Last Documented On 3 12:50PM ; [facility] Percocet Allergy Skin Rashes / Eruption of skin 9 Active Last Documented On 3 12:50PM ; [facility], [facility] OTHER Allergy Fioxin, Effexor 05/17/2005 Act heide Last Documented On 3 12:50PM ; [facility] HYDROmorphone HCl Allergy Skin Rashes / Eruption of skin, Hives / Urticaria, Shortness of Breath / Dyspnea, tongue swelling 03/20/2018 Active Last Documented On 3 12:50PM ; [facility] Dilaudid Allergy 07/13/2017 Active Last Documented On 3 12:50PM ; [facility], [facility] Encounters Encounter Provider Location Date Check-In Time Check-Out Time Diagnosis [Patient Encounter] Miller Villegas MD 05/25/2022 2:47PM 11:59PM Insurance Includes: Active Insurance Policies Plan Name Member ID Group # Subscriber Relationship Effect heide Dates 1 - Medicare Part B [facility] [id number] Nell Mejia Self 2 - PRIME [id number] Nell Mejia Self 02/20/2022 - Unknown Clinical Notes Includes: Clinical Notes from this encounter No Clinical Notes Recorded
--- OUTSIDE RECORDS SUMMARY | 2024-06-06 11:36 | XMS_ITS | Clinical Summary ---
Author Organization [facility] , [facility] Address [address] [place] [address] Phone Care Team Providers Care Tablet Repair Name Role Phone Sixto CORTEZ, Brandon Unavailable [phone] Trinity Chase APRN Primary Care Provider [phone] Reason for Visit and Chief Complaint The Chief Complaint is: Right Shoulder Pain Problems Includes: Problems addressed during this encounter and other active Problems Current Visit Onset Date Resolved Date Provider Leighton red Status Joint Pain, Localized in the Right Shoulder 05/11/2022 Miller Villegas MD Active Last Documented On 3 8:52AM ; [facility] Lower Back Pain 07/13/2017 Arnoldo Tafoya MD Act heide Last Documented On 8 2:01PM ; [facility] Plan of Treatment Nell has right sided [...] is the fall or something else prior. I explained I would like to get advanced imaging, consisting of an MRI to further characterize the nature of her shoulder to include the rotator cuff and the capsule. With regard to her shoulder instability, she states that she has not had any yesi dislocation episodes but her shoulder feels loose, I provided her with an immobilizer to utilize if she feels that she is unstable. She does walk with a cane in her left hand and I explained that I do not want her tied up in an immobilizer and possibly risk of fall, she is going to use her immobilizer sparingly if she feels that the shoulder is at risk. She states that she has her to help her with ambulation. I will see her back after her MRI. She will utilize [id number] anti-inflammatories for pain control. - Last Documented On 05/11/2022 10:06AM ; [facility], [facility] Pending Tests Order Diagnosis Results Due Ordering [facility] - MRI MRI Shoulder 05/25/22 Miller Villegas MD Last Documented On 3 10:06AM ; [facility] Instructions to patient Intervention and counseling on cessation of tobacco use Last Documented On 3 9:08AM ; [facility], [facility] Lose weight Last Documented On 3 9:08AM ; [facility], [facility] Assessments Includes: Assessments from this encounter No Assessments Recorded Instructions Includes: Instructions from this encounter Instructions to patient Intervention and counseling on cessation of tobacco use Last Documented On 3 9:08AM ; [facility], [facility] Lose weight Last Documented On 3 9:08AM ; [facility], [facility] Medical Equipment - Implanted Devices Includes: Current Devices No Medical Equipment Recorded Medications Includes: Medications discussed during this encounter and other current Medications Discontinued / Stopped on this date on 05/02/2018 traMADol HCl 50MG Oral Tablet Provider: Diagnosis: Last Documented On 3 8:52AM By Ross LUEVANO [facility] Gabapentin 300MG Oral Capsule Provider: Diagnosis: Last Documented On 3 8:53AM By Ross Tani ; [facility] Valium 5MG Oral Tablet Provider: Diagnosis: Last Documented On 3 8:53AM By Ross Freire ; [facility] Cyclobenzaprine HCl 10MG Oral Tablet Prov ider: Diagnosis: Last Documented On 3 8:52AM By Ross Freire ; [facility] Ultram 50MG Oral Tablet Provider: Diagnosis: Last Documented On 3 8:53AM By Ross Freire ; [facility] Metoprolol Tartrate 25MG Oral Tablet Prov ider: Diagnosis: Last Documented On 3 8:53AM By Ross Freire ; [facility] Lisinopril 20MG Oral Tablet Provider: Diagnosis: Last Documented On 3 8:53AM By Ross Freire ; [facility] Synthroid 137MCG Oral Tablet Provider: Diagnosis: Last Documented On 3 8:53AM By Ross Freire ; [facility] Mobic 15MG Oral Tablet Provider: Diagnosis: Last Documented On 3 8:53AM By Ross Freire ; [facility] Current Medications (continue as prescribed) Hydroxychloroquine Sulfate 100 MG Oral Tablet 05/12/19 23 Provider: Diagnosis: Last Documented On 3 9:29AM By Ross Freire ; [facility] Bumetanide 1 MG Oral Tablet 05/11/2022 Provider: Diagnosis: Last Documented On 3 9:30AM By Ross Freire ; [facility] Levothyroxine Sodium 100 MCG Oral Tablet 05/11/2022 Provider: Diagnosis: Last Documented On 3 9:30AM By Ross Freire ; [facility] Lisinopril 2.5 MG Oral Tablet 05/11/2022 Provider: Diagnosis: Last Documented On 3 9:29AM By Ross Freire ; [facility] Omeprazole 10 MG Oral Capsule Delayed Release 05/12/19 23 Provider: Diagnosis: Last Documented On 3 9:29AM By Ross Freire ; [facility] Cetirizine HCl 5 MG Oral Tablet 05/11/2022 Provider: Diagnosis: Last Documented On 3 9:29AM By Ross Freire ; [facility] Allopurinol 100 MG Oral Tablet 05/11/2022 Provider: Diagnosis: Last Documented On 3 9:27AM By Ross Freire ; [facility] tiZANidine HCl 2 MG Oral Capsule 05/11/2022 Provider : Diagnosis: Last Documented On 3 9:27AM By Ross Freire ; [facility] MiraLax 17 GM Oral Packet 05/11/2022 Provider: Diagnosis: Last Documented On 3 9:27AM By Ross Freire ; [facility] traZODone HCl 50 MG Oral Tablet 05/11/2022 Provider: Diagnosis: Last Documented On 3 9:27AM By Ross Freire ; [facility] Montelukast Sodium 10 MG Oral Tablet 05/11/2022 Prov ider: Diagnosis: Last Documented On 3 9:28AM By Ross Freire ; [facility] guaiFENesin 200 MG Oral Tablet 05/11/2022 Provider: Diagnosis: Last Documented On 3 9:28AM By Ross Freier ; [facility] HYDROcodone-Acetaminophen 5-325 MG Oral Tablet 023 Provider: Diagnosis: Last Documented On 3 9:28AM By Ross Freire ; [facility] Past Medications on file TraMADol HCl 50MG Oral Tablet 03/20/2018 - 04/19/2018 Provider: Sid Carias MD Diagnosis: 1 tab every 12 hours DNF 03/28/18 Last Documented On 9 3:53PM By Nimesh Joe ; [facility] Lortab 5-500 MG OR TABS 01/11/2006 - 02/10/2006 Provid er: Brandon Henson MD Diagnosis: Last Documented On 6 9:33AM By Derek Smith User ; [facility] CeleBREX 200 MG OR CAPS 06/17/2005 - 07/17/2005 Provid er: Brandon Henson MD Diagnosis: [id number] meagane aid df Last Documented On 6 12:04PM By Jami Perez ; [facility] ULTRAM ER 200 200 OR TB24 06/17/2005 - 07/17/2005 Prov ider: Brandon Henson MD Diagnosis: ritkay aid [id number] df Last Documented On 6 12:03PM By Jami Perez ; [facility] ULTRAM ER 100 100 OR TB24 05/17/2005 - 06/16/2005 Prov ider: Brandon Henson MD Diagnosis: Last Documented On 6 10:19AM By Reed 6 User ; [facility] CeleBREX 200 MG OR CAPS 05/17/2005 - 06/16/2005 Provid er: Brandon Henson MD Diagnosis: Last Documented On 6 10:19AM By Reed 6 User ; [facility] Medications Administered Includes: Administered Medications from this encounter No Administered Medications Recorded Vital Signs Includes: Vital Signs from this encounter Vital Name 05/11/2022 08:53A Height (in) 63 Weight (lb) 206 Body Mass Index 36.5 Body Surface Area 2 Note: asn Last Documented: On 05/11/2022 9:08AM ; [facility] Results Includes: Results discussed during this encounter No Results Recorded For Specified Dates History of Present Illness Includes: History of Present Illness from this encounter HPI Nell Mejia is a 61 year old female. - Symptoms Grinding and popping Pain is better with cold packs and positioning on pillows Pain is worse with movement or letting arm hang at side. - Allergy list reviewed - Problem list reviewed - Medication list reviewed - Previous history of new onset pain 04/24/2022 Injury is not work related or an automotive accident - Stabbing pain - Pain is constant (100% of the time) - Pain is throbbing - Pain is dull, aching - Patient pain level from 1-10: 7 - No previous treatment. Medications used for this condition: Nell is a 61-year-old female that originally sustained a fall back in February injuring her right hip and possibly her right shoulder although she states that she did not have significant shoulder pain after this fall. Earlier this month, approximately 2 and half weeks ago she states that she was folding laundry and had some right shoulder pain as a result. She was seen at an outside facility and x- rays demonstrated a likely anterior-inferior shoulder dislocation. She states that a reduction maneuver was performed in the emergency department, postreduction x- rays demonstrated inferior subluxation of the humeral head on the glenoid. Since that episode, she denies yesi instability events but reports that her shoulder feels loose. Social History Description Last Updated Caffeine use 05/11/2022 Last Documented On 3 10:06AM ; [facility], [facility] No recent change in diet 05/11/2022 Last Documented On 3 10:06AM ; [facility] Not exercising regularly 05/11/2022 Last Documented On 3 10:06AM ; [facility] Not using alcohol 05/11/2022 Last Documented On 3 10:06AM ; [facility] Not using drugs 05/11/2022 Last Documented On 3 10:06AM ; [facility] Yes, current smoker. 05/11/2022 Last Documented On 3 10:06AM ; [facility] Tobacco use 05/11/2022 Last Documented On 3 10:06AM ; [facility] Smoking status Current every day smoker 07/13/2017 Last Documented On 3 8:53AM ; [facility], [facility] Current smoker 07/13/2017 Last Documented On 3 8:53AM ; [facility], [facility] Procedures and Surgical History Includes: Procedures from this encounter Procedures Code Diagnosis Performing Provider Service L ocation Service Date intervention and counseling on cessation of tobacco use 4000F Last Documented On 3 9:08AM ; [facility], [facility] use of tobacco assessment performed 1000F Last Documented On 3 9:08AM ; [facility], [facility] an X-ray was performed [id number] Last Documented On 3 9:32AM ; [facility], [facility] Surgical History Last Updated Total hip replacement 05/11/2022 Last Documented On 3 10:06AM ; [facility], [facility] Medical History Includes: Medical History addressed during this encounter Description Last Updated Anemia 05/11/2022 Last Documented On 3 10:06AM ; [facility] Arthritis 05/11/2022 Last Documented On 3 10:06AM ; [facility] Depression 05/11/2022 Last Documented On 3 10:06AM ; [facility] Heartburn / Acid Reflux 05/11/2022 Last Documented On 3 10:06AM ; [facility] History of Blood Transfusion 05/11/2022 Last Documented On 3 10:06AM ; [facility] History of Rheumatology 05/11/2022 Last Documented On 3 10:06AM ; [facility] Hypertension 05/11/2022 Last Documented On 3 10:06AM ; [facility] Kidney Disease 05/11/2022 Last Documented On 3 10:06AM ; [facility] Thyroid Disease 05/11/2022 Last Documented On 3 10:06AM ; [facility] Arthritic joint problems 07/13/2017 Last Documented On 3 8:53AM ; [facility] Intermittent hypertension 07/13/2017 Last Documented On 3 8:53AM ; [facility], [facility] Family History Includes: Family History addressed during this encounter Description Last Updated Family history of heart disease 05/12/19 23 Last Documented On 3 10:06AM ; [facility] Family history of thromboembolic disease 05/11/2022 Last Documented On 3 10:06AM ; [facility] Maternal history of thromboembolic disea se 05/11/2022 Last Documented On 3 10:06AM ; [facility] Maternal history of family history of he art disease 07/13/2017 Last Documented On 3 8:53AM ; [facility] Review of Systems Includes: Review of Systems from this encounter Systemic: Feeling tired. No recent weight loss and no recent weight gain. Head: No headache and no sinus pain. Eyes: No vision problems. Cataracts and Glasses/Contacts. No Glaucoma. Otolaryngeal: No hearing loss and no tinnitus. Cardiovascular: No chest pain or discomfort and no palpitations. Hypertension and High Cholesterol. Pulmonary: No daytime asthma symptoms. Cough chronic. No wheezing. Gastrointestinal: Heartburn. No abdominal pain. No Indigestion. Acid Reflux. No Peptic Ulcer, no GI Stomach Bleed, and no Ulcers. Endocrine: No hot flashes. Muscle weakness. No Diabetes. Hypothyroid. No Hyperthyroid. Hematologic: No easy bleeding and no tendency for easy bruising. Anemia. Musculoskeletal: Arthritis, lower back pain, soft tissue swelling, and pain localized to one or more joints. Neurological: No dizziness and no convulsions. Numbness. Psychological: No anxiety and no emotional lability. Depression. No insomnia. Not crying for no reason. Skin: No dry skin. No Ulcers, no Scars, and no rash. Allergic and Immunologic: Complaint of seasonal allergic reaction. Mental Status Includes: Mental Status from this encounter Description No anxiety Depression Functional Status Includes: Functional Status from this encounter No Functional Status Recorded Physical Exam Includes: Physical Exam from this encounter Allergies Includes: Active Allergies Substance Type Reaction Onset Date Resolved Date Statu s Vicodin Allergy Skin Rashes / Eruption of skin 9 Active Last Documented On 3 12:50PM ; [facility] Percocet Allergy Skin Rashes / Eruption of skin 9 Active Last Documented On 3 12:50PM ; [facility] OTHER Allergy Fioxin, Effexor 05/17/2005 Act heide Last Documented On 3 12:50PM ; [facility] HYDROmorphone HCl Allergy Skin Rashes / Eruption of skin, Hives / Urticaria, Shortness of Breath / Dyspnea, tongue swelling 03/20/2018 Active Last Documented On 3 12:50PM ; [facility] Dilaudid Allergy 07/13/2017 Active Last Documented On 3 12:50PM ; [facility] Encounters Encounter Provider Location Date Check-In Time Check-Out Time Diagnosis Physician Specified Miller Villegas MD [facility] 05/12/19 23 8:52AM 10:01AM Insurance Includes: Active Insurance Policies Plan Name Member ID Group # Subscriber Relationship Effect heide Dates 1 - Medicare Part [facility] [id number] Nell Mejia Self 2 - PRIME [id number] Nell Mejia Self 02/20/2022 - Unknown Clinical Notes Includes: Clinical Notes from this encounter * Progress note Date Encounter Last Documented by 05/11/2022 Physician Specified Rod steph pearson on 05/11/2022; 10:06 AM, Miller Villegas MD; [facility] Active Problems & Conditions - Joint Pain, Localized in the Right Shoulder - Lower Back Pain Chief Complaint The Chief Complaint is: Right Shoulder Pain. Referred Here Referred by Ena Abraham. History of Present Illness Nell Mejia is a 61 year old female. - Symptoms Grinding and popping Pain is better with cold packs and positioning on pillows Pain is worse with movement or letting arm hang at side. - Allergy list reviewed - Problem list reviewed - Medication list reviewed - Previous history of new onset pain 04/24/2022 Injury is not work related or an automotive accident - Stabbing pain - Pain is constant (100% of the time) - Pain is throbbing - Pain is dull, aching - Patient pain level from 1-10: 7 - No previous treatment. Medications used for this condition: Nell is a 61-year-old female that originally sustained a fall back in February injuring her right hip and possibly her right shoulder although she states that she did not have significant shoulder pain after this fall. Earlier this month, approximately 2 and half weeks ago she states that she was folding laundry and had some right shoulder pain as a result. She was seen at an outside facility and x- rays demonstrated a likely anterior-inferior shoulder dislocation. She states that a reduction maneuver was performed in the emergency department, postreduction x- rays demonstrated inferior subluxation of the humeral head on the glenoid. Since that episode, she denies yesi instability events but reports that her shoulder feels loose. Current Medication - Allopurinol 100 MG Oral Tablet 0 days, 0 refills - Bumetanide 1 MG Oral Tablet 0 days, 0 refills - Cetirizine HCl 5 MG Oral Tablet 0 days, 0 refills - guaiFENesin 200 MG Oral Tablet 0 days, 0 refills - HYDROcodone-Acetaminophen 5-325 MG Oral Tablet 0 days, 0 refills - Hydroxychloroquine Sulfate 100 MG Oral Tablet 0 days, 0 refills - Levothyroxine Sodium 100 MCG Oral Tablet 0 days, 0 refills - Lisinopril 2.5 MG Oral Tablet 0 days, 0 refills - MiraLax 17 GM Oral Packet 0 days, 0 refills - Montelukast Sodium 10 MG Oral Tablet 0 days, 0 refills - Omeprazole 10 MG Oral Capsule Delayed Release 0 days, 0 refills - tiZANidine HCl 2 MG Oral Capsule 0 days, 0 refills - traZODone HCl 50 MG Oral Tablet 0 days, 0 refills Past Medical/Surgical History Reported: Medical: Arthritic joint problems. Intermittent hypertension. Diagnoses: Anemia History of Blood Transfusion Heartburn / Acid Reflux Thyroid Disease Kidney Disease Hypertension History of Rheumatology. Arthritis. Depression Surgical: - Total hip replacement Social History Yes, current smoker. Current diet: No recent change in diet. Caffeine use: Caffeine use. Tobacco use: Current smoker and smoking status: Current everyday smoker. Alcohol: Not using alcohol. Drug Use: Not using drugs. Habits: Not exercising regularly. Allergies - Dilaudid - HYDROmorphone HCl Reaction: Shortness of Breath / Dyspnea (Mild), Hives / Urticaria (Mild), Skin Rashes / Eruption of skin (Mild), tongue swelling (Mild) - OTHER Reaction: Fioxin, Effexor - Percocet Reaction: Skin Rashes / Eruption of skin - Vicodin Reaction: Skin Rashes / Eruption of skin Family History Heart disease Thromboembolic disease Maternal: Heart disease Thromboembolic disease Review Of Systems Systemic: Feeling tired. No recent weight loss and no recent weight gain. Head: No headache and no sinus pain. Eyes: No vision problems. Cataracts and Glasses/Contacts. No Glaucoma. Otolaryngeal: No hearing loss and no tinnitus. Cardiovascular: No chest pain or discomfort and no palpitations. Hypertension and High Cholesterol. Pulmonary: No daytime asthma symptoms. Cough chronic. No wheezing. Gastrointestinal: Heartburn. No abdominal pain. No Indigestion. Acid Reflux. No Peptic Ulcer, no GI Stomach Bleed, and no Ulcers. Endocrine: No hot flashes. Muscle weakness. No Diabetes. Hypothyroid. No Hyperthyroid. Hematologic: No easy bleeding and no tendency for easy bruising. Anemia. Musculoskeletal: Arthritis, lower back pain, soft tissue swelling, and pain localized to one or more joints. Neurological: No dizziness and no convulsions. Numbness. Psychological: No anxiety and no emotional lability. Depression. No insomnia. Not crying for no reason. Skin: No dry skin. No Ulcers, no Scars, and no rash. Allergic and Immunologic: Complaint of seasonal allergic reaction. Physical Findings - Vitals taken 05/11/2022 08:53 am asn Height 63 in Weight 206 lbs Body Mass Index 36.5 kg/m2 Body Surface Area 2 m2 Standard Measurements: - Patient was overweight. Range of motion of the right shoulder is as follows. Forward flexion 80 degrees, abduction 70 degrees, external rotation 60 degrees, internal rotation to the level of L5. Abduction strength is 3 -/5, forward flexion is 3 -/5, external rotation is 3/5, internal rotation is 3/5. Passive range of motion is as follows, forward flexion and abduction 110 degrees, external rotation 60. There is significant anterior apprehension. Deltoid is contractile. Her hand is warm and well-perfused. She has 5/5 strength of the biceps, triceps, wrist flexors and extensors. Sensation is intact to light touch distally. Previous Tests Imaging: X-Ray: An X-ray was performed. Three-view shoulder x-rays performed in the office today demonstrate inferior subluxation of the humeral head on the glenoid. An axillary view was performed which demonstrates reduction of the joint with slight anterior subluxation on the glenoid. Therapy - Intervention and counseling on cessation of tobacco use. Counseling/Education - Lose weight Plan StartCited - Other Radiology/MRI: MRI Shoulder Instructions: Right shoulder MRI EndCited Nell has right sided shoulder instability, reportedly [...] is the fall or something else prior. I explained I would like to get advanced imaging, consisting of an MRI to further characterize the nature of her shoulder to include the rotator cuff and the capsule. With regard to her shoulder instability, she states that she has not had any yesi dislocation episodes but her shoulder feels loose, I provided her with an immobilizer to utilize if she feels that she is unstable. She does walk with a cane in her left hand and I explained that I do not want her tied up in an immobilizer and possibly risk of fall, she is going to use her immobilizer sparingly if she feels that the shoulder is at risk. She states that she has her to help her with ambulation. I will see her back after her MRI. She will utilize [id number] anti-inflammatories for pain control. Notes This dictation was done with voice recognition software and may contain errors and omissions. Practice Management Use of tobacco assessment performed. Care Team - Trinity Chase APRN Health Reminders - Assess BMI satisfied 05/11/2022. - Assess Tobacco Use satisfied 05/11/2022. - Follow Up Plan BMI Management satisfied 05/11/2022. - Smoking & Tobacco Cessation Intervention and Counseling satisfied 05/11/2022.
--- OUTSIDE RECORDS SUMMARY | 2024-06-06 11:36 | XMS_ITS | Clinical Summary ---
Author Organization [facility] , [facility] Address [address] [place] [address] Phone Care Team Providers Care Access Liaison Name Role Phone Sixto CORTEZ, Brandon Unavailable [...] Active Last Documented On 3 8:52AM ; [facility] Lower Back Pain 07/13/2017 Arnoldo Tafoya MD Act heide Last Documented On 8 2:01PM ; [facility] Plan of Treatment Pending Tests Order Diagnosis Results Due Ordering P alison Radiology - MRI MRI Shoulder 05/25/22 Miller Villegas MD Last Documented On 3 10:06AM ; [facility] Assessments Includes: Assessments from this encounter No Assessments Recorded Medical Equipment - Implanted Devices Includes: Current Devices No Medical Equipment Recorded Medications Includes: Medications discussed during this encounter and other current Medications Discontinued / Stopped on this date on 05/02/2018 traMADol HCl 50MG Oral Tablet Provider: Diagnosis: Last Documented On 3 8:52AM By Ross Freire ; [facility] Gabapentin 300MG Oral Capsule Provider: Diagnosis: Last Documented On 3 8:53AM By Ross Freire ; [facility] Valium 5MG Oral Tablet Provider: Diagnosis: Last Documented On 3 8:53AM By Ross Freire ; [facility] Cyclobenzaprine HCl 10MG Oral Tablet Prov ider: Diagnosis: Last Documented On 3 8:52AM By Ross Freire ; [facility] Ultram 50MG Oral Tablet Provider: Diagnosis: Last Documented On 3 8:53AM By Ross Freire ; [facility] Metoprolol Tartrate 25MG Oral Tablet Prov ider: Diagnosis: Last Documented On 3 8:53AM By Ross Freire ; [facility] Lisinopril 20MG Oral Tablet Provider: Diagnosis: Last Documented On 3 8:53AM By Ross Freire ; [facility] Synthroid 137MCG Oral Tablet Provider: Diagnosis: Last Documented On 3 8:53AM By Ross Freire ; [facility] Mobic 15MG Oral Tablet Provider: Diagnosis: Last Documented On 3 8:53AM By Ross Freire ; [facility] Current Medications (continue as prescribed) Hydroxychloroquine Sulfate 100 MG Oral Tablet 05/12/19 23 Provider: Diagnosis: Last Documented On 3 9:29AM By Ross Freire ; [facility] Bumetanide 1 MG Oral Tablet 05/11/2022 Provider: Diagnosis: Last Documented On 3 9:30AM By Ross Freire ; [facility] Levothyroxine Sodium 100 MCG Oral Tablet 05/11/2022 Provider: Diagnosis: Last Documented On 3 9:30AM By Ross Freire ; [facility] Lisinopril 2.5 MG Oral Tablet 05/11/2022 Provider: Diagnosis: Last Documented On 3 9:29AM By Ross Freire ; [facility] Omeprazole 10 MG Oral Capsule Delayed Release 05/12/19 23 Provider: Diagnosis: Last Documented On 3 9:29AM By Ross Freire ; [facility] Cetirizine HCl 5 MG Oral Tablet 05/11/2022 Provider: Diagnosis: Last Documented On 3 9:29AM By Ross Freire ; [facility] Allopurinol 100 MG Oral Tablet 05/11/2022 Provider: Diagnosis: Last Documented On 3 9:27AM By Ross Freire ; [facility] tiZANidine HCl 2 MG Oral Capsule 05/11/2022 Provider : Diagnosis: Last Documented On 3 9:27AM By Ross Freire ; [facility] MiraLax 17 GM Oral Packet 05/11/2022 Provider: Diagnosis: Last Documented On 3 9:27AM By Ross Freire ; [facility] traZODone HCl 50 MG Oral Tablet 05/11/2022 Provider: Diagnosis: Last Documented On 3 9:27AM By Ross Freire ; [facility] Montelukast Sodium 10 MG Oral Tablet 05/11/2022 Prov ider: Diagnosis: Last Documented On 3 9:28AM By Ross Freire ; [facility] guaiFENesin 200 MG Oral Tablet 05/11/2022 Provider: Diagnosis: Last Documented On 3 9:28AM By Ross Freire ; [facility], [facility] HYDROcodone-Acetaminophen 5-325 MG Oral Tablet 023 Provider: Diagnosis: Last Documented On 3 9:28AM By Ross Freire ; [facility] Medications Administered Includes: Administered Medications from this [...] Active Last Documented On 3 12:50PM ; [facility] Percocet Allergy Skin Rashes / Eruption of skin 9 Active Last Documented On 3 12:50PM ; [facility] OTHER Allergy Fioxin, Effexor 05/17/2005 Act heide Last Documented On 3 12:50PM ; [facility] HYDROmorphone HCl Allergy Skin Rashes / Eruption of skin, Hives / Urticaria, Shortness of Breath / Dyspnea, tongue swelling 03/20/2018 Active Last Documented On 3 12:50PM ; [facility], [facility] Dilaudid Allergy 07/13/2017 Active Last Documented On 3 12:50PM ; [facility] Encounters Encounter Provider Location Date Check-In Time Check-Out Time Diagnosis [facility] Miller Villegas MD [facility] 05/11/2022 10:14AM 11:59PM Insurance Includes: Active Insurance Policies Plan Name Member ID Group # Subscriber Relationship Effect heide Dates 1 - Medicare Part B [facility] [id number] Nell Mejia Self 2 - PRIME [id number] Nell Mejia Self 02/20/2022 - Unknown Clinical Notes Includes: Clinical Notes from this encounter No Clinical Notes Recorded
--- OUTSIDE RECORDS SUMMARY | 2024-06-06 11:36 | XMS_ITS | Clinical Summary ---
Author Organization [facility] , [facility] Address [address] [place] [address] Phone Care Team Providers Care Packaging Coordinator Name Role Phone Sixto CORTEZ, Brandon Unavailable [phone] Trinity Chase APRN Primary Care Provider [phone] Reason for Visit and Chief Complaint The Chief Complaint is: Right Shoulder Pain Problems Includes: Problems addressed during this encounter and other active Problems Current Visit Onset Date Resolved Date Provider Conditio n Status Lower Back Pain 07/13/2017 Arnoldo Tafoya MD Act heide Last Documented On 8 2:01PM ; [facility] Past Visits Onset Date Resolved Date Provider Condition Status Joint Pain, Localized in the Right Shoulder 05/11/2022 Miller Villegas MD Active Last Documented On 3 8:52AM ; [facility] Plan of Treatment Nell has [...] tendon tear and a partial tear of the posterior inferior glenohumeral ligament. We discussed in detail the, risks and benefits of non-operative (therapy, anti-inflammatories) vs. operative intervention (rotator cuff repair). Given her age, smoking status, and functional status, I explained that her healing process will be delayed and she is at an increased chance of re-rupture. I also explained that a rotator cuff repair will not prevent repeat dislocations in the future. I expressed to the patient that delaying surgery for too long could make the rotator cuff tear non-repairable, she is going to consider her options and will contact our office. - Last Documented On 05/20/2022 3:05PM ; [facility], [facility] Pending Tests Order Diagnosis Results Due Ordering [place] [facility] Radiology - MRI MRI Shoulder 05/25/22 Miller Villegas MD Last Documented On 3 10:06AM ; [facility], [facility] Instructions to patient Intervention and counseling on cessation of tobacco use Last Documented On 3 10:38AM ; [facility], [facility] Lose weight Last Documented On 3 10:38AM ; [facility], [facility] Assessments Includes: Assessments from this encounter No Assessments Recorded Instructions Includes: Instructions from this encounter Instructions to patient Intervention and counseling on cessation of tobacco use Last Documented On 3 10:38AM ; [facility] Lose weight Last Documented On 3 10:38AM ; [facility], [facility] Medical Equipment - Implanted Devices Includes: Current Devices No Medical Equipment Recorded Medications Includes: Medications discussed during this encounter and other current Medications Current Medications (continue as prescribed) Hydroxychloroquine Sulfate 100 MG Oral Tablet 05/12/19 Provider: Diagnosis: Last Documented On 3 9:29AM By Ross Guerra [facility], [facility] Bumetanide 1 MG Oral Tablet 05/11/2022 Provider: Diagnosis: Last Documented On 3 9:30AM By Ross Guerra [facility], [facility] Levothyroxine Sodium 100 MCG Oral Tablet 05/11/2022 Provider: Diagnosis: Last Documented On 3 9:30AM By Ross Guerra [facility], [facility] Lisinopril 2.5 MG Oral Tablet 05/11/2022 Provider: Diagnosis: Last Documented On 3 9:29AM By Ross Freire ; [facility] Omeprazole 10 MG Oral Capsule Delayed Release 05/12/19 23 Provider: Diagnosis: Last Documented On 3 9:29AM By Ross Freire ; [facility] Cetirizine HCl 5 MG Oral Tablet 05/11/2022 Provider: Diagnosis: Last Documented On 3 9:29AM By Ross Freire ; [facility] Allopurinol 100 MG Oral Tablet 05/11/2022 Provider: Diagnosis: Last Documented On 3 9:27AM By Ross Freire ; [facility] tiZANidine HCl 2 MG Oral Capsule 05/11/2022 Provider : Diagnosis: Last Documented On 3 9:27AM By Ross Freire ; [facility] MiraLax 17 GM Oral Packet 05/11/2022 Provider: Diagnosis: Last Documented On 3 9:27AM By Ross Freire ; [facility] traZODone HCl 50 MG Oral Tablet 05/11/2022 Provider: Diagnosis: Last Documented On 3 9:27AM By Ross Freire ; [facility] Montelukast Sodium 10 MG Oral Tablet 05/11/2022 Prov ider: Diagnosis: Last Documented On 3 9:28AM By Ross Freire ; [facility] guaiFENesin 200 MG Oral Tablet 05/11/2022 Provider: Diagnosis: Last Documented On 3 9:28AM By Ross Freire ; [facility] HYDROcodone-Acetaminophen 5-325 MG Oral Tablet 023 Provider: Diagnosis: Last Documented On 3 9:28AM By Ross Freire ; [facility] Past Medications on file TraMADol HCl 50MG Oral Tablet 03/20/2018 - 04/19/2018 Provider: Sid Carias MD Diagnosis: 1 tab every 12 hours DNF 03/28/18 Last Documented On 9 3:53PM By Nimesh Joe ; [facility] Lortab 5-500 MG OR TABS 01/11/2006 - 02/10/2006 Provid er: Brandon Henson MD Diagnosis: Last Documented On 6 9:33AM By Reed 5 User ; [facility] CeleBREX 200 MG OR CAPS 06/17/2005 - 07/17/2005 Provid er: Brandon Henson MD Diagnosis: [id number] earl pettit df Last Documented On 6 12:04PM By Jami Perez ; [facility] ULTRAM ER 200 200 OR TB24 06/17/2005 - 07/17/2005 Prov ider: Brandon Henson MD Diagnosis: earl aid [id number] df Last Documented On 6 12:03PM By Jami Perez ; [facility] ULTRAM ER 100 100 OR TB24 05/17/2005 - 06/16/2005 Prov ider: Brandon Henson MD Diagnosis: Last Documented On 6 10:19AM By Reed 6 User ; [facility] CeleBREX 200 MG OR CAPS 05/17/2005 - 06/16/2005 Provid er: Brandon Henson MD Diagnosis: Last Documented On 6 10:19AM By Reed 6 User ; [facility] Medications Administered Includes: Administered Medications from this encounter No Administered Medications Recorded Vital Signs Includes: Vital Signs from this encounter Vital Name 05/18/2022 10:38A Height (in) 63 Weight (lb) 206 Body Mass Index 36.5 Body Surface Area 2 Note: asn Last Documented: On 05/18/2022 10:39A M ; [facility] Results Includes: Results discussed during [...] after this fall. Earlier this month, approximately 4 weeks ago, she states that she was folding laundry and had some right shoulder pain as a result. A reduction maneuver was performed in the emergency department, post-reduction x-rays demonstrated inferior subluxation of the humeral head on the glenoid. Since that episode, she denies yesi instability events but reports that her shoulder feels loose. She had an MRI of the shoulder and is prepared to review those images today. Social History Description Last Updated Tobacco use 05/18/2022 Last Documented On 3 3:05PM ; [facility], [facility] No recent change in diet 05/18/2022 Last Documented On 3 3:05PM ; [facility] Not using alcohol 05/18/2022 Last Documented On 3 3:05PM ; [facility] Not using drugs 05/18/2022 Last Documented On 3 3:05PM ; [facility], [facility] Smoking Status Unknown Procedures and Surgical History Includes: Procedures from this encounter Procedures Code Diagnosis Performing Provider Service L ocation Service Date intervention and counseling on cessation of tobacco use 4000F Last Documented On 3 10:38AM ; [facility], [facility] use of tobacco assessment performed 1000F Last Documented On 3 10:38AM ; [facility] an X-ray was performed 34488 Last Documented On 3 10:38AM ; [facility], [facility] Medical History Includes: Medical History addressed [...] Status from this encounter Description No anxiety Functional Status Includes: Functional Status from this encounter No Functional Status Recorded Physical Exam Includes: Physical Exam from this encounter Allergies Includes: Active Allergies Substance Type Reaction Onset Date Resolved Date Statu s Vicodin Allergy Skin Rashes / Eruption of skin 9 Active Last Documented On 3 12:50PM ; [facility], [facility] Percocet Allergy Skin Rashes / Eruption of skin 9 Active Last Documented On 3 12:50PM ; [facility], [facility] OTHER Allergy Fioxin, Effexor 05/17/2005 Act heide Last Documented On 3 12:50PM ; [facility], [facility] HYDROmorphone HCl Allergy Skin Rashes / Eruption of skin, Hives / Urticaria, Shortness of Breath / Dyspnea, tongue swelling 03/20/2018 Active Last Documented On 3 12:50PM ; [facility], [facility] Dilaudid Allergy 07/13/2017 Active Last Documented On 3 12:50PM ; [facility], [facility] Encounters Encounter Provider Location Date Check-In Time Check- Out Time Diagnosis Follow Up Miller Villegas MD [facility] B 3 10:36AM 12:38PM Insurance Includes: Active Insurance Policies Plan Name Member ID Group # Subscriber Relationship Effect heide Dates 1 - Medicare Part B [facility] [id number] Nell Mejia Self 2 - PRIME [id number] Nell Mejia Self 02/20/2022 - Unknown Clinical Notes Includes: Clinical Notes from this encounter * Progress note Date Encounter Last Documented by 05/18/2022 Follow Up Last documented on 05/20/2022; 3:05 PM, Miller Villegas MD; [facility], [facility] Active Problems & Conditions - Joint [...] after this fall. Earlier this month, approximately 4 weeks ago, she states that she was folding laundry and had some right shoulder pain as a result. A reduction maneuver was performed in the emergency department, post-reduction x-rays demonstrated inferior subluxation of the humeral head on the glenoid. Since that episode, she denies yesi instability events but reports that her shoulder feels loose. She had an MRI of the shoulder and is prepared to review those images today. Current Medication - Allopurinol 100 MG Oral [...] MG Oral Tablet 0 days, 0 refills Social History Current diet: No recent change in diet. Tobacco use: Tobacco use. Alcohol: Not using alcohol. Drug Use: Not using drugs. Allergies - Dilaudid - HYDROmorphone HCl Reaction: Shortness of Breath / Dyspnea (Mild), Hives / Urticaria (Mild), Skin Rashes / Eruption of skin (Mild), tongue swelling (Mild) - OTHER Reaction: Fioxin, Effexor - Percocet Reaction: Skin Rashes / Eruption of skin - Vicodin Reaction: Skin Rashes / Eruption of skin Review Of Systems Systemic: Feeling tired. No [...] allergic reaction. Physical Findings - Vitals taken 05/18/2022 10:38 am asn Height 63 in Weight 206 lbs Body Mass Index 36.5 kg/m2 Body Surface Area 2 m2 Standard Measurements: - Patient was overweight. RIGHT SHOULDER Range of Motion: Abduction [70] degrees Forward flexion [80] degrees External rotation with arm at side 60 degrees Internal rotation to level of L5 Passive Range of Motion: forward flexion [110] degrees, external rotation [60] degrees Strength: Abduction/Forward flexion [3-/5], Internal rotation [3/5], External rotation [3/5]. There is significant anterior apprehension. Deltoid is contractile. 5/5 strength of the biceps, triceps, wrist flexors and extensors. Sensation is intact to light touch distally. Previous Tests Imaging: X-Ray: An X-ray was performed. MRI RIGHT SHOULDER 05/16/2022: Full-thickness supraspinatus tendon tear, likely SLAP type 1. Partial tear of the posterior inferior glenohumeral ligament. Therapy - Intervention and counseling on cessation of tobacco use. Counseling/Education - Lose weight Plan Nell has right sided shoulder instability, reportedly [...] tendon tear and a partial tear of the posterior inferior glenohumeral ligament. We discussed in detail the, risks and benefits of non-operative (therapy, anti-inflammatories) vs. operative intervention (rotator cuff repair). Given her age, smoking status, and functional status, I explained that her healing process will be delayed and she is at an increased chance of re-rupture. I also explained that a rotator cuff repair will not prevent repeat dislocations in the future. I expressed to the patient that delaying surgery for too long could make the rotator cuff tear non-repairable, she is going to consider her options and will contact our office. Notes Transcribed by Shellie Tsang, acting as a scribe for Dr. Villegas. This dictation was done with voice recognition software and may contain errors and omissions. Practice Management Use of tobacco assessment performed. Care Team - Trinity Chase APRN Health Reminders - Assess BMI satisfied 05/18/2022. - Assess Tobacco Use satisfied 05/18/2022. - Follow Up Plan BMI Management satisfied 05/18/2022. - Smoking & Tobacco Cessation Intervention and Counseling satisfied 05/18/2022.
--- OUTSIDE RECORDS SUMMARY | 2024-06-06 11:37 | XMS_ITS ---
Author Organization [facility] Address [address] [place] [address] Phone Care Team Providers Care Cleaning Associate Name Role Phone Sixto CORTEZ, Brandon Unavailable [phone] Trinity Chase APRN Primary Care Provider [phone] Problems Includes: Active, inactive, and resolved Problems All Visits Onset Date Resolved Date Provider Condition S tatus Joint Pain, Localized in the Right Shoulder 05/11/2022 Miller Villegas MD Active Last Documented On 3 8:52AM ; [facility] Lower Back Pain 07/13/2017 Arnoldo Tafoya MD Act heide Last Documented On 8 2:01PM ; [facility] Plan of Treatment Pending Tests Order Diagnosis Results Due Ordering P rovider Radiology - MRI MRI Shoulder 05/25/22 Miller Villegas MD Last Documented On 3 10:06AM ; [facility] Instructions to patient Intervention and counseling on cessation of tobacco use Last Documented On 3 12:54PM ; [facility] Lose weight Last Documented On 3 12:50PM ; [facility] Intervention and counseling on cessation of tobacco use Last Documented On 3 10:38AM ; [facility] Lose weight Last Documented On 3 10:38AM ; [facility] Intervention and counseling on cessation of tobacco use Last Documented On 3 9:08AM ; [facility] Lose weight Last Documented On 3 9:08AM ; [facility] Instructions for patient to see pcp for bp and wt Last Documented On 9 9:06AM ; [facility] Intervention and counseling on cessation of tobacco use Last Documented On 9 9:06AM ; [facility] Lose weight Last Documented On 9 9:06AM ; [facility] Instructions for patient SEE PCP FOR WEIGHT MANAGEMENT Last Documented On 9 3:02PM ; [facility] Intervention and counseling on cessation of tobacco use Last Documented On 9 2:59PM ; [facility] Lose weight Last Documented On 9 3:02PM ; [facility] Intervention and counseling on cessation of tobacco use Last Documented On 8 9:03AM ; [facility] Intervention and counseling on cessation of tobacco use Last Documented On 8 2:05PM ; [facility] Education and Decision Aids were provided during visit for: Health seminar on smoking ce ssation Last Documented On 9 9:06AM ; [facility] Health seminar on smoking ce ssation Last Documented On 9 3:02PM ; [facility] Health seminar on smoking ce ssation Last Documented On 8 9:03AM ; [facility] Health seminar on smoking ce ssation Last Documented On 8 2:05PM ; [facility] Assessments Includes: Assessments for all patient encounters No Assessments Recorded Instructions Includes: Instructions for all patient encounters Instructions to patient Intervention and counseling on cessation of tobacco use Last Documented On 3 12:54PM ; [facility] Lose weight Last Documented On 3 12:50PM ; [facility] Intervention and counseling on cessation of tobacco use Last Documented On 3 10:38AM ; [facility] Lose weight Last Documented On 3 10:38AM ; [facility] Intervention and counseling on cessation of tobacco use Last Documented On 3 9:08AM ; [facility] Lose weight Last Documented On 3 9:08AM ; [facility] Instructions for patient to see pcp for bp and wt Last Documented On 9 9:06AM ; [facility] Intervention and counseling on cessation of tobacco use Last Documented On 9 9:06AM ; [facility] Lose weight Last Documented On 9 9:06AM ; [facility] Instructions for patient SEE PCP FOR WEIGHT MANAGEMENT Last Documented On 9 3:02PM ; [facility] Intervention and counseling on cessation of tobacco use Last Documented On 9 2:59PM ; [facility] Lose weight Last Documented On 9 3:02PM ; [facility] Intervention and counseling on cessation of tobacco use Last Documented On 8 9:03AM ; [facility] Intervention and counseling on cessation of tobacco use Last Documented On 8 2:05PM ; [facility] Education and Decision Aids were provided during visit for: Health seminar on smoking ce ssation Last Documented On 9 9:06AM ; [facility] Health seminar on smoking ce ssation Last Documented On 9 3:02PM ; [facility] Health seminar on smoking ce ssation Last Documented On 8 9:03AM ; [facility] Health seminar on smoking ce ssation Last Documented On 8 2:05PM ; [facility] Medical Equipment - Implanted Devices Includes: Current and historical Devices No Medical Equipment Recorded Medications Includes: Current and historical Medications Current Medications (continue as prescribed) Hydroxychloroquine Sulfate 100 MG Oral Tablet 05/12/19 23 Provider: Diagnosis: Last Documented On 3 9:29AM By Ross Freire ; [facility] Bumetanide 1 MG Oral Tablet 05/11/2022 Provider: Diagnosis: Last Documented On 3 9:30AM By Ross Freire ; [facility] Levothyroxine Sodium 100 MCG Oral Tablet 05/11/2022 Provider: Diagnosis: Last Documented On 3 9:30AM By Ross Freire ; [facility] Lisinopril 2.5 MG Oral Tablet 05/11/2022 Provider: Diagnosis: Last Documented On 3 9:29AM By Ross Freire ; [facility] Omeprazole 10 MG Oral Capsule Delayed Release 05/12/19 Provider: Diagnosis: Last Documented On 3 9:29AM By Ross Freire ; [facility] Cetirizine HCl 5 MG Oral Tablet 05/11/2022 Provider: Diagnosis: Last Documented On 3 9:29AM By Ross Freire ; [facility] Allopurinol 100 MG Oral Tablet 05/11/2022 Provider: Diagnosis: Last Documented On 3 9:27AM By Ross Freire ; [facility] tiZANidine HCl 2 MG Oral Capsule 05/11/2022 Provider : Diagnosis: Last Documented On 3 9:27AM By Ross Freire ; [facility] MiraLax 17 GM Oral Packet 05/11/2022 Provider: Diagnosis: Last Documented On 3 9:27AM By Ross Freire ; [facility] traZODone HCl 50 MG Oral Tablet 05/11/2022 Provider: Diagnosis: Last Documented On 3 9:27AM By Ross Freire ; [facility] Montelukast Sodium 10 MG Oral Tablet 05/11/2022 Prov ider: Diagnosis: Last Documented On 3 9:28AM By Ross Freire ; [facility] guaiFENesin 200 MG Oral Tablet 05/11/2022 Provider: Diagnosis: Last Documented On 3 9:28AM By Ross rFeire ; [facility] HYDROcodone-Acetaminophen 5-325 MG Oral Tablet 023 Provider: Diagnosis: Last Documented On 3 9:28AM By Ross Freire ; [facility] Past Medications on file traMADol HCl 50MG Oral Tablet 05/02/2018 - 05/11/2022 Provider: Diagnosis: Last Documented On 3 8:52AM By Ross Freire ; [facility] TraMADol HCl 50MG Oral Tablet 03/20/2018 - 04/19/2018 Provider: Sid Carias MD Diagnosis: 1 tab every 12 hours DNF 03/28/18 Last Documented On 9 3:53PM By Nimesh Joe ; [facility] Gabapentin 300MG Oral Capsule 03/20/2018 - 05/11/2022 Provider: Diagnosis: Last Documented On 3 8:53AM By Ross Freire ; [facility] Valium 5MG Oral Tablet 03/20/2018 - 05/11/2022 Provide r: Diagnosis: Last Documented On 3 8:53AM By Ross Freire ; [facility] Cyclobenzaprine HCl 10MG Oral Tablet 03/20/2018 - 04/21 Provider: Diagnosis: Last Documented On 3 8:52AM By Ross Freire ; [facility] Ultram 50MG Oral Tablet 03/20/2018 - 05/11/2022 Provid er: Diagnosis: Last Documented On 3 8:53AM By Ross Freire ; [facility] Metoprolol Tartrate 25MG Oral Tablet 03/20/2018 - 04/21 Provider: Diagnosis: Last Documented On 3 8:53AM By Ross Freire ; [facility] Lisinopril 20MG Oral Tablet 03/20/2018 - 05/11/2022 Pr ovider: Diagnosis: Last Documented On 3 8:53AM By Ross Freire ; [facility] Synthroid 137MCG Oral Tablet 03/20/2018 - 05/11/2022 P rovider: Diagnosis: Last Documented On 3 8:53AM By Ross Freire ; [facility] Mobic 15MG Oral Tablet 03/20/2018 - 05/11/2022 Provide r: Diagnosis: Last Documented On 3 8:53AM By Ross Freire ; [facility] Cyclobenzaprine HCl 10MG Oral Tablet 09/14/2017 - 02/21 Provider: Diagnosis: Last Documented On 9 2:58PM By Nimesh Joe ; [facility] Ultram 50MG Oral Tablet 09/14/2017 - 03/20/2018 Provid er: Diagnosis: Last Documented On 9 2:57PM By Nimesh Joe ; [facility] Lortab 5-500 MG OR TABS 01/11/2006 - 02/10/2006 Provid er: Brandon Henson MD Diagnosis: Last Documented On 6 9:33AM By Derek 5 User ; [facility] CeleBREX 200 MG OR CAPS 06/17/2005 - 07/17/2005 Provid er: Brandon Henson MD Diagnosis: [id number] [facility] df Last Documented On 6 12:04PM By Jami Perez ; [facility] ULTRAM ER 200 200 OR TB24 06/17/2005 - 07/17/2005 Prov ider: Brandon Henson MD Diagnosis: [facility] [id number] df Last Documented On 6 12:03PM By Jami Perez ; [facility] ULTRAM ER 100 100 OR TB24 05/17/2005 - 06/16/2005 Prov ider: Brandon Henson MD Diagnosis: Last Documented On 6 10:19AM By Derek 6 User ; [facility] CeleBREX 200 MG OR CAPS 05/17/2005 - 06/16/2005 Provid er: Brandon Henson MD Diagnosis: Last Documented On 6 10:19AM By Derek 6 User ; [facility] Medications Administered Includes: Administered Medications in patient's chart No Administered Medications Recorded Results Includes: Results from 06/07/2023 through 06/06/2024 No Results Recorded For Specified Dates History of Present Illness History of Present Illness not supported for this document type No History of Present Illness Recorded Social History Description Last Updated Tobacco use 05/18/2022 Last Documented On 3 3:05PM ; [facility] No recent change in diet 05/18/2022 Last Documented On 3 3:05PM ; [facility] Not using alcohol 05/18/2022 Last Documented On 3 3:05PM ; [facility] Not using drugs 05/18/2022 Last Documented On 3 3:05PM ; [facility] Caffeine use 05/11/2022 Last Documented On 3 10:06AM ; [facility] Not exercising regularly 05/11/2022 Last Documented On 3 10:06AM ; [facility] Yes, current smoker. 05/11/2022 Last Documented On 3 10:06AM ; [facility] No recent change in diet 03/20/2018 Last Documented On 9 3:57PM ; [facility] Smoking status Current every day smoker 07/13/2017 Last Documented On 8 2:05PM ; [facility] Current smoker 07/13/2017 Last Documented On 8 2:05PM ; [facility] Procedures and Surgical History Surgical History Last Updated Total hip replacement 05/11/2022 Last Documented On 3 10:06AM ; [facility] Medical History Includes: Medical History in patient's chart Description Last Updated Anemia 05/11/2022 Last Documented On 3 10:06AM ; [facility] Arthritis 05/11/2022 Last Documented On 3 10:06AM ; [facility] Depression 05/11/2022 Last Documented On 3 10:06AM ; [facility] Heartburn / Acid Reflux 05/11/2022 Last Documented On 3 10:06AM ; [facility] History of Blood Transfusion 05/11/2022 Last Documented On 3 10:06AM ; [facility] History of Rheumatology 05/11/2022 Last Documented On 3 10:06AM ; [facility] Hypertension 05/11/2022 Last Documented On 3 10:06AM ; [facility] Kidney Disease 05/11/2022 Last Documented On 3 10:06AM ; [facility] Thyroid Disease 05/11/2022 Last Documented On 3 10:06AM ; [facility] Facet rhizotomy 07/13/2017 Last Documented On 8 2:05PM ; [facility] Arthritic joint problems 07/13/2017 Last Documented On 8 2:05PM ; [facility] History of depression 07/13/2017 Last Documented On 8 2:05PM ; [facility] Intermittent hypertension 07/13/2017 Last Documented On 8 2:05PM ; [facility] Family History Includes: Family History in patient's chart Description Last Updated Family history of heart disease 05/12/19 23 Last Documented On 3 10:06AM ; [facility] Family history of thromboembolic disease 05/11/2022 Last Documented On 3 10:06AM ; [facility] Maternal history of thromboembolic disea se 05/11/2022 Last Documented On 3 10:06AM ; [facility] Maternal history of family history of he art disease 07/13/2017 Last Documented On 8 2:05PM ; [facility] Review of Systems Review of Systems not supported for this document type No Review of Systems Recorded Mental Status Description No anxiety Depression Functional Status No Functional Status Recorded Physical Exam Physical Exam not supported for this document type No Physical Exam Recorded Allergies Includes: Active, inactive, and resolved Allergies Substance Type Reaction Onset Date Resolved Date Statu s Vicodin Allergy Skin Rashes / Eruption of skin 9 Active Last Documented On 3 12:50PM ; [facility] Percocet Allergy Skin Rashes / Eruption of skin 9 Active Last Documented On 3 12:50PM ; [facility] OTHER Allergy Fioxin, Effexor 05/17/2005 Act heide Last Documented On 3 12:50PM ; [facility] HYDROmorphone HCl Allergy Skin Rashes / Eruption of skin, Hives / Urticaria, Shortness of Breath / Dyspnea, tongue swelling 03/20/2018 Active Last Documented On 3 12:50PM ; [facility] Dilaudid Allergy 07/13/2017 Active Last Documented On 3 12:50PM ; [facility] Insurance Includes: Active Insurance Policies Plan Name Member ID Group # Subscriber Relationship Effect heide Dates 1 - Medicare Part B [facility] [id number] Nell Mejia Self 2 - PRIME [id number] Nell Mejia Self 02/20/2022 - Unknown Clinical Notes Includes: Signed Clinical Notes starting from 02/03/2022 No Clinical Notes Recorded
--- OUTSIDE RECORDS SUMMARY | 2024-06-06 11:37 | XMS_ITS | Clinical Summary ---
Author Organization [facility] Address [address] [place] [address] Phone Care Team Providers Care Plow Shaker Name Role Phone Sixto CORTEZ, Brandon Unavailable [phone] Trinity Chase APRN Primary Care Provider [phone] Reason for Visit and Chief Complaint The Chief Complaint is: Right Shoulder Pain Problems Includes: Problems addressed during this encounter and other active Problems Current Visit Onset Date Resolved Date Provider Conditio n Status Lower Back Pain 07/13/2017 Arnoldo Tafoya MD Act heide Last Documented On 8 2:01PM ; [facility] Past Visits Onset Date Resolved Date Provider Condition Status Joint Pain, Localized in the Right Shoulder 05/11/2022 Miller Villegas MD Active Last Documented On 3 8:52AM ; [facility] Plan of Treatment Nell has right sided [...] of the posterior inferior glenohumeral ligament. We again discussed in great detail the, risks and benefits of non-operative (therapy, anti-inflammatories) vs. operative intervention (rotator cuff repair). Given her age, smoking status, and functional status, I explained that her healing process will likely be delayed and she is at an significantly increased chance of re-rupture or failure of repair. I also explained that a rotator cuff repair will not prevent repeat dislocations in the future. Surgical vs. nonsurgical treatment options were discussed with the patient. The risks and benefits of each were discussed in detail. With regard to surgery the major risks, to include but not limited to bleeding, infection, nerve and blood vessel injury, tendon injury, residual pain, numbness, stiffness, blood clots and risks related to anesthesia including were discussed. The patient understands the risk of surgery to include but are not limited to infection, possible nerve damage, tendon or vessel injury, scar sensitivity and anesthesia. The patient understands the need for postoperative rehabilitation and therapy. We discussed the possibility of surgical procedure failure, persistent pain, loss of motion, persistent stiffness, persistent weakness, and the possible need for a revision surgery. The patient's questions were answered fully, no guarantees were provided. At the completion of this conversation, the patient elected to proceed with surgery. They will be scheduled at their earliest convenience. - Last Documented On 07/14/2022 12:27PM ; [facility] Pending Tests Order Diagnosis Results Due Ordering P alison Radiology - MRI MRI Shoulder 05/25/22 Miller Villegas MD Last Documented On 3 10:06AM ; [facility], [facility] Instructions to patient Intervention and counseling on cessation of tobacco use Last Documented On 3 12:54PM ; [facility], [facility] Lose weight Last Documented On 3 12:50PM ; [facility], [facility] Assessments Includes: Assessments from this encounter No Assessments Recorded Instructions Includes: Instructions from this encounter Instructions to patient Intervention and counseling on cessation of tobacco use Last Documented On 3 12:54PM ; [facility], [facility] Lose weight Last Documented On 3 12:50PM ; [facility] Medical Equipment - Implanted Devices Includes: Current Devices No Medical Equipment Recorded Medications Includes: Medications discussed during this encounter and other current Medications Current Medications (continue as prescribed) Hydroxychloroquine Sulfate 100 MG Oral Tablet 03/22/20 23 Provider: Diagnosis: Last Documented On 3 9:29AM By Ross Freire ; [facility] Bumetanide 1 MG Oral Tablet 05/11/2022 Provider: Diagnosis: Last Documented On 3 9:30AM By Ross Freire ; [facility] Levothyroxine Sodium 100 MCG Oral Tablet 05/11/2022 Provider: Diagnosis: Last Documented On 3 9:30AM By Ross Freire ; [facility] Lisinopril 2.5 MG Oral Tablet 05/11/2022 Provider: Diagnosis: Last Documented On 3 9:29AM By Ross Freire ; [facility] Omeprazole 10 MG Oral Capsule Delayed Release 05/12/19 Provider: Diagnosis: Last Documented On 3 9:29AM By Ross Freire ; [facility] Cetirizine HCl 5 MG Oral Tablet 05/11/2022 Provider: Diagnosis: Last Documented On 3 9:29AM By Ross Freire ; [facility] Allopurinol 100 MG Oral Tablet 05/11/2022 Provider: Diagnosis: Last Documented On 3 9:27AM By Ross Freire ; [facility] tiZANidine HCl 2 MG Oral Capsule 05/11/2022 Provider : Diagnosis: Last Documented On 3 9:27AM By Ross Freire ; [facility] MiraLax 17 GM Oral Packet 05/11/2022 Provider: Diagnosis: Last Documented On 3 9:27AM By Ross Freire ; [facility] traZODone HCl 50 MG Oral Tablet 05/11/2022 Provider: Diagnosis: Last Documented On 3 9:27AM By Ross Freire ; [facility] Montelukast Sodium 10 MG Oral Tablet 05/11/2022 Prov ider: Diagnosis: Last Documented On 3 9:28AM By Ross Freire ; [facility] guaiFENesin 200 MG Oral Tablet 05/11/2022 Provider: Diagnosis: Last Documented On 3 9:28AM By Ross Freire ; [facility] HYDROcodone-Acetaminophen 5-325 MG Oral Tablet 023 Provider: Diagnosis: Last Documented On 3 9:28AM By Ross Freire ; [facility] Past Medications on file TraMADol HCl 50MG Oral Tablet 03/20/2018 - 04/19/2018 Provider: Sid Carias MD Diagnosis: 1 tab every 12 hours DNF 03/28/18 Last Documented On 9 3:53PM By Nimesh Joe ; [facility] Lortab 5-500 MG OR TABS 01/11/2006 - 02/10/2006 Provid er: Brandon Henson MD Diagnosis: Last Documented On 6 9:33AM By Derek 5 User ; [facility] CeleBREX 200 MG OR CAPS 06/17/2005 - 07/17/2005 Provid er: Brandon Henson MD Diagnosis: [id number] [facility] df Last Documented On 6 [...] Derek 6 User ; [facility] CeleBREX 200 MG OR CAPS 05/17/2005 - 06/16/2005 Provid er: Brandon Henson MD Diagnosis: Last Documented On 6 10:19AM By Derek 6 User ; [facility] Medications Administered Includes: Administered Medications from this encounter No Administered Medications Recorded Vital Signs Includes: Vital Signs from this encounter Vital Name 06/22/2022 12:53P Height (in) 63 Weight (lb) 194 Body Mass Index 34.4 Body Surface Area 1.9 Note: bb Last Documented: On 06/22/2022 12:53P M ; [facility] Results Includes: Results discussed during [...] - Previous history of new onset pain Injury is not work related or an automotive accident - New onset 04/24/2022 Injury is not work related or an automotive accident - Stabbing pain - Pain is constant (100% of the time) - Pain is throbbing - Pain is dull, aching - Patient pain level from 1-10: 6 - Patient pain level from 1-10: 7 [...] reports that her shoulder feels loose. She is here today to discuss surgical options. Social History Description Last Updated Tobacco use 05/18/2022 Last Documented On 3 12:50PM ; [facility], [facility] No recent change in diet 05/18/2022 Last Documented On 3 12:50PM ; [facility] Not using alcohol 05/18/2022 Last Documented On 3 12:50PM ; [facility] Not using drugs 05/18/2022 Last Documented On 3 12:50PM ; [facility] Caffeine use 05/11/2022 Last Documented On 3 12:50PM ; [facility] Not exercising regularly 05/11/2022 Last Documented On 3 12:50PM ; [facility] Yes, current smoker. 05/11/2022 Last Documented On 3 12:50PM ; [facility] No recent change in diet 03/20/2018 Last Documented On 3 12:50PM ; [facility] Smoking status Current every day smoker 07/13/2017 Last Documented On 3 12:50PM ; [facility] Current smoker 07/13/2017 Last Documented On 3 12:50PM ; [facility] Procedures and Surgical History Includes: Procedures from this encounter Procedures Code Diagnosis Performing Provider Service L ocation Service Date intervention and counseling on cessation of tobacco use 4000F Last Documented On 3 12:54PM ; [facility], [facility] use of tobacco assessment performed 1000F Last Documented On 3 12:54PM ; [facility] an X-ray was performed 62133 Last Documented On 3 12:50PM ; [facility] Surgical History Last Updated Total hip replacement 05/11/2022 Last Documented On 3 12:50PM ; [facility] Medical History Includes: Medical History addressed during this encounter Description Last Updated Anemia 05/11/2022 Last Documented On 3 12:50PM ; [facility] Arthritis 05/11/2022 Last Documented On 3 12:50PM ; [facility] Depression 05/11/2022 Last Documented On 3 12:50PM ; [facility] Heartburn / Acid Reflux 05/11/2022 Last Documented On 3 12:50PM ; [facility] History of Blood Transfusion 05/11/2022 Last Documented On 3 12:50PM ; [facility] History of Rheumatology 05/11/2022 Last Documented On 3 12:50PM ; [facility] Hypertension 05/11/2022 Last Documented On 3 12:50PM ; [facility] Kidney Disease 05/11/2022 Last Documented On 3 12:50PM ; [facility] Thyroid Disease 05/11/2022 Last Documented On 3 12:50PM ; [facility], [facility] Facet rhizotomy 07/13/2017 Last Documented On 3 12:50PM ; [facility], [facility] Arthritic joint problems 07/13/2017 Last Documented On 3 12:50PM ; [facility], [facility] History of depression 07/13/2017 Last Documented On 3 12:50PM ; [facility], [facility] Intermittent hypertension 07/13/2017 Last Documented On 3 12:50PM ; [facility], [facility] Family History Includes: Family History addressed during this encounter Description Last Updated Family history of heart disease 05/12/19 Last Documented On 3 12:50PM ; [facility], [facility] Family history of thromboembolic disease 05/11/2022 Last Documented On 3 12:50PM ; [facility], [facility] Maternal history of thromboembolic disea se 05/11/2022 Last Documented On 3 12:50PM ; [facility], [facility] Maternal history of family history of he art disease 07/13/2017 Last Documented On 3 12:50PM ; [facility], [facility] Review of Systems Includes: Review of [...] and Immunologic: Complaint of seasonal allergic reaction. Reviewed on 06-22-2022 Mental Status Includes: Mental Status from this encounter Description No anxiety Depression Functional Status Includes: Functional Status from this encounter No Functional Status Recorded Physical Exam Includes: Physical Exam from this encounter Allergies Includes: Active Allergies Substance Type Reaction Onset Date Resolved Date Statu s Vicodin Allergy Skin Rashes / Eruption of skin 9 Active Last Documented On 3 12:50PM ; [facility], [facility] Percocet Allergy Skin Rashes / Eruption of skin 9 Active Last Documented On 3 12:50PM ; [facility], [facility] OTHER Allergy Fioxin, Effexor 05/17/2005 Act heide Last Documented On 3 12:50PM ; [facility] HYDROmorphone HCl Allergy Skin Rashes / Eruption of skin, Hives / Urticaria, Shortness of Breath / Dyspnea, tongue swelling 03/20/2018 Active Last Documented On 3 12:50PM ; [facility] Dilaudid Allergy 07/13/2017 Active Last Documented On 3 12:50PM ; [facility], [facility] Encounters Encounter Provider Location Date Check-In Time Check- Out Time Diagnosis Follow Up Miller Villegas MD [facility] 3 12:47PM 2:23PM Insurance Includes: Active Insurance Policies Plan Name Member ID Group # Subscriber Relationship Effect heide Dates 1 - Medicare Part B [facility] [id number] Nell Mejia Self 2 - PRIME [id number] Nell Mejia Self 02/20/2022 - Unknown Clinical Notes Includes: Clinical Notes from this encounter * Progress note Date Encounter Last Documented by 06/22/2022 Follow Up Last documented on 07/14/2022; 12:27 PM, Miller Villegas MD; [facility] Active Problems & Conditions - Joint [...] - Previous history of new onset pain Injury is not work related or an automotive accident - New onset 04/24/2022 Injury is not work related or an automotive accident - Stabbing pain - Pain is constant (100% of the time) - Pain is throbbing - Pain is dull, aching - Patient pain level from 1-10: 6 - Patient pain level from 1-10: 7 [...] reports that her shoulder feels loose. She is here today to discuss surgical options. Current Medication - Allopurinol 100 MG Oral [...] Kidney Disease Hypertension History of Rheumatology. Arthritis. Depression. Depression Facet rhizotomy. Surgical: - Total hip replacement Social History Yes, current smoker. Current diet: No recent change in diet. No recent change in diet. Caffeine use: [...] and Immunologic: Complaint of seasonal allergic reaction. Reviewed on 06-22-2022 Physical Findings - Vitals taken 06/22/2022 12:53 pm bb Height 63 in Weight 194 lbs Body Mass Index 34.4 kg/m2 Body Surface Area 1.9 m2 Standard Measurements: - Patient was overweight. [...] of the posterior inferior glenohumeral ligament. We again discussed in great detail the, risks and benefits of non-operative (therapy, anti-inflammatories) vs. operative intervention (rotator cuff repair). Given her age, smoking status, and functional status, I explained that her healing process will likely be delayed and she is at an significantly increased chance of re-rupture or failure of repair. I also explained that a rotator cuff repair will not prevent repeat dislocations in the future. Surgical vs. nonsurgical treatment options were discussed with the patient. The risks and benefits of each were discussed in detail. With regard to surgery the major risks, to include but not limited to bleeding, infection, nerve and blood vessel injury, tendon injury, residual pain, numbness, stiffness, blood clots and risks related to anesthesia including were discussed. The patient understands the risk of surgery to include but are not limited to infection, possible nerve damage, tendon or vessel injury, scar sensitivity and anesthesia. The patient understands the need for postoperative rehabilitation and therapy. We discussed the possibility of surgical procedure failure, persistent pain, loss of motion, persistent stiffness, persistent weakness, and the possible need for a revision surgery. The patient's questions were answered fully, no guarantees were provided. At the completion of this conversation, the patient elected to proceed with surgery. They will be scheduled at their earliest convenience. Notes Transcribed by Shellie Tsang, acting as a scribe for Dr. Villegas. This dictation was done with voice recognition software and may contain errors and omissions. Practice Management Use of tobacco assessment performed. Care Team - Trinity Chase APRN Health Reminders - Assess BMI satisfied 06/22/2022. - Assess Tobacco Use satisfied 05/18/2022. - Follow Up Plan BMI Management satisfied 06/22/2022. - Smoking & Tobacco Cessation Intervention and Counseling satisfied 06/22/2022.
[2024-06-06 12:01] VITALS: BP 113/74; PULSE 84; RESP 14; O2SAT 95; BMI 37.2
--- NOTE | 2024-06-06 12:13 | EXP.PAIN.SOA ---
[facility] Disclaimer: The information contained in this section may have been updated after the patient was seen, as this information can be updated by other users. Medical History COPD (chronic obstructive pulmonary disease) Rheumatoid arthritis Family History Other No significant family history Social History Smoking Status: Current every day smoker tobacco type: cigarettes packs per day: 2 second hand exposure: Yes alcohol intake: never substance use type: denies use current occupational status: other Travel in the last 8 weeks: None household members: spouse housing: house current occupational exposures/hazards: No caffeine: Yes PM Subjective & Objective Subjective Subjective:: Patient is a very pleasant 63-year-old female who presents today for follow-up of her x-ray imaging of her left shoulder and medication refill. Today she rates her pain a 4 out of 10. Patient denies any new falls or injuries. She does state that she has been using a TENS unit for her left shoulder and ended up finding the right spot to apply it and has felt like this is really ease down that pain. Patient denies any other changes. She does state that the new muscle relaxer of Flexeril 10 mg 3 times a day from our office does seem like it works better than the tizanidine and is requesting refills. Patient is also managed with [place] 7.5 mg 6 times a day from our office. She denies any side effects. Her Clifford has been reviewed and is appropriate. Review of Systems: General: No recent weight changes, no fever, no sleep disturbances Respiratory: No cough, no shortness of air, no recurring pulmonary infections Cardiovascular/peripheral vascular: No chest pain, no palpitations, no edema, no shortness of breath Gastrointestinal: No new onset incontinence, normal bowel movements reported Genitourinary: No new onset incontinence Musculoskeletal: Low back pain Psychiatric: [Normal mood/affect] Neurological: [Denies weakness in extremities], [denies balance issues] Pain at rest (0-10 scale): 4 Objective Objective:: Physical Exam: General: Alert and oriented x3, no acute distress, pleasant and cooperative Lungs: Respirations even and unlabored, symmetrical chest expansion Eyes: PERRL Musculoskeletal: Flexion and extension of lumbar [spine] somewhat guarded secondary to pain, [antalgic gait noted] Neurological: Speech clear, no gross sensory deficit Has patient had previous pain injection?: No Conservative treatment options previously tried: Home exercise plan Length of treatment: Longer than 12 weeks Meds Home Medications and Allergies Home Medications ?Medication ?Instructions ?Recorded ?Confirmed ?Type lisinopril 20 mg tablet 20 mg PO DAILY Hypertension 04/10/18 06/06/24 History levothyroxine 137 mcg tablet 137 mcg PO DAILY thyroid 09/30/18 06/06/24 History (Synthroid) trazodone 100 mg tablet 150 mg PO HS sleep 04/23/19 06/06/24 History gabapentin 600 mg tablet 600 mg PO TID Pain 05/26/21 06/06/24 History hydroxychloroquine 200 mg tablet 200 mg PO BID Arthritis 05/28/21 06/06/24 History sennosides 8.6 mg-docusate sodium 1 each PO HS bowels 05/28/21 06/06/24 History 50 mg tablet baclofen 10 mg tablet 10 mg PO TID MUSCLES 01/31/22 06/06/24 History Lactobacillus acidophilus 10 10,000 mmu cells PO DAILY IMMUNITY 03/07/22 06/06/24 History billion cell capsule (Probiotic) folic acid 1 mg tablet 1 mg PO DIRECTED SUPPLIMENT 10/31/22 06/06/24 History naloxone 4 mg/actuation nasal 4 mg intranasal Q2M PRN opioid 01/10/24 06/06/24 Rx spray (Narcan) overdose #2 ea prednisone 20 mg tablet 20 mg PO BID #10 tabs 04/24/24 06/06/24 Rx cyclobenzaprine 10 mg tablet 10 mg PO TID #42 tabs 05/09/24 06/06/24 Rx hydrocodone 7.5 mg-acetaminophen 1 tab PO .6x #180 tabs 05/09/24 06/06/24 Rx 325 mg tablet tizanidine 4 mg tablet (Zanaflex) 8 mg (2 x 4 mg) PO TID #540 tabs 05/09/24 06/06/24 Rx New Prescriptions to Start Prescriptions: Allergies Allergy/AdvReac Type Severity Reaction Status Date / Time ciprofloxacin Allergy Hives Verified 05/30/23 13:57 hydromorphone Allergy Anaphylaxis Verified 05/30/23 13:57 ofloxacin Allergy Hives Verified 05/30/23 13:57 venlafaxine Allergy Rash Verified 05/30/23 13:57 Assessment and Plan *Assessment and plan (1) Left shoulder pain: Status: Acute Category: Medical Code(s): M25.512 - Pain in left shoulder (2) Lumbar radiculopathy: Status: Chronic Category: Medical Code(s): M54.16 - Radiculopathy, lumbar region (3) Degenerative disc disease: Status: Chronic Qualifiers: Spinal region: lumbar Qualified Code(s): M51.36 - Other intervertebral disc degeneration, lumbar region Category: Medical Plan I will refill the patient's [place] and Flexeril and provide a 1 month supply of the pain medication and a 3-month supply of the muscle relaxer to [facility]. Patient was reviewed over her x-ray imaging findings with mild degenerative changes. Patient will return to clinic in 1 month. Risks and benefits of the medication have been explained in detail to the patient. The patient does understand the risk of dependence on the medication when given over a prolonged period. Patient has been advised of risks of oversedation with the prescribed medication. Narcan has been offered to the paitent in the event of oversedation. Patient has been advised that a family member should also be educated regarding administration of Narcan. The patient has been advised to consult with his/her primary care provider and pharmacist regarding drug-drug interaction of medications currently prescribed. Patient has been prescribed a controlled substance after being counseled on the medication, medication safety, and possible side effects. Opioid contract was reviewed and signed by the patient, and that they have agreed to all of the terms set forth by our compliance program. A UDS is needed to verify patient's compliance with our office pain contract. This is ordered based off specific treatments related to chronic pain with the potential to abuse certain medications. Patient has been instructed to contact the clinic with any concerns before the next appointment. Dr. Carreon has reviewed this note and agrees with this plan of care. This note was dictated using voice recognition software and make contain errors or omissions.
== END 2024-06-06 23:59 | disposition home or self-care (01) ==
PROVIDERS: PCP Nurse Practitioner; Visit Provider Nurse Practitioner Family
DX: M25.512 Pain in left shoulder (principal); M51.16 Intervertebral disc disorders with radiculopathy, lumbar region; F17.210 Nicotine dependence, cigarettes, uncomplicated
CPT/HCPCS: 99212; G0463

== ENCOUNTER 2024-07-04 13:11 | Outpatient (POV) | payer MEDICARE, OTHER, SELFPAY ==
--- NOTE | 2024-07-04 13:19 | A.OFFVIS_ITS ---
[facility] Disclaimer: The information contained in this section may have been updated after the patient was seen, as this information can be updated by other users. Medical History COPD (chronic obstructive pulmonary disease) Rheumatoid arthritis Family History Other No significant family history Social History Smoking Status: Current every day smoker tobacco type: cigarettes packs per day: 2 second hand exposure: Yes alcohol intake: never substance use type: denies use current occupational status: other Travel in the last 8 weeks?: None household members: spouse housing: house current occupational exposures/hazards: No caffeine: Yes Have you lived/traveled outside [place] in past 30 days?: No Contact w/someone who lives/traveled outside [place] past 30 days?: No Exposure to someone with infectious disease in past 14 days?: No Do you have a fever (greater than 100.4 F or 38 C)?: No Have you tested positive for COVID-19?: No Exposed to someone with COVID-19 in past 14 days?: No Do you have a sore throat?: No Do you have a cough?: No Do you have any weakness?: No Do you have any diarrhea?: No Are you experiencing any unusual bleeding?: No Do you have any muscle aches/pain?: No Do you have any abdominal pain?: No Are you experiencing loss of taste or smell?: No PM Subjective & Objective Subjective Subjective:: Patient is a very pleasant 63-year-old female who presents today for her 1 month follow-up and medication refill. Today she rates her pain a 3 out of 10. She states overall she is doing well with no new updates. Patient is currently managed with [place]ford 7.5 mg 6 times a day and Flexeril 10 mg 3 times a day. She denies any side effects. Her Clifford has been reviewed and is appropriate. Patient does not need refills on her Flexeril at this time. Review of Systems: General: No recent weight changes, no fever, no sleep disturbances Respiratory: No cough, no shortness of air, no recurring pulmonary infections Cardiovascular/peripheral vascular: No chest pain, no palpitations, no edema, no shortness of breath Gastrointestinal: No new onset incontinence, normal bowel movements reported Genitourinary: No new onset incontinence Musculoskeletal: Back pain Psychiatric: [Normal mood/affect] Neurological: [Denies weakness in extremities], [denies balance issues] Pain at rest (0-10 scale): 3 Objective Objective:: Physical Exam: General: Alert and oriented x3, no acute distress, pleasant and cooperative Lungs: Respirations even and unlabored, symmetrical chest expansion Eyes: PERRL Musculoskeletal: Flexion and extension of lumbar [spine] somewhat guarded secondary to pain, [antalgic gait noted] Neurological: Speech clear, no gross sensory deficit Has patient had previous pain injection?: No Conservative treatment options previously tried: Home exercise plan Length of treatment: Longer than 12 weeks and Prescription medications Length of treatment: Longer than 12 weeks Meds Home Medications and Allergies Home Medications ?Medication ?Instructions ?Recorded ?Confirmed ?Type lisinopril 20 mg tablet 20 mg PO DAILY Hypertension 04/10/18 06/06/24 History levothyroxine 137 mcg tablet 137 mcg PO DAILY thyroid 09/30/18 06/06/24 History (Synthroid) trazodone 100 mg tablet 150 mg PO HS sleep 04/23/19 06/06/24 History gabapentin 600 mg tablet 600 mg PO TID Pain 05/26/21 06/06/24 History hydroxychloroquine 200 mg tablet 200 mg PO BID Arthritis 05/28/21 06/06/24 History sennosides 8.6 mg-docusate sodium 1 each PO HS bowels 05/28/21 06/06/24 History 50 mg tablet baclofen 10 mg tablet 10 mg PO TID MUSCLES 01/31/22 06/06/24 History Lactobacillus acidophilus 10 10,000 mmu cells PO DAILY IMMUNITY 03/07/22 06/06/24 History billion cell capsule (Probiotic) folic acid 1 mg tablet 1 mg PO DIRECTED SUPPLIMENT 10/31/22 06/06/24 History naloxone 4 mg/actuation nasal 4 mg intranasal Q2M PRN opioid 01/10/24 06/06/24 Rx spray (Narcan) overdose #2 ea prednisone 20 mg tablet 20 mg PO BID #10 tabs 04/24/24 06/06/24 Rx tizanidine 4 mg tablet (Zanaflex) 8 mg (2 x 4 mg) PO TID #540 tabs 05/09/24 06/06/24 Rx cyclobenzaprine 10 mg tablet 10 mg PO TID #270 tabs 06/06/24 Rx hydrocodone 7.5 mg-acetaminophen 1 tab PO .6x #180 tabs 06/06/24 Rx 325 mg tablet New Prescriptions to Start Prescriptions: Allergies Allergy/AdvReac Type Severity Reaction Status Date / Time ciprofloxacin Allergy Hives Verified 05/30/23 13:57 hydromorphone Allergy Anaphylaxis Verified 05/30/23 13:57 ofloxacin Allergy Hives Verified 05/30/23 13:57 venlafaxine Allergy Rash Verified 05/30/23 13:57 Assessment and Plan *Assessment and plan (1) Lumbar radiculopathy: Status: Chronic Category: Medical Code(s): M54.16 - Radiculopathy, lumbar region (2) Degenerative disc disease: Status: Chronic Qualifiers: Spinal region: lumbar Qualified Code(s): M51.36 - Other intervertebral disc degeneration, lumbar region Category: Medical Plan I will refill her [place] and provide a 1 month supply of this medication. Patient will return to clinic in 1 month. Risks and benefits of the medication have been explained in detail to the patient. The patient does understand the risk of dependence on the medication when given over a prolonged period. Patient has been advised of risks of oversedation with the prescribed medication. Narcan has been offered to the paitent in the event of oversedation. Patient has been advised that a family member should also be educated regarding administration of Narcan. The patient has been advised to consult with his/her primary care provider and pharmacist regarding drug-drug interaction of medications currently prescribed. Patient has been prescribed a controlled substance after being counseled on the medication, medication safety, and possible side effects. Opioid contract was reviewed and signed by the patient, and that they have agreed to all of the terms set forth by our compliance program. A UDS is needed to verify patient's compliance with our office pain contract. This is ordered based off specific treatments related to chronic pain with the potential to abuse certain medications. Patient has been instructed to contact the clinic with any concerns before the next appointment. Dr. Carreon has reviewed this note and agrees with this plan of care. This note was dictated using voice recognition software and make contain errors or omissions.
[2024-07-04 15:23] VITALS: BP 122/57; PULSE 80; RESP 16; O2SAT 96; BMI 38.0
== END 2024-07-04 23:59 | disposition home or self-care (01) ==
PROVIDERS: PCP Nurse Practitioner; Visit Provider Nurse Practitioner Family
DX: M51.16 Intervertebral disc disorders with radiculopathy, lumbar region (principal); F17.210 Nicotine dependence, cigarettes, uncomplicated
CPT/HCPCS: 99212; G0463

== ENCOUNTER 2024-08-01 13:05 | Outpatient (POV) | payer MEDICARE, OTHER, SELFPAY ==
--- NOTE | 2024-08-01 13:14 | EXP.PAIN.SOA ---
[facility] Disclaimer: The information contained in this section may have been updated after the patient was seen, as this information can be updated by other users. Medical History COPD (chronic obstructive pulmonary disease) Rheumatoid arthritis Family History Other No significant family history Social History Smoking Status: Current every day smoker tobacco type: cigarettes packs per day: 2 second hand exposure: Yes alcohol intake: never substance use type: denies use current occupational status: other Travel in the last 8 weeks?: None household members: spouse housing: house current occupational exposures/hazards: No caffeine: Yes PM Subjective & Objective Subjective Subjective:: Patient is a pleasant 63-year-old female who presents today for her 1 month medication refill. Today she rates her pain a 6 out of 10. She denies any new injuries or falls. She does state the last few days she has had increased pain they are at her low back around the right side at her SI joint. Patient states that they have been working out in the yard and feels like this is what is the cause. Patient would like to wait and see if this does improve before she were to try any additional injection therapy. Patient is currently prescribed [place] 7.5 mg 6 times a day and Flexeril 10 mg 3 times a day. She denies any side effects. Her Clifford has been reviewed and is appropriate. Review of Systems: General: No recent weight changes, no fever, no sleep disturbances Respiratory: No cough, no shortness of air, no recurring pulmonary infections Cardiovascular/peripheral vascular: No chest pain, no palpitations, no edema, no shortness of breath Gastrointestinal: No new onset incontinence, normal bowel movements reported Genitourinary: No new onset incontinence Musculoskeletal: Low back pain, right-sided Psychiatric: [Normal mood/affect] Neurological: [Denies weakness in extremities], [denies balance issues] Pain at rest (0-10 scale): 6 Objective Objective:: Physical Exam: General: Alert and oriented x3, no acute distress, pleasant and cooperative Lungs: Respirations even and unlabored, symmetrical chest expansion Eyes: PERRL Musculoskeletal: Flexion and extension of lumbar [spine] somewhat guarded secondary to pain, [antalgic gait noted] Neurological: Speech clear, no gross sensory deficit Has patient had previous pain injection?: No Conservative treatment options previously tried: Prescription medications Length of treatment: Longer than 12 weeks Meds Home Medications and Allergies Home Medications ?Medication ?Instructions ?Recorded ?Confirmed ?Type lisinopril 20 mg tablet 20 mg PO DAILY Hypertension 04/10/18 07/04/24 History levothyroxine 137 mcg tablet 137 mcg PO DAILY thyroid 09/30/18 07/04/24 History (Synthroid) trazodone 100 mg tablet 150 mg PO HS sleep 04/23/19 07/04/24 History gabapentin 600 mg tablet 600 mg PO TID Pain 05/26/21 07/04/24 History hydroxychloroquine 200 mg tablet 200 mg PO BID Arthritis 05/28/21 07/04/24 History sennosides 8.6 mg-docusate sodium 1 each PO HS bowels 05/28/21 07/04/24 History 50 mg tablet baclofen 10 mg tablet 10 mg PO TID MUSCLES 01/31/22 07/04/24 History Lactobacillus acidophilus 10 10,000 mmu cells PO DAILY IMMUNITY 03/07/22 07/04/24 History billion cell capsule (Probiotic) folic acid 1 mg tablet 1 mg PO DIRECTED SUPPLIMENT 10/31/22 07/04/24 History naloxone 4 mg/actuation nasal 4 mg intranasal Q2M PRN opioid 01/10/24 07/04/24 Rx spray (Narcan) overdose #2 ea prednisone 20 mg tablet 20 mg PO BID #10 tabs 04/24/24 07/04/24 Rx tizanidine 4 mg tablet (Zanaflex) 8 mg (2 x 4 mg) PO TID #540 tabs 05/09/24 07/04/24 Rx cyclobenzaprine 10 mg tablet 10 mg PO TID #270 tabs 06/06/24 07/04/24 Rx hydrocodone 7.5 mg-acetaminophen 1 tab PO .6x #180 tabs 07/04/24 Rx 325 mg tablet New Prescriptions to Start Prescriptions: Allergies Allergy/AdvReac Type Severity Reaction Status Date / Time ciprofloxacin Allergy Hives Verified 05/30/23 13:57 hydromorphone Allergy Anaphylaxis Verified 05/30/23 13:57 ofloxacin Allergy Hives Verified 05/30/23 13:57 venlafaxine Allergy Rash Verified 05/30/23 13:57 Assessment and Plan *Assessment and plan (1) Left shoulder pain: Status: Acute Category: Medical Code(s): M25.512 - Pain in left shoulder (2) Degenerative disc disease: Status: Chronic Qualifiers: Spinal region: lumbar Qualified Code(s): M51.36 - Other intervertebral disc degeneration, lumbar region Category: Medical (3) Lumbar radiculopathy: Status: Chronic Category: Medical Code(s): M54.16 - Radiculopathy, lumbar region Plan I will refill her [place] and provide a 1 month supply of this medication. Patient will return to clinic in 1 month for reevaluation of symptoms and plan of care. Risks and benefits of the medication have been explained in detail to the patient. The patient does understand the risk of dependence on the medication when given over a prolonged period. Patient has been advised of risks of oversedation with the prescribed medication. Narcan has been offered to the paitent in the event of oversedation. Patient has been advised that a family member should also be educated regarding administration of Narcan. The patient has been advised to consult with his/her primary care provider and pharmacist regarding drug-drug interaction of medications currently prescribed. Patient has been prescribed a controlled substance after being counseled on the medication, medication safety, and possible side effects. Opioid contract was reviewed and signed by the patient, and that they have agreed to all of the terms set forth by our compliance program. A UDS is needed to verify patient's compliance with our office pain contract. This is ordered based off specific treatments related to chronic pain with the potential to abuse certain medications. Patient has been instructed to contact the clinic with any concerns before the next appointment. Dr. Carreon has reviewed this note and agrees with this plan of care. This note was dictated using voice recognition software and make contain errors or omissions.
[2024-08-01 13:41] VITALS: BP 121/73; PULSE 74; RESP 16; O2SAT 97; BMI 38.0
--- OUTSIDE RECORDS SUMMARY | 2024-08-01 14:07 | XMS_ITS | Data Portability ---
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 Plan of Treatment Reminders Order Date Submit Date Provider Last Modified By Organization Details Last Modified Time Details Appointments FOLLOW UP 15 2024 01:30P Nini Chase APRN Not available Not available Not available Lab HbA1c (hemoglob in A1c), blood 2023 024 [facility]), [address] [place], [address], 02/09/2024 11:10:04 cobalamin and folate panel, serum 2023 024 [facility] ([place]), [address] [place], [address], 02/09/2024 11:10:04 vitamin D, 25-hydrox y, total, serum 2023 024 [facility] ([place]), [address] [place], [address], 02/09/2024 11:10:04 lipid panel, serum 2023 024 [facility] ([place]), [address] [place], [address], 02/09/2024 11:10:03 CMP, serum or plasma 2023 024 [facility] ([place]), [address], [place], [address], 02/09/2024 11:10:03 CBC w/ auto diff 2023 024 [facility] ([place]), [address], [place], [address], 02/09/2024 11:10:02 TSH + free T4, serum 2023 024 [facility] ([place]), [address], [place], [address], 02/09/2024 11:10:02 Referral None recorded. Procedures None recorded. Surgeries None recorded. Imaging LDCT, chest, for lung cancer screening 2023 024 [facility] (Scheduling), [address], [place], [id number], 11/22/2023 15:02:37 MAMMO, screening , digital, bilateral 2023 024 [facility] (Scheduling), [address], [place], [id number], 11/28/2023 12:26:39 Medication Orders Depo-Medr ol 40 mg/mL suspensio n for injection 2024 025 [email or web address] Not available 04/24/2024 14:30:[address] 10 mg tablet 2023 024 [facility], [facility], [place], [address], 11/07/2023 13:39:25 bumetanid e 1 mg tablet 2023 024 [facility], [facility], [place], [address], 11/07/2023 13:39:22 metoprolo l succinate ER 25 mg tablet,ex tended release 24 hr 2023 024 [facility], [address] [place] [address], [id number], 11/07/2023 13:39:20 trazodone 150 mg tablet 2023 024 [facility], [address] [place] [address], [address], 11/07/2023 13:39:20 rosuvasta tin 40 mg tablet 2023 024 [facility], [address] [place] [address], [address], 11/07/2023 13:39:22 gabapenti n 600 mg tablet 2023 024 [facility], [address] [place] [address], [id number], 11/07/2023 13:39:33 Patient TargetsNo targets recorded. Patient InstructionsNo instructions recorded. Reason for Referral None Reported. Results Created Date Observation Date Name Description Value Unit Range Abnormal Flag Note LastModifiedBy Organization Detail LastModifiedTime 02/08/20 24 02/09/2024 TSH+F REE T4 TSH 9.270 uIU/m L 0.450- 4.500 above high normal Not Available [facility] ([facility]) [address] [facility], [place], [address], 02/09/2024 11:10:02 02/08/20 24 02/09/2024 TSH+F REE T4 T4,free(dire ct) 1.23 NG/dL 0.82-1 .77 normal Not Available [facility] ([facility]) [address] [facility], [place], [address], 02/09/2024 11:10:02 02/08/20 24 02/09/2024 CBC WITH DIFFE RENTI AL/PL ATELE T WBC 8.2 x10e3 /uL 3.4-10 .8 normal Not Available [facility] ([facility]) [address] [facility], [place], [address], 02/09/2024 11:10:02 02/08/20 24 02/09/2024 CBC WITH DIFFE RENTI AL/PL ATELE T RBC 3.79 x10e6 /uL 3.77-5 .28 normal Not Available [facility] ([facility]) [address] [facility], [place], [address], 02/09/2024 11:10:02 02/08/20 24 02/09/2024 CBC WITH DIFFE RENTI AL/PL ATELE T hemoglobin 12.6 g/dL 11.1-1 5.9 normal Not Available [facility] ([facility]) [address] [facility], [place], [address], 02/09/2024 11:10:02 02/08/20 24 02/09/2024 CBC WITH DIFFE RENTI AL/PL ATELE T hematocrit 38.3 % 34.0-4 6.6 normal Not Available [facility] ([facility]) [address] [place], [address], 02/09/2024 11:10:02 02/08/20 24 02/09/2024 CBC WITH DIFFE RENTI AL/PL ATELE T MCV 101 fL 79-97 above high normal Not Available [facility] ([facility]) [address] [place], [address], 02/09/2024 11:10:02 02/08/20 24 02/09/2024 CBC WITH DIFFE RENTI AL/PL ATELE T MCH 33.2 pg 26.6-3 3.0 above high normal Not Available [facility] ([facility]) [address] [place], [address], 02/09/2024 11:10:02 02/08/20 24 02/09/2024 CBC WITH DIFFE RENTI AL/PL ATELE T MCHC 32.9 g/dL 31.5-3 5.7 normal Not Available [facility] ([facility]) [address] [facility], [place], [address], 02/09/2024 11:10:02 02/08/20 24 02/09/2024 CBC WITH DIFFE RENTI AL/PL ATELE T RDW 15.1 % 11.7-1 5.4 Not Available [facility] ([facility]) [address] [facility], [place], [address], 02/09/2024 11:10:02 02/08/20 24 02/09/2024 CBC WITH DIFFE RENTI AL/PL ATELE T platelets 222 x10e3 /uL 150-45 0 normal Not Available [facility] ([facility]) [address] [facility], [place], [address], 02/09/2024 11:10:02 02/08/20 24 02/09/2024 CBC WITH DIFFE RENTI AL/PL ATELE T neutrophils 60 % not estab. normal Not Available [facility] ([facility]) [address] [facility], [place], [address], 02/09/2024 11:10:02 02/08/20 24 02/09/2024 CBC WITH DIFFE RENTI AL/PL ATELE T lymphs 29 % not estab. normal Not Available [facility] ([facility]) [address] [facility], [place], [address], 02/09/2024 11:10:02 02/08/20 24 02/09/2024 CBC WITH DIFFE RENTI AL/PL ATELE T monocytes 9 % not estab. normal Not Available [facility] ([facility]) [address] [facility], [place], [address], 02/09/2024 11:10:02 02/08/20 24 02/09/2024 CBC WITH DIFFE RENTI AL/PL ATELE T eos 1 % not estab. normal Not Available [facility] ([facility]) [address] [facility], [place], [address], 02/09/2024 11:10:02 02/08/20 24 02/09/2024 CBC WITH DIFFE RENTI AL/PL ATELE T basos 1 % not estab. 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 0 normal Not Available [facility] ([facility]) [address] [facility], [place], [address], 02/09/2024 11:10:02 02/08/20 24 02/09/2024 CBC WITH DIFFE RENTI AL/PL ATELE T lymphs (absolute) 2.4 x10e3 /uL 0.7-3. 1 normal Not Available [facility] ([facility]) [address] [place], [address], 02/09/2024 11:10:02 02/08/20 24 02/09/2024 CBC WITH DIFFE RENTI AL/PL ATELE T monocytes(ab solute) 0.7 x10e3 /uL 0.1-0. 9 normal Not Available [facility] ([facility]) [address] [place], [address], 02/09/2024 11:10:02 02/08/20 24 02/09/2024 CBC WITH DIFFE RENTI AL/PL ATELE T eos (absolute) 0.1 x10e3 /uL 0.0-0. 4 normal Not Available [facility] ([facility]) [address] [facility], [place], [address], 02/09/2024 11:10:02 02/08/20 24 02/09/2024 CBC WITH DIFFE RENTI AL/PL ATELE T baso (absolute) 0.1 x10e3 /uL 0.0-0. 2 normal Not Available [facility] ([facility]) [address] [facility], [place], [address], 02/09/2024 11:10:02 02/08/20 24 02/09/2024 CBC WITH DIFFE RENTI AL/PL ATELE T immature granulocytes 0 % not estab. Not Available [facility] ([facility]) [address] [facility], [place], [address], 02/09/2024 11:10:02 02/08/20 24 02/09/2024 CBC WITH DIFFE RENTI AL/PL ATELE T immature grans (abs) 0.0 x10e3 /uL 0.0-0. 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 METAB OLIC PANEL (14) glucose 87 mg/dL 70-99 normal Not Available [facility] ([facility]) [address] [facility] [place], [address], 02/09/2024 11:10:03 02/08/20 24 02/09/2024 COMP. METAB OLIC PANEL (14) BUN 10 mg/dL 8-27 normal Not Available [facility] ([facility]) [address] [facility] [place], [address], 02/09/2024 11:10:03 02/08/20 24 02/09/2024 COMP. METAB OLIC PANEL (14) creatinine 1.19 mg/dL 0.57-1 .00 above high normal Not Available [facility] ([facility]) [address] [facility] [place], [address], 02/09/2024 11:10:03 02/08/20 24 02/09/2024 COMP. METAB OLIC PANEL (14) eGFR 52 mL/mi n/1.7 3 >59 below low normal Not Available [facility] ([facility]) [address] [facility] [place], [address], 02/09/2024 11:10:03 02/08/20 24 02/09/2024 COMP. METAB OLIC PANEL (14) BUN/creatini ne ratio 8 12-28 below low normal Not Available [facility] ([facility]) [address] [facility] [place], [address], 02/09/2024 11:10:03 02/08/20 24 02/09/2024 COMP. METAB OLIC PANEL (14) sodium 143 mmol/ L 134-14 4 normal Not Available [facility] ([facility]) [address] [facility] [place], [address], 02/09/2024 11:10:03 02/08/20 24 02/09/2024 COMP. METAB OLIC PANEL (14) potassium 4.8 mmol/ L 3.5-5. 2 normal Not Available [facility] ([facility]) [address] [facility] [place], [address], 02/09/2024 11:10:03 02/08/20 24 02/09/2024 COMP. METAB OLIC PANEL (14) chloride 105 mmol/ L 96-106 normal Not Available [facility] ([facility]) [address] [place], [address], 02/09/2024 11:10:03 02/08/20 24 02/09/2024 COMP. METAB OLIC PANEL (14) carbon dioxide, total 24 mmol/ L 20-29 normal Not Available [facility] ([facility]) [address] [place], [address], 02/09/2024 11:10:03 02/08/20 24 02/09/2024 COMP. METAB OLIC PANEL (14) calcium 9.2 mg/dL 8.7-10 .3 normal Not Available [facility] ([facility]) [address] [facility] [place], [address], 02/09/2024 11:10:03 02/08/20 24 02/09/2024 COMP. METAB OLIC PANEL (14) protein, total 6.5 g/dL 6.0-8. 5 normal Not Available [facility] ([facility]) [address] [facility] [place], [address], 02/09/2024 11:10:03 02/08/20 24 02/09/2024 COMP. METAB OLIC PANEL (14) albumin 4.3 g/dL 3.9-4. 9 normal Not Available [facility] ([facility]) [address] [facility] [place], [address], 02/09/2024 11:10:03 02/08/20 24 02/09/2024 COMP. METAB OLIC PANEL (14) globulin, total 2.2 g/dL 1.5-4. 5 Not Available [facility] ([facility]) [address] [facility] [place], [address], 02/09/2024 11:10:03 02/08/20 24 02/09/2024 COMP. METAB OLIC PANEL (14) bilirubin, total <0.2 mg/dL 0.0-1. 2 Not Available [facility] ([facility]) [address] [facility] [place], [address], 02/09/2024 11:10:03 02/08/20 24 02/09/2024 COMP. METAB OLIC PANEL (14) alkaline phosphatase 124 IU/L 44-121 above high normal Not Available [facility] ([facility]) [address] [facility] [place], [address], 02/09/2024 11:10:03 02/08/20 24 02/09/2024 COMP. METAB OLIC PANEL (14) AST (SGOT) 21 IU/L 0-40 normal Not Available [facility] ([facility]) [address] [place], [address], 02/09/2024 11:10:03 02/08/20 24 02/09/2024 COMP. METAB OLIC PANEL (14) ALT (SGPT) 11 IU/L 0-32 normal Not Available [facility] ([facility]) [address] [place], [address], 02/09/2024 11:10:03 02/08/20 24 02/09/2024 LIPID PANEL cholesterol, total 155 mg/dL 100-19 9 normal Not Available [facility] ([facility]) [address] [place], [address], 02/09/2024 11:10:03 02/08/20 24 02/09/2024 LIPID PANEL triglyceride s 82 mg/dL 0-149 normal Not Available [facility] ([facility]) [address] [place], [address], 02/09/2024 11:10:03 02/08/20 24 02/09/2024 LIPID PANEL HDL cholesterol 73 mg/dL >39 normal Not Available [facility]) [address] [facility], [place], [address], 02/09/2024 11:10:03 02/08/20 24 02/09/2024 LIPID PANEL VLDL cholesterol phan 15 mg/dL 5-40 Not Available [facility] ([facility]) [address] [facility], [place], [address], 02/09/2024 11:10:03 02/08/20 24 02/09/2024 LIPID PANEL LDL chol calc ([facility]) 67 mg/dL 0-99 Not Available [facility] ([facility]) [address] [facility], [place], [address], 02/09/2024 11:10:03 02/08/20 24 02/09/2024 LIPID PANEL LDL calc comment: 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 Not Available [facility] ([facility]) [address] [facility], [place], [address], 02/09/2024 11:10:04 02/08/20 24 02/09/2024 HEMOG LOBIN A1C hemoglobin A1C 5.6 % 4.8-5. 6 normal Predi abete s: 5.7 - 6.4 Diabe edith: >6.4 Glyce bradley contr ol for adult s with diabe edith: <7.0 Not Available [facility] ([facility]) [address] [facility], [place], [address], 02/09/2024 11:10:04 02/08/20 24 02/09/2024 VITAM IN D, 25-HY DROXY vitamin D, 25-hydroxy 37.8 NG/mL 30.0-1 00.0 Vitam in D defic iency has been defin ed by the Insti tute of Medic ine and an Endoc rine Socie ty pract ice guide line as a level of serum 25-OH vitam in D less than 20 ng/mL (1,2) . The Endoc rine Socie ty went on to furth er defin e vitam in D insuf ficie ncy as a level betwe en 21 and 29 ng/mL (2). 1. IOM (Inst itute of Medic ine). 2009. Alesha ry refer ence rodo es for calci um and D. Len arguello [place]: The [facility] Press . 2. Lo rawls [place], Tray pimentel [place], John off-F errar i ALEJO, et al. Evalu ation , treat ment, and preve ntion of vitam in D defic iency : an Endoc rine Socie ty clini phan pract ice guide line. JCEM. 2010; 96(7) :1911 -30. Not Available [facility] ([facility]) [address] [facility], [place], [address], 02/09/2024 11:10:04 11/22/19 24 11/22/2023 LDCT, chest , for lung cance r chika boyd No observ ation record ed. [address], [place], [address], 04/26/2024 13:44:28 11/28/19 24 11/24/2023 MAMMO , chika boyd, digit al, bilat eral No observ ation record ed. [address], [place], [address], 04/26/2024 13:44:28 05/10/19 25 05/09/2024 XR, shoul akilah No observ ation record ed. [email or web address] [facility] [address], [place], [address], 05/10/2024 17:54:09 Result Notes None recorded. Problems Name Problem SNOMED Code Status Onset Date Resolution Date Notes Provider Name and Address Organization Details Recorded Time Hypertensive disorder 89493190 Active 2021 Dazo, [employer] 2 12:57:03 Hyperlipidemia 51937712 Active 2021 [employer]azo, [employer] 2 12:57:12 Rheumatoid arthritis 30764640 Active 2021 [employer], [employer] 2 12:57:33 Hypothyroidism 22896324 Active 2021 [employer]azo, [employer] 2 12:57:41 Candidiasis of mouth 94144526 Active 2023 Nieves Martinez NP [address] [place] [address], [address] [facility] [employer] 4 13:16:40 Problem Notes None recorded. Procedures Surgical History Date Name Laterality Status Provider Name and Address Organization Details Recorded Time 3 Most Recent Mammogram completed Radha White [employer] 05/05/2023 13:36:39 2 colonoscopy completed [employer] 03/21/2022 17:04:17 Ear Tube completed [employer] 01/06/2022 12:59:12 Imaging Results None recorded. Procedure Notes None recorded. Medical Equipment None Reported. Allergies Allergen ID Allergen Name Allergen Category Reaction Reaction Severity Criticality Documentation Date Start Date Code Code System Note Provider Name and Address Organization Details Recorded Time 10289 Cipro medicatio n Not available Not available Not available 01/06/2022 73931 3 RxNorm HAM chance, [employer] 2 12:56:07 50285 Dilaudid medicatio n Not available Not available Not available 01/06/2022 32160 3 RxNorm AHM [facility], [employer] 2 12:56:31 Medications Name Sig Start Date Stop Date Status Note LastModified by Organization Details LastModified Time cyclobenz aprine 10 mg tablet TAKE 1 TABLET BY MOUTH THREE TIMES DAILY active Not Available Not Available No t Available amoxicill in 500 mg capsule TAKE ONE CAPSULE BY MOUTH THREE TIMES DAILY FOR 10 DAYS -- FINISH ALL MEDICINE -- 03/18 completed Not Available Not Available Not Available fluconazo le 100 mg tablet TAKE ONE TABLET BY MOUTH ONCE DAILY FOR 7 DAYS 01/18 completed Not Available Not Available Not Available levothyro xine 137 mcg tablet TAKE ONE TABLET BY MOUTH EVERY DAY 02/10 completed decrease d dose Not Available Not Available Not Available nystatin 100,000 unit/mL oral suspensio n SWISH AND SWALLOW 5 ML BY MOUTH FOUR TIMES DAILY FOR 10 DAYS 02/07 completed Not Available Not Available Not Available prednison e 10 mg tablet take 4 tablets by MOUTH ONCE daily FOR 3 DAYS, THEN take 2 tablets ONCE daily FOR 3 DAYS, THEN take 1 tablet ONCE daily FOR 3 DAYS, THEN STOP --take with food-- -- FINISH ALL MEDICINE -- 03/18 completed Not Available Not Available Not Available gabapenti n 600 mg tablet TAKE 1 TABLET THREE TIMES A DAY 2024 active Not Available Not Available Not Avai lable Plaquenil 200 mg tablet Take 1 tablet twice a day by oral route. active Not Available Not Available No t Available Depo-Medr ol 40 mg/mL suspensio n for injection Take 1 mL by injectio n route. 2024 active Not Available Not Available Not Avai lable triamcino lone acetonide 0.5 % topical cream APPLY A THIN LAYER TO THE AFFECTED AREA(S) BY TOPICAL ROUTE 2 TIMES PER DAY 02/03 completed Not Available Not Available Not Available azithromy montse 250 mg tablet TAKE 2 TABLETS BY MOUTH ON DAY 1, THEN TAKE 1 TABLET DAILY ON DAYS 2-5 05/04 completed Not Available Not Available Not Available nystatin 100,000 unit/gram topical ointment APPLY TOPICALL Y TO THE AFFECTED AREA(S) TWICE DAILY -- FOR EXTERNAL USE ONLY-- 03/18 completed Not Available Not Available Not Available tizanidin e 4 mg tablet TAKE 2 TABLETS BY MOUTH THREE TIMES DAILY NEEDED FOR MUSCLE SPASMS active Not Available Not Available No t Available fluconazo le 150 mg tablet TAKE ONE TABLET BY MOUTH A ONE-TIME DOSE, REPEAT in 72 hours if needed active Not Available Not Available No t Available benzonata te 200 mg capsule Take 1 capsule 3 times a day by oral route as needed. 02/18 completed Not Available Not Available Not Available lisinopri l 20 mg tablet TAKE 1 TABLET DAILY 10/17 completed Not Available Not Available Not Available prednison e 20 mg tablet TAKE ONE TABLET BY MOUTH THREE TIMES DAILY --TAKE WITH FOOD-- -- FINISH ALL MEDICINE -- active Not Available Not Available No t Available prednison e 5 mg tablet TAKE 4 TABLETS BY MOUTH DAILY FOR 3 DAYS, THEN TAKE THREE TABLETS DAILY FOR 3 DAYS, THEN TAKE TWO TABLETS DAILY FOR 3 DAYS, THEN TAKE ONE TABLET DAILY FOR 3 DAYS THEN STOP --TAKE WITH FOOD-- -- FINISH ALL MEDICINE -- 11/06 completed Not Available Not Available Not Available allopurin ol 100 mg tablet TAKE 1 TABLET DAILY active Not Available Not Available No t Available hydrocodo ne 10 mg-acetam inophen 325 mg tablet TAKE ONE TABLET BY MOUTH FIVE TIMES DAILY FOR PAIN MAY CAUSE DROWSINE SS 02/03 completed pain clinic Not Available Not Available Not Available omeprazol e 40 mg capsule,d elayed release TAKE 1 CAPSULE DAILY active Not Available Not Available No t Available Kenalog 40 mg/mL suspensio n for injection Take 1 mL as needed by injectio n route. 05/31 completed Not Available Not Available Not Available methotrex ate sodium 2.5 mg tablet 02/03 completed Not Available Not Available Not Available trazodone 100 mg tablet TAKE ONE TABLET BY MOUTH EVERY DAY AT BEDTIME 01/18 completed Not Available Not Available Not Available baclofen 10 mg tablet Take 1 tablet 3 times a day by oral route. 05/31 completed Not Available Not Available Not Available doxycycli ne monohydra te 100 mg capsule TAKE ONE CAPSULE BY MOUTH TWICE DAILY -- FINISH ALL MEDICINE -- 02/18 completed Not Available Not Available Not Available hydrocodo ne 7.5 mg-acetam inophen 325 mg tablet TAKE 1 TABLET BY MOUTH 6 TIMES DAILY active Not Available Not Available No t Available cephalexi n 500 mg capsule TAKE ONE CAPSULE BY MOUTH TWICE DAILY FOR 10 DAYS -- FINISH ALL MEDICINE -- 02/03 completed Not Available Not Available Not Available trazodone 150 mg tablet TAKE 1 TABLET DAILY AT BEDTIME active Not Available Not Available No t Available levothyro xine 125 mcg tablet TAKE 1 TABLET DAILY 2024 active Not Available Not Available Not Avai lable bumetanid e 0.5 mg tablet Take 1 tablet every day by oral route. 10/17 completed Not Available Not Available Not Available nystatin 100,000 unit/gram topical cream APPLY TOPICALL Y TO THE AFFECTED AREA(S) TWICE DAILY 01/18 completed Not Available Not Available Not Available nicotine 21 mg/24 hr daily transderm al patch Apply 1 patch every day by transder mal route as directed . 07/15 completed Not Available Not Available Not Available bumetanid e 1 mg tablet Take 1 tablet every day by oral route. active Not Available Not Available No t Available folic acid 1 mg tablet 02/07 completed Not Available Not Available Not Available monteluka st 10 mg tablet TAKE 1 TABLET DAILY active Not Available Not Available No t Available furosemid e 20 mg tablet TAKE ONE TABLET BY MOUTH EVERY DAY 01/18 completed Not Available Not Available Not Available metoprolo l succinate ER 25 mg tablet,ex tended release 24 hr TAKE 1 TABLET DAILY active Not Available Not Available No t Available ergocalci ferol (vitamin D2) 1,250 mcg (50,000 unit) capsule TAKE 1 CAPSULE EVERY WEEK 05/07 completed vit d 103 Not Available Not Available Not Available Pepcid 20 mg tablet Take 1 tablet twice a day by oral route. 02/07 completed Not Available Not Available Not Available ketoconaz ole 2 % topical cream APPLY TOPICALL Y TO THE AFFECTED AREA(S) EVERY DAY -- FOR EXTERNAL USE ONLY-- 03/18 completed Not Available Not Available Not Available loratadin e 10 mg tablet Take 1 tablet every day by oral route. 02/03 completed Not Available Not Available Not Available rosuvasta tin 40 mg tablet TAKE 1 TABLET DAILY active Not Available Not Available No t Available Prilosec OTC 07/15 completed Not Available Not Available Not Available peg 3350-elec trolytes 236 gram-22.7 4 gram-6.74 gram-5.86 gram solution MIX DIRECTED AND DRINK 240 ML (8 OUNCES) BY MOUTH EVERY 10 MINUTES UNTIL FECAL EFFLUENT IS CLEAR OR OTHERWIS E DIRECTED DO NOT EXCEED TOTAL VOLUME OF 4000 ML 01/18 completed Not Available Not Available Not Available cholecalc iferol (vitamin D3) 1,250 mcg (50,000 unit) capsule TAKE ONE CAPSULE BY MOUTH ONCE A WEEK 03/18 completed Not Available Not Available Not Available diclofena c 1 % topical gel apply 2 grams topicall y FOUR TIMES DAILY 02/07 completed Not Available Not Available Not Available Linzess 145 mcg capsule TAKE ONE CAPSULE BY MOUTH EVERY DAY 01/18 completed Not Available Not Available Not Available naloxone 4 mg/actuat ion nasal spray CALL 911. DO NOT PRIME. SPRAY INTO NOSTRIL UPON SIGNS OF OPIOID OVERDOSE . MAY REPEAT IN 2-3 MINUTES IN OPPOSITE NOSTRIL IF NO OR MINIMAL BREATHIN G AND RESPONSI VENESS THEN NEEDED EVERY 2-3 MINUTES (IF AVAILABL E) active Not Available Not Available No t Available Humira(CF ) Pen 40 mg/0.4 mL subcutane ous kit active Not Available Not Available Not Available Vitals Date Recorded Body height Body mass index (BMI) Body weight Heart rate Oxygen saturation Oxygen saturation in Arterial blood by Pulse oximetry Systolic blood pressure Diastolic blood pressure Provider Name and Address Organization Details Last Updated DateTime 4 154.94 cm 39.6 kg/m2 39638.9 1 g 69 /min 93 % 93 % 134 mm[Hg] 82 mm[Hg] Radha White [facility] [employer]. 4 13:14:05 Date Recorded Body height Body mass index (BMI) Body weight Heart rate Oxygen saturation Oxygen saturation in Arterial blood by Pulse oximetry Systolic blood pressure Diastolic blood pressure Provider Name and Address Organization Details Last Updated DateTime 4 154.94 cm 39.5 kg/m2 02654.8 1 g 59 /min 93 % 93 % 135 mm[Hg] 84 mm[Hg] Radhaprema White [employer], [facility]. 4 13:27:57 Social History Question Answer Notes LastModified by Organizat ion Details LastModified Time Tobacco Smoking Status Current Every Day Smoker HAMTILA GARDUNOIDA chance [employer]. 01/06/2022 13:01:22 Do You Have An Advance Directive? No [email or web address] Information n ot available 01/06/2022 Is Your Home Air Conditioned? Yes Information not available 07/15/2022 Are You Blind Or Do You Have Difficulty Seeing? No [email or web address] Information n ot available 01/06/2022 What Is Your Level Of Caffeine Consumption? Heavy Information not available 07/15/2022 In The 14 Days Before Symptom Onset, Have You Had Close Contact With A Laboratory-confirm ed COVID-19 While That Case Was Ill? No [email or web address] Information n ot available 01/18/2022 In The 14 Days Before Symptom Onset, Have You Had Close Contact With A Person Who Is Under Investigation For COVID-19 While That Person Was Ill? No [email or web address] Information not available 01/18/2022 Have You Been To An Area Known To Be High Risk For COVID-19? No [email or web address] Information not available 01/18/2022 Are You Deaf Or Do You Have Serious Difficulty Hearing? No [email or web address] Information not available 01/06/2022 What Type Of Diet Are You Following? REGULAR [email or web address] Information n ot available 01/18/2022 Have There Been Any Changes To Your Family Or Social Situation? No [email or web address] Information no t available 01/06/2022 Do You Have A Medical Power Of Commercial Real Estate Manager? No [email or web address] Information not available 01/06/2022 What Was The Date Of Your Most Recent Tobacco Screening? 02/08/2024 Information not available 02/08/2024 What Is Your Current Pack Years? 30ormorepack years [email or web address] Information not available 01/06/2022 What Is Your Relationship Status? [email or web address] Information not available 01/06/2022 Do You Use Your Seat Belt Or Car Seat Routinely? Yes Information not available 07/15/2022 Do You Have Smoke And Carbon Monoxide Detectors In Your Home? Yes Information not available 07/15/2022 How Much Tobacco Do You Smoke? 2 PPD [email or web address] Information not available 01/06/2022 Has Tobacco Cessation Counseling Been Provided? Yes Information not available 07/15/2022 On What Date Was Tobacco Cessation Counseling Provided? 02/08/2024 Information not available 02/08/2024 Have You Recently Traveled Abroad? No [email or web address] Information not available 01/18/2022 Do You Have Difficulty Walking Or Climbing Stairs? No Information not available 01/06/2022 Are You Currently In School? No [email or web address] Information not available 01/06/2022 Do You Have Any Dietary Restrictions? No [email or web address] Information not available 01/18/2022 Sex: Female Functional Status Question Answer Note LastModified by Organizat ion Details LastModified Time Do you use any illicit or recreational drugs? No Information not available 07/15/2022 What is your level of alcohol consumption? None [email or web address] Information not available 01/06/2022 Are you currently employed? No [email or web address] Information not available 01/06/2022 Do you have transportation difficulties? No [email or web address] Information not available 01/06/2022 Are you able to walk? YESASSIST [email or web address] Information not available 01/18/2022 Do you have difficulty doing errands alone? No [email or web address] Information not available 01/06/2022 Are you able to care for yourself? Yes [email or web address] Information not available 01/06/2022 Do you have difficulty dressing or bathing? No [email or web address] Information not available 01/06/2022 What is your exercise level? None [email or web address] Information not available 01/18/2022 Mental Status Question Answer Note LastModified by Organization D etails LastModified Time Do you have difficulty concentrating, remembering or making decisions? No [email or web address] Information no t available 01/06/2022 Family History Relationship Description Onset Age of this Age Resolved Age Notes LastModified by Organization Details LastModified Time Mother Essential hypertension [email or web address] Not available 12:58:03 Medical History Condition Response Kidney Disease Y Gynecological History Statement/Question Response Date of Last Pap Smear Most Recent Mammogram 10/12/2022 Obstetrics History GPAL:G 0 P 0 0 0 0 Immunizations Vaccine Type Date Status Note Provider Nam e and Address Organization Details Recorded Time Influenza, split virus, quadrivalent, PF 3 completed Trinity Chase, DIGITAL STRATEGY MANA[address], [address], [employer] 11/25/2022 16:14:12 COVID-19, mRNA, LNP-S, PF, dread-sucrose, 30 mcg/0.3 mL 3 completed Ena Barger, [address], [address], [employer] 12/02/2022 18:08:04 Influenza, split virus, trivalent, PF 4 completed Ena aBrger, DIGITAL STRATEGY MANAGER[address], [address], [employer] 12/16/2023 12:29:21 COVID-19, mRNA, LNP-S, PF, dread-sucrose, 30 mcg/0.3 mL 4 completed Radha chance, [employer] 01/19/2024 16:19:29 Influenza, split virus, quadrivalent, preservative 0 completed HAM chance, [employer] 01/18/2022 17:46:57 Influenza, split virus, quadrivalent, preservative 0 completed HAM chance, [employer] 01/18/2022 17:46:57 Influenza, split virus, quadrivalent, preservative 7 completed HAM chance, [employer] 01/18/2022 17:46:57 COVID-19, mRNA, LNP-S, PF, 100 mcg/0.5mL dose or 50 mcg/0.25mL dose 1 completed HAM CHRISTINE [employer], [employer] 01/18/2022 17:46:57 Tdap 2 completed HAM CHRISTINE [employer], [employer] 01/18/2022 17:46:57 COVID-19, mRNA, LNP-S, PF, 100 mcg/0.5mL dose or 50 mcg/0.25mL dose 1 completed HAMTILA CHRISTINE [employer], [employer] 01/18/2022 17:46:57 COVID-19, mRNA, LNP-S, PF, 100 mcg/0.5mL dose or 50 mcg/0.25mL dose 1 completed [facility] [employer], [employer] [place]. 01/18/2022 17:46:57 Influenza, split virus, quadrivalent, preservative 8 completed HAMTILA CHRISTINE [employer], [employer] [place]. 01/18/2022 17:46:57 Past Encounters Encounter ID Performer Location Encounter Start Date Encounter Closed Date Diagnosis/Indication Diagnosis SNOMED-CT Code Diagnosis ICD10 Code Diagnosis [place] [id number] [place] [address] 01/18/2022 17:23:59 01/18/2022 18:03:39 Hyperlipidemia 74016193 E78.5 Hypertensive disorder 38 897740 I10 Hypothyroidism 54695131 E03.9 Rheumatoid arthritis 698 62228 M06.9 Gout 39727319 M10.9 Fatigue 74526976 R53.83 Chronic back pain 152587 002 M54.50 Vitamin D deficiency 347 01054 E55.9 Allergic rhinitis 561651 04 J30.9 Insomnia 880483032 G47.0 0 Pruritic rash 77458444 L 28.2 Body mass index 30+ - obesity 656906753 Z68.41 [id number] Trinity Chase [address] 02/03/2022 14:44:32 02/03/2022 15:33:13 Nasal congestion 99181374 R09.81 Lower resp iratory tract infection 98371863 J22 Cough 17288824 R05.9 Wheezing 83042637 R06.2 [id number] Armida Bragg, [place] [address] 02/18/2022 11:37:49 02/18/2022 17:27:07 Candidiasis of mouth 46340089 B37.0 Candidiasis of vagina 72 567302 B37.31 Cigarette smoker 2743569 7 F17.210 [id number] [place] [address] 03/18/2022 10:46:05 03/18/2022 11:28:31 Hyperlipidemia 91794564 E78.5 Hypertensive disorder 38 221773 I10 Hypothyroidism 97913576 E03.9 Candidiasis of vagina 72 702043 B37.31 Body mass index 30+ - obesity 637005165 Z68.41 [id number] [place] [address] 0 04/19/2022 10:58:59 04/19/2022 11:33:37 Rheumatoid arthritis 36993259 M06.9 Serum crea tinine above reference range 188832385 R79.89 Impacted tooth 358311809 K01.1 Body mass index 30+ - obesity 117718199 Z68.41 [id number] Ena Barger, [place] [address] 0 05/02/2022 15:52:07 05/02/2022 16:33:03 Pain in right arm 011065946 M79.601 karyna BECKER, obtain x ray, If no improvemen t in 7 days, she is to call me. Suspect tendonitis . [id number] Trinity Chase [place] [address] 0 05/31/2022 15:53:36 05/31/2022 16:45:15 Pre-surgery evaluation 461835759 Z01.818 Pain of ri ght shoulder joint 8792702423 1411260 M25.511 Body mass index 30+ - obesity 009234010 Z68.41 [id number] [place] [address] 07/15/2022 13:25:02 07/15/2022 14:41:38 Kyphosis deformity of spine 665489111 M40.209 Full thick ness rotator cuff tear 371218606 M75.120 Chronic ki dney disease stage 3 650120944 N18.30 [id number] Trinity Chase [place] [address] 0 10/04/2022 13:51:44 10/04/2022 14:43:38 Hyperlipidemia 97913751 E78.5 Open wound of left breast 7048091816 5206207 S21.002A Tenderness of breast 552 24079 N64.4 Screening mammography 24 601035 Z12.31 Body mass index 30+ - obesity 792589347 Z68.41 [id number] Trinity Chase [place] [address] 0 10/17/2022 13:02:44 10/17/2022 13:46:13 Vitamin D deficiency 40200023 E55.9 Allergic rhinitis 081800 04 J30.9 Body mass index 30+ - obesity 353032540 Z68.41 [id number] Trinity Chase [place] [address] 0 11/25/2022 13:09:49 11/25/2022 14:00:59 Administration of influenza vaccine 59318758 Z23 [id number] [place] [address] 11/30/2022 13:22:14 11/30/2022 17:46:55 Active or passive immunization 775504938 Z23 [id number] [place] [address] 02/03/2023 15:21:51 02/03/2023 17:25:32 Hypertensive disorder 24075489 I10 Hyperlipidemia 12026639 E78.5 Hypothyroidism 96373525 E03.9 Rheumatoid arthritis 698 94859 M06.9 Body mass index 30+ - obesity 935098579 Z68.41 [id number] [place] [address] 05/05/2023 13:22:26 05/05/2023 13:49:13 Body mass index 30+ - obesity 227661695 Z68.41 Long-term drug therapy 261896223 Z79.899 Hyperlipidemia 76819881 E78.5 Hypertensive disorder 38 265553 I10 Hypothyroidism 51122336 E03.9 Vitamin D deficiency 347 43409 E55.9 Neuropathy 337937398 G62 .9 Allergic rhinitis 539962 04 J30.9 Insomnia 200271981 G47.0 0 [id number] [place] [address] 08/04/2023 15:35:11 08/04/2023 16:09:59 Hyperlipidemia 83818561 E78.5 Allergic rhinitis 432321 04 J30.9 Insomnia 411193980 G47.0 0 Body mass index 30+ - obesity 787861609 Z68.41 [id number] [place] [address] 11/07/2023 12:56:07 11/07/2023 13:42:02 Screening mammography 88861649 Z12.31 Nicotine dependence 5629 4008 F17.200 Hypertensive disorder 38 596202 I10 Neuropathy 690842884 G62 .9 Allergic rhinitis 627504 04 J30.9 Hyperlipidemia 14862389 E78.5 Insomnia 444295942 G47.0 0 Body mass index 30+ - obesity 845750243 Z68.41 [id number] [place] [address] 12/15/2023 10:53:03 12/15/2023 11:12:33 Administration of influenza vaccine 29953928 Z23 [id number] [place] [address] 12/29/2023 12:59:40 12/29/2023 13:52:41 Active or passive immunization 613152529 Z23 [id number] [place] [address] 02/08/2024 13:11:10 02/08/2024 14:04:48 Fatigue 74695422 R53.83 Vitamin D deficiency 347 69636 E55.9 Vitamin B deficiency 479 58343 E53.9 Hyperlipidemia 50061190 E78.5 Hyperglycemia 45630773 R 73.9 Hypertensive disorder 38 539258 I10 Hypothyroidism 12392990 E03.9 Body mass index 30+ - obesity 243306441 Z68.41 [id number] [place] [address] 04/24/2024 14:16:28 04/24/2024 14:36:17 Bursitis of left shoulder 7929324794 48597 M75.52 Health Concerns Section Related Observation LastModified by Organization Detai ls LastModified Time None Recorded Concern Status LastModified by Organization Details LastModified Time None Recorded Advance Directives Directive N: Payers Insurance Date Sequence Insurance Name Policy Number Policy Zhang Covered Member ID Zhang Member ID Guarantor Name 05/27/2023 1 [facility] () Rajiv Mejia [id number] Nell Mejia 01/26/2022 1 [place] Nell Mejia [id number] Nell Mejia 04/24/2024 [place] [employer] [facility] Nell Mejia [id number] Nell Mejia 04/24/2024 2 FOR LIFE ( - MEDICARE SUPPLEMENT) Nell Mejia [id number] Nell Mejia 04/24/2024 1 [place] Nell Mejia [id number] Nell Mejia 01/06/2022 1 *SELF PAY* Be tiffanie Mejia Notes Date Note Type Note Provider Name and Address Organization Details Recorded Time 11/07/2023 text/html pt here today fo r medication refills. pt states shes doing well on current medication regime and has no new complaints today. ordered mammogram and lung screening. Trinity Chase APRN [address] [place], [address], [employer] 11/07/2023 13:41:55 02/08/2024 text/html pt here today fo r medication refills. pt states shes doing well on current medication regime and has no new complaints today. pt states that she is going to ask her pain yannick doc if he will prescribe the gabapentin as well and she would like to start coming in q 6 months if so. Trinity Chase APRN [address] [place], [address], [employer] 02/08/2024 15:49:49 OBGyn Episode No OBEpisode recorded.
--- OUTSIDE RECORDS SUMMARY | 2024-08-01 14:07 | XMS_ITS | Clinical Summary ---
Author Organization [facility] Address [address] [place] [address] Care Team Providers Care Human Resources Compensation Analyst Name Role Phone Sergio Hart MD Primary Care Provider [phone]- [phone] Allergies Active Allergy Reactions Criticality Noted Date Comments Acetaminophen Itching,Rash Medium 11/11/2020 Ciprofloxacin Hives,Unknown - Patient states they do not know rxn details Medium 11/20/2015 Hydrocodone Itching,Rash Medium 11/11/2020 Hydromorphone Anaphylaxis,Unknown - Patient states they do not know rxn details High 11/20/2015 tolerates tramadol without issues Oxycodone Unknown - Patient states they do not know rxn details Low 11/11/2020 Oxycodone-Acetaminophen Itching Medium 11/08/2018 Pregabalin Unknown - Patient states they do not know rxn details Low 11/11/2020 Venlafaxine Rash,Unknown - Patient states they do not know rxn details Low 11/20/2015 Hydrocodone-Acetaminophe n Unknown - Patient states they do not know rxn details,Itching Medium 11/20/2015 Medications traZODone (Desyrel) 100 MG tablet Take 100 mg by mouth every night. 1 Active omeprazole (PriLOSEC) [address] capsule TAKE 1 CAPSULE Daily 9 Active lisinopril 20 MG tablet Take 20 mg by mouth 1 (one) time each day. 1 Active levothyroxine (Synthroid, Levoxyl) 137 MCG tablet Take 137 mcg by mouth 1 (one) time each day. 1 Active hydroxychloroqu ine (Plaquenil) 200 MG tablet TAKE ONE TABLET BY MOUTH TWICE DAILY FOR ARTHRITIS 1 Active HYDROcodone-tigre taminophen ([place]) 10-325 MG tablet TAKE ONE TABLET BY MOUTH FOUR TIMES DAILY MAY CAUSE DROWSINESS 1 Active gabapentin (Neurontin) 600 MG tablet TAKE ONE TABLET BY MOUTH TWICE DAILY MAY CAUSE DROWSINESS 1 Active fluticasone (Flonase Sensimist) 27.5 MCG/SPRAY nasal spray Active ergocalciferol (Vitamin D-2) 1.25 MG (84924 UT) capsule Take 1 capsule by mouth once a week. 1 Active bumetanide (Bumex) 1 MG tablet Take 1 mg by mouth 1 (one) time each day. 1 Active baclofen (Lioresal) 10 MG tablet Take 10 mg by mouth 3 (three) times a day. 1 Active allopurinol (Zyloprim) 100 MG tablet Take 100 mg by mouth 1 (one) time each day. 1 Active Active Problems No known active problems Family History Medical History Relation Name Comments Cirrhosis Father Heart attack Father Hypertension Mother Stroke Mother Relation Name Status Comments Father Mother Social History Tobacco Use Types Packs/Day Years Used Date Smoking Tobacco: Every Day Alcohol Use Standard Drinks/Week Comments No 0 (1 standard drink = 0.6 oz pur e alcohol) Comments Unknown Sex and Gender Information Value Date Recorded Sex Assigned at Not on file Legal Sex Female 6:09 PM EDT Gender Identity Not on file Sexual Orientation Not on file Last Filed Vital Signs Vital Sign Reading Time Taken Comments Blood Pressure 140/83 12/18/2020 6:23 PM EDT Pulse 91 12/18/2020 6:23 PM EDT Temperature 36.7 C (98.1 F) 12/18/2020 6:23 PM EDT Respiratory Rate 18 12/18/2020 6:23 PM EDT Oxygen Saturation 96% 12/18/2020 6:23 PM EDT Inhaled Oxygen Concentration - - Weight 109 kg (239 lb 6.7 oz) 12/18/2020 6:23 PM EDT Height 160 cm (5' 3 ) 12/18/2020 6:23 PM EDT Body Mass Index 42.41 12/18/2020 6:23 PM EDT Plan of Treatment Health Maintenance Due Date Last Done Comments [facility]-Depression Screening 1961 [facility]-Infant/Child/Adol SDOH Screenings 01/01/1962 [facility]- SDOH Screenings 01/01/1980 [facility]-Adult SDOH Screenings 01/01/1980 [facility]-DTaP,Tdap,and Td Vaccines (1 - Tdap) 1980 [facility]-Pap Smear 1982 [facility]-Cervical Cancer Screening 01/01/1992 [facility]-HPV/Cotest 01/01/1992 CT Colonography 2006 Colonoscopy 2006 FIT-DNA 2006 FIT 2006 FOBT 2006 Sigmoidoscopy 2006 [facility]-Colorectal Cancer Screening 2006 [facility]-Pneumococcal Vaccine: 50+ Years (1 of 1 - PCV) 01/01/2012 [facility]-Zoster Vaccines (1 of 2) 01/01/2012 SBP-KBYMP-34 Vaccine ( season) 2023 07/17/2020, 07/01/2020, 06/20/2020, Additional history exists [facility]-Influenza Vaccine (Season Ended) 2024 12/27/2019, 03/11/2019, 10/27/2017, Additional history exists [facility]-RSV Vaccine: 60+ Years or (1 - 1-dose 75+ series) 2036 HPV Vaccines Aged Out No longer eligi ble based on patient's age to complete this topic [facility]-HIB Vaccines Aged Out No longer e ligible based on patient's age to complete this topic [facility]-Hepatitis A Vaccines Aged Out No longer eligible based on patient's age to complete this topic UKY-IPV Vaccines Aged Out No longer e ligible based on patient's age to complete this topic UKY-Rotavirus Vaccines Aged Out No lo nger eligible based on patient's age to complete [place] [address] [facility] Care Teams Human Resources Compensation Analyst Relationship Specialty Start Date End Date Sergio Hart MD [address] [address] PCP - General 07/03/20
--- OUTSIDE RECORDS SUMMARY | 2024-08-01 14:08 | XMS_ITS | Encounter Summary ---
Author Organization Healthcare Address [address] [facility] [place] [address] Care Team Providers Care Baggage Smasher Name Role Phone Sergio Hart MD Primary Care Provider +1- [phone] Encounter Details Date Type Department Care Team (Late st Contact Info) Description 12/18/2020 Ophth Exam [facility] [address] [place] [address] Jose Acevedo MD [address] [place] [address] Social History Tobacco Use Types Packs/Day Years Used Date Smoking Tobacco: Every Day Alcohol Use Standard Drinks/Week Comments No 0 (1 standard drink = 0.6 oz pur e alcohol) Comments Unknown Sex and Gender Information Value Date Recorded Sex Assigned at Not on file Legal Sex Female 6:09 PM EDT Gender Identity Not on file Sexual Orientation Not on file COVID-19 Exposure Response Date Recorded In the last month, have you been in contact with someone who was confirmed or suspected to have Coronavirus / COVID-19? No / Unsure 12/18/2020 6:22 PM EDT documented as of this encounter Functional Status * Calculated C-SSRS Risk Score (Lifetime/Recent) Answer Date of Assessment Author No Risk Indicated 12/18/2020 6:43 PM EDT Glenn Dumont * Question Answer Date of Assessment Author 1. Wish to be (Past 1 Month) No 021 6:43 PM EDT lGenn Dumont 2. Non-Specific Active Suici chaya Thoughts (Past 1 Month) No 12/18/2020 6:43 PM EDT Glenn Dumont 6. Suicidal Behavior (Lifetime) No 6:43 PM EDT Glenn Dumont documented as of this encounter Plan of Treatment Not on file documented as of this encounter Visit Diagnoses Not on filedocumented in this encounter Care Teams Baggage Smasher Relationship Specialty Start Date End Date Sergio Hart MD [address] [place] [address] PCP - General 07/03/20 documented as of this encounter
== END 2024-08-01 23:59 | disposition home or self-care (01) ==
PROVIDERS: PCP Nurse Practitioner; Visit Provider Nurse Practitioner Family
DX: M51.16 Intervertebral disc disorders with radiculopathy, lumbar region (principal); M25.512 Pain in left shoulder; Z79.891 Long term (current) use of opiate analgesic; Z79.899 Other long term (current) drug therapy
CPT/HCPCS: 99212; G0463

== ENCOUNTER 2024-09-02 13:09 | Outpatient (POV) | payer MEDICARE, OTHER, SELFPAY ==
--- OUTSIDE RECORDS SUMMARY | 2024-09-02 13:26 | XMS_ITS | Clinical Summary ---
Author Organization [facility] Address [address] [place] [address] Care Team Providers Care Medical And Scientific Illustrator Name Role Phone Sergio Hart MD Primary Care Provider +1- [phone] Allergies Active Allergy Reactions Criticality Noted Date [...] DAILY FOR ARTHRITIS 1 Active HYDROcodone-tigre taminophen ([place]) 10-325 MG tablet TAKE ONE TABLET BY MOUTH FOUR TIMES DAILY MAY CAUSE DROWSINESS 1 Active gabapentin (Neurontin) 600 MG tablet TAKE ONE TABLET BY MOUTH TWICE DAILY MAY CAUSE DROWSINESS 1 Active fluticasone (Flonase Sensimist) 27.5 MCG/SPRAY nasal spray Active ergocalciferol (Vitamin D-2) 1.25 MG (00110 UT) capsule Take 1 capsule by mouth [...] 01/01/2012 [facility]-Zoster Vaccines (1 of 2) 01/01/2012 [id number]-11 Vaccine ( season) 2023 07/17/2020, 07/01/2020, 06/20/2020, Additional history exists [facility]-Influenza Vaccine (#1) 10/21/202412/26, 03/11/2019, 10/27/2017, Additional history exists [facility]-RSV Vaccine: [...] patient's age to complete this [place] [address] [facility] Care Teams Medical And Scientific Illustrator Relationship Specialty Start Date End Date Sergio Hart MD [address] [address] PCP - General 07/03/20
--- OUTSIDE RECORDS SUMMARY | 2024-09-02 13:26 | XMS_ITS | Encounter Summary ---
Author Organization Healthcare Address [address] [facility] [place] [address] Care Team Providers Care Mobile Paint Specialist Name Role Phone Sergio Hart MD Primary Care Provider [phone] Encounter Details Date Type Department Care Team (Late st Contact Info) Description 12/18/2020 Ophth Exam [facility] [address] [place] [address] Jose Acevedo MD [address] [place] [address] Social History Tobacco Use Types Packs/Day Years [...] 1 Month) No 021 6:43 PM EDT Glenn Dumont 2. Non-Specific Active Suici chaya Thoughts (Past 1 Month) No 12/18/2020 6:43 PM EDT Glenn Dumont 6. Suicidal Behavior (Lifetime) No 6:43 PM EDT Glenn Dumont documented as of this encounter Plan of Treatment Not on file documented as of this encounter Visit Diagnoses Not on filedocumented in this encounter Care Teams Mobile Paint Specialist Relationship Specialty Start Date End Date Sergio Hart MD [address] [place] [address] PCP - General 07/03/20 documented as of this encounter
--- OUTSIDE RECORDS SUMMARY | 2024-09-02 13:26 | XMS_ITS | Data Portability ---
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 Plan of Treatment Reminders Order Date Submit Date Provider Last Modified By Organization Details Last Modified Time Details Appointments FOLLOW UP 30 2024 01:00P Nini Chase APRN Not available Not available Not available Lab drug screen, 14 drugs (detectim ed), urine 2024 025 [place] [facility] [address] [place], [address], 08/13/2024 15:07:40 CBC w/ auto diff 2024 025 [facility] [address] [place], [address], 08/13/2024 15:07:41 CMP, serum or plasma 2024 025 [facility] [address] [place], [address], 08/13/2024 15:07:42 TSH + free T4, serum 2024 025 [facility] [address] [place], [address], 08/13/2024 15:07:40 cobalamin and folate panel, serum 2024 025 JOSE [facility] ([place]), [address] [place], [address], 08/13/2024 15:07:43 vitamin D, 25-hydrox y, total, serum 2024 025 [place] [facility] ([place]), [address] [place], [address], 08/21/2024 16:32:36 lipid panel, serum 2024 025 JOSE [facility] ([place]), [address] [place], [address], 08/13/2024 15:07:43 HbA1c (hemoglob in A1c), blood 2024 025 JOSE [facility] ([place]), [address] [place], [address], 08/13/2024 15:07:44 HbA1c (hemoglob in A1c), blood 2023 024 JOSE [facility] ([place]), [address] [place], [address], 02/09/2024 11:10:04 cobalamin and folate panel, serum 2023 024 JOSE [facility] ([place]), [address] [place], [address], 02/09/2024 11:10:04 vitamin D, 25-hydrox y, total, serum 2023 024 JOSE [facility] ([place]), [address] [place], [address], 02/09/2024 11:10:04 lipid panel, serum 2023 024 JOSE [facility] ([place]), [address] [place], [address], 02/09/2024 11:10:03 CMP, serum or plasma 2023 024 [place] [facility] ([place]), [address] [place], [address], 02/09/2024 11:10:03 CBC w/ auto diff 2023 024 [place] [facility] ([place]), [address] [place], [address], 02/09/2024 11:10:02 TSH + free T4, serum 2023 024 [place] [facility] [address] [place], [address], 02/09/2024 11:10:02 Referral None recorded. Procedures None recorded. Surgeries None recorded. Imaging None recorded. Medication Orders allopurin ol 100 mg tablet 2024 025 [facility], [address] [place] [address], [address], 08/06/2024 16:57:[address] 10 mg tablet 2024 025 [facility], [address] [place] [address], [address], 08/06/2024 16:57:04 trazodone 150 mg tablet 2024 025 [facility], [address] [place] [address], [address], 08/06/2024 16:57:03 nystatin 100,000 unit/mL oral suspensio n 2024 025 [facility], [address] [place] [address], [address], 08/06/2024 14:16:32 nystatin 100,000 unit/gram topical cream 2024 025 [facility], [address] [place] [address], [address], 08/06/2024 14:16:32 rosuvasta tin 40 mg tablet 2024 025 [facility], [address] [place] [address], [address], 08/06/2024 16:57:05 omeprazol e 40 mg capsule,d elayed release 2024 025 JOSE [facility], [address] [place] [address], [address], 08/06/2024 16:57:07 gabapenti n 600 mg tablet 2024 025 [facility], [address] [place] [address], [address], 08/06/2024 16:57:10 Depo-Medr ol 40 mg/mL suspensio n for injection 2024 025 Not available 08/06/2024 13:38:03 Patient TargetsNo targets recorded. Patient Instructions Encounter Date Encounter Id Patient Instructions Last Modified By Organization Details Last Modified Time 08/06/2024 [id number] statins: care instructions [email or web address] Not available 08/06/2024 17:54:43 Reason for Referral None Reported. Results Created Date Observation Date Name Description Value Unit Range Abnormal Flag Note LastModifiedBy Organization Detail LastModifiedTime 02/08/20 24 02/09/2024 TSH+F REE T4 TSH 9.270 uIU/m L 0.450- 4.500 above high normal Not Available [facility] ([facility]) [address] [facility], [place], [address], 02/09/2024 11:10:02 02/08/20 24 02/09/2024 TSH+F REE T4 T4,free(dire ct) 1.23 NG/dL 0.82-1 .77 normal Not Available [facility] ([facility]) [address] [facility], [place], [address], 02/09/2024 11:10:02 02/08/20 24 02/09/2024 CBC WITH DIFFE RENTI AL/PL ATELE T WBC 8.2 x10e3 /uL 3.4-10 .8 normal Not Available [facility] ([facility]) [address] [place], [address], 02/09/2024 11:10:02 02/08/20 24 02/09/2024 CBC WITH DIFFE RENTI AL/PL ATELE T RBC 3.79 x10e6 /uL 3.77-5 .28 normal Not Available [facility] ([facility]) [address] [place], [address], 02/09/2024 11:10:02 02/08/20 24 02/09/2024 CBC WITH DIFFE RENTI AL/PL ATELE T hemoglobin 12.6 g/dL 11.1-1 5.9 normal Not Available [facility] ([facility]) [address] [place], [address], 02/09/2024 11:10:02 02/08/20 24 02/09/2024 CBC WITH DIFFE RENTI AL/PL ATELE T hematocrit 38.3 % 34.0-4 6.6 normal Not Available [facility] ([facility]) [address] [place], [address], 02/09/2024 11:10:02 02/08/20 24 02/09/2024 CBC WITH DIFFE RENTI AL/PL ATELE T MCV 101 fL 79-97 above high normal Not Available [facility] ([facility]) [address] [place], [address], 02/09/2024 11:10:02 02/08/20 24 02/09/2024 CBC WITH DIFFE RENTI AL/PL ATELE T MCH 33.2 pg 26.6-3 3.0 above high normal Not Available [facility] ([facility]) [address] [place], [address], 02/09/2024 11:10:02 02/08/20 24 02/09/2024 CBC WITH DIFFE RENTI AL/PL ATELE T MCHC 32.9 g/dL 31.5-3 5.7 normal Not Available [facility] ([facility]) [address] [place], [address], 02/09/2024 11:10:02 02/08/20 24 02/09/2024 CBC WITH DIFFE RENTI AL/PL ATELE T RDW 15.1 % 11.7-1 5.4 Not Available [facility] ([facility]) [address] [place], [address], 02/09/2024 11:10:02 02/08/20 24 02/09/2024 CBC WITH DIFFE RENTI AL/PL ATELE T platelets 222 x10e3 /uL 150-45 0 normal Not Available [facility] ([facility]) [address] [facility], [place], [address], 02/09/2024 11:10:02 02/08/20 24 02/09/2024 CBC WITH DIFFE RENTI AL/PL ATELE T neutrophils 60 % not estab. normal Not Available [facility] ([facility]) [address] [place], [address], 02/09/2024 11:10:02 02/08/20 24 02/09/2024 CBC WITH DIFFE RENTI AL/PL ATELE T lymphs 29 % not estab. normal Not Available [facility] ([facility]) [address] [place], [address], 02/09/2024 11:10:02 02/08/20 24 02/09/2024 CBC WITH DIFFE RENTI AL/PL ATELE T monocytes 9 % not estab. normal Not Available [facility] ([facility]) [address] [place], [address], 02/09/2024 11:10:02 02/08/20 24 02/09/2024 CBC WITH DIFFE RENTI AL/PL ATELE T eos 1 % not estab. normal Not Available [facility] ([facility]) [address] [place], [address], 02/09/2024 11:10:02 02/08/20 24 02/09/2024 CBC WITH DIFFE RENTI AL/PL ATELE T basos 1 % not estab. normal Not Available [facility] ([facility]) [address] [facility], [place], [address], 02/09/2024 11:10:02 02/08/20 24 02/09/2024 CBC WITH DIFFE RENTI AL/PL ATELE T immature cells COLD WORKING SUPERVISOR Not Available [facility] ([facility]) [address] [place], [address], 02/09/2024 11:10:02 02/08/20 24 02/09/2024 CBC WITH DIFFE RENTI AL/PL ATELE T neutrophils (absolute) 5.0 x10e3 /uL 1.4-7. 0 normal Not Available [facility] ([facility]) [address] [place], [address], 02/09/2024 11:10:02 02/08/20 24 02/09/2024 CBC WITH DIFFE RENTI AL/PL ATELE T lymphs (absolute) 2.4 x10e3 /uL 0.7-3. 1 normal Not Available [facility] ([facility]) [address] [place], [address], 02/09/2024 11:10:02 02/08/20 24 02/09/2024 CBC WITH DIFFE RENTI AL/PL ATELE T monocytes(ab solute) 0.7 x10e3 /uL 0.1-0. 9 normal Not Available [facility] ([facility]) [address] [place], [address], 02/09/2024 11:10:02 02/08/20 24 02/09/2024 CBC WITH DIFFE RENTI AL/PL ATELE T eos (absolute) 0.1 x10e3 /uL 0.0-0. 4 normal Not Available [facility] ([facility]) [address] [facility], [place], [address], 02/09/2024 11:10:02 02/08/20 24 02/09/2024 CBC WITH DIFFE RENTI AL/PL ATELE T baso (absolute) 0.1 x10e3 /uL 0.0-0. 2 normal Not Available [facility] ([facility]) [address] [facility], [place], [address], 02/09/2024 11:10:02 02/08/20 24 02/09/2024 CBC WITH DIFFE RENTI AL/PL ATELE T immature granulocytes 0 % not estab. Not Available [facility] ([facility]) [address] [facility], [place], [address], 02/09/2024 11:10:02 02/08/20 24 02/09/2024 CBC WITH DIFFE RENTI AL/PL ATELE T immature grans (abs) 0.0 x10e3 /uL 0.0-0. 1 Not Available [facility] ([facility]) [address] [facility], [place], [address], 02/09/2024 11:10:02 02/08/20 24 02/09/2024 CBC WITH DIFFE RENTI AL/PL ATELE T NRBC COLD WORKING SUPERVISOR Not Available [facility] ([facility]) [address] [facility], [place], [address], 02/09/2024 11:10:02 02/08/20 24 02/09/2024 CBC WITH DIFFE RENTI AL/PL ATELE T hematology comments: COLD WORKING SUPERVISOR Not Available [facility] ([facility]) [address] [facility], [place], [address], 02/09/2024 11:10:02 02/08/20 24 02/09/2024 COMP. METAB OLIC PANEL (14) glucose 87 mg/dL 70-99 normal Not Available [facility] ([facility]) [address] [place], [address], 02/09/2024 11:10:03 02/08/20 24 02/09/2024 COMP. METAB OLIC PANEL (14) BUN 10 mg/dL 8-27 normal Not Available [facility] ([facility]) [address] [place], [address], 02/09/2024 11:10:03 02/08/20 24 02/09/2024 COMP. METAB OLIC PANEL (14) creatinine 1.19 mg/dL 0.57-1 .00 above high normal Not Available [facility] ([facility]) [address] [place], [address], 02/09/2024 11:10:03 02/08/20 24 02/09/2024 COMP. METAB OLIC PANEL (14) eGFR 52 mL/mi n/1.7 3 >59 below low normal Not Available [facility] ([facility]) [address] [place], [address], 02/09/2024 11:10:03 02/08/20 24 02/09/2024 COMP. METAB OLIC PANEL (14) BUN/creatini ne ratio 8 12-28 below low normal Not Available [facility] ([facility]) [address] [place], [address], 02/09/2024 11:10:03 02/08/20 24 02/09/2024 COMP. METAB OLIC PANEL (14) sodium 143 mmol/ L 134-14 4 normal Not Available [facility] ([facility]) [address] [place], [address], 02/09/2024 11:10:03 02/08/20 24 02/09/2024 COMP. METAB OLIC PANEL (14) potassium 4.8 mmol/ L 3.5-5. 2 normal Not Available [facility] ([facility]) [address] [facility] [place], [address], 02/09/2024 11:10:03 02/08/20 24 02/09/2024 COMP. METAB OLIC PANEL (14) chloride 105 mmol/ L 96-106 normal Not Available [facility] ([facility]) [address] [facility] [place], [address], 02/09/2024 11:10:03 02/08/20 24 02/09/2024 COMP. METAB OLIC PANEL (14) carbon dioxide, total 24 mmol/ L 20-29 normal Not Available [facility] ([facility]) [address] [facility] [place], [address], 02/09/2024 11:10:03 02/08/20 24 02/09/2024 COMP. METAB OLIC PANEL (14) calcium 9.2 mg/dL 8.7-10 .3 normal Not Available [facility] ([facility]) [address] [facility] [place], [address], 02/09/2024 11:10:03 02/08/20 24 02/09/2024 COMP. METAB OLIC PANEL (14) protein, total 6.5 g/dL 6.0-8. 5 normal Not Available [facility] ([facility]) [address] [facility] [place], [address], 02/09/2024 11:10:03 02/08/20 24 02/09/2024 COMP. METAB OLIC PANEL (14) albumin 4.3 g/dL 3.9-4. 9 normal Not Available [facility] ([facility]) [address] [facility] [place], [address], 02/09/2024 11:10:03 02/08/20 24 02/09/2024 COMP. METAB OLIC PANEL (14) globulin, total 2.2 g/dL 1.5-4. 5 Not Available [facility] ([facility]) [address] [facility] [place], [address], 02/09/2024 11:10:03 02/08/20 24 02/09/2024 COMP. METAB OLIC PANEL (14) bilirubin, total <0.2 mg/dL 0.0-1. 2 Not Available [facility] ([facility]) [address] [facility] [place], [address], 02/09/2024 11:10:03 02/08/20 24 02/09/2024 COMP. METAB OLIC PANEL (14) alkaline phosphatase 124 IU/L 44-121 above high normal Not Available [facility] ([facility]) [address] [facility] [place], [address], 02/09/2024 11:10:03 02/08/20 24 02/09/2024 COMP. METAB OLIC PANEL (14) AST (SGOT) 21 IU/L 0-40 normal Not Available [facility] ([facility]) [address] [facility] [place], [address], 02/09/2024 11:10:03 02/08/20 24 02/09/2024 COMP. METAB OLIC PANEL (14) ALT (SGPT) 11 IU/L 0-32 normal Not Available [facility] ([facility]) [address] [facility] [place], [address], 02/09/2024 11:10:03 02/08/20 24 02/09/2024 LIPID PANEL cholesterol, total 155 mg/dL 100-19 9 normal Not Available [facility] ([facility]) [address] [facility] [place], [address], 02/09/2024 11:10:03 02/08/20 24 02/09/2024 LIPID PANEL triglyceride s 82 mg/dL 0-149 normal Not Available [facility]) [address] [facility] [place], [address], 02/09/2024 11:10:03 02/08/20 24 02/09/2024 LIPID PANEL HDL cholesterol 73 mg/dL >39 normal Not Available [facility] [address] [facility], [place], [address], 02/09/2024 11:10:03 02/08/20 24 02/09/2024 LIPID PANEL VLDL cholesterol phan 15 mg/dL 5-40 Not Available [facility]) [address] [facility], [place], [address], 02/09/2024 11:10:03 02/08/20 24 02/09/2024 LIPID PANEL LDL chol calc ([facility]) 67 mg/dL 0-99 Not Available [facility]) [address] [facility], [place], [address], 02/09/2024 11:10:03 02/08/20 24 02/09/2024 LIPID PANEL LDL calc comment: COLD WORKING SUPERVISOR Not Available [facility] ([facility]) [address] [facility], [place], [address], 02/09/2024 11:10:03 02/08/20 24 02/09/2024 VITAM IN B12 AND FOLAT E vitamin B12 774 pg/mL 232-12 45 normal Not Available [facility] ([facility]) [address] [place], [address], 02/09/2024 11:10:04 02/08/20 24 02/09/2024 VITAM IN B12 AND FOLAT E folate (folic acid), serum >20.0 NG/mL >3.0 A serum folat e emely ntrat ion of less than 3.1 ng/mL is consi dered to repre sent clini phan defic iency . Not Available [facility] ([facility]) [address] [place], [address], 02/09/2024 11:10:04 02/08/20 24 02/09/2024 HEMOG LOBIN A1C hemoglobin A1C 5.6 % 4.8-5. 6 normal Predi abete s: 5.7 - 6.4 Diabe edith: >6.4 Glyce bradley contr ol for adult s with diabe edith: <7.0 Not Available [facility] ([facility]) [address] [facility], [place], [address], 02/09/2024 11:10:04 02/08/20 24 02/09/2024 VITAM IN [...] 1. IOM (Inst itute of Medic ine). 2010. Dieta ry refer ence intak es for calci um and D. Len arguello [place]: The [facility] Press . 2. Lo rawls [place], Tray pimentel [place], John off-F errar i ALEJO, et al. Evalu ation , treat ment, and preve ntion of vitam in D defic iency : an Endoc rine Socie ty clini phan pract ice guide line. JCEM. 2010; 96(7) :1911 -30. Not Available [facility] ([facility]) [address] [facility], [place], [address], 02/09/2024 11:10:04 08/07/19 25 08/13/2024 COMPL IANCE DRUG REHAN SIS, UR summary report (summary) FINAL ===== ===== ===== ===== ===== ===== ===== ===== ===== ===== ===== ===== ===== === TOXAS SURE COMP DRUG REHAN SIS,U R ===== ===== ===== ===== ===== ===== ===== ===== ===== ===== ===== ===== ===== === Test Resul t Flag Units Drug Prese nt Cheraw codon e 1441 ng/mg creat Cheraw morph one 590 ng/mg creat Dihyd rocod eine 355 ng/mg creat Norhy droco done 3466 ng/mg creat Sourc es of hydro codon e inclu de sched uled presc ripti on medic ation s. Cheraw morph one, dihyd rocod eine and norhy droco done are expec michel metab olite s of hydro codon e. Cheraw morph one and dihyd rocod eine are also avail able as sched uled presc ripti on medic ation s. Gabap entin PRESE NT Cyclo benza mike PRESE NT Desme thylc yclob enzap rine PRESE NT Desme thylc yclob enzap rine is an expec michel metab olite of cyclo benza mike . Trazo done PRESE NT 1,3 chlor ophen yl piper azine PRESE NT 1,3-c hloro pheny l piper azine is an expec michel metab olite of trazo done. Aceta minop hen PRESE NT Dextr orpha n/Lev orpha nol PRESE NT Dextr orpha n is an expec michel metab olite of dextr ometh orpha n, an over- the-c ounte r or presc ripti on cough suppr essan t. Levor phano l is a sched uled presc ripti on medic ation . Dextr orpha n canno t be disti nguis hed from levor phano l by the metho d used for rehan sis. Metop rolol PRESE NT ===== ===== ===== ===== ===== ===== ===== ===== ===== ===== ===== ===== ===== === Test Resul t Flag Units Ref Range Creat inine 29 mg/dL >=20 ===== ===== ===== ===== ===== ===== ===== ===== ===== ===== ===== ===== ===== === Decla red Medic ation s: Medic ation list was not provi ded. ===== ===== ===== ===== ===== ===== ===== ===== ===== ===== ===== ===== ===== === For clini phan consu ltati on, pleas e call [phone]. ===== ===== ===== ===== ===== ===== ===== ===== ===== ===== ===== ===== ===== === Not Available [facility] ([facility]) [address] [place], [address], 08/13/2024 15:07:40 08/07/19 25 08/13/2024 COMPL IANCE DRUG REHAN SIS, UR pdf . Not Available [facility] ([facility]) [address] [place], [address], 08/13/2024 15:07:40 08/07/19 25 08/07/2024 TSH+F REE T4 TSH 5.640 uIU/m L 0.450- 4.500 above high normal Not Available [facility] ([facility]) [address] [place], [address], 08/13/2024 15:07:40 08/07/19 25 08/07/2024 TSH+F REE T4 T4,free(dire ct) 1.43 NG/dL 0.82-1 .77 normal Not Available [facility] ([facility]) [address] [place], [address], 08/13/2024 15:07:40 08/07/19 25 08/07/2024 CBC WITH DIFFE RENTI AL/PL ATELE T WBC 11.8 x10e3 /uL 3.4-10 .8 above high normal Not Available [facility] ([facility]) [address] [place], [address], 08/13/2024 15:07:41 08/07/19 25 08/07/2024 CBC WITH DIFFE RENTI AL/PL ATELE T RBC 4.16 x10e6 /uL 3.77-5 .28 normal Not Available [facility] ([facility]) [address] [place], [address], 08/13/2024 15:07:41 08/07/19 25 08/07/2024 CBC WITH DIFFE RENTI AL/PL ATELE T hemoglobin 13.8 g/dL 11.1-1 5.9 normal Not Available [facility] ([facility]) [address] [place], [address], 08/13/2024 15:07:41 08/07/19 25 08/07/2024 CBC WITH DIFFE RENTI AL/PL ATELE T hematocrit 43.8 % 34.0-4 6.6 normal Not Available [facility] ([facility]) [address] [place], [address], 08/13/2024 15:07:41 08/07/19 25 08/07/2024 CBC WITH DIFFE RENTI AL/PL ATELE T MCV 105 fL 79-97 above high normal Not Available [facility] ([facility]) [address] [place], [address], 08/13/2024 15:07:41 08/07/19 25 08/07/2024 CBC WITH DIFFE RENTI AL/PL ATELE T MCH 33.2 pg 26.6-3 3.0 above high normal Not Available [facility] ([facility]) [address] [place], [address], 08/13/2024 15:07:41 08/07/19 25 08/07/2024 CBC WITH DIFFE RENTI AL/PL ATELE T MCHC 31.5 g/dL 31.5-3 5.7 normal Not Available [facility] ([facility]) [address] [place], [address], 08/13/2024 15:07:41 08/07/19 25 08/07/2024 CBC WITH DIFFE RENTI AL/PL ATELE T RDW 14.3 % 11.7-1 5.4 Not Available [facility] ([facility]) [address] [place], [address], 08/13/2024 15:07:41 08/07/19 25 08/07/2024 CBC WITH DIFFE RENTI AL/PL ATELE T platelets 282 x10e3 /uL 150-45 0 normal Not Available [facility] ([facility]) [address] [place], [address], 08/13/2024 15:07:41 08/07/19 25 08/07/2024 CBC WITH DIFFE RENTI AL/PL ATELE T neutrophils 69 % not estab. normal Not Available [facility] ([facility]) [address] [place], [address], 08/13/2024 15:07:41 08/07/19 25 08/07/2024 CBC WITH DIFFE RENTI AL/PL ATELE T lymphs 22 % not estab. normal Not Available [facility] ([facility]) [address] [place], [address], 08/13/2024 15:07:41 08/07/19 25 08/07/2024 CBC WITH DIFFE RENTI AL/PL ATELE T monocytes 7 % not estab. normal Not Available [facility] ([facility]) [address] [place], [address], 08/13/2024 15:07:41 08/07/19 25 08/07/2024 CBC WITH DIFFE RENTI AL/PL ATELE T eos 1 % not estab. normal Not Available [facility] ([facility]) [address] [place], [address], 08/13/2024 15:07:41 08/07/19 25 08/07/2024 CBC WITH DIFFE RENTI AL/PL ATELE T basos 1 % not estab. normal Not Available [facility] ([facility]) [address] [facility], [place], [address], 08/13/2024 15:07:41 08/07/19 25 08/07/2024 CBC WITH DIFFE RENTI AL/PL ATELE T immature cells COLD WORKING SUPERVISOR Not Available [facility] ([facility]) [address] [place], [address], 08/13/2024 15:07:41 08/07/19 25 08/07/2024 CBC WITH DIFFE RENTI AL/PL ATELE T neutrophils (absolute) 8.1 x10e3 /uL 1.4-7. 0 above high normal Not Available [facility] ([facility]) [address] [place], [address], 08/13/2024 15:07:41 08/07/19 25 08/07/2024 CBC WITH DIFFE RENTI AL/PL ATELE T lymphs (absolute) 2.6 x10e3 /uL 0.7-3. 1 normal Not Available [facility] ([facility]) [address] [place], [address], 08/13/2024 15:07:41 08/07/19 25 08/07/2024 CBC WITH DIFFE RENTI AL/PL ATELE T monocytes(ab solute) 0.8 x10e3 /uL 0.1-0. 9 normal Not Available [facility] ([facility]) [address] [facility], [place], [address], 08/13/2024 15:07:41 08/07/19 25 08/07/2024 CBC WITH DIFFE RENTI AL/PL ATELE T eos (absolute) 0.1 x10e3 /uL 0.0-0. 4 normal Not Available [facility] ([facility]) [address] [facility], [place], [address], 08/13/2024 15:07:41 08/07/19 25 08/07/2024 CBC WITH DIFFE RENTI AL/PL ATELE T baso (absolute) 0.1 x10e3 /uL 0.0-0. 2 normal Not Available [facility] ([facility]) [address] [facility], [place], [address], 08/13/2024 15:07:41 08/07/19 25 08/07/2024 CBC WITH DIFFE RENTI AL/PL ATELE T immature granulocytes 0 % not estab. Not Available [facility] ([facility]) [address] [facility], [place], [address], 08/13/2024 15:07:41 08/07/19 25 08/07/2024 CBC WITH DIFFE RENTI AL/PL ATELE T immature grans (abs) 0.0 x10e3 /uL 0.0-0. 1 Not Available [facility] ([facility]) [address] [place], [address], 08/13/2024 15:07:41 08/07/19 25 08/07/2024 CBC WITH DIFFE RENTI AL/PL ATELE T NRBC COLD WORKING SUPERVISOR Not Available [facility] ([facility]) [address] [facility], [place], [address], 08/13/2024 15:07:41 08/07/19 25 08/07/2024 CBC WITH DIFFE RENTI AL/PL ATELE T hematology comments: COLD WORKING SUPERVISOR Not Available [facility] ([facility]) [address] [facility] [place], [address], 08/13/2024 15:07:41 08/07/19 25 08/07/2024 COMP. METAB OLIC PANEL (14) glucose 85 mg/dL 70-99 normal Not Available [facility] ([facility]) [address] [facility] [place], [address], 08/13/2024 15:07:42 08/07/19 25 08/07/2024 COMP. METAB OLIC PANEL (14) BUN 10 mg/dL 8-27 normal Not Available [facility] ([facility]) [address] [facility] [place], [address], 08/13/2024 15:07:42 08/07/19 25 08/07/2024 COMP. METAB OLIC PANEL (14) creatinine 0.98 mg/dL 0.57-1 .00 normal Not Available [facility] ([facility]) [address] [facility] [place], [address], 08/13/2024 15:07:42 08/07/19 25 08/07/2024 COMP. METAB OLIC PANEL (14) eGFR 65 mL/mi n/1.7 3 >59 normal Not Available [facility] ([facility]) [address] [facility] [place], [address], 08/13/2024 15:07:42 08/07/19 25 08/07/2024 COMP. METAB OLIC PANEL (14) BUN/creatini ne ratio 10 12-28 below low normal Not Available [facility] ([facility]) [address] [facility] [place], [address], 08/13/2024 15:07:42 08/07/19 25 08/07/2024 COMP. METAB OLIC PANEL (14) sodium 141 mmol/ L 134-14 4 normal Not Available [facility] ([facility]) [address] [facility], [place], [address], 08/13/2024 15:07:42 08/07/19 25 08/07/2024 COMP. METAB OLIC PANEL (14) potassium 4.9 mmol/ L 3.5-5. 2 normal Not Available [facility] ([facility]) [address] [facility] [place], [address], 08/13/2024 15:07:42 08/07/19 25 08/07/2024 COMP. METAB OLIC PANEL (14) chloride 101 mmol/ L 96-106 normal Not Available [facility] ([facility]) [address] [facility] [place], [address], 08/13/2024 15:07:42 08/07/19 25 08/07/2024 COMP. METAB OLIC PANEL (14) carbon dioxide, total 23 mmol/ L 20-29 normal Not Available [facility] ([facility]) [address] [facility] [place], [address], 08/13/2024 15:07:42 08/07/19 25 08/07/2024 COMP. METAB OLIC PANEL (14) calcium 9.5 mg/dL 8.7-10 .3 normal Not Available [facility] ([facility]) [address] [facility] [place], [address], 08/13/2024 15:07:42 08/07/19 25 08/07/2024 COMP. METAB OLIC PANEL (14) protein, total 6.9 g/dL 6.0-8. 5 normal Not Available [facility] ([facility]) [address] [facility] [place], [address], 08/13/2024 15:07:42 08/07/19 25 08/07/2024 COMP. METAB OLIC PANEL (14) albumin 3.9 g/dL 3.9-4. 9 normal Not Available [facility] ([facility]) [address] [facility] [place], [address], 08/13/2024 15:07:42 08/07/19 25 08/07/2024 COMP. METAB OLIC PANEL (14) globulin, total 3.0 g/dL 1.5-4. 5 Not Available [facility] ([facility]) [address] [place], [address], 08/13/2024 15:07:42 08/07/19 25 08/07/2024 COMP. METAB OLIC PANEL (14) bilirubin, total <0.2 mg/dL 0.0-1. 2 Not Available [facility] ([facility]) [address] [place], [address], 08/13/2024 15:07:42 08/07/19 25 08/07/2024 COMP. METAB OLIC PANEL (14) alkaline phosphatase 131 IU/L 44-121 above high normal Not Available [facility] ([facility]) [address] [place], [address], 08/13/2024 15:07:42 08/07/19 25 08/07/2024 COMP. METAB OLIC PANEL (14) AST (SGOT) 17 IU/L 0-40 normal Not Available [facility] ([facility]) [address] [place], [address], 08/13/2024 15:07:42 08/07/19 25 08/07/2024 COMP. METAB OLIC PANEL (14) ALT (SGPT) 10 IU/L 0-32 normal Not Available [facility] ([facility]) [address] [place], [address], 08/13/2024 15:07:42 08/07/19 25 08/07/2024 LIPID PANEL cholesterol, total 299 mg/dL 100-19 9 above high normal Not Available [facility] ([facility]) [address] [place], [address], 08/13/2024 15:07:43 08/07/19 25 08/07/2024 LIPID PANEL triglyceride s 133 mg/dL 0-149 normal Not Available [facility] ([facility]) [address] [place], [address], 08/13/2024 15:07:43 08/07/19 25 08/07/2024 LIPID PANEL HDL cholesterol 62 mg/dL >39 normal Not Available [facility] ([facility]) [address] [place], [address], 08/13/2024 15:07:43 08/07/19 25 08/07/2024 LIPID PANEL VLDL cholesterol phan 24 mg/dL 5-40 Not Available [facility] ([facility]) [address] [place], [address], 08/13/2024 15:07:43 08/07/19 25 08/07/2024 LIPID PANEL LDL chol calc ([facility]) 213 mg/dL 0-99 above high normal Not Available [facility] ([facility]) [address] [place], [address], 08/13/2024 15:07:43 08/07/19 25 08/07/2024 LIPID PANEL LDL calc comment: Commen t Consi akilah evalu ating for Famil ial Hyper alexandre stero lemia (FH), if clini brandon indic ated. Not Available [facility] ([facility]) [address] [place], [address], 08/13/2024 15:07:43 08/07/19 25 08/07/2024 VITAM IN B12 AND FOLAT E vitamin B12 1183 pg/mL 232-12 45 normal Not Available [facility] ([facility]) [address] [place], [address], 08/13/2024 15:07:43 08/07/19 25 08/07/2024 VITAM IN B12 AND FOLAT E folate (folic acid), serum >20.0 NG/mL >3.0 A serum folat e emely ntrat ion of less than 3.1 ng/mL is consi dered to repre sent clini phan defic iency . Not Available [facility] ([facility]) [address] [facility], [place], [address], 08/13/2024 15:07:43 08/07/19 25 08/07/2024 HEMOG LOBIN A1C hemoglobin A1C 5.6 % 4.8-5. 6 normal Predi abete s: 5.7 - 6.4 Diabe edith: >6.4 Glyce bradley contr ol for adult s with diabe edith: <7.0 Not Available [facility] ([facility]) [address] [facility], [place], [address], 08/13/2024 15:07:44 08/07/19 25 08/06/2024 ABN OPTIO N 3 abn option 3 Commen t One or more tests were remov ed at the reque st of the patie nt and may not be repre sente d on this repor t. As a resul t, some or all of the tests origi kaiden reque sted may not have been perfo rmed or may be repor michel separ ately . Pleas e conta ct your patie nt regar ding any neces felicitas follo w-up. Not Available [facility] ([facility]) [address] [facility], [place], [address], 08/13/2024 15:07:45 11/22/19 24 11/22/2023 LDCT, chest , for lung cance r scree deb No observ ation record ed. [email or web address], [place], [address], 04/26/2024 13:44:28 11/28/19 24 11/24/2023 MAMMO , scree deb, digit al, bilat eral No observ ation record ed. [email or web address], [place], [address], 04/26/2024 13:44:28 05/10/19 25 05/09/2024 XR, shoul akilah No observ ation record ed. [email or web address] [facility] [address], [place], [address], 05/10/2024 17:54:09 Result Notes None recorded. Problems Name Problem SNOMED Code Status Onset Date Resolution Date Notes Provider Name and Address Organization Details Recorded Time Hypertensive disorder 55658024 Active 2021 HAM NANCI [employer] 2 12:57:03 Hyperlipidemia 98981188 Active 2021 [employer], [employer] 2 12:57:12 Rheumatoid arthritis 99354208 Active 2021 [employer], [employer] 2 12:57:33 Hypothyroidism 05736254 Active 2021 [employer], [employer] 2 12:57:41 Candidiasis of mouth 87506346 Active 2023 Nieves Martinez, VANDANA [address] [place] [address], [id number], [employer] 4 13:16:40 Fatigue 70889452 Active 2024 Radha White [employer], [employer] 5 13:27:44 Hyperglycemia 82079654 Active 2024 Radha White [employer], [employer] 5 13:27:44 Problem Notes None recorded. Procedures Surgical History Date Name Laterality Status Provider Name and Address Organization Details Recorded Time 3 Most Recent Mammogram completed Radha White [employer] 05/05/2023 13:36:39 2 colonoscopy completed [employer] 03/21/2022 17:04:17 Ear Tube completed [employer] 01/06/2022 12:59:12 Imaging Results None recorded. Procedure Notes None recorded. Medical Equipment None Reported. Allergies Allergen ID Allergen Name Allergen Category Reaction Reaction Severity Criticality Documentation Date Start Date Code Code System Note Provider Name and Address Organization Details Recorded Time 55554 Cipro medicatio n Not available Not available Not available 01/06/2022 3 RxNorm [employer] 12:56:07 17714 Dilaudid medicatio n Not available Not available Not available 01/06/2022 05175 3 RxNorm [employer], [employer] 12:56:31 Medications Name Sig Start Date Stop [...] Available nystatin 100,000 unit/mL oral suspensio n Swish and swallow 5 mL PO 4 times daily x 10 days 2024 active Not Available Not Available Not Avai lable prednison e 10 mg tablet take 4 tablets by MOUTH ONCE daily FOR 3 DAYS, THEN take 2 tablets ONCE daily FOR 3 DAYS, THEN take 1 tablet ONCE daily FOR 3 DAYS, THEN STOP --take with food-- -- FINISH ALL MEDICINE -- 03/18 completed Not Available Not Available Not Available gabapenti n 600 mg tablet Take 1 tablet 3 times a day by oral route. 2024 active Not Available Not Available Not Avai lable Plaquenil 200 mg tablet Take 1 tablet twice a day by oral route. active Not Available Not Available No t Available Depo-Medr ol 40 mg/mL suspensio n for injection Take 1 mL by injectio n route. 08/06 completed Not Available Not Available Not Available triamcino lone acetonide 0.5 % topical cream [...] DOSE, REPEAT in 72 hours if needed 08/06 completed Not Available Not Available Not Available benzonata te 200 mg capsule Take [...] WITH FOOD-- -- FINISH ALL MEDICINE -- 08/06 completed Not Available Not Available Not Available prednison e 5 mg tablet TAKE 4 TABLETS BY MOUTH DAILY FOR 3 DAYS, THEN TAKE THREE TABLETS DAILY FOR 3 DAYS, THEN TAKE TWO TABLETS DAILY FOR 3 DAYS, THEN TAKE ONE TABLET DAILY FOR 3 DAYS THEN STOP --TAKE WITH FOOD-- -- FINISH ALL MEDICINE -- 11/06 completed Not Available Not Available Not Available allopurin ol 100 mg tablet Take 1 tablet every day by oral route. 2024 active Not Available Not Available Not Avai lable hydrocodo ne 10 mg-acetam inophen 325 mg tablet TAKE ONE TABLET BY MOUTH FIVE TIMES DAILY FOR PAIN MAY CAUSE DROWSINE SS 02/03 completed pain clinic Not Available Not Available Not Available omeprazol e 40 mg capsule,d elayed release Take 1 capsule every day by oral route. 2024 active Not Available Not Available Not Avai lable Kenalog 40 mg/mL suspensio n for injection [...] TAKE 1 TABLET BY MOUTH 6 TIMES A DAY active Not Available Not Available No t Available cephalexi n 500 mg capsule TAKE ONE CAPSULE BY MOUTH TWICE DAILY FOR 10 DAYS -- FINISH ALL MEDICINE -- 02/03 completed Not Available Not Available Not Available trazodone 150 mg tablet Take 1 tablet every day by oral route at bedtime. 2024 active Not Available Not Available Not Avai lable levothyro xine 125 mcg tablet TAKE 1 TABLET DAILY 2024 active Not Available Not Available Not Avai lable bumetanid e 0.5 mg tablet Take 1 tablet every day by oral route. 10/17 completed Not Available Not Available Not Available nystatin 100,000 unit/gram topical cream APPLY TO THE AFFECTED AREA(S) BY TOPICAL ROUTE 2 TIMES PER DAY 2024 active Not Available Not Available Not Avai lable nicotine 21 mg/24 hr daily transderm al patch Apply 1 patch every day by transder mal route as directed . 07/15 completed Not Available Not Available Not Available bumetanid e 1 mg tablet Take 1 tablet every day by oral route. 08/06 completed Not Available Not Available Not Available folic acid 1 mg tablet 02/07 completed Not Available Not Available Not Available monteluka st 10 mg tablet Take 1 tablet every day by oral route. 2024 active Not Available Not Available Not Avai lable furosemid e 20 mg tablet TAKE ONE TABLET BY MOUTH EVERY DAY 01/18 completed Not Available Not Available Not Available metoprolo l succinate ER 25 mg tablet,ex tended release 24 hr TAKE 1 TABLET DAILY 2024 active Not Available Not Available Not Avai lable ergocalci ferol (vitamin D2) 1,250 mcg (50,000 [...] 40 mg tablet TAKE 1 TABLET DAILY 2024 active Not Available Not Available Not Avai lable Prilosec OTC 07/15 completed Not Available Not [...] in Arterial blood by Pulse oximetry Systolic And Diastolic Provider Name and Address Organization Details Last Updated DateTime 5 154.94 cm 40.1 kg/m2 68591.2 8 g 80 /min 91 % 91 % 138/84 mm[Hg] Radha [employer] 5 13:36:53 Date Recorded Body height Body mass index (BMI) Body weight Heart rate Oxygen saturation Oxygen saturation in Arterial blood by Pulse oximetry Systolic And Diastolic Provider Name and Address Organization Details Last Updated DateTime 4 154.94 cm 39.5 kg/m2 56935.8 1 g 59 /min 93 % 93 % 135/84 mm[Hg] Radha White [employer] 4 13:27:57 Social History Question Answer Notes LastModified by Organizat ion Details LastModified Time Tobacco Smoking Status Current Every Day Smoker [employer]. 01/06/2022 13:01:22 Do You Have An Advance Directive? No [email or web address] Information n ot available 01/06/2022 Is Your Home Air Conditioned? Yes Information not available 07/15/2022 Are You Blind Or Do You Have Difficulty Seeing? No [email or web address] Information n ot available 01/06/2022 What Is Your Level Of Caffeine Consumption? Heavy Information not available 07/15/2022 In The 14 Days Before Symptom Onset, Have You Had Close Contact With A Laboratory-confirm ed COVID-19 While That Case Was Ill? No [email or web address] Information n ot available 01/18/2022 In The 14 Days Before Symptom Onset, Have You Had Close Contact With A Person Who Is Under Investigation For COVID-19 While That Person Was Ill? No [email or web address] Information not available 01/18/2022 Have You Been To An Area Known To Be High Risk For COVID-19? No [email or web address] Information not available 01/18/2022 Are You Deaf Or Do You Have Serious Difficulty Hearing? No [email or web address] Information not available 01/06/2022 What Type Of Diet Are You Following? REGULAR Information n ot available 01/18/2022 Have There Been Any Changes To Your Family Or Social Situation? No [email or web address] Information no t available 01/06/2022 Do You Have A Medical Power Of Motor Racer? No [email or web address] Information not available 01/06/2022 What Was The Date Of Your Most Recent Tobacco Screening? 08/06/2024 Information not available 08/06/2024 What Is Your Current Pack Years? 30ormorepack years [email or web address] Information not available 01/06/2022 What Is Your Relationship Status? [email or web address] Information not available 01/06/2022 Do You Use Your Seat Belt Or Car Seat Routinely? Yes Information not available 07/15/2022 Do You Have Smoke And Carbon Monoxide Detectors In Your Home? Yes Information not available 07/15/2022 How Much Tobacco Do You Smoke? 2 PPD [email or web address] Information not available 01/06/2022 Has Tobacco Cessation Counseling Been Provided? Yes Information not available 07/15/2022 On What Date Was Tobacco Cessation Counseling Provided? 08/06/2024 Information not available 08/06/2024 Have You Recently Traveled Abroad? No [email or web address] Information not available 01/18/2022 Do You Have Difficulty Walking Or Climbing Stairs? No [email or web address] Information not available 01/06/2022 Are You Currently In School? No [email or web address] Information not available 01/06/2022 Do You Have Any Dietary Restrictions? No [email or web address] Information not available 01/18/2022 Sex: Female Functional Status Question Answer Note LastModified by Organizat ion Details LastModified Time Do you use any illicit or recreational drugs? No Information not available 07/15/2022 What is your level of alcohol consumption? None [email or web address] Information not available 01/06/2022 Are you currently employed? No [email or web address] Information not available 01/06/2022 Do you have transportation difficulties? No [email or web address] Information not available 01/06/2022 Are you able to walk? YESASSIST [email or web address] Information not available 01/18/2022 Do you have difficulty doing errands alone? No [email or web address] Information not available 01/06/2022 Are you able to care for yourself? Yes [email or web address] Information not available 01/06/2022 Do you have difficulty dressing or bathing? No [email or web address] Information not available 01/06/2022 What is your exercise level? None [email or web address] Information not available 01/18/2022 Mental Status Question Answer Note LastModified by Organization D etails LastModified Time Do you have difficulty concentrating, remembering or making decisions? No [email or web address] Information no t available 01/06/2022 Family History Relationship Description Onset Age of this Age Resolved Age Notes LastModified by Organization Details LastModified Time Mother Essential hypertension [email or web address] Not available 12:58:03 Medical History Condition Response Kidney Disease Y Gynecological History Statement/Question Response Date of Last Pap Smear Most Recent Mammogram 10/12/2022 Obstetrics History GPAL:G 0 P 0 0 0 0 Immunizations Vaccine Type Date Status Note Provider Nam e and Address Organization Details Recorded Time Influenza, split virus, quadrivalent, PF 3 completed Trinity Chase, [employer] [address] [place] [address], [address], [employer] 11/25/2022 16:14:12 COVID-19, mRNA, LNP-S, PF, dread-sucrose, 30 mcg/0.3 mL 3 completed Ena Barger, [employer] [address] [place], [address], [employer] 12/02/2022 18:08:04 Influenza, split virus, trivalent, PF 4 completed Ena Barger, [employer] [address] [place], [address], [employer] 12/16/2023 12:29:21 COVID-19, mRNA, LNP-S, PF, dread-sucrose, 30 mcg/0.3 mL 4 completed Radha chance, [employer] 01/19/2024 16:19:29 Influenza, split virus, quadrivalent, preservative 0 completed HAM GARDUNONER null, [employer] 01/18/2022 17:46:57 Influenza, split virus, quadrivalent, preservative 0 completed HAM GARDUNONER null, [employer] 01/18/2022 17:46:57 Influenza, split virus, quadrivalent, preservative 7 completed HAM NANCI [employer] 01/18/2022 17:46:57 COVID-19, mRNA, LNP-S, PF, 100 mcg/0.5mL dose or 50 mcg/0.25mL dose 1 completed HAM NANCI [employer] 01/18/2022 17:46:57 Tdap 2 completed HAM NANCI [employer] 01/18/2022 17:46:57 COVID-19, mRNA, LNP-S, PF, 100 mcg/0.5mL dose or 50 mcg/0.25mL dose 1 completed HAM GARDUNONER [employer]. 01/18/2022 17:46:57 COVID-19, mRNA, LNP-S, PF, 100 mcg/0.5mL dose or 50 mcg/0.25mL dose 1 completed HAM NANCI [employer] 01/18/2022 17:46:57 Influenza, split virus, quadrivalent, preservative 8 completed HAM NANCI [employer] 01/18/2022 17:46:57 Pneumococcal conjugate PCV15, polysaccharide QYL858 conjugate, adjuvant, PF 5 completed Radha White [employer] 08/06/2024 14:15:47 SARS-COV-2 (COVID-19) vaccine, UNSPECIFIED 1 completed Not Available [facility] 08/06/2024 13:07:33 Past Encounters Encounter ID Performer Location Encounter Start Date Encounter Closed Date Diagnosis/Indication Diagnosis SNOMED-CT Code Diagnosis ICD10 Code Diagnosis Note [id number] [place] [address] 01/18/2022 17:23:59 01/18/2022 18:03:39 Hyperlipidemia 44875216 E78.5 Hypertensive disorder 38 128053 I10 Hypothyroidism 43768230 E03.9 Rheumatoid arthritis 698 88750 M06.9 Gout 79436459 M10.9 Fatigue 48713904 R53.83 Chronic back pain 794437 002 M54.50 Vitamin D deficiency 347 21021 E55.9 Allergic rhinitis 801933 04 J30.9 Insomnia 503392215 G47.0 0 Pruritic rash 92289322 L 28.2 Body mass index 30+ - obesity 524528178 Z68.41 [id number] Trinity Chase [place] [address] 0 02/03/2022 14:44:32 02/03/2022 15:33:13 Nasal congestion 17070099 R09.81 Lower resp iratory tract infection 82986562 J22 Cough 53910236 R05.9 Wheezing 40344985 R06.2 [id number] Armida Bragg [place] [address] 0 02/18/2022 11:37:49 02/18/2022 17:27:07 Candidiasis of mouth 61428890 B37.0 Candidiasis of vagina 72 042584 B37.31 Cigarette smoker 6643292 7 F17.210 [id number] Trinity Chase [place] [address] 0 03/18/2022 10:46:05 03/18/2022 11:28:31 Hyperlipidemia 52264608 E78.5 Hypertensive disorder 38 979416 I10 Hypothyroidism 49286811 E03.9 Candidiasis of vagina 72 582678 B37.31 Body mass index 30+ - obesity 905321835 Z68.41 [id number] Trinity Chase [place] [address] 0 04/19/2022 10:58:59 04/19/2022 11:33:37 Rheumatoid arthritis 30762341 M06.9 Serum crea tinine above reference range 152562284 R79.89 Impacted tooth 046071474 K01.1 Body mass index 30+ - obesity 051106998 Z68.41 [id number] Ena Barger [place] [address] 05/02/2022 15:52:07 05/02/2022 16:33:03 Pain in right arm 458948600 M79.601 karyna BECKER QID, obtain x ray, If no improvemen t in 7 days, she is to call me. Suspect tendonitis . [id number] [place] [address] 05/31/2022 15:53:36 05/31/2022 16:45:15 Pre-surgery evaluation 971015059 Z01.818 Pain of ri t shoulder joint 9998978078 0329222 M25.511 Body mass index 30+ - obesity 263190082 Z68.41 [id number] [place] [address] 07/15/2022 13:25:02 07/15/2022 14:41:38 Kyphosis deformity of spine 488973885 M40.209 Full thick ness rotator cuff tear 022177307 M75.120 Chronic ki dney disease stage 3 326093045 N18.30 [id number] Trinity Chase [address] [address] 10/04/2022 13:51:44 10/04/2022 14:43:38 Hyperlipidemia 16097710 E78.5 Open wound of left breast 8546002543 1331134 S21.002A Tenderness of breast 552 56625 N64.4 Screening mammography 24 448660 Z12.31 Body mass index 30+ - obesity 306261525 Z68.41 [id number] Trinity Chase [address] [place] [address] 10/17/2022 13:02:44 10/17/2022 13:46:13 Vitamin D deficiency 08997585 E55.9 Allergic rhinitis 917780 04 J30.9 Body mass index 30+ - obesity 759419496 Z68.41 [id number] [place] [address] 11/25/2022 13:09:49 11/25/2022 14:00:59 Administration of influenza vaccine 40227661 Z23 [id number] [place] [address] 11/30/2022 13:22:14 11/30/2022 17:46:55 Active or passive immunization 493885176 Z23 [id number] [place] [address] 02/03/2023 15:21:51 02/03/2023 17:25:32 Hypertensive disorder 41918610 I10 Hyperlipidemia 83179087 E78.5 Hypothyroidism 63672868 E03.9 Rheumatoid arthritis 698 77890 M06.9 Body mass index 30+ - obesity 898804713 Z68.41 [id number] Trinity Chase [place] [address] 05/05/2023 13:22:26 05/05/2023 13:49:13 Body mass index 30+ - obesity 934942643 Z68.41 Long-term drug therapy 608951027 Z79.899 Hyperlipidemia 06705086 E78.5 Hypertensive disorder 38 889162 I10 Hypothyroidism 59065281 E03.9 Vitamin D deficiency 347 56654 E55.9 Neuropathy 707047650 G62 .9 Allergic rhinitis 942469 04 J30.9 Insomnia 499785927 G47.0 0 [id number] Trinity Chase [place] [address] 08/04/2023 15:35:11 08/04/2023 16:09:59 Hyperlipidemia 66371668 E78.5 Allergic rhinitis 640221 04 J30.9 Insomnia 676970568 G47.0 0 Body mass index 30+ - obesity 223394259 Z68.41 [id number] [place] [address] 11/07/2023 12:56:07 11/07/2023 13:42:02 Screening mammography 08575177 Z12.31 Nicotine dependence 5629 4008 F17.200 Hypertensive disorder 38 867048 I10 Neuropathy 848839727 G62 .9 Allergic rhinitis 878657 04 J30.9 Hyperlipidemia 93601984 E78.5 Insomnia 389871435 G47.0 0 Body mass index 30+ - obesity 506390058 Z68.41 [id number] [place] [address] 0 12/15/2023 10:53:03 12/15/2023 11:12:33 Administration of influenza vaccine 94908949 Z23 [id number] [place] [address] 12/29/2023 12:59:40 12/29/2023 13:52:41 Active or passive immunization 862085892 Z23 [id number] [place] [address] 02/08/2024 13:11:10 02/08/2024 14:04:48 Fatigue 35707339 R53.83 Vitamin D deficiency 347 54812 E55.9 Vitamin B deficiency 479 98607 E53.9 Hyperlipidemia 34712827 E78.5 Hyperglycemia 83307780 R 73.9 Hypertensive disorder 38 699332 I10 Hypothyroidism 83014243 E03.9 Body mass index 30+ - obesity 811817417 Z68.41 [id number] [place] [address] 0 04/24/2024 14:16:28 04/24/2024 14:36:17 Bursitis of left shoulder 9152798544 23752 M75.52 [id number] Trinity Chase [address] [address] 08/06/2024 13:03:44 08/06/2024 14:04:39 Hyperlipidemia 93913036 E78.5 Fatigue 81510259 R53.83 Hyperglycemia 12988130 R 73.9 Long-term current use of drug therapy 975822593 Z79.899 Active immunization 3387 9002 Z23 Candidiasis of vagina 72 015497 B37.31 Candidiasis of mouth 797 97014 B37.0 Gout 35688922 M10.9 Neuropathy 931399181 G62 .9 Allergic rhinitis 096821 04 J30.9 Gastroesop hageal reflux disease without esophagitis 108302460 K21.9 Insomnia 856215978 G47.0 0 Body mass index 40+ - severely obese 540121638 Z68.41 History an d physical examination, annual for health maintenance 98124877 Z00.00 Health Concerns Section Related Observation LastModified by Organization Detai ls LastModified Time None Recorded Concern Status LastModified by Organization Details LastModified Time None Recorded Advance Directives Directive N: Payers Insurance Date Sequence Insurance Name Policy Number Policy Zhang Covered Member ID Zhang Member ID Guarantor Name 05/27/2023 1 [facility] () Rajiv Mejia [id number] Nell Mejia 01/26/2022 1 [place] Nell Mejia [id number] Nell Mejia 08/03/2024 [place] [employer] [facility] Nell Mejia [id number] Nell Mejia 08/03/2024 2 FOR LIFE ( - MEDICARE SUPPLEMENT) Nell Mejia [id number] Nell Mejia 08/03/2024 1 [place]IC[place] Nell Mejia [id number] Nell Mejia 01/06/2022 1 *SELF PAY* Be tiffanie Mejia Notes Date Note Type Note Provider Name and Address Organization Details Recorded Time 02/08/2024 text/html pt here today fo r medication refills. pt states shes doing well on current medication regime and has no new complaints today. pt states that she is going to ask her pain yannick doc if he will prescribe the gabapentin as well and she would like to start coming in q 6 months if so. Trinity Chase APRN [address] [place], [address], [employer] 02/08/2024 15:49:49 08/06/2024 text/html pt here today fo r AWV and medication refills. pt states shes doing well on current medication regime. pt states that she has had a vaginal yeast infection and used what h had left of her nystatin cream and it has helped but needs a refill. also she has what appeard to be thrush in her mouth and she started some nystatin swish and spit and it helped but she is out and needs a refill. Trinity Chase APRN [address] [place], [address], [employer] 08/06/2024 16:57:39 OBGyn Episode No OBEpisode recorded.
--- OUTSIDE RECORDS SUMMARY | 2024-09-02 13:26 | XMS_ITS | Continuity of Care Document ---
Author Organization [employer], [employer] [facility] Address [address] [place] [address] Care Team Providers Care Intelligence Specialist Name Role Phone ROSELIANORI GauthierJUM [facility] Oncology Nurse TRINITY CHASE Primary Care Provider Unavailabl e Assessment No assessment recorded. Plan of Treatment Reminders Order Date Submit Date Provider Last Modified By Organization Details Last Modified Time Details Appointments FOLLOW UP 30 2024 01:00P Nini Chase APRN Not available Not available Not available Lab drug screen, 14 drugs (detectim ed), urine 2024 025 [facility] [address] [place], [address], 08/13/2024 15:07:40 CBC w/ auto diff 2024 025 [facility] [address] [place], [address], 08/13/2024 15:07:41 CMP, serum or plasma 2024 025 [facility] [address] [place], [address], 08/13/2024 15:07:42 TSH + free T4, serum 2024 025 [facility] [place], [address], 08/13/2024 15:07:40 cobalamin and folate panel, serum 2024 025 [facility] [address] [place], [address], 08/13/2024 15:07:43 vitamin D, 25-hydrox y, total, serum 2024 025 [email or web address] [place], [address], 08/21/2024 16:32:36 lipid panel, serum 2024 025 [facility]), [address] [place] [address], [address], 08/13/2024 15:07:43 HbA1c (hemoglob in A1c), blood 2024 025 [facility]), [address] [place] [address], [address], 08/13/2024 15:07:44 Referral None recorded. Procedures None recorded. Surgeries None recorded. Imaging None recorded. Medication Orders allopurin ol 100 mg tablet 2024 025 [facility], [address] [place] [address], [address], 08/06/2024 16:57:[address] 10 mg tablet 2024 025 [facility], [address] [place] [address], [address], 08/06/2024 16:57:04 trazodone 150 mg tablet 2024 025 [facility], [address] [place] [address], [address], 08/06/2024 16:57:03 nystatin 100,000 unit/mL oral suspensio n 2024 025 [facility], [address] [place] [address], [address], 08/06/2024 14:16:32 nystatin 100,000 unit/gram topical cream 2024 025 [facility], [address] [place] [address], [address], 08/06/2024 14:16:32 rosuvasta tin 40 mg tablet 2024 025 [facility], [address] [place] [address], [address], 08/06/2024 16:57:05 omeprazol e 40 mg capsule,d elayed release 2024 025 [facility], [address] [place] [address], [address], 08/06/2024 16:57:07 gabapenti n 600 mg tablet 2024 025 [facility], [address] [place] [address], [address], 08/06/2024 16:57:10 Patient TargetsNo targets recorded. Patient Instructions Encounter Date Encounter Id Patient Instructions Last Modified By Organization Details Last Modified Time 08/06/2024 [id number] statins: care instructions Not available 08/06/2024 17:54:43 Reason for Referral None Reported. Problems Name Problem SNOMED Code Status Onset Date Resolution Date Notes Provider Name and Address Organization Details Recorded Time Hypertensive disorder 56761143 Active 2021 HAMTILA CHRISTINE [employer] 12:57:03 Hyperlipidemia 89026002 Active 2021 HAMTILA CHRISTINE [employer] 12:57:12 Rheumatoid arthritis 43424873 Active 2021 [employer] 12:57:33 Hypothyroidism 64787425 Active 2021 [employer] 2 12:57:41 Candidiasis of mouth 75568482 Active 2023 Nieves Martinez NP [address] [facility], [place], [address], [employer] 4 13:16:40 Fatigue 89455997 Active 2024 Radha chance, [employer] 5 13:27:44 Hyperglycemia 90151410 Active 2024 Radha chance, [employer] 5 13:27:44 Problem Notes None recorded. Procedures Surgical History Date Name Laterality Status Provider Name and Address Organization Details Recorded Time 3 Most Recent Mammogram completed Radha White [employer] 05/05/2023 13:36:39 2 colonoscopy completed [facility]. 03/21/2022 17:04:17 Ear Tube completed [facility]. 01/06/2022 12:59:12 Imaging Results None recorded. Procedure Notes None recorded. Medical Equipment None Reported. Allergies Allergen ID Allergen Name Allergen Category Reaction Reaction Severity Criticality Documentation Date Start Date Code Code System Note Provider Name and Address Organization Details Recorded Time 93398 Cipro medicatio n Not available Not available Not available 01/06/202299376 3 RxNorm HAM CHRISTINE [employer], [employer] 2 12:56:07 13858 Dilaudid medicatio n Not available Not available Not available 01/06/2022 25416 3 RxNorm HAM CHRISTINE [employer], [employer] 2 12:56:31 Medications Name Sig Start Date [...] Updated DateTime 5 154.94 cm 40.1 kg/m2 38151.2 8 g 80 /min 91 % 91 % 138/84 mm[Hg] Radha White [employer] 5 13:36:53 Social History Question Answer Notes LastModified by Organizat ion Details LastModified Time Tobacco Smoking Status Current Every Day Smoker HAM chance [employer] 01/06/2022 13:01:22 Do You Have An Advance Directive? No [email or web address] Information n ot available 01/06/2022 Is Your Home Air Conditioned? Yes Information not available 07/15/2022 Are You Blind Or Do You Have Difficulty Seeing? No Information n ot available 01/06/2022 What Is Your Level Of Caffeine Consumption? Heavy Information not available 07/15/2022 In The 14 Days Before Symptom Onset, Have You Had Close Contact With A Laboratory-confirm ed COVID-19 While That Case Was Ill? No [email or web address] Information n ot available 01/18/2022 In The 14 Days Before Symptom Onset, Have You Had Close Contact With A Person Who Is Under Investigation For COVID-19 While That Person Was Ill? No [email or web address] Information not available 01/18/2022 Have You Been To An Area Known To Be High Risk For COVID-19? No [email or web address] Information not available 01/18/2022 Are You Deaf Or Do You Have Serious Difficulty Hearing? No [email or web address] Information not available 01/06/2022 What Type Of Diet Are You Following? REGULAR [email or web address] Information n ot available 01/18/2022 Have There Been Any Changes To Your Family Or Social Situation? No [email or web address] Information no t available 01/06/2022 Do You Have A Medical Power Of Special Order Jeweler? No [email or web address] Information not available 01/06/2022 What Was The Date Of Your Most Recent Tobacco Screening? 08/06/2024 Information not available 08/06/2024 What Is Your Current Pack Years? 30ormorepack years [email or web address] Information not available 01/06/2022 What Is Your Relationship Status? Information not available 01/06/2022 Do You Use Your Seat Belt Or Car Seat Routinely? Yes Information not available 07/15/2022 Do You Have Smoke And Carbon Monoxide Detectors In Your Home? Yes Information not available 07/15/2022 How Much Tobacco Do You Smoke? 2 PPD [email or web address] Information not available 01/06/2022 Has Tobacco Cessation Counseling Been Provided? Yes Information not available 07/15/2022 On What Date Was Tobacco Cessation Counseling Provided? 08/06/2024 Information not available 08/06/2024 Have You Recently Traveled Abroad? No [email or web address] Information not available 01/18/2022 Do You Have Difficulty Walking Or Climbing Stairs? No [email or web address] Information not available 01/06/2022 Are You Currently In School? No [email or web address] Information not available 01/06/2022 Do You Have Any Dietary Restrictions? No Information not available 01/18/2022 Sex: Female Functional Status Question Answer Note LastModified by Organizat ion Details LastModified Time Do you use any illicit or recreational drugs? No Information not available 07/15/2022 What is your level of alcohol consumption? None [email or web address] Information not available 01/06/2022 Are you currently employed? No [email or web address] Information not available 01/06/2022 Do you have transportation difficulties? No [email or web address] Information not available 01/06/2022 Are you able to walk? YESASSIST [email or web address] Information not available 01/18/2022 Do you have difficulty doing errands alone? No [email or web address] Information not available 01/06/2022 Are you able to care for yourself? Yes [email or web address] Information not available 01/06/2022 Do you have difficulty dressing or bathing? No [email or web address] Information not available 01/06/2022 What is your exercise level? None Information not available 01/18/2022 Mental Status Question Answer Note LastModified by Organization D etails LastModified Time Do you have difficulty concentrating, remembering or making decisions? No [email or web address] Information no t available 01/06/2022 Family History Relationship Description Onset Age of this Age Resolved Age Notes LastModified by Organization Details LastModified Time Mother Essential hypertension Not available 12:58:03 Medical History Condition Response Kidney Disease Y Gynecological History Statement/Question Response Date of Last Pap Smear Most Recent Mammogram 10/12/2022 Obstetrics History GPAL:G 0 P 0 0 0 0 Immunizations Vaccine Type Date Status Note Provider Nam e and Address Organization Details Recorded Time Influenza, split virus, quadrivalent, PF 3 completed Trinity Chase APRN [address] [place] [address], [address], [facility] [employer] 11/25/2022 16:14:12 COVID-19, mRNA, LNP-S, PF, dread-sucrose, 30 mcg/0.3 mL 3 completed Ena Barger, CLINICAL TECHNICIAN [address] [place], [address], [place] [employer] 12/02/2022 18:08:04 Influenza, split virus, trivalent, PF 4 completed Ena Barger, CLINICAL TECHNICIAN [address] [place], [address], [employer] 12/16/2023 12:29:21 COVID-19, mRNA, LNP-S, PF, dread-sucrose, 30 mcg/0.3 mL 4 completed Radha White null, [employer] 01/19/2024 16:19:29 Influenza, split virus, quadrivalent, preservative 0 completed HAM CHRISTINE null, [employer] 01/18/2022 17:46:57 Influenza, split virus, quadrivalent, preservative 0 completed HAM CHRISTINE null, [employer] 01/18/2022 17:46:57 Influenza, split virus, quadrivalent, preservative 7 completed HAM CHRISTINE null, [employer] 01/18/2022 17:46:57 COVID-19, mRNA, LNP-S, PF, 100 mcg/0.5mL dose or 50 mcg/0.25mL dose 1 completed HAM CHRISTINE null, [employer] 01/18/2022 17:46:57 Tdap 2 completed HAM CHRISTINE null, [employer] 01/18/2022 17:46:57 COVID-19, mRNA, LNP-S, PF, 100 mcg/0.5mL dose or 50 mcg/0.25mL dose 1 completed HAM CHRISTINE null, [employer] 01/18/2022 17:46:57 COVID-19, mRNA, LNP-S, PF, 100 mcg/0.5mL dose or 50 mcg/0.25mL dose 1 completed HAM chance [employer] 01/18/2022 17:46:57 Influenza, split virus, quadrivalent, preservative 8 completed HAM chance [employer] 01/18/2022 17:46:57 Pneumococcal conjugate PCV15, polysaccharide TIO465 conjugate, adjuvant, PF 5 completed Radah White [employer], [employer] 08/06/2024 14:15:47 SARS-COV-2 (COVID-19) vaccine, UNSPECIFIED 1 completed Not Available [facility] 08/06/[facility] 13:07:33 Past Encounters Encounter ID Performer Location Encounter Start Date Encounter Closed Date Diagnosis/Indication Diagnosis SNOMED-CT Code Diagnosis ICD10 Code Diagnosis Note [id number] Trinity Salvatore [place] [phone] 08/06/2024 13:03:44 08/06/2024 14:04:39 Hyperlipidemia 42869717 E78.5 Fatigue 86027319 R53.83 Hyperglycemia 61786439 R 73.9 Long-term current use of drug therapy 913153699 Z79.899 Active immunization 3387 9002 Z23 Candidiasis of vagina 72 029142 B37.31 Candidiasis of mouth 797 34108 B37.0 Gout 88719062 M10.9 Neuropathy 423338315 G62 .9 Allergic rhinitis 938571 04 J30.9 Gastroesop hageal reflux disease without esophagitis 602725978 K21.9 Insomnia 474056080 G47.0 0 Body mass index 40+ - severely obese 656843845 Z68.41 History an d physical examination, annual for health maintenance 12971511 Z00.00 Health Concerns Section Related Observation LastModified by Organization Detai ls LastModified Time None Recorded Concern Status LastModified by Organization Details LastModified Time None Recorded Payers Encounter Date Sequence Insurance Name Policy Number Policy Zhang Covered Member ID Zhang Member ID Guarantor Name 08/06/2024 2 FOR LIFE ( - MEDICARE SUPPLEMENT) Nell Mejia [id number] Nell Mejia 08/06/2024 1 MEDICARE-[place] (MEDICARE) Nell Mejia [id number] Nell Roberto Notes Date Note Type Note Provider Name and Address Organization Details Recorded Time 08/06/2024 text/html pt here today fo r [...] and needs a refill. Trinity Chase APRN [address] [place] [address], [place], [address], [facility] [employer] [employer] 08/06/2024 16:57:39 OBGyn Episode No OBEpisode recorded.
[2024-09-02 13:33] VITALS: BP 106/82; PULSE 79; RESP 16; O2SAT 95; BMI 38.0
--- NOTE | 2024-09-02 13:50 | EXP.PAIN.SOA ---
[facility] Disclaimer: The information contained in this section may have been updated after the patient was seen, as this information can be updated by other users. Medical History COPD (chronic obstructive pulmonary disease) Rheumatoid arthritis Family History Other No significant family history Social History Smoking Status: Current every day smoker tobacco type: cigarettes packs per day: 2 second hand exposure: Yes alcohol intake: never substance use type: denies use current occupational status: retired and other Travel in the last 8 weeks?: None household members: spouse housing: house current occupational exposures/hazards: No caffeine: Yes PM Subjective & Objective Subjective Subjective:: Patient is a pleasant 63-year-old female who presents today for medication refill and follow-up. Today she rates her pain a 4 out of 10. She denies any new falls or injuries. Patient is currently prescribed Hermleigh 7.5 mg 6 times a day and Flexeril 10 mg 3 times a day. She denies any side effects or changes to her pharmacy. Patient does not need refills of her Flexeril at this time. Her Clifford has been reviewed and is appropriate. Review of Systems: General: No recent weight changes, no fever, no sleep disturbances Respiratory: No cough, no shortness of air, no recurring pulmonary infections Cardiovascular/peripheral vascular: No chest pain, no palpitations, no edema, no shortness of breath Gastrointestinal: No new onset incontinence, normal bowel movements reported Genitourinary: No new onset incontinence Musculoskeletal: Chronic back pain Psychiatric: [Normal mood/affect] Neurological: [Denies weakness in extremities], [denies balance issues] Pain at rest (0-10 scale): 4 Objective Objective:: Physical Exam: General: Alert and oriented x3, no acute distress, pleasant and cooperative Lungs: Respirations even and unlabored, symmetrical chest expansion Eyes: PERRL Musculoskeletal: Flexion and extension of lumbar [spine] somewhat guarded secondary to pain, [antalgic gait noted] Neurological: Speech clear, no gross sensory deficit Has patient had previous pain injection?: No Conservative treatment options previously tried: Prescription medications Length of treatment: Longer than 12 weeks Meds Home Medications and Allergies Home Medications ?Medication ?Instructions ?Recorded ?Confirmed ?Type lisinopril 20 mg tablet 20 mg PO DAILY Hypertension 04/10/18 09/02/24 History levothyroxine 137 mcg tablet 137 mcg PO DAILY thyroid 09/30/18 09/02/24 History (Synthroid) trazodone 100 mg tablet 150 mg PO HS sleep 04/23/19 09/02/24 History gabapentin 600 mg tablet 600 mg PO TID Pain 05/26/21 09/02/24 History hydroxychloroquine 200 mg tablet 200 mg PO BID Arthritis 05/28/21 09/02/24 History sennosides 8.6 mg-docusate sodium 1 each PO HS bowels 05/28/21 09/02/24 History 50 mg tablet baclofen 10 mg tablet 10 mg PO TID MUSCLES 01/31/22 09/02/24 History Lactobacillus acidophilus 10 10,000 mmu cells PO DAILY IMMUNITY 03/07/22 09/02/24 History billion cell capsule (Probiotic) folic acid 1 mg tablet 1 mg PO DIRECTED SUPPLIMENT 10/31/22 09/02/24 History naloxone 4 mg/actuation nasal 4 mg intranasal Q2M PRN opioid 01/10/24 09/02/24 Rx spray (Narcan) overdose #2 ea prednisone 20 mg tablet 20 mg PO BID #10 tabs 04/24/24 09/02/24 Rx tizanidine 4 mg tablet (Zanaflex) 8 mg (2 x 4 mg) PO TID #540 tabs 05/09/24 09/02/24 Rx cyclobenzaprine 10 mg tablet 10 mg PO TID #270 tabs 06/06/24 09/02/24 Rx hydrocodone 7.5 mg-acetaminophen 1 tab PO .6x #180 tabs 08/01/24 09/02/24 Rx 325 mg tablet New Prescriptions to Start Prescriptions: Allergies Allergy/AdvReac Type Severity Reaction Status Date / Time ciprofloxacin Allergy Hives Verified 05/30/23 13:57 hydromorphone Allergy Anaphylaxis Verified 05/30/23 13:57 ofloxacin Allergy Hives Verified 05/30/23 13:57 venlafaxine Allergy Rash Verified 05/30/23 13:57 Assessment and Plan *Assessment and plan (1) Lumbar radiculopathy: Status: Chronic Category: Medical Code(s): M54.16 - Radiculopathy, lumbar region (2) Degenerative disc disease: Status: Chronic Qualifiers: Spinal region: lumbar Qualified Code(s): M51.36 - Other intervertebral disc degeneration, lumbar region Category: Medical Plan Will refill the patient's Hermleigh and provide a 1 month supply of these medications. Patient will return to clinic in 1 month for reevaluation of symptoms and plan of care. Risks and benefits of the medication have been explained in detail to the patient. The patient does understand the risk of dependence on the medication when given over a prolonged period. Patient has been advised of risks of oversedation with the prescribed medication. Narcan has been offered to the paitent in the event of oversedation. Patient has been advised that a family member should also be educated regarding administration of Narcan. The patient has been advised to consult with his/her primary care provider and pharmacist regarding drug-drug interaction of medications currently prescribed. Patient has been prescribed a controlled substance after being counseled on the medication, medication safety, and possible side effects. Opioid contract was reviewed and signed by the patient, and that they have agreed to all of the terms set forth by our compliance program. A UDS is needed to verify patient's compliance with our office pain contract. This is ordered based off specific treatments related to chronic pain with the potential to abuse certain medications. Patient has been instructed to contact the clinic with any concerns before the next appointment. Dr. Carreon has reviewed this note and agrees with this plan of care. This note was dictated using voice recognition software and make contain errors or omissions.
== END 2024-09-02 23:59 | disposition home or self-care (01) ==
PROVIDERS: PCP Nurse Practitioner; Visit Provider Nurse Practitioner Family
DX: M51.16 Intervertebral disc disorders with radiculopathy, lumbar region (principal); Z79.891 Long term (current) use of opiate analgesic; Z79.899 Other long term (current) drug therapy
CPT/HCPCS: 99212; G0463

== ENCOUNTER 2024-10-07 13:42 | Outpatient (POV) | payer MEDICARE, OTHER, SELFPAY ==
[2024-10-07 14:00] VITALS: BP 158/94; PULSE 81; RESP 18; TEMP 35; BMI 38.0
--- NOTE | 2024-10-07 14:04 | EXP.PAIN.SOA ---
[facility] Disclaimer: The information contained in this section may have been updated after the patient was seen, as this information can be updated by other users. Medical History (Updated 10/07/24 @ 14:05 by Nieves Tafoya APRN) COPD (chronic obstructive pulmonary disease) Rheumatoid arthritis Family History Other No significant family history Social History Smoking Status: Current every day smoker tobacco type: cigarettes packs per day: 2 second hand exposure: Yes alcohol intake: never substance use type: denies use current occupational status: retired and other Travel in the last 8 weeks?: None household members: spouse housing: house current occupational exposures/hazards: No caffeine: Yes PM Subjective & Objective Subjective Subjective:: Patient is a pleasant 63-year-old female who presents today for her monthly medication refill and follow-up. She rates her pain today at 3 out of 10. Patient denies any new trauma or injury. She does state that it is more in her mid back today. She denies any new falls or injuries. Patient is currently managed with Flexeril 10 mg 3 times a day and [place] 7.5 mg 6 times a day. Patient denies any side effects or changes to her pharmacy. She does state that she does not need any of the Flexeril. Her Clifford has been reviewed and is appropriate. Review of Systems: General: No recent weight changes, no fever, no sleep disturbances Respiratory: No cough, no shortness of air, no recurring pulmonary infections Cardiovascular/peripheral vascular: No chest pain, no palpitations, no edema, no shortness of breath Gastrointestinal: No new onset incontinence, normal bowel movements reported Genitourinary: No new onset incontinence Musculoskeletal: Mid back pain Psychiatric: [Normal mood/affect] Neurological: [Denies weakness in extremities], [denies balance issues] Pain at rest (0-10 scale): 3 Objective Objective:: Physical Exam: General: Alert and oriented x3, no acute distress, pleasant and cooperative Lungs: Respirations even and unlabored, symmetrical chest expansion Eyes: PERRL Musculoskeletal: Flexion and extension of thoracic [spine] somewhat guarded secondary to pain, [antalgic gait noted] Neurological: Speech clear, no gross sensory deficit Has patient had previous pain injection?: No Conservative treatment options previously tried: Home exercise plan Length of treatment: Longer than 12 weeks Meds Home Medications and Allergies Home Medications ?Medication ?Instructions ?Recorded ?Confirmed ?Type lisinopril 20 mg tablet 20 mg PO DAILY Hypertension 04/10/18 09/02/24 History levothyroxine 137 mcg tablet 137 mcg PO DAILY thyroid 09/30/18 09/02/24 History (Synthroid) trazodone 100 mg tablet 150 mg PO HS sleep 04/23/19 09/02/24 History gabapentin 600 mg tablet 600 mg PO TID Pain 05/26/21 09/02/24 History hydroxychloroquine 200 mg tablet 200 mg PO BID Arthritis 05/28/21 09/02/24 History sennosides 8.6 mg-docusate sodium 1 each PO HS bowels 05/28/21 09/02/24 History 50 mg tablet baclofen 10 mg tablet 10 mg PO TID MUSCLES 01/31/22 09/02/24 History Lactobacillus acidophilus 10 10,000 mmu cells PO DAILY IMMUNITY 03/07/22 09/02/24 History billion cell capsule (Probiotic) folic acid 1 mg tablet 1 mg PO DIRECTED SUPPLIMENT 10/31/22 09/02/24 History naloxone 4 mg/actuation nasal 4 mg intranasal Q2M PRN opioid 01/10/24 09/02/24 Rx spray (Narcan) overdose #2 ea prednisone 20 mg tablet 20 mg PO BID #10 tabs 04/24/24 09/02/24 Rx tizanidine 4 mg tablet (Zanaflex) 8 mg (2 x 4 mg) PO TID #540 tabs 05/09/24 09/02/24 Rx cyclobenzaprine 10 mg tablet 10 mg PO TID #270 tabs 06/06/24 09/02/24 Rx hydrocodone 7.5 mg-acetaminophen 1 tab PO .6x #180 tabs 09/02/24 Rx 325 mg tablet New Prescriptions to Start Prescriptions: Allergies Allergy/AdvReac Type Severity Reaction Status Date / Time ciprofloxacin Allergy Hives Verified 05/30/23 13:57 hydromorphone Allergy Anaphylaxis Verified 05/30/23 13:57 ofloxacin Allergy Hives Verified 05/30/23 13:57 venlafaxine Allergy Rash Verified 05/30/23 13:57 Assessment and Plan *Assessment and plan (1) Mid back pain: Status: Acute Category: Medical Code(s): M54.9 - Dorsalgia, unspecified Plan I will refill the patient's [place] and provide a 1 month supply of this medication. Patient will return to clinic in 1 month for reevaluation of symptoms and plan of care. Risks and benefits of the medication have been explained in detail to the patient. The patient does understand the risk of dependence on the medication when given over a prolonged period. Patient has been advised of risks of oversedation with the prescribed medication. Narcan has been offered to the paitent in the event of oversedation. Patient has been advised that a family member should also be educated regarding administration of Narcan. The patient has been advised to consult with his/her primary care provider and pharmacist regarding drug-drug interaction of medications currently prescribed. Patient has been prescribed a controlled substance after being counseled on the medication, medication safety, and possible side effects. Opioid contract was reviewed and signed by the patient, and that they have agreed to all of the terms set forth by our compliance program. A UDS is needed to verify patient's compliance with our office pain contract. This is ordered based off specific treatments related to chronic pain with the potential to abuse certain medications. Patient has been instructed to contact the clinic with any concerns before the next appointment. Dr. Carreon has reviewed this note and agrees with this plan of care. This note was dictated using voice recognition software and make contain errors or omissions.
== END 2024-10-07 23:59 | disposition home or self-care (01) ==
PROVIDERS: PCP Nurse Practitioner; Visit Provider Nurse Practitioner Family
DX: M54.9 Dorsalgia, unspecified (principal); Z79.891 Long term (current) use of opiate analgesic; Z79.899 Other long term (current) drug therapy